=== PATIENT | male | born 1960 | race American Indian/Alaskan Native ===

== ENCOUNTER 2018-05-16 15:14 | Emergency (ER) | payer SELFPAY ==
[2018-05-16] MEDS ORDERED: ANTIVERT PO ONE (16:35)
--- NOTE | 2018-05-16 16:36 | Emergency Department Report ---
HPI - General Chief Complaint: Dizziness Time Seen by Provider: 05/16/18 16:31 - HPI HPI: Room 32 The patient is a 57-year-old male presenting with a chief complaint of vertigo. The patient states his symptoms began 3 days ago in the morning he began to feel dizzy as if the room was spinning. Patient states he went to work and tried a home remedy of vinegar and coconut water but this led to nausea and vomiting. Patient states his symptoms persisted until yesterday with dizziness has improved but the patient states she still feels off balance when he walks. Patient denies headache chest pain or shortness of breath. Patient denies any preceding trauma. Patient denies any history of fever. The patient states he has noticed that changing position sometimes brings on symptoms. When asked how he is feeling now the patient states he feels a little lightheaded and off balance. Location: [See above] Duration: 3 days Quality: Vertiginous Severity: Moderate Modifying factors: [see above] Context: [see above] Mode of transportation: Unknown ED Past Medical Hx - Past Medical History Hx Hypertension: Yes Hx Congestive Heart Failure: Yes - Surgical History Past Surgical History?: No - Family History Family history: no significant - Social History Smoking Status: Former Smoker (none 15 years) Substance Use Type: None (denies illicit drug use) - Medications Home Medications: Home Medications Medication Instructions Recorded Confirmed Last Taken Type Meclizine [Antivert] 25 mg PO TID PRN #20 tablet 05/16/18 Unknown Rx ED Review of Systems ROS: Stated complaint: DIZZY LIGHT HEADED/OFF BALANCE Other details as noted in HPI Constitutional: denies: fever Eyes: denies: eye pain ENT: denies: throat pain Respiratory: denies: shortness of breath Cardiovascular: denies: chest pain Endocrine: no symptoms reported Gastrointestinal: nausea, vomiting. denies: abdominal pain Genitourinary: denies: dysuria Musculoskeletal: back pain (chronic) Neurological: vertigo. denies: headache Physical Exam - Physical Exam Vital Signs: Vital Signs 05/16/18 15:31 Temperature 98.7 F Pulse Rate 57 L Respiratory 20 Rate Blood Pressure 196/81 O2 Sat by Pulse 97 Oximetry Physical Exam: GENERAL: The patient is well-developed well-nourished male sitting on stretcher not appearing to be in acute distress. [] HEENT: Normocephalic. Atraumatic. Extraocular motions are intact. Patient has moist mucous membranes. No nystagmus noted NECK: Supple. No meningitic signs are noted. Trachea midline CHEST/LUNGS: Clear to auscultation. There is no respiratory distress noted. HEART/CARDIOVASCULAR: Regular. There is no tachycardia. There is no gallop rub or murmur. ABDOMEN: Abdomen is soft, nontender. Patient has normal bowel sounds. There is no abdominal distention. SKIN: There is no rash. There is no edema. There is no diaphoresis. NEURO: The patient is awake, alert, and oriented. The patient is cooperative. The patient has no focal neurologic deficits. The patient has normal speech. Cranial nerves II through XII grossly intact, no drift. No dysmetria noted with [id number] bilaterally MUSCULOSKELETAL: There is no evidence of acute injury. ED Course Vital Signs 05/16/18 15:31 Temperature 98.7 F Pulse Rate 57 L Respiratory 20 Rate Blood Pressure 196/81 O2 Sat by Pulse 97 Oximetry - Reevaluation(s) Reevaluation #1: 05/16/18 20:53 Patient's blood pressure improved to systolic 160s after hydralazine. Patient feels improved. ED Medical Decision Making - Lab Data Result diagrams: 05/16/18 16:47 05/16/18 16:47 - EKG Data -: EKG Interpreted by Me EKG shows normal: sinus rhythm Rate: normal - EKG Data When compared to previous EKG there are: changes noted Interpretation: nonspecific ST-T wave jarad (new T-wave inversions in leads V4 V5 , 2 and 3) - Differential Diagnosis central vertigo, peripheral vertigo, symptomatic anemia Critical care attestation.: If time is entered above; I have spent that time in minutes in the direct care of this critically ill patient, excluding procedure time. ED Disposition Clinical Impression: Vertigo, Hypertension Disposition: - TO HOME OR SELFCARE Is pt being admited?: No Does the pt Need Aspirin: No Condition: Stable Instructions: Hypertension (ED) Additional Instructions: Return to the emergency department immediately should you develop worsening symptoms, fever, inability to tolerate food or liquid or any other concerns. Prescriptions: Meclizine [Antivert] 25 mg PO TID PRN #20 tablet PRN Reason: Vertigo Referrals: PRIMARY CARE, [Primary Care Provider] - 3-5 Days [facility] [Outside] - [place] (Please follow up with your primary physician as soon as possible for further blood pressure management) Time of Disposition: 20:55
[2018-05-16 17:00] LABS: Basophils # (Auto) 0.1 K/mm3 (0.0-0.1); Basophils % (Auto) 1.1 % (0.0-1.8); Eosinophils # (Auto) 0.1 K/mm3 (0.0-0.4); Eosinophils % (Auto) 1.3 % (0.0-4.3); Hematocrit 40.2 % (35.5-45.6); Hemoglobin 13.6 gm/dl (11.8-15.2); Lymphocytes # (Auto) 1.1 K/mm3 (1.2-5.4); Lymphocytes % (Auto) 19.4 % (13.4-35.0); Mean Corpuscular HGB Conc 34 % (32-34); Mean Corpuscular Hemoglobin 29 pg (28-32); Mean Corpuscular Volume 86 fl (84-94); Monocytes # (Auto) 0.5 K/mm3 (0.0-0.8); Monocytes % (Auto) 9.6 % (0.0-7.3); Platelet Count 202 K/mm3 (140-440); Red Blood Count 4.68 M/mm3 (3.65-5.03); Red Cell Distribution Width 14.1 % (13.2-15.2)
[2018-05-16 17:07] LABS: INR 1.01 (0.87-1.13)
[2018-05-16 17:08] LABS: Partial Thromboplastin Time 29.7 Sec. (24.2-36.6)
[2018-05-16 17:13] LABS: Creatine Kinase MB 3.7 ng/mL (0.0-4.0)
[2018-05-16 17:15] LABS: BUN/Creatinine Ratio 14; Blood Urea Nitrogen 17 mg/dL (9-20); Calcium 9.1 mg/dL (8.4-10.2); Hemolysis Index 5
--- NOTE | 2018-05-16 18:02 | Cat Scan Report ---
FINAL REPORT EXAM: CT HEAD/BRAIN WO CON HISTORY: vertigo TECHNIQUE: CT head without contrast PRIORS: None. FINDINGS: No acute intra-axial or extra-axial hemorrhage is identified. There is no evidence of midline shift or mass effect. The ventricles and sulci are within normal limits. Chandra-white matter differentiation is intact. No acute parenchymal abnormalities seen. Bony calvarium is grossly intact. Visualized portions of the mastoids and paranasal sinuses are unremarkable. IMPRESSION: Negative CT head
[2018-05-16] MEDS ORDERED: CATAPRES PO ONE (18:14)
[2018-05-16] MEDS ORDERED: CATAPRES ONE (18:19)
[2018-05-16] MEDS ORDERED: APRESOLINE IV ONE (19:50)
[2018-05-16 21:27] VITALS: BP 164/67
== END 2018-05-16 20:58 | disposition home or self-care (01) ==
LOC: ED 15:14
DX: R42 Dizziness and giddiness (principal); I11.0 Hypertensive heart disease with heart failure; I50.9 Heart failure, unspecified; Z87.891 Personal history of nicotine dependence; Z88.6 Allergy status to analgesic agent
CPT/HCPCS: 36415; 70450; 80048; 82550; 82553; 84484; 85025; 85610; 85730; 93005; 93010; 96374; 99284; J0360

== ENCOUNTER 2019-02-09 00:33 | Inpatient (IN) | payer SELFPAY ==
[2019-02-09] MEDS ORDERED: ASPIRIN PO ONE (00:46)
[2019-02-09 01:13] LABS: Basophils # (Auto) 0.1 K/mm3 (0.0-0.1); Basophils % (Auto) 1.4 % (0.0-1.8); Eosinophils # (Auto) 0.1 K/mm3 (0.0-0.4); Eosinophils % (Auto) 1.4 % (0.0-4.3); Hematocrit 34.3 % (35.5-45.6); Hemoglobin 11.4 gm/dl (11.8-15.2); Lymphocytes # (Auto) 0.7 K/mm3 (1.2-5.4); Lymphocytes % (Auto) 14.4 % (13.4-35.0); Mean Corpuscular HGB Conc 33 % (32-34); Mean Corpuscular Volume 85 fl (84-94); Monocytes # (Auto) 0.5 K/mm3 (0.0-0.8); Monocytes % (Auto) 11.2 % (0.0-7.3); Platelet Count 218 K/mm3 (140-440); Red Blood Count 4.04 M/mm3 (3.65-5.03); Red Cell Distribution Width 17.8 % (13.2-15.2)
[2019-02-09 01:39] LABS: BUN/Creatinine Ratio 19; Blood Urea Nitrogen 26 mg/dL (9-20); Calcium 8.5 mg/dL (8.4-10.2); Hemolysis Index 18
--- NOTE | 2019-02-09 02:08 | XRay Report ---
PROCEDURE: Chest. TECHNIQUE: Portable AP view. HISTORY: Chest pain. COMPARISONS: None. FINDINGS: The heart size is enlarged. The lungs are clear and well expanded. There are no pleural effusions. Th e soft tissues and regional skeleton are unremarkable. IMPRESSION: Cardiomegaly. This document is electronically signed by Jersey Hernandez MD., February 09 2019 02:06:56 AM ET
[2019-02-09] MEDS ORDERED: ASPIRIN ONE (02:52)
[2019-02-09] MEDS ORDERED: LASIX IV ONE (03:14)
[2019-02-09] MEDS ORDERED: MORPHINE IV ONE (03:17)
[2019-02-09] MEDS ORDERED: ZOFRAN IV ONE (03:18)
--- NOTE | 2019-02-09 04:15 | Emergency Department Report ---
ED Chest Pain HPI - General Chief Complaint: Chest Pain Stated Complaint: CHEST PAIN JOE Time Seen by Provider: 02/09/19 01:11 Source: patient Mode of arrival: Ambulatory Limitations: No Limitations - History of Present Illness Initial Comments: 58-year-old presents to the ED with chest pain chest pain, onset 1 hour prior to evaluation while at rest, Location: mid chest Radiation: none, Severity now (0-10): 2, Severity at worst (0-10): 8 Duration: 5 minutes characterized as: Pressure. The pain is relieved with aspirin, Patient denies exertional pain, patient denies pleuritic pain. Pain is associated with shortness of breath, leg swelling, PND, and orthopnea. Patient denies nausea/vomiting, no diaphoresis. MD Complaint: chest pain Onset/Timin -: Gradual, days(s) Onset: during rest, during exertion Pain Location: substernal Pain Radiation: none Severity: severe Severity scale (0 -10): 6 Quality: tightness Consistency: constant Worsens With: exertion - Related Data Previous Rx's Medication Instructions Recorded Last Taken Type Meclizine [Antivert] 25 mg PO TID PRN #20 tablet 05/16/18 Unknown Rx Allergies Allergy/AdvReac Type Severity Reaction Status Date / Time ibuprofen AdvReac Anaphylaxis Verified 05/16/18 18:53 Heart Score - HEART Score History: Moderately suspicious EKG: Non-specific Age: 45-65 Risk factors: > 3 risk factors or hx of atherosclerotic disease Troponin: < normal limit HEART Score: 5 ED Review of Systems ROS: Stated complaint: CHEST PAIN JOE Other details as noted in HPI Comment: All other systems reviewed and negative Eyes: denies: eye pain ENT: denies: ear pain, throat pain Respiratory: SOB with exertion Cardiovascular: chest pain, palpitations, dyspnea on exertion, edema ED Past Medical Hx - Past Medical History Previous Medical History?: Yes Hx Hypertension: Yes Hx Congestive Heart Failure: Yes Additional medical history: Obesity, Herniated disc, - Surgical History Past Surgical History?: No - Social History Smoking Status: Never Smoker Substance Use Type: None - Medications Home Medications: Home Medications Medication Instructions Recorded Confirmed Last Taken Type Meclizine [Antivert] 25 mg PO TID PRN #20 tablet 05/16/18 Unknown Rx ED Physical Exam - General Limitations: No Limitations General appearance: alert, in no apparent distress - Head Head exam: Present: atraumatic, normocephalic - Eye Eye exam: Present: normal appearance - ENT ENT exam: Present: normal exam, normal orophraynx - Neck Neck exam: Present: normal inspection - Cardiovascular Cardiovascular Exam: Present: regular rate, normal rhythm - GI/Abdominal GI/Abdominal exam: Present: soft - Extremities Exam Extremities exam: Present: pedal edema ED Course Vital Signs 02/09/19 02/09/19 02/09/19 00:40 01:20 03:49 Temperature 97.6 F Pulse Rate 94 H 54 L Respiratory 22 16 16 Rate Blood Pressure 182/82 Blood Pressure 152/74 [Left] O2 Sat by Pulse 94 95 Oximetry ED Medical Decision Making - Lab Data Result diagrams: 02/09/19 00:52 02/09/19 00:52 - EKG Data -: EKG Interpreted by Me EKG shows normal: sinus rhythm Rate: normal - EKG Data Interpretation: nonspecific ST-T wave jarad 02/09/19 04:19 RATE 60 - Medical Decision Making Patient received Lasix, aspirin, Motrin and Zofran, with minimal relief. We'll be admitted to the hospital for further treatment. - Differential Diagnosis CHF exacerbation, ACS Critical care attestation.: If time is entered above; I have spent that time in minutes in the direct care of this critically ill patient, excluding procedure time. ED Disposition Clinical Impression: Acute exacerbation of CHF (congestive heart failure) Qualifiers: Heart failure type: systolic Qualified Code(s): I50.23 - Acute on chronic systolic (congestive) heart failure Disposition: OP ADMIT IP TO THIS HOSP Is pt being admited?: Yes Does the pt Need Aspirin: No Condition: Stable Referrals: GRETEL MALCOLM MD [Primary Care Provider] - 3-5 Days
[2019-02-09] MEDS ORDERED: TYLENOL PO PRN (05:09)
[2019-02-09] MEDS ORDERED: ZOFRAN IV PRN (05:09)
[2019-02-09] MEDS ORDERED: SODIUM CHLORIDE FLUSH SYRINGE 10 ML IV PRN (05:09)
--- NOTE | 2019-02-09 05:10 | History and Physical Report ---
History of Present Illness Date of examination: 02/09/19 History of present illness: 58 -year-old man with a history of CHF, hypertension comes emergency room with complaints of shortness of breath, dyspnea on exertion, PND and orthopnea worsening lower extremity edema. Also complaining of chest pain in the left substernal area intermittently 2 weeks. Pain is sharp, intermittent lasting 1- 2 hours, intensity probable 10, no radiation, cannot identify exacerbating or leaving factors. Denies nausea vomiting, diaphoresis or palpitation Review of systems Constitutional: no weight loss, chills, fever Ears, eyes, nose, mouth and throat: no nasal congestion, no nasal discharge, no sinus pressure, no vision change, no red eye. Neck: No neck pain or rigidity. Cardiovascular: no palpitations Respiratory: no cough Gastrointestinal: no hematochezia, abdominal pain Genitourinary : no frequency , no hematuria Musculoskeletal: no joint swelling or muscle ache Integumentary: no rash, no pruritis Neurological: no parathesias, no focal weakness Endocrine: no cold or heat intolerance, no polyuria or polydipsia Hematologic/Lymphatic: no easy bruising, no easy bleeding, no gland swelling Allergic/Immunologic: no urticaria, no angioedema. PAST MEDICAL HISTORY:CHF, hypertension PAST SURGICAL HISTORY: None SOCIAL HISTORY: Denies alcohol, drugs, tobacco FAMILY HISTORY: Hypertension Medications and Allergies Allergies Allergy/AdvReac Type Severity Reaction Status Date / Time ibuprofen AdvReac Anaphylaxis Verified 05/16/18 18:53 Home Medications Medication Instructions Recorded Confirmed Last Taken Type Atenolol 100 mg PO DAILY 02/09/19 02/09/19 1 Day Ago History ~02/08/19 Furosemide 40 mg PO DAILY 02/09/19 02/09/19 1 Day Ago History ~02/08/19 Losartan 100 mg PO DAILY 02/09/19 02/09/19 1 Day Ago History ~02/08/19 Active Meds: Active Medications Enoxaparin Sodium (Lovenox) 30 mg SUB-Q QDAY NEO Exam - Physical Exam Narrative exam: General Apperance: The patient lying in bed, breathing comfortable HEENT: Normocephalic, atraumatic. Pupils equally round and reactive to light, EOMI, no sclericterus or JVD or thyromegaly or nodule. , no carotid bruit, mucous membranes moist, no exudate or erythema Heart: S1-S2, regular is rhythm Lungs: Clear to auscultation bilaterally, breathing comfortable Abdomen: Positive bowel sounds, soft, nontender, nondistended, no organomegaly Extremities: 3+ edema of the thighs, no cyanosis clubbing Skin: no rash, nodule, warm and dry Neuro: cranial nerves 2-12 intact, speech is fluent, motor/sensory intact - Constitutional Vitals: Temp Pulse Resp BP Pulse Ox 97.6 F 64 18 180/99 86 02/09/19 00:40 02/09/19 04:31 02/09/19 04:31 02/09/19 04:31 02/09/19 04:31 Results - Labs CBC & Chem 7: 02/09/19 00:52 02/09/19 00:52 Labs: Abnormal lab results 02/09/19 02/09/19 Range/Units 00:52 00:52 Hgb 11.4 L (11.8-15.2) gm/dl Hct 34.3 L (35.5-45.6) % RDW 17.8 H (13.2-15.2) % Rice % (Auto) 11.2 H (0.0-7.3) % Lymph # 0.7 L (1.2-5.4) K/mm3 Seg Neutrophils % 71.6 H (40.0-70.0) % BUN 26 H (9-20) mg/dL NT-Pro-B Natriuret Pep 42642 H (0-900) pg/mL - Imaging and Cardiology EKG: image reviewed Chest x-ray: image reviewed Assessment and Plan Assessment CHF exacerbation Chest pain Hypertension Plan Diurese with IV Lasix Monitor I's and O's, daily weights Check cardiac enzymes, echo, consult cardiology Start beta michelle, aspirin, FACUNDO inhibitor Obtain stress test, DVT prophylaxis
[2019-02-09] MEDS ORDERED: APRESOLINE IV PRN (06:05)
[2019-02-09 06:29] LABS: Creatine Kinase MB 5.6 ng/mL (0.0-4.0)
[2019-02-09] MEDS ORDERED: LASIX ONE (06:30)
[2019-02-09] MEDS: LASIX IV SCH ×2 (06:32→17:47)
[2019-02-09] MEDS ORDERED: LEXISCAN IV ONE ×2 (07:36→07:49)
[2019-02-09] MEDS ORDERED: LOVENOX SUB-Q SCH (10:00)
[2019-02-09] MEDS ORDERED: ATENOLOL 100 MG PO SCH (10:00)
[2019-02-09] MEDS ORDERED: COREG PO SCH (10:00)
[2019-02-09] MEDS ORDERED: BABY ASPIRIN PO SCH (10:00)
[2019-02-09] MEDS ORDERED: NON-FORMULARY (Losartan 100 MG) PO SCH (10:00)
[2019-02-09] MEDS ORDERED: TENORMIN PO SCH (10:00)
[2019-02-09] MEDS ORDERED: ZESTRIL PO SCH (10:00)
--- NOTE | 2019-02-09 11:12 | Event Note ---
Date: 02/09/19 This is a follow-up from an admission earlier this morning. We will continue plan as outlined in H&P. Total visit time 25 minutes with greater than 50% spent in correlation of care and counseling.
--- NOTE | 2019-02-09 11:27 | Event Note ---
Date: 02/09/19 Detailed cardiology consultation dictated. S/p lexiscan MPI stress test this AM which was positive for ischemia. Echo reviewed - EF 30-35%. Will plan for LHC in AM for definitive diagnosis. NPO after MN. Edson CUELLAR NP / DR. FORD
[2019-02-09] MEDS: COZAAR PO SCH (11:54)
[2019-02-09] MEDS: LOVENOX SUB-Q SCH (11:54)
[2019-02-09] MEDS: SODIUM CHLORIDE FLUSH SYRINGE 10 ML IV SCH ×2 (11:55→22:45)
[2019-02-09] MEDS ORDERED: NACL 0.9% 500 ML 500 ML IV SCH (12:00)
[2019-02-09] MEDS: COREG PO SCH (22:45)
[2019-02-09] MEDS: PERCOCET 5/325 PO PRN (22:47)
--- NOTE | 2019-02-10 00:04 | Treadmill Report ---
NUCLEAR STRESS TEST REFERRING PHYSICIAN: Hospitalist service. PROTOCOL: The patient was brought to the stress lab in postabsorptive state, given 10 mCi of technetium 99m at rest. The patient underwent rest imaging. The patient underwent Lexiscan stress test. At peak stress, the patient was given 26 mCi of technetium 99m. Shortly thereafter, the patient underwent stress imaging. Raw imaging reveals mild GI artifact. No significant motion artifacts. SPECT imaging examined carefully in horizontal long axis, vertical long axis, short axis views. There is a dilated LV chamber size with a moderate to large inferior defect, partially reversible, severe global left ventricular hypokinesis. Calculated ejection fraction of 25%. CONCLUSIONS: Abnormal myocardial perfusion scan with a moderate to large partially reversible inferior apical defect consistent with questionable prior GA with periinfarct ischemia. Gated wall motion reveals mildly dilated left ventricular chamber size with severe global left ventricular hypokinesis. Calculated ejection fraction of 25%. Suggest clinical correlation. JOB# [id number] MALIKA/CARMEN
[2019-02-10 05:23] LABS: Calcium 8.4 mg/dL (8.4-10.2)
[2019-02-10 05:26] LABS: Hemoglobin 10.4 gm/dl (11.8-15.2); Mean Corpuscular HGB Conc 32 % (32-34); Mean Corpuscular Volume 86 fl (84-94); Platelet Count 192 K/mm3 (140-440); Red Blood Count 3.71 M/mm3 (3.65-5.03); Red Cell Distribution Width 18.4 % (13.2-15.2)
[2019-02-10] MEDS: LASIX IV SCH (06:00)
[2019-02-10] MEDS: PERCOCET 5/325 PO PRN (06:01)
[2019-02-10 06:18] LABS: RBC Morphology Normal; Total Cells Counted 100
[2019-02-10 07:41] LABS: INR 1.18 (0.87-1.13)
[2019-02-10] MEDS ORDERED: ASPIRIN PO SCH (10:00)
[2019-02-10] MEDS ORDERED: HEPARIN/NS 5000 UNIT/500ML(CATH LAB) 1,000 ML IR ONE (10:19)
[2019-02-10] MEDS ORDERED: CALAN ONE (10:19)
[2019-02-10] MEDS ORDERED: XYLOCAINE 2% INFILTRATI ONE (10:19)
[2019-02-10] MEDS ORDERED: NITROGLYCERIN SYRINGE 3 ML ONE (10:20)
[2019-02-10] MEDS ORDERED: NACL 0.9% 500 ML 500 ML ONE (10:21)
[2019-02-10] MEDS ORDERED: SUBLIMAZE ONE (10:57)
[2019-02-10] MEDS ORDERED: VERSED ONE (10:57)
[2019-02-10] MEDS: HEPARIN 10,000 UNITS/10 ML ONE ×2 (11:07→11:21)
[2019-02-10] MEDS ORDERED: APRESOLINE ONE (11:34)
[2019-02-10] MEDS ORDERED: SOLU-Medrol ONE (11:42)
[2019-02-10] MEDS ORDERED: BENADRYL ONE (11:42)
--- NOTE | 2019-02-10 11:44 | Progress Note ---
Assessment and Plan Pt s/p [facility] this AM which showed multivessel CAD. Pt to be tx to [place] where Dr. Myles will accept for possible CABG. The patient has been seen in conjunction with Dr. Scott who agrees with the assessment and plan of care. - Patient Problems (1) Chest pain Current Visit: Yes Status: Acute (2) CAD (coronary artery disease) Current Visit: Yes Status: Chronic (3) Acute HFrEF (heart failure with reduced ejection fraction) Current Visit: Yes Status: Acute (4) Cardiomyopathy Current Visit: Yes Status: Chronic Subjective Date of service: 02/10/19 Principal diagnosis: HF; cp Interval history: pt for [facility] today Objective Last Vital Signs Temp 97.3 F L 02/10/19 03:50 Pulse 47 L 02/10/19 03:50 Resp 20 02/10/19 03:50 BP 151/79 02/10/19 03:50 Pulse Ox 97 02/10/19 08:02 - Physical Examination General: No Apparent Distress HEENT: Positive: PERRL, Normocephaly, Mucus Membranes Moist Neck: Positive: neck supple, trachea midline Cardiac: Positive: Reg Rate and Rhythm, S1/S2 Lungs: Positive: Decreased Breath Sounds Neuro: Positive: Grossly Intact Abdomen: Negative: Tender Skin: Negative: Rash, Wound Musculoskeletal: No Pain Extremities: Present: +2 Edema (BLE) - Labs and Meds Coagulation 02/10/19 Range/Units 06:58 PT 14.7 (12.2-14.9) Sec. INR 1.18 H (0.87-1.13) CBC 02/10/19 Range/Units 04:40 WBC 4.0 L (4.5-11.0) K/mm3 RBC 3.71 (3.65-5.03) M/mm3 Hgb 10.4 L (11.8-15.2) gm/dl Hct 32.0 L (35.5-45.6) % Plt Count 192 (140-440) K/mm3 Comprehensive Metabolic Panel 02/10/19 Range/Units 04:40 Sodium 142 (137-145) mmol/L Potassium 4.1 (3.6-5.0) mmol/L Chloride 102.5 (98-107) mmol/L Carbon Dioxide 31 H D (22-30) mmol/L BUN 24 H (9-20) mg/dL Creatinine 1.5 (0.8-1.5) mg/dL Glucose 106 H (75-100) mg/dL Calcium 8.4 (8.4-10.2) mg/dL - Imaging and Cardiology EKG: image reviewed - Telemetry EKG Rhythm: Sinus Rhythm
[2019-02-10] MEDS ORDERED: PEPCID IV ONE ×2 (11:53→12:52)
--- NOTE | 2019-02-10 12:25 | Discharge Summary ---
Providers - Providers Date of Admission: 02/09/19 05:08 Date of discharge: 02/10/19 Attending physician: SHARRON MENA 02/09/19 05:09 Consult to Physician [CONS] Routine Comment: Consulting Provider: LISA DELEON Physician Instructions: Reason For Exam: chf/cp 02/09/19 17:27 Consult to Wound/ET Nurse [CONS] Routine Reason For Exam: wound eval of Left LE; Wound present on admission 02/10/19 11:41 Consult to Cardiac Rehabilitation [CONS] Routine Reason For Exam: Cardiac Rehab Evaluation [facility] Reason for admission: cp Condition: Stable Hospital course: 58 -year-old man with a history of CHF, hypertension comes emergency room with complaints of shortness of breath, dyspnea on exertion, PND and orthopnea worsening lower extremity edema. Also complained of chest pain in the left substernal area intermittently 2 weeks. Pain described as sharp, intermittent lasting 1-2 hours intermittently, intensity probable 10, no radiation and could not identify exacerbating or leaving factors. Patient underwent Lexiscan MPI s tress test which was positive for ischemia. Echocardiogram was obtained which revealed EF of 30-35%. Cardiology saw the patient in consultation. Patient with new diagnosis of ischemic cardiomyopathy warranted LHC. LHC this AM which showed multivessel CAD. Pt to be tx to [place] where Dr. Myles will accept for possible CABG. Dedicated discharge time 35 minutes. Disposition: [id number] Time spent for discharge: 35 - Discharge Diagnoses (1) Ischemic dilated cardiomyopathy Status: Acute (2) Acute HFrEF (heart failure with reduced ejection fraction) Status: Acute (3) Acute exacerbation of CHF (congestive heart failure) Status: Acute Qualifiers: Heart failure type: systolic Qualified Code(s): I50.23 - Acute on chronic systolic (congestive) heart failure (4) Chest pain Status: Acute (5) CAD (coronary artery disease) Status: Chronic Core Measure Documentation - Palliative Care Palliative Care/ Comfort Measures: Not Applicable - Core Measures Any of the following diagnoses?: heart failure - Heart Failure Discharge Requirements FACUNDO/ARB for LVSD if EF <40%: Yes Beta michelle at discharge: Yes Exam - Constitutional Vitals: Temp Pulse Resp BP Pulse Ox 97.3 F L 56 L 20 135/78 97 06/28/19 11:58 02/10/19 12:00 02/10/19 12:00 02/10/19 12:00 02/10/19 12:00 General appearance: Present: no acute distress, well-nourished - EENT Eyes: Present: PERRL ENT: hearing intact, clear oral mucosa - Neck Neck: Present: supple, normal ROM - Respiratory Respiratory effort: normal Respiratory: bilateral: CTA - Cardiovascular Heart Sounds: Present: S1 & S2. Absent: rub, click - Extremities Extremities: pulses symmetrical, No edema Peripheral Pulses: within normal limits - Abdominal General gastrointestinal: Present: soft, non-tender, non-distended, normal bowel sounds Male genitourinary: Present: normal - Integumentary Integumentary: Present: clear, warm, dry - Musculoskeletal Musculoskeletal: gait normal, strength equal bilaterally - Psychiatric Psychiatric: appropriate mood/affect, intact judgment & insight - Neurologic Neurologic: CNII-XII intact, moves all extremities Plan Activity: advance as tolerated Weight Bearing Status: Weight Bear as Tolerated Diet: low fat, low cholesterol, low salt Follow up with: GRETEL MALCOLM MD [Primary Care Provider] - 3-5 Days
[2019-02-10] MEDS: COZAAR PO SCH (14:13)
[2019-02-10] MEDS: COREG PO SCH (14:13)
[2019-02-10] MEDS: SODIUM CHLORIDE FLUSH SYRINGE 10 ML IV SCH (14:14)
[2019-02-10] MEDS: LOVENOX SUB-Q SCH (14:14)
--- NOTE | 2019-02-10 14:32 | Cardiac Catherization Report ---
CARDIAC CATH REFERRING PHYSICIAN: Dr. David Madden. INDICATION FOR PROCEDURE: The patient is a pleasant 58-year-old -Angolan gentleman with a finding of a severe cardiomyopathy, abnormal nuclear stress test, referred for left heart catheterization. Risks, benefits, and potential alternatives explained at length prior to obtaining informed consent. PROCEDURE IN DETAIL: The patient was brought to the catheterization lab in a postabsorptive state, prepped and draped in sterile fashion. Zhao's test in right hand was normal. A 2 mL of 2% lidocaine was used to anesthetize the right wrist. A standard 6-Telugu hydrophilic sheath used to cannulate the right radial artery via modified Seldinger technique. All exchanges performed to exchange a J-tip guidewire. JL3.5 catheter used to engage the left main. No dampening or ventricularization. Cineangiography performed in all projections. JR4 catheter was used to cross the aortic valve under fluoroscopic guidance. Left ventriculography performed in 30 SHOOK and 30 SYRIAC projections via hand injections, catheter flushed. Manual pullback performed with continuous pressure monitoring. Catheter used to engage the right coronary. No dampening or ventricularization. Cineangiography performed in all projections. The left main was found to be significant. IVUS is performed. A JL4.5 guide is used to engage the esophagus without difficulty. Additional heparin is given. A Vista wire is used to cross into the distal LAD. Multiple passes of intravascular ultrasound are performed, probe is removed. Wire is removed. Final angiogram reveals no complications. I directly supervised the administration of moderate sedation with fentanyl and Versed from 11:06 to 11:40 a.m. There are no immediate complications. The patient tolerated the procedure well. DATA: The patient remained in sinus bradycardia throughout the procedure. No pauses or arrhythmias noted. CORONARY ANATOMY: This is a right dominant system. Right coronary is a large vessel, courses AV groove, distally bifurcates in the posterior and posterolateral branch. The body of the right coronary is without significant disease, scattered luminal irregularities, distal posterolateral with a 90% stenosis noted. The left main with an angiographic 60-70% stenosis distally, 80% ostial left circumflex stenosis is identified. There is an occluded OM2 branch. LAD itself has scattered luminal irregularities, but no occlusive disease identified. There is an 80% stenosis of an ostial second diagonal. Left ventriculography reveals severe global left ventricular hypokinesis, estimated ejection fraction of 20-25%, moderately dilated LV chamber size, elevated LVEDP of 30-35 mmHg. Aortic pressure is 170 systolic. Intravascular ultrasound on the left main reveals significant disease with a minimal luminal area of 4-5 mm2. This is anatomically significant. CONCLUSIONS: 1. Severe multivessel coronary artery disease, 70% distal left main with IVUS revealing a minimal luminal area of 4-5 mm2, 70% ostial second diagonal, occluded OM to 90% distal right posterolateral. 2. Mildly dilated left ventricular chamber size with severe global left ventricular hypokinesis with estimated ejection fraction 20-25%. 3. Mildly to moderately elevated LVEDP. 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 Control hypertension, diuresis. Recommend complete revascularization with coronary bypass surgery. It should be noted the patient is a known diabetic, the patient will be transferred to [facility] for the consideration of the same, he is clinically stable, chest pain free. No overt symptoms at this point. Standard radial care. Results of procedure explained to the patient. All questions and concerns were addressed. JOB# [id number] SBMandeep/CARMEN
[2019-02-10 16:32] VITALS: BP 144/56
--- NOTE | 2019-02-10 22:22 | Consultation ---
Consultation is requested by Dr. Palma Arnold. HISTORY OF PRESENT ILLNESS: This is a 58-year-old -Bangladeshi male who was admitted to the hospital with complaints of sudden onset of severe left-sided chest pain as well as shortness of breath for further evaluation and management. History is obtained from the patient. The patient states that he has been diagnosed to have congestive heart failure over 2 years ago. He has a history of hypertension but he has not been to see any senior counsel commercial. The patient said that he does not remember having any cardiac workup done in the past. According to him, he has not been feeling well for the past 2-3 weeks. He has been noticing progressively worsening shortness of breath and edema of feet, followed by orthopnea and PND. The patient denied any palpitations or claudications. Mild dizziness noted. No syncope. He also denied any fever, cough or chills. On the day of admission, he started experiencing severe left-sided chest pain, which was sharp in nature. No definite radiation to the neck, throat, or arms. No other associated features with the chest pain other than shortness of breath. With these complaints, the patient was seen in the Emergency Room. An EKG done which showed nonspecific ST-T changes. The patient was suspected to have congestive heart failure and was hospitalized for further management. At this time, the patient stated that he is feeling better. He is still dyspneic. He still has some cough. He still complains of orthopnea. The patient denied any known coronary artery disease or myocardial infarction in the past. PAST MEDICAL HISTORY: Positive for hypertension and history of congestive heart failure. FAMILY HISTORY: Positive for hypertension. SOCIAL HISTORY: The patient is a nonsmoker and nonalcoholic. ALLERGIES: IBUPROFEN. MEDICATIONS: At the time of admission, the patient was on atenolol 100 mg p.o. daily, furosemide 40 mg p.o. daily and losartan 100 mg p.o. daily. REVIEW OF SYSTEMS: CARDIOVASCULAR: As described above. RESPIRATORY: The patient denied any history of wheezing, asthma. No GI or complaints at this time. PHYSICAL EXAMINATION: GENERAL: This is a 58-year-old male, well-nourished, in no acute distress at the present time. The patient is conscious, alert, oriented, afebrile. VITAL SIGNS: Normal and stable. His blood pressure was initially elevated at 180/100, heart rate was 64 per minute and regular. SKIN: Warm and dry. HEENT: Pupils are reactive. NECK: Supple. Both carotids are well palpable. No definite bruit. No JVD. CHEST: Lungs, the patient has coarse rales at the lung bases with some expiratory rhonchi. HEART: S1, S2 heard well. Grade 1/6 systolic murmur noted at the left sternal border and aortic area. No diastolic murmur, no gallop rhythm. ABDOMEN: Soft and nontender. No palpable masses. Bowel sounds heard normally. EXTREMITIES: He does have trace edema bilaterally. No calf tenderness. Peripheral pulses are palpable. NEUROLOGICAL: Grossly within normal limits. RECTAL: Not done at this time. IMAGING: EKG done showed normal sinus rhythm, nonspecific ST-T changes. LABORATORY DATA: Hemoglobin was 11.4 with hematocrit of 34.3. The patient's BUN was 26 with a creatinine of 1.4, potassium was 3.7 and glucose was 98. IMPRESSION: 1. Congestive heart failure. 2. Hypertension. 3. Chest pain, ? cause, atypical for angina pectoris. 4. History of congestive heart failure. This is a 58-year-old -Bangladeshi male with a history of hypertension and prior history of congestive heart failure, was admitted to the hospital with complaints of chest pain and shortness of breath, orthopnea and PND. His history is consistent with decompensated congestive heart failure. Etiology is unclear. It may be secondary to uncontrolled hypertension. I agree with the present management of diuresing. Control the blood pressure. We will obtain echocardiogram to assess LV function. We will also consider doing a Lexiscan thallium test to rule out any ischemic etiology for his chest pain and congestive heart failure. Pros and cons discussed with the patient. The importance of keeping the blood pressure under control and staying on a strict diet explained to the patient. He expressed understanding. We will follow up on the stress test and echocardiogram. Continue present medications. Thank you very much for this consultation. We will follow the patient along with you. JOB# [id number] EDD/CARMEN
== END 2019-02-10 18:01 | disposition short-term general hospital (02) | DRG 287 ==
LOC: ED 00:33 → 4A 05:08
PROVIDERS: ADMIT Internal Medicine; ATTEND Hospitalist
PROC: 4A023N7 Measurement of Cardiac Sampling and Pressure, Left Heart, Percutaneous Approach (ICD-10-PCS; principal; 2019-02-10)
PROC: B2111ZZ Fluoroscopy of Multiple Coronary Arteries using Low Osmolar Contrast (ICD-10-PCS; 2019-02-10)
PROC: B2151ZZ Fluoroscopy of Left Heart using Low Osmolar Contrast (ICD-10-PCS; 2019-02-10)
DX: I11.0 Hypertensive heart disease with heart failure (principal); I25.10 Atherosclerotic heart disease of native coronary artery without angina pectoris; I50.23 Acute on chronic systolic (congestive) heart failure; I42.9 Cardiomyopathy, unspecified; E66.9 Obesity, unspecified; I25.5 Ischemic cardiomyopathy
CPT/HCPCS: 36415; 71045; 78452; 80048; 82550; 82553; 82962; 83880; 84484; 85007; 85025; 85610; 92978; 93005; 93010; 93017; 93306; 93458; 94760; 96374; 96375; 99285; G0378; A9502; C1753; C1769; C1887; C1894; J0360; J1200; J1644; J1650; J1940; J2250; J2270; J2405; J2785; J2930; J3010; J7040; Q9967

== ENCOUNTER 2021-08-18 19:24 | Emergency (ER) | payer MEDICARE ==
[2021-08-19] MEDS ORDERED: FUROSEMIDE 20 MG TAB PO ONE (03:22)
--- NOTE | 2021-08-19 03:44 | Emergency Department Report ---
ED General Adult HPI - General Chief complaint: Medical Clearance Stated complaint: MEDICATION REFILL Source: patient Mode of arrival: Ambulatory Limitations: No Limitations - History of Present Illness Initial comments: Patient is 60-year-old -Iranian male with a history of chronic CHF, hypertension and chronic osteoarthritis who presented to the ED for medication refill of his Lasix 40 mg tablets after he ran out of his medications about 12 hours ago. Patient states that he went to get his refills of Lasix at the pharmacy and was told that the symptoms are down and he was not able to get any medication. Patient states that he would like to get a dose of Lasix in the ED and be sent home on another prescription of Lasix 40 mg for which she takes twice a day, so that he can be able to have this filled in another pharmacy as he awaits the other pharmacy to rectify their network. Patient denies chest pain, shortness of breath, dizziness, syncope, fever, chills, diaphoresis, change in vision, nausea and vomiting or diarrhea, fever and chills or cough. MD Complaint: Medication refill, needs LASIX 40mg -: Sudden, hour(s) (8) Location: chest Radiation: non-radiation Severity scale (0 -10): 0 Improves with: none Worsens with: none Associated Symptoms: denies other symptoms. denies: confusion, chest pain, cough, diaphoresis, fever/chills, headaches, malaise, nausea/vomiting, rash, shortness of breath, syncope, weakness Treatments Prior to Arrival: none - Related Data Home Medications Medication Instructions Recorded Confirmed Last Taken Indomethacin 50 mg PO QDAY PRN 08/03/21 08/04/21 08/02/21 Losartan [Cozaar] 100 mg PO QDAY 08/03/21 08/04/21 08/02/21 Metoprolol Tartrate [Lopressor] 50 mg PO QDAY 08/03/21 08/04/21 08/02/21 hydrALAZINE [Apresoline] 50 mg PO QDAY 08/03/21 08/04/21 08/02/21 Ascorbic Acid [Vitamin C] 1,000 mg PO QDAY 08/04/21 08/04/21 08/02/21 Cholecalciferol (Vitamin D3) 5,000 unit PO DAILY 08/04/21 08/04/21 08/02/21 [Vitamin D3] Magnesium Oxide [Magnesium] 400 mg PO QDAY 08/04/21 08/04/21 08/02/21 [place]-3 Fatty Acids/Fish Oil [Fish 1,000 mg PO QDAY 08/04/21 08/04/21 08/02/21 Oil] Vitamin E 1,000 unit PO QDAY 08/04/21 08/04/21 08/02/21 Zinc [Zinc 50mg TAB] 50 mg PO QDAY 08/04/21 08/04/21 08/02/21 Previous Rx's Medication Instructions Recorded Last Taken Type Simvastatin 10 mg PO QHS #30 tablet 08/05/21 Unknown Rx Furosemide [Lasix] 40 mg PO Q12H #60 08/19/21 Unknown Rx Allergies Allergy/AdvReac Type Severity Reaction Status Date / Time ibuprofen AdvReac Anaphylaxis Verified 08/18/21 22:14 shrimp AdvReac Itching Verified 08/18/21 22:14 ED Review of Systems ROS: Stated complaint: MEDICATION REFILL Other details as noted in HPI Constitutional: other (Medication refill for Lasix 40 mg). denies: chills, fever Eyes: denies: eye pain, eye discharge, vision change ENT: denies: ear pain, throat pain Respiratory: denies: cough, shortness of breath, wheezing Cardiovascular: denies: chest pain, palpitations, dyspnea on exertion Endocrine: no symptoms reported Gastrointestinal: denies: abdominal pain, nausea, diarrhea Genitourinary: denies: urgency, dysuria Musculoskeletal: denies: back pain, joint swelling, arthralgia Skin: denies: rash, lesions Neurological: denies: headache, weakness, paresthesias Psychiatric: denies: anxiety, depression Hematological/Lymphatic: denies: easy bleeding, easy bruising ED Past Medical Hx - Past Medical History Hx Hypertension: Yes Hx Congestive Heart Failure: Yes Hx Arthritis: Yes Additional medical history: Obesity, Herniated disc, - Surgical History Past Surgical History?: No - Social History Smoking Status: Never Smoker - Medications Home Medications: Home Medications Medication Instructions Recorded Confirmed Last Taken Type Indomethacin 50 mg PO QDAY PRN 08/03/21 08/04/21 08/02/21 History Losartan [Cozaar] 100 mg PO QDAY 08/03/21 08/04/21 08/02/21 History Metoprolol Tartrate [Lopressor] 50 mg PO QDAY 08/03/21 08/04/21 08/02/21 History hydrALAZINE [Apresoline] 50 mg PO QDAY 08/03/21 08/04/21 08/02/21 History Ascorbic Acid [Vitamin C] 1,000 mg PO QDAY 08/04/21 08/04/21 08/02/21 History Cholecalciferol (Vitamin D3) 5,000 unit PO DAILY 08/04/21 08/04/21 08/02/21 History [Vitamin D3] Magnesium Oxide [Magnesium] 400 mg PO QDAY 08/04/21 08/04/21 08/02/21 History [place]-3 Fatty Acids/Fish Oil [Fish 1,000 mg PO QDAY 08/04/21 08/04/21 08/02/21 History Oil] Vitamin E 1,000 unit PO QDAY 08/04/21 08/04/21 08/02/21 History Zinc [Zinc 50mg TAB] 50 mg PO QDAY 08/04/21 08/04/21 08/02/21 History Simvastatin 10 mg PO QHS #30 tablet 08/05/21 Unknown Rx Furosemide [Lasix] 40 mg PO Q12H #60 08/19/21 Unknown Rx ED Physical Exam - General Limitations: No Limitations General appearance: alert, in no apparent distress - Head Head exam: Present: atraumatic, normocephalic, normal inspection - Eye Eye exam: Present: normal appearance, PERRL, EOMI Pupils: Present: normal accommodation - ENT ENT exam: Present: normal exam, normal orophraynx, mucous membranes moist, TM's normal bilaterally, normal external ear exam - Neck Neck exam: Present: normal inspection, full ROM - Respiratory Respiratory exam: Present: normal lung sounds bilaterally. Absent: respiratory distress, wheezes, rales, rhonchi, chest wall tenderness, decreased breath sounds, prolonged expiratory - Cardiovascular Cardiovascular Exam: Present: regular rate, normal rhythm, normal heart sounds. Absent: systolic murmur, diastolic murmur, rubs, gallop - GI/Abdominal GI/Abdominal exam: Present: soft, normal bowel sounds. Absent: tenderness, guarding, hyperactive bowel sounds, hypoactive bowel sounds, organomegaly - Extremities Exam Extremities exam: Present: normal inspection, full ROM, normal capillary refill - Back Exam Back exam: Present: normal inspection, full ROM. Absent: tenderness, CVA tenderness (R), CVA tenderness (L), muscle spasm, paraspinal tenderness, vertebral tenderness - Neurological Exam Neurological exam: Present: alert, oriented X3, CN II-XII intact, normal gait, reflexes normal - Psychiatric Psychiatric exam: Present: normal affect, normal mood - Skin Skin exam: Present: warm, dry, intact, normal color. Absent: rash ED Course Vital Signs 08/18/21 22:19 Temperature 99.4 F Pulse Rate 86 Respiratory 18 Rate Blood Pressure 141/77 O2 Sat by Pulse 93 Oximetry ED Medical Decision Making - Medical Decision Making This is 60-year-old -Iranian male with a history of chronic CHF, hypertension and chronic osteoarthritis who presented to the ED for medication refill of his Lasix 40 mg tablets after he ran out of his medications about 12 hours ago. Patient states that he went to get his refills of Lasix at the [facility] and was told that the symptoms are down and he was not able to get any medication. Patient states that he would like to get a dose of Lasix in the ED and be sent home on another prescription of Lasix 40 mg for which she takes twice a day, so that he can be able to have this filled in another pharmacy as he awaits the other pharmacy to rectify their network. In the ED, patient is alert and oriented x3 and is not in any distress. Patient is hemodynamically stable. Patient was treated in the ED with Lasix 40 mg p.o. x1. Patient was therefore discharged home on another prescription of Lasix 40 mg to be taken every 12 hours. Patient was advised to follow-up with his primary care physician as needed or return to the ED immediately if symptoms get worse. - Differential Diagnosis Medication refill; CHF; anxiety; Critical care attestation.: If time is entered above; I have spent that time in minutes in the direct care of this critically ill patient, excluding procedure time. ED Disposition Clinical Impression: Medication refill Chronic CHF (congestive heart failure) Qualifiers: Heart failure type: unspecified Qualified Code(s): I50.9 - Heart failure, unspecified Disposition: HOME / SELF CARE / HOMELESS Is pt being admited?: No Does the pt Need Aspirin: No Condition: Stable Instructions: Heart Failure, Self Care, [id number], Heart Failure, Diagnosis, [id number] Additional Instructions: Follow-up with your primary care physician as needed. Take medication as previously prescribed and return to the ED immediately if symptoms get worse. Prescriptions: Furosemide [Lasix] 40 mg PO Q12H #60 Referrals: [facility] [Provider Group] - as needed Time of Disposition: 03:42 Print Language: HEBREW
[2021-08-19 04:47] VITALS: BP 157/79
== END 2021-08-19 04:50 | disposition home or self-care (01) ==
LOC: ED 19:24
DX: I11.0 Hypertensive heart disease with heart failure (principal); I50.9 Heart failure, unspecified; Z76.0 Encounter for issue of repeat prescription; Z88.6 Allergy status to analgesic agent; Z91.013 Allergy to seafood; Z79.899 Other long term (current) drug therapy
CPT/HCPCS: 99282

== ENCOUNTER 2021-09-13 13:07 | Inpatient (IN) | payer MEDICARE ==
--- NOTE | 2021-09-13 14:11 | Emergency Department Report ---
HPI - General Chief Complaint: Dyspnea/Respdistress Time Seen by Provider: 09/13/21 14:02 - HPI HPI: 60-year-old -Bulgarian male presents to the emergency department with a complaint of a few weeks of progressively worsening shortness of breath, lower extremity swelling and "fluid on my lungs." Patient has a history of ischemic dilated, myopathy, CHF, hypertension, diabetes, coronary artery disease with previous CABG. He says that he has been compliant with his Lasix 40 mg twice a day. Patient says that he does not have a regular outpatient order booker but has seen [facility] cardiology in the past and it appears he last had a consult done by them when he was admitted in July of last year. He denies any chest pain, fever, nausea, vomiting, back pain or diaphoresis. His shortness of breath worsens with exertion. No known alleviating factors. ED Past Medical Hx - Past Medical History Previous Medical History?: Yes Hx Hypertension: Yes Hx Congestive Heart Failure: Yes Hx Arthritis: Yes Additional medical history: Obesity, Herniated disc, - Surgical History Past Surgical History?: Yes Hx Open Heart Surgery: Yes - Social History Smoking Status: Never Smoker - Medications Home Medications: Home Medications Medication Instructions Recorded Confirmed Last Taken Type Indomethacin 50 mg PO QDAY PRN 08/03/21 08/04/21 08/02/21 History Losartan [Cozaar] 100 mg PO QDAY 08/03/21 08/04/21 08/02/21 History Metoprolol Tartrate [Lopressor] 50 mg PO QDAY 08/03/21 08/04/21 08/02/21 History hydrALAZINE [Apresoline] 50 mg PO QDAY 08/03/21 08/04/21 08/02/21 History Ascorbic Acid [Vitamin C] 1,000 mg PO QDAY 08/04/21 08/04/21 08/02/21 History Cholecalciferol (Vitamin D3) 5,000 unit PO DAILY 08/04/21 08/04/21 08/02/21 History [Vitamin D3] Magnesium Oxide [Magnesium] 400 mg PO QDAY 08/04/21 08/04/21 08/02/21 History [place]-3 Fatty Acids/Fish Oil [Fish 1,000 mg PO QDAY 08/04/21 08/04/21 08/02/21 History Oil] Vitamin E 1,000 unit PO QDAY 08/04/21 08/04/21 08/02/21 History Zinc [Zinc 50mg TAB] 50 mg PO QDAY 08/04/21 08/04/21 08/02/21 History Simvastatin 10 mg PO QHS #30 tablet 08/05/21 Unknown Rx Furosemide [Lasix] 40 mg PO Q12H #60 08/19/21 Unknown Rx ED Review of Systems ROS: Stated complaint: FLUID BUILT UP/HARD TO EAT Other details as noted in HPI Comment: All other systems reviewed and negative Constitutional: denies: chills, fever Eyes: denies: eye pain, vision change ENT: denies: ear pain, throat pain Respiratory: shortness of breath, SOB with exertion. denies: cough Cardiovascular: edema. denies: chest pain Gastrointestinal: denies: abdominal pain, vomiting Genitourinary: denies: dysuria, discharge Musculoskeletal: denies: back pain, arthralgia Skin: denies: rash, lesions Neurological: denies: headache, weakness Physical Exam - Physical Exam Physical Exam: GENERAL: The patient is well-developed well-nourished. HENT: Normocephalic. Atraumatic. Patient has moist mucous membranes. EYES: Extraocular motions are intact. NECK: Supple. Trachea is midline. CHEST/LUNGS: Coarse breath sounds throughout the chest. Mild tachypnea. HEART/CARDIOVASCULAR: Regular. There is mild tachycardia. There is no murmur. ABDOMEN: Abdomen is soft, nontender. Patient has normal bowel sounds. There is no abdominal distention. SKIN: Skin is warm and dry. 1-2+ pitting edema to the bilateral lower extremities. NEURO: The patient is awake, alert, and oriented. The patient is cooperative. The patient has no focal neurologic deficits. Normal speech. MUSCULOSKELETAL: There is no tenderness or deformity. There is no limitation range of motion. ED Medical Decision Making - Lab Data Result diagrams: 09/13/21 14:53 09/13/21 14:53 Lab Results 09/13/21 09/13/21 09/13/21 Range/Units 14:53 14:53 14:53 WBC 5.3 (4.5-11.0) K/mm3 RBC 4.92 (3.65-5.03) M/mm3 Hgb 12.8 (11.8-15.2) gm/dl Hct 41.6 (35.5-45.6) % MCV 85 (84-94) fl MCH 26 L (28-32) pg MCHC 31 L (32-34) % RDW 15.6 H (13.2-15.2) % Plt Count 189 (140-440) K/mm3 Lymph % (Auto) 18.0 (13.4-35.0) % [place] % (Auto) 8.5 H (0.0-7.3) % Eos % (Auto) 0.9 (0.0-4.3) % Baso % (Auto) 0.7 (0.0-1.8) % Lymph # (Auto) 0.9 L (1.2-5.4) K/mm3 [place]ward # (Auto) 0.4 (0.0-0.8) K/mm3 Eos # (Auto) 0.0 (0.0-0.4) K/mm3 Baso # (Auto) 0.0 (0.0-0.1) K/mm3 Seg Neutrophils % 71.9 H (40.0-70.0) % Seg Neutrophils # 3.8 (1.8-7.7) K/mm3 PT 14.1 (12.2-14.9) Sec. INR 0.98 (0.87-1.13) Sodium 138 (137-145) mmol/L Potassium 3.9 (3.6-5.0) mmol/L Chloride 101.1 (98-107) mmol/L Carbon Dioxide 30 (22-30) mmol/L Anion Gap 11 mmol/L BUN 16 (9-20) mg/dL Creatinine 1.3 (0.8-1.3) mg/dL Estimated GFR > 60 ml/min BUN/Creatinine Ratio 12 % Glucose 94 (75-100) mg/dL Calcium 9.1 (8.4-10.2) mg/dL Total Bilirubin 0.40 (0.1-1.2) mg/dL AST 15 (5-40) units/L ALT 12 (7-56) units/L Alkaline Phosphatase 76 (35-129) units/L Troponin T 0.027 (0.00-0.029) ng/mL NT-Pro-B Natriuret Pep 8184 H (0-900) pg/mL Total Protein 7.0 (6.3-8.2) g/dL Albumin 3.8 L (3.9-5) g/dL Albumin/Globulin Ratio 1.2 % - EKG Data -: EKG Interpreted by Me EKG shows normal: sinus rhythm (PVCs), axis (Right axis deviation), intervals (Prolonged QTC), QRS complexes (Right bundle branch block), ST-T waves Rate: normal - EKG Data When compared to previous EKG there are: changes noted (Previous EKG does not appear to show right bundle branch block) Interpretation: other (Sinus rhythm at 83 bpm, right axis deviation, PVCs, prolonged QTC, right bundle branch block, no ST elevation OK) - Radiology Data Radiology results: image reviewed interpreted by me: Chest x-ray shows pulmonary vascular congestion and some mild interstitial edema. - Medical Decision Making This patient presents with acute on chronic shortness of breath and lower extremity swelling. Chest x-ray shows pulmonary vascular congestion and some interstitial edema. BNP is greater than 8000. Altogether this appears consistent with a CHF exacerbation. Patient has been given IV Lasix to initiate further diuresis and was given an aspirin. He will be admitted to the hospital for further evaluation and treatment and was accepted for admission by the hospitalist, Dr. Crow. Critical Care Time: No Critical care attestation.: If time is entered above; I have spent that time in minutes in the direct care of this critically ill patient, excluding procedure time. ED Disposition Clinical Impression: Acute exacerbation of CHF (congestive heart failure) Qualifiers: Heart failure type: unspecified Qualified Code(s): I50.9 - Heart failure, un specified Hypertension Qualifiers: Hypertension type: primary hypertension Qualified Code(s): I10 - Essential (primary) hypertension Disposition: 09 ADMITTED INPATIENT Is pt being admited?: Yes Condition: Serious Instructions: Hypertension (ED) Time of Disposition: 15:51
--- NOTE | 2021-09-13 14:34 | XRay Report ---
CHEST PA AND LATERAL VIEWS INDICATION: SOB. COMPARISON: 08/02/2021 FINDINGS: Support devices: None. Heart: Enlarged, unchanged. There is pulmonary venous hypertension. Lungs/Pleura: There may be mild interstitial edema. No pleural abnormality. IMPRESSION: 1. Cardiomegaly with pulmonary venous hypertension and possible mild interstitial edema. However, no pleural effusions are seen. Signer Name: Johnnie Johnson MD Signed: 09/13/2021 2:30 PM Workstation Name: [id number]
[2021-09-13 15:23] LABS: Basophils % (Auto) 0.7 % (0.0-1.8); Eosinophils % (Auto) 0.9 % (0.0-4.3); Lymphocytes # (Auto) 0.9 K/mm3 (1.2-5.4); Mean Corpuscular HGB Conc 31 % (32-34); Mean Corpuscular Volume 85 fl (84-94); Monocytes # (Auto) 0.4 K/mm3 (0.0-0.8); Monocytes % (Auto) 8.5 % (0.0-7.3); Platelet Count 189 K/mm3 (140-440); Red Blood Count 4.92 M/mm3 (3.65-5.03); Red Cell Distribution Width 15.6 % (13.2-15.2)
[2021-09-13 15:28] LABS: Hemoglobin 12.8 gm/dl (11.8-15.2)
[2021-09-13 15:29] LABS: Hematocrit 41.6 % (35.5-45.6)
[2021-09-13 15:32] LABS: INR 0.98 (0.87-1.13)
[2021-09-13 15:48] LABS: Alanine Aminotransferase 12 units/L (7-56); Albumin 3.8 g/dL (3.9-5); BUN/Creatinine Ratio 12; Blood Urea Nitrogen 16 mg/dL (9-20); Calcium 9.1 mg/dL (8.4-10.2); Hemolysis Index 1
[2021-09-13] MEDS ORDERED: ASPIRIN 81 MG TAB CHEW PO ONE (15:50)
[2021-09-13] MEDS ORDERED: FUROSEMIDE 40 MG/4 ML INJ IV ONE (15:50)
--- NOTE | 2021-09-13 21:30 | History and Physical Report ---
History of Present Illness Date of examination: 09/13/21 Date of admission: 09/13/2021 Chief complaint: Increasing shortness of breath for 1 week Swelling of both the legs for 1 week History of present illness: 60-year-old -[place] male with history of hypertension, congestive heart failure, hyperlipidemia and vitamin D deficiency comes in for progressively w orsening shortness of breath over the last 1 week associated with both lower extremity swelling. Patient has a history of ischemic dilated cardiomyopathy. Also diabetes and coronary artery disease. Also previous CABG. Patient says that he has been taking Lasix 40 mg twice a day regularly. Does not have an outpatient head paper tester but follows with [facility] during the recent admission. Orthopnea present. Patient has class IV NYHA symptoms. Exertion is an exacerbating factor. Rest is a relieving factor. No fever or chills. Covid vaccination status not known. - Past Medical History Previous Medical History?: Yes Hx Hypertension: Yes Hx Congestive Heart Failure: Yes Hx Arthritis: Yes Additional medical history: Obesity, Herniated disc, - Surgical History Past Surgical History?: Yes Hx Open Heart Surgery: Yes - Social History Smoking Status: Never Smoker - Medications Home Medications: Home Medications Medication Instructions Recorded Confirmed Last Taken Type Indomethacin 50 mg PO QDAY PRN 08/03/21 08/04/21 08/02/21 History Losartan [Cozaar] 100 mg PO QDAY 08/03/21 08/04/21 08/02/21 History Metoprolol Tartrate [Lopressor] 50 mg PO QDAY 08/03/21 08/04/21 08/02/21 History hydrALAZINE [Apresoline] 50 mg PO QDAY 08/03/21 08/04/21 08/02/21 History Ascorbic Acid [Vitamin C] 1,000 mg PO QDAY 08/04/21 08/04/21 08/02/21 History Cholecalciferol (Vitamin D3) 5,000 unit PO DAILY 08/04/21 08/04/21 08/02/21 History [Vitamin D3] Magnesium Oxide [Magnesium] 400 mg PO QDAY 08/04/21 08/04/21 08/02/21 History Pyote-3 Fatty Acids/Fish Oil [Fish 1,000 mg PO QDAY 08/04/21 08/04/21 08/02/21 History Oil] Vitamin E 1,000 unit PO QDAY 08/04/21 08/04/21 08/02/21 History Zinc [Zinc 50mg TAB] 50 mg PO QDAY 08/04/21 08/04/21 08/02/21 History Simvastatin 10 mg PO QHS #30 tablet 08/05/21 Unknown Rx Furosemide [Lasix] 40 mg PO Q12H #60 08/19/21 Unknown Rx Review of Systems ROS: Stated complaint: FLUID BUILT UP/HARD TO EAT Other details as noted in HPI Comment: All other systems reviewed and negative Constitutional: denies: chills, fever Eyes: denies: eye pain, vision change ENT: denies: ear pain, throat pain Respiratory: shortness of breath, SOB with exertion. denies: cough Cardiovascular: edema. denies: chest pain Gastrointestinal: denies: abdominal pain, vomiting Genitourinary: denies: dysuria, discharge Musculoskeletal: denies: back pain, arthralgia Skin: denies: rash, lesions Neurological: denies: headache, weakness Medications and Allergies Allergies Allergy/AdvReac Type Severity Reaction Status Date / Time ibuprofen AdvReac Anaphylaxis Verified 09/13/21 20:15 shrimp AdvReac Itching Verified 09/13/21 20:15 Home Medications Medication Instructions Recorded Confirmed Last Taken Type Indomethacin 50 mg PO QDAY PRN 08/03/21 09/13/21 08/02/21 History Losartan [Cozaar] 100 mg PO QDAY 08/03/21 09/13/21 08/02/21 History Metoprolol Tartrate [Lopressor] 50 mg PO QDAY 08/03/21 09/13/21 08/02/21 History hydrALAZINE [Apresoline] 50 mg PO QDAY 08/03/21 09/13/21 08/02/21 History Ascorbic Acid [Vitamin C] 1,000 mg PO QDAY 08/04/21 09/13/21 08/02/21 History Cholecalciferol (Vitamin D3) 5,000 unit PO DAILY 08/04/21 09/13/21 08/02/21 History [Vitamin D3] Magnesium Oxide [Magnesium] 400 mg PO QDAY 08/04/21 09/13/21 08/02/21 History Pyote-3 Fatty Acids/Fish Oil [Fish 1,000 mg PO QDAY 08/04/21 09/13/21 08/02/21 History Oil] Vitamin E 1,000 unit PO QDAY 08/04/21 09/13/21 08/02/21 History Zinc [Zinc 50mg TAB] 50 mg PO QDAY 08/04/21 09/13/21 08/02/21 History Simvastatin 10 mg PO QHS #30 tablet 08/05/21 09/13/21 Unknown Rx Furosemide [Lasix] 40 mg PO Q12H #60 08/19/21 09/13/21 Unknown Rx Exam - Constitutional Vitals: Temp Pulse Resp BP Pulse Ox 98.0 F 73 18 167/87 95 09/13/21 20:08 09/13/21 20:08 09/13/21 20:08 09/13/21 20:08 09/13/21 20:12 General appearance: Present: well-nourished - EENT Eyes: Present: PERRL ENT: hearing intact, clear oral mucosa - Neck Neck: Present: supple, normal ROM - Respiratory Respiratory effort: normal Respiratory: bilateral: CTA - Cardiovascular Heart rate: 78 Rhythm: regular Heart Sounds: Present: S1 & S2. Absent: rub, click - Extremities Extremities: no ischemia, pulses symmetrical, No edema Extremity abnormal: edema (4+ pedal edema present.) Peripheral Pulses: within normal limits - Abdominal General gastrointestinal: Present: soft, non-tender, non-distended, normal bowel sounds Male genitourinary: Present: normal - Integumentary Integumentary: Present: clear, warm, dry - Musculoskeletal Musculoskeletal: gait normal, strength equal bilaterally - Psychiatric Psychiatric: appropriate mood/affect, intact judgment & insight - Neurologic Neurologic: CNII-XII intact, moves all extremities - Allied Health Allied health notes reviewed: nursing, case management HEART Score - HEART Score Age: 45-65 Risk factors: > 3 risk factors or hx of atherosclerotic disease Troponin: Troponin T 0.027 ng/mL (0.00-0.029) 09/13/21 14:53 - Critical Actions Critical Actions: 4-6 pts:12-16.6% risk of adverse cardiac event. Should be admitted Results - Labs CBC & Chem 7: 09/13/21 14:53 09/13/21 14:53 Labs: Laboratory Last Values WBC 5.3 K/mm3 (4.5-11.0) 09/13/21 14:53 RBC 4.92 M/mm3 (3.65-5.03) 09/13/21 14:53 Hgb 12.8 gm/dl (11.8-15.2) 09/13/21 14:53 Hct 41.6 % (35.5-45.6) 09/13/21 14:53 MCV 85 fl (84-94) 09/13/21 14:53 MCH 26 pg (28-32) L 09/13/21 14:53 MCHC 31 % (32-34) L 09/13/21 14:53 RDW 15.6 % (13.2-15.2) H 09/13/21 14:53 Plt Count 189 K/mm3 (140-440) 09/13/21 14:53 Lymph % (Auto) 18.0 % (13.4-35.0) 09/13/21 14:53 [place] % (Auto) 8.5 % (0.0-7.3) H 09/13/21 14:53 Eos % (Auto) 0.9 % (0.0-4.3) 09/13/21 14:53 Baso % (Auto) 0.7 % (0.0-1.8) 09/13/21 14:53 Lymph # (Auto) 0.9 K/mm3 (1.2-5.4) L 09/13/21 14:53 [place] # (Auto) 0.4 K/mm3 (0.0-0.8) 09/13/21 14:53 Eos # (Auto) 0.0 K/mm3 (0.0-0.4) 09/13/21 14:53 Baso # (Auto) 0.0 K/mm3 (0.0-0.1) 09/13/21 14:53 Seg Neutrophils % 71.9 % (40.0-70.0) H 09/13/21 14:53 Seg Neutrophils # 3.8 K/mm3 (1.8-7.7) 09/13/21 14:53 PT 14.1 Sec. (12.2-14.9) 09/13/21 14:53 INR 0.98 (0.87-1.13) 09/13/21 14:53 Sodium 138 mmol/L (137-145) 09/13/21 14:53 Potassium 3.9 mmol/L (3.6-5.0) 09/13/21 14:53 Chloride 101.1 mmol/L (98-107) 09/13/21 14:53 Carbon Dioxide 30 mmol/L (22-30) 09/13/21 14:53 Anion Gap 11 mmol/L 09/13/21 14:53 BUN 16 mg/dL (9-20) 09/13/21 14:53 Creatinine 1.3 mg/dL (0.8-1.3) 09/13/21 14:53 Estimated GFR > 60 ml/min 09/13/21 14:53 BUN/Creatinine Ratio 12 % 09/13/21 14:53 Glucose 94 mg/dL (75-100) 09/13/21 14:53 Calcium 9.1 mg/dL (8.4-10.2) 09/13/21 14:53 Total Bilirubin 0.40 mg/dL (0.1-1.2) 09/13/21 14:53 AST 15 units/L (5-40) 09/13/21 14:53 ALT 12 units/L (7-56) 09/13/21 14:53 Alkaline Phosphatase 76 units/L (35-129) 09/13/21 14:53 Troponin T 0.027 ng/mL (0.00-0.029) 09/13/21 14:53 NT-Pro-B Natriuret Pep 8184 pg/mL (0-900) H 09/13/21 14:53 Total Protein 7.0 g/dL (6.3-8.2) 09/13/21 14:53 Albumin 3.8 g/dL (3.9-5) L 09/13/21 14:53 Albumin/Globulin Ratio 1.2 % 09/13/21 14:53 Short CBC 09/13/21 09/14/21 Range/Units 14:53 04:50 WBC 5.3 5.6 (4.5-11.0) K/mm3 Hgb 12.8 12.4 (11.8-15.2) gm/dl Hct 41.6 38.7 (35.5-45.6) % Plt Count 189 195 (140-440) K/mm3 BMP 09/13/21 14:53 Sodium 138 Potassium 3.9 Chloride 101.1 Carbon Dioxide 30 BUN 16 Creatinine 1.3 Glucose 94 Calcium 9.1 Cardiac Enzymes 09/13/21 Range/Units 14:53 Troponin T 0.027 (0.00-0.029) ng/mL Liver Function 09/13/21 Range/Units 14:53 Total Bilirubin 0.40 (0.1-1.2) mg/dL AST 15 (5-40) units/L ALT 12 (7-56) units/L Alkaline Phosphatase 76 (35-129) units/L Albumin 3.8 L (3.9-5) g/dL - Imaging and Cardiology Imaging and Cardiology: Chest x-ray Cardiomegaly with pulmonary venous hypertension and possible mild interstitial edema. However no pleural effusions are seen. Assessment and Plan Advance Directives: Yes (Full code) VTE prophylaxis?: Chemical Plan of care discussed with patient/family: Yes - Patient Problems (1) Acute respiratory failure with hypoxia Current Visit: Yes Status: Acute Plan to address problem: Patient room oxygen saturations were low Patient is on 4 to 6 L of nasal cannula oxygen. (2) Acute HFrEF (heart failure with reduced ejection fraction) Current Visit: No Status: Acute Plan to address problem: IV Lasix 40 mg every 12 KCl 20 mEq every 12 Echocardiogram ejection for ejection fraction and valve function Daily weights Intake and output Cardiology consult. (3) Coronary artery disease Current Visit: Yes Status: Chronic Qualifiers: Coronary Disease-Associated Artery/Lesion type: bypass graft [place] vs. transplanted heart: elim ira heart Plan to address problem: On aspirin. (4) Hypertension Current Visit: Yes Status: Resolved Qualifiers: Hypertension type: primary hypertension Qualified Code(s): I10 - Essential (primary) hypertension Plan to address problem: Continue antihypertensives and adjust medications. (5) T2DM (type 2 diabetes mellitus) Current Visit: Yes Status: Chronic Qualifiers: Diabetes mellitus assisted insulin use: unspecified director long term care insulin use status Plan to address problem: Coverage for now. Check hemoglobin A1c. (6) Hyperlipidemia Current Visit: Yes Status: Chronic Qualifiers: Hyperlipidemia type: mixed hyperlipidemia Qualified Code(s): E78.2 - Mixed hyperlipidemia Plan to address problem: Continue statins. (7) DVT prophylaxis Current Visit: No Status: Acute Plan to address problem: On anticoagulation GI prophylaxis. (8) Advance care planning Current Visit: No Status: Acute Plan to address problem: Disease education conducted, care plan discussed, diagnosis discussed, prognosis discussed. Patient is full code. Patient acknowledges understanding and agreement with care plan. +30 minutes.
[2021-09-13] MEDS ORDERED: HYDROmorphone 1 MG/1 ML INJ IV PRN (21:41)
[2021-09-13] MEDS ORDERED: ONDANSETRON 4 MG/2 ML INJ IV PRN ×2 (21:41→21:45)
[2021-09-13] MEDS ORDERED: ACETAMINOPHEN 325 MG TAB PO PRN ×2 (21:41→21:45)
[2021-09-13] MEDS ORDERED: NON-FORMULARY EACH (Losartan [Cozaar] 100 MG Tablet) PO SCH (21:45)
[2021-09-13] MEDS ORDERED: oxyCODONE /ACETAMINOPHEN 5-325MG TAB PO PRN (21:45)
[2021-09-13] MEDS ORDERED: MAGNESIUM OXIDE 400 MG PO SCH (21:45)
[2021-09-13] MEDS ORDERED: NON-FORMULARY EACH (Ascorbic Acid [Vitamin C] 1,000 MG Tablet) PO SCH (21:45)
[2021-09-13] MEDS ORDERED: NON-FORMULARY EACH (Simvastatin [Simvastatin] 10 MG Tablet) PO SCH (22:00)
[2021-09-13] MEDS: FAMOTIDINE 20 MG TAB PO SCH (22:40)
[2021-09-13] MEDS: MAGNESIUM OXIDE 400 MG TAB PO SCH (22:40)
[2021-09-13] MEDS: METOPROLOL TARTRATE 50 MG TAB PO SCH (22:40)
[2021-09-13] MEDS: hydrALAZINE 25 MG TAB PO SCH (22:40)
[2021-09-13] MEDS: HEPARIN 5,000 UNIT/1 ML VIAL SUB-Q SCH (22:41)
[2021-09-13] MEDS: POTASSIUM CHLORIDE ER 20 MEQ TAB PO SCH (22:41)
[2021-09-13] MEDS: ASCORBIC ACID 500 MG TAB PO SCH (22:41)
[2021-09-13] MEDS: LOSARTAN 50 MG TAB PO SCH (22:41)
[2021-09-13] MEDS: CHOLECALCIFEROL (VIT D3) 5,000 UNIT TAB PO SCH (23:01)
[2021-09-13] MEDS: PRAVASTATIN 20 MG TAB PO SCH (23:01)
[2021-09-14] MEDS: FUROSEMIDE 40 MG/4 ML INJ IV SCH ×2 (05:15→19:47)
[2021-09-14 06:29] LABS: Basophils % (Auto) 0.6 % (0.0-1.8); Eosinophils # (Auto) 0.1 K/mm3 (0.0-0.4); Eosinophils % (Auto) 1.9 % (0.0-4.3); Hematocrit 38.7 % (35.5-45.6); Hemoglobin 12.4 gm/dl (11.8-15.2); Lymphocytes # (Auto) 1.3 K/mm3 (1.2-5.4); Lymphocytes % (Auto) 23.9 % (13.4-35.0); Mean Corpuscular HGB Conc 32 % (32-34); Mean Corpuscular Volume 84 fl (84-94); Monocytes # (Auto) 0.6 K/mm3 (0.0-0.8); Monocytes % (Auto) 10.9 % (0.0-7.3); Platelet Count 195 K/mm3 (140-440); Red Blood Count 4.58 M/mm3 (3.65-5.03); Red Cell Distribution Width 16.1 % (13.2-15.2)
[2021-09-14 06:57] LABS: Alanine Aminotransferase 12 units/L (7-56); Albumin 3.8 g/dL (3.9-5); BUN/Creatinine Ratio 13; Blood Urea Nitrogen 16 mg/dL (9-20); Calcium 9.1 mg/dL (8.4-10.2); Hemolysis Index 5
--- NOTE | 2021-09-14 09:09 | Electrocardiograph Report ---
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 : 1960 Requested By: DARLIN SILVA Order Number: [id number] Reading MD: Jonathan Vega Measurements Intervals [place] Rate: 83 P: 55 [place]: 173 QRS: 164 QRSD: 158 T: 6 QT: 453 QTc: 534 Interpretive Statements Sinus rhythm Ventricular premature complex Right bundle branch block Compared to ECG 08/02/2021 15:07:23 Ventricular premature complex(es) now present Right bundle-branch block now present Atrial premature complex(es) no longer present Left ventricular hypertrophy no longer present T-wave abnormality no longer present Possible ischemia no longer present Electronically Signed On 09-14-2021 9:08:39 EST by Jonathan Vega
--- NOTE | 2021-09-14 10:11 | Consultation ---
History of Present Illness Consult date: 09/14/21 Requesting physician: LEE AVELAR Consult reason: congestive heart failure, shortness of breath History of present illness: 60-year-old gentleman with a past medical history of CAD/CABG, ischemic cardiomyopathy EF 40 to 45%, hypertension, hyperlipidemia, diabetes, vitamin D deficiency, and noncompliance presents to [facility] emergency department complaining of increasing shortness of breath for the past week. The patient does not regularly follow with cardiology. He reports that he has not seen a canal boat operator in greater than a year. Past History Past Medical History: CAD, hypertension, hyperlipidemia Past Surgical History: CABG Social history: denies: IV drug use Medications and Allergies Allergies Allergy/AdvReac Type Severity Reaction Status Date / Time ibuprofen AdvReac Anaphylaxis Verified 09/13/21 20:15 Home Medications Medication Instructions Recorded Confirmed Last Taken Type Indomethacin 50 mg PO QDAY PRN 08/03/21 09/13/21 08/02/21 History Losartan [Cozaar] 100 mg PO QDAY 08/03/21 09/13/21 08/02/21 History Metoprolol Tartrate [Lopressor] 50 mg PO QDAY 08/03/21 09/13/21 08/02/21 History hydrALAZINE [Apresoline] 50 mg PO QDAY 08/03/21 09/13/21 08/02/21 History Ascorbic Acid [Vitamin C] 1,000 mg PO QDAY 08/04/21 09/13/21 08/02/21 History Cholecalciferol (Vitamin D3) 5,000 unit PO DAILY 08/04/21 09/13/21 08/02/21 History [Vitamin D3] Magnesium Oxide [Magnesium] 400 mg PO QDAY 08/04/21 09/13/21 08/02/21 History Thompson-3 Fatty Acids/Fish Oil [Fish 1,000 mg PO QDAY 08/04/21 09/13/21 08/02/21 History Oil] Vitamin E 1,000 unit PO QDAY 08/04/21 09/13/21 08/02/21 History Zinc [Zinc 50mg TAB] 50 mg PO QDAY 08/04/21 09/13/21 08/02/21 History Simvastatin 10 mg PO QHS #30 tablet 08/05/21 09/13/21 Unknown Rx Furosemide [Lasix] 40 mg PO Q12H #60 08/19/21 09/13/21 Unknown Rx Active Meds: Active Medications Acetaminophen (Acetaminophen 325 Mg Tab) 650 mg PO Q4H PRN PRN Reason: Pain MILD(1-3)/Fever >100.5/AVILA Ascorbic Acid (Ascorbic Acid 500 Mg Tab) 1,000 mg PO QDAY [facility] Last Admin: 09/13/21 22:41 Dose: 1,000 mg Cholecalciferol (Cholecalciferol (Vit D3) 5,000 Unit Tab) 5,000 unit PO DAILY [facility] Last Admin: 09/13/21 23:01 Dose: 5,000 unit Famotidine (Famotidine 20 Mg Tab) 20 mg PO BID [facility] Last Admin: 09/13/21 22:40 Dose: 20 mg Fish Oil (Thompson-3 Fatty Acids/Fish Oil 1 Gram Cap) 1,000 mg PO QDAY [facility] Furosemide (Furosemide 40 Mg/4 Ml Inj) 40 mg IV 0600,1800 [facility] Last Admin: 09/14/21 05:15 Dose: 40 mg Heparin Sodium (Porcine) (Heparin 5,000 Unit/1 Ml Vial) 5,000 unit SUB-Q Q12HR [facility] Last Admin: 09/13/21 22:41 Dose: 5,000 unit Hydralazine HCl (Hydralazine 25 Mg Tab) 50 mg PO QDAY [facility] Last Admin: 09/13/21 22:40 Dose: 50 mg Hydromorphone HCl (Hydromorphone 1 Mg/1 Ml Inj) 0.5 mg IV Q3H PRN PRN Reason: Pain , Severe (7-10) Losartan Potassium (Losartan 50 Mg Tab) 100 mg PO QDAY [facility] Last Admin: 09/13/21 22:41 Dose: 100 mg Magnesium Oxide (Magnesium Oxide 400 Mg Tab) 400 mg PO QDAY [facility] Last Admin: 09/13/21 22:40 Dose: 400 mg Metoprolol Tartrate (Metoprolol Tartrate 50 Mg Tab) 50 mg PO QDAY [facility] Last Admin: 09/13/21 22:40 Dose: 50 mg Ondansetron HCl (Ondansetron 4 Mg/2 Ml Inj) 4 mg IV Q8H PRN PRN Reason: Nausea And Vomiting Oxycodone/Acetaminophen (Oxycodone /Acetaminophen 5-325mg Tab) 1 tab PO Q6H PRN PRN Reason: Pain, Moderate (4-6) Potassium Chloride (Potassium Chloride Er 20 Meq Tab) 20 meq PO Q12H [facility] Last Admin: 09/13/21 22:41 Dose: 20 meq Pravastatin Sodium (Pravastatin 20 Mg Tab) 20 mg PO QHS [facility] Last Admin: 09/13/21 23:01 Dose: 20 mg Sodium Chloride (Sodium Chloride 0.9% 10 Ml Flush Syringe) 10 ml IV BID [facility] Last Admin: 09/13/21 22:48 Dose: 10 ml Sodium Chloride (Sodium Chloride 0.9% 10 Ml Flush Syringe) 10 ml IV PRN PRN PRN Reason: LINE FLUSH Review of Systems Constitutional: weight gain, no fever, no chills, no sweats Ears, nose, mouth and throat: deferred Cardiovascular: orthopnea, edema, shortness of breath, no chest pain, no syncope Respiratory: no cough, no excessive sputum Gastrointestinal: no nausea, no vomiting, no diarrhea Genitourinary Male: no dysuria, no hematuria, no flank pain Rectal: no pain, no incontinence Musculoskeletal: no neck stiffness, no neck pain Integumentary: no rash, no pruritis Neurological: no head injury, no transient paralysis Psychiatric: no anxiety, no memory loss Endocrine: no cold intolerance, no heat intolerance Physical Examination Vital Signs Temp Pulse Resp BP Pulse Ox 98.6 F 83 22 169/92 93 09/13/21 13:35 09/13/21 13:35 09/13/21 13:35 09/13/21 13:35 09/13/21 13:35 General appearance: no acute distress HEENT: Positive: PERRL Neck: Positive: neck supple, trachea midline Cardiac: Positive: Reg Rate and Rhythm Lungs: Positive: Normal Exam, clear to auscultation, Wheezes Abdomen: Positive: Soft, Active Bowel Sounds Male genitourinary: Positive: deferred Skin: Negative: Rash Extremities: Present: edema, warm Results 09/14/21 04:50 09/14/21 04:50 Cardiac Enzymes 09/13/21 09/14/21 Range/Units 14:53 04:50 AST 15 14 (5-40) units/L Coagulation 09/13/21 Range/Units 14:53 PT 14.1 (12.2-14.9) Sec. INR 0.98 (0.87-1.13) CBC 09/13/21 09/14/21 Range/Units 14:53 04:50 WBC 5.3 5.6 (4.5-11.0) K/mm3 RBC 4.92 4.58 (3.65-5.03) M/mm3 Hgb 12.8 12.4 (11.8-15.2) gm/dl Hct 41.6 38.7 (35.5-45.6) % Plt Count 189 195 (140-440) K/mm3 Lymph # (Auto) 0.9 L 1.3 (1.2-5.4) K/mm3 [place] # (Auto) 0.4 0.6 (0.0-0.8) K/mm3 Eos # (Auto) 0.0 0.1 (0.0-0.4) K/mm3 Baso # (Auto) 0.0 0.0 (0.0-0.1) K/mm3 Comprehensive Metabolic Panel 09/13/21 09/14/21 Range/Units 14:53 04:50 Sodium 138 143 (137-145) mmol/L Potassium 3.9 3.9 (3.6-5.0) mmol/L Chloride 101.1 102.1 (98-107) mmol/L Carbon Dioxide 30 28 (22-30) mmol/L BUN 16 16 (9-20) mg/dL Creatinine 1.3 1.2 (0.8-1.3) mg/dL Glucose 94 96 (75-100) mg/dL Calcium 9.1 9.1 (8.4-10.2) mg/dL AST 15 14 (5-40) units/L ALT 12 12 (7-56) units/L Alkaline Phosphatase 76 79 (35-129) units/L Total Protein 7.0 7.1 (6.3-8.2) g/dL Albumin 3.8 L 3.8 L (3.9-5) g/dL - Imaging and Cardiology Echo: report reviewed Cardiac cath: report reviewed EKG interpretations - Telemetry EKG Rhythm: Sinus Rhythm Assessment and Plan [facility] 02/10/2019: Multivessel disease, distal left main 70%, ostial left circumflex 80%, OM 2 occluded, LAD luminal irregularities, ostial diagonal 220 to 25%, RCA luminal irregularities, distal posterolateral 90%, LVEDP 30 to 35 mmHg Echo 08/02/21: EF 40 to 45%, grade 3 diastolic dysfunction, moderate tricuspid regurgitation, moderate LAE, RVSP 62 mmHg 60 male Acute on chronic HFrEF 40-45% CAD/CABG Ischemic cardiomyopathy Diabetes Hypertension Hyperlipidemia Noncompliance Strict I's and O's Continue diuresis Monitor potassium, magnesium, and creatinine Discussed the importance of compliance with medication regimen
[2021-09-14] MEDS: LOSARTAN 50 MG TAB PO SCH (13:35)
[2021-09-14] MEDS: ASCORBIC ACID 500 MG TAB PO SCH (13:36)
[2021-09-14] MEDS: hydrALAZINE 25 MG TAB PO SCH (13:36)
[2021-09-14] MEDS: FAMOTIDINE 20 MG TAB PO SCH ×2 (13:36→22:13)
[2021-09-14] MEDS: POTASSIUM CHLORIDE ER 20 MEQ TAB PO SCH ×2 (13:37→22:13)
[2021-09-14] MEDS: MAGNESIUM OXIDE 400 MG TAB PO SCH (13:38)
[2021-09-14] MEDS: HEPARIN 5,000 UNIT/1 ML VIAL SUB-Q SCH ×2 (13:38→22:13)
[2021-09-14] MEDS: OMEGA-3 FATTY ACIDS/FISH OIL 1 GRAM CAP PO SCH (13:38)
[2021-09-14] MEDS: METOPROLOL TARTRATE 50 MG TAB PO SCH (13:57)
[2021-09-14] MEDS: CHOLECALCIFEROL (VIT D3) 5,000 UNIT TAB PO SCH (13:57)
--- NOTE | 2021-09-14 15:12 | Progress Note ---
Assessment and Plan Assessment and plan: #Acute on chronic systolic heart failure #Ischemic cardiomyopathy #Hyperlipidemia #Hypertension - continue CHF exacerbation protocol: telemetry, strict I/Os, monitor urine output every shift, daily weights, afterload reduction, low sodium diet, and fluid restriction of approximately 1.5L/day -ProBNP on admission: 8184 -Cardiology consulted; appreciate recs - pending TTE - continue IV lasix 40mg BID, losartan 100mg daily, metoprolol tartrate 50mg daily, pravastatin 20mg daily - SBP goal <160 and DBP goal <90 while inpatient #Acute hypoxic respiratory failure- resolved - weaned off of 2L NC #Advanced care planning -Disease education conducted, care plan discussed, diagnoses discussed, prognosis discussed, and patient acknowledges understanding with care plan -Time: +30 min Disposition Plan: Continue medical management Total Time Spent with Patient (Minutes): 45 min History Interval history: No acute events overnight Hospitalist Physical - Constitutional Vitals: Temp Pulse Resp BP Pulse Ox 96.7 F L 100 H 20 151/92 93 09/14/21 11:39 09/14/21 13:57 09/14/21 11:39 09/14/21 11:39 09/14/21 11:39 General appearance: Present: no acute distress, well-nourished, obese - EENT Eyes: Present: PERRL, EOM intact ENT: hearing intact, clear oral mucosa - Neck Neck: Present: supple, normal ROM - Respiratory Respiratory effort: normal Respiratory: bilateral: CTA - Cardiovascular Rhythm: regular Heart Sounds: Present: S1 & S2 - Extremities Extremities: no ischemia, pulses intact, pulses symmetrical, normal temperature, normal color Peripheral Pulses: within normal limits - Abdominal General gastrointestinal: soft, non-tender, non-distended, normal bowel sounds - Integumentary Integumentary: Present: clear, warm, dry - Psychiatric Psychiatric: appropriate mood/affect, cooperative - Neurologic Neurologic: CNII-XII intact, moves all extremities - Allied Health Allied health notes reviewed: nursing HEART Score - HEART Score Age: 45-65 Risk factors: > 3 risk factors or hx of atherosclerotic disease Troponin: Troponin T 0.027 ng/mL (0.00-0.029) 09/13/21 14:53 - Critical Actions Critical Actions: 4-6 pts:12-16.6% risk of adverse cardiac event. Should be admitted Results - Labs CBC & Chem 7: 01/30/22 04:50 09/14/21 04:50 Labs: Laboratory Last Values WBC 5.6 K/mm3 (4.5-11.0) 09/14/21 04:50 RBC 4.58 M/mm3 (3.65-5.03) 09/14/21 04:50 Hgb 12.4 gm/dl (11.8-15.2) 09/14/21 04:50 Hct 38.7 % (35.5-45.6) 09/14/21 04:50 MCV 84 fl (84-94) 09/14/21 04:50 MCH 27 pg (28-32) L 09/14/21 04:50 MCHC 32 % (32-34) 09/14/21 04:50 RDW 16.1 % (13.2-15.2) H 09/14/21 04:50 Plt Count 195 K/mm3 (140-440) 09/14/21 04:50 Lymph % (Auto) 23.9 % (13.4-35.0) 09/14/21 04:50 [place] % (Auto) 10.9 % (0.0-7.3) H 09/14/21 04:50 Eos % (Auto) 1.9 % (0.0-4.3) 09/14/21 04:50 Baso % (Auto) 0.6 % (0.0-1.8) 09/14/21 04:50 Lymph # (Auto) 1.3 K/mm3 (1.2-5.4) 09/14/21 04:50 [place] # (Auto) 0.6 K/mm3 (0.0-0.8) 09/14/21 04:50 Eos # (Auto) 0.1 K/mm3 (0.0-0.4) 09/14/21 04:50 Baso # (Auto) 0.0 K/mm3 (0.0-0.1) 09/14/21 04:50 Seg Neutrophils % 62.7 % (40.0-70.0) 09/14/21 04:50 Seg Neutrophils # 3.5 K/mm3 (1.8-7.7) 09/14/21 04:50 PT 14.1 Sec. (12.2-14.9) 09/13/21 14:53 INR 0.98 (0.87-1.13) 09/13/21 14:53 Sodium 143 mmol/L (137-145) 09/14/21 04:50 Potassium 3.9 mmol/L (3.6-5.0) 09/14/21 04:50 Chloride 102.1 mmol/L (98-107) 09/14/21 04:50 Carbon Dioxide 28 mmol/L (22-30) 09/14/21 04:50 Anion Gap 17 mmol/L 09/14/21 04:50 BUN 16 mg/dL (9-20) 09/14/21 04:50 Creatinine 1.2 mg/dL (0.8-1.3) 09/14/21 04:50 Estimated GFR > 60 ml/min 09/14/21 04:50 BUN/Creatinine Ratio 13 % 09/14/21 04:50 Glucose 96 mg/dL (75-100) 09/14/21 04:50 Calcium 9.1 mg/dL (8.4-10.2) 09/14/21 04:50 Total Bilirubin 0.50 mg/dL (0.1-1.2) 09/14/21 04:50 AST 14 units/L (5-40) 09/14/21 04:50 ALT 12 units/L (7-56) 09/14/21 04:50 Alkaline Phosphatase 79 units/L (35-129) 09/14/21 04:50 Troponin T 0.027 ng/mL (0.00-0.029) 09/13/21 14:53 NT-Pro-B Natriuret Pep 8184 pg/mL (0-900) H 09/13/21 14:53 Total Protein 7.1 g/dL (6.3-8.2) 09/14/21 04:50 Albumin 3.8 g/dL (3.9-5) L 09/14/21 04:50 Albumin/Globulin Ratio 1.2 % 09/14/21 04:50 Quiroz/IV: Voiding Method Urinal Active Medications - Current Medications Current Medications: Generic Name Dose Route Start Last Admin Trade Name Freq PRN Reason Stop Dose Admin Acetaminophen 650 mg 09/13/21 21:41 Acetaminophen 325 Mg Tab PO Q4H PRN Pain MILD(1-3)/Fever >100.5/AVILA Ascorbic Acid 1,000 mg 09/13/21 22:00 09/14/21 13:36 Ascorbic Acid 500 Mg Tab PO 1,000 mg QDAY NEO Administration Cholecalciferol 5,000 unit 09/13/21 22:00 09/14/21 13:57 Cholecalciferol (Vit D3) 5,000 Unit Tab PO 5,000 unit DAILY NEO Administration Famotidine 20 mg 09/13/21 22:00 09/14/21 13:36 Famotidine 20 Mg Tab PO 20 mg BID NEO Administration Fish Oil 1,000 mg 09/14/21 10:00 09/14/21 13:38 [place]-3 Fatty Acids/Fish Oil 1 Gram Cap PO 1,000 mg QDAY NEO Administration Furosemide 40 mg 09/14/21 06:00 09/14/21 05:15 Furosemide 40 Mg/4 Ml Inj IV 40 mg 0600,1800 NEO Administration Heparin Sodium (Porcine) 5,000 unit 09/13/21 22:00 09/14/21 13:38 Heparin 5,000 Unit/1 Ml Vial SUB-Q 5,000 unit Q12HR NEO Administration Hydralazine HCl 50 mg 09/13/21 22:00 09/14/21 13:36 Hydralazine 25 Mg Tab PO 50 mg QDAY NEO Administration Hydromorphone HCl 0.5 mg 09/13/21 21:41 Hydromorphone 1 Mg/1 Ml Inj IV Q3H PRN Pain , Severe (7-10) Losartan Potassium 100 mg 09/13/21 22:00 09/14/21 13:35 Losartan 50 Mg Tab PO 100 mg QDAY NEO Administration Magnesium Oxide 400 mg 09/13/21 22:00 09/14/21 13:38 Magnesium Oxide 400 Mg Tab PO 400 mg QDAY NEO Administration Metoprolol Tartrate 50 mg 09/13/21 22:00 09/14/21 13:57 Metoprolol Tartrate 50 Mg Tab PO 50 mg QDAY NEO Administration Ondansetron HCl 4 mg 09/13/21 21:41 Ondansetron 4 Mg/2 Ml Inj IV Q8H PRN Nausea And Vomiting Oxycodone/Acetaminophen 1 tab 09/13/21 21:45 Oxycodone /Acetaminophen 5-325mg Tab PO Q6H PRN Pain, Moderate (4-6) Potassium Chloride 20 meq 09/13/21 22:00 09/14/21 13:37 Potassium Chloride Er 20 Meq Tab PO 20 meq Q12H NEO Administration Pravastatin Sodium 20 mg 09/13/21 22:00 09/13/21 23:01 Pravastatin 20 Mg Tab PO 20 mg QHS NEO Administration Sodium Chloride 10 ml 09/13/21 22:00 09/13/21 22:48 Sodium Chloride 0.9% 10 Ml Flush Syringe IV 10 ml BID NEO Administration Sodium Chloride 10 ml 09/13/21 21:41 Sodium Chloride 0.9% 10 Ml Flush Syringe IV PRN PRN LINE FLUSH
[2021-09-14] MEDS: PRAVASTATIN 20 MG TAB PO SCH (22:13)
[2021-09-15 05:23] LABS: BUN/Creatinine Ratio 15; Blood Urea Nitrogen 17 mg/dL (9-20); Calcium 8.8 mg/dL (8.4-10.2); Hemolysis Index 0
[2021-09-15] MEDS: FUROSEMIDE 40 MG/4 ML INJ IV SCH ×2 (06:03→22:50)
[2021-09-15] MEDS: NIFEdipine XL 30 MG TAB PO SCH (10:01)
[2021-09-15] MEDS: FAMOTIDINE 20 MG TAB PO SCH ×2 (10:01→22:21)
[2021-09-15] MEDS: ASCORBIC ACID 500 MG TAB PO SCH (10:01)
[2021-09-15] MEDS: HEPARIN 5,000 UNIT/1 ML VIAL SUB-Q SCH ×2 (10:01→22:21)
[2021-09-15] MEDS: CHOLECALCIFEROL (VIT D3) 5,000 UNIT TAB PO SCH (10:01)
[2021-09-15] MEDS: LOSARTAN 50 MG TAB PO SCH (10:01)
[2021-09-15] MEDS: OMEGA-3 FATTY ACIDS/FISH OIL 1 GRAM CAP PO SCH (10:01)
[2021-09-15] MEDS: MAGNESIUM OXIDE 400 MG TAB PO SCH (10:01)
[2021-09-15] MEDS: METOPROLOL TARTRATE 50 MG TAB PO SCH ×2 (10:01→22:20)
[2021-09-15] MEDS: hydrALAZINE 25 MG TAB PO SCH (10:02)
[2021-09-15] MEDS: POTASSIUM CHLORIDE ER 20 MEQ TAB PO SCH ×2 (10:04→22:20)
[2021-09-15] MEDS ORDERED: POLYETHYLENE GLYCOL 3350 17 GM POWDER PO PRN (10:30)
--- NOTE | 2021-09-15 11:33 | Progress Note ---
Assessment and Plan 60-year-old gentleman with a past medical history of CAD/CABG, ischemic cardiomyopathy EF 40 to 45%, hypertension, hyperlipidemia, diabetes, vitamin D deficiency, and noncompliance presents to [facility] emergency department complaining of increasing shortness of breath for the past week. Acute on chronic HFrEF 40-45% CAD/CABG Ischemic cardiomyopathy Diabetes Hypertension Hyperlipidemia Noncompliance [facility] 02/10/2019: Multivessel disease, distal left main 70%, ostial left circumflex 80%, OM 2 occluded, LAD luminal irregularities, ostial diagonal 220 to 25%, RCA luminal irregularities, distal posterolateral 90%, LVEDP 30 to 35 mmHg Echo 08/02/21: EF 40 to 45%, grade 3 diastolic dysfunction, moderate tricuspid regurgitation, moderate LAE, RVSP 62 mmHg Plan: Continue diuresis. I&Os not ducmented but patient reports good UOP. Continue diuresis with Lasix 40 mg IV twice daily. Strict I's and O's Monitor renal indices Agree with hydralazine 50 mg p.o. daily losartan 100 mg p.o. daily nifedipine 30 mg p.o. daily, and pravastatin Initiate asa due to CAD adn h/o CABG Increase to metoprolol 50 mg p.o. BID Patient seen in conjunction with Dr. Burton who agrees with this plan of care - Patient Problems (1) Acute respiratory failure with hypoxia Current Visit: Yes Status: Acute (2) Coronary artery disease Current Visit: Yes Status: Chronic Qualifiers: Coronary Disease-Associated Artery/Lesion type: bypass graft [place] vs. 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 transplanted heart: [place] heart Associated angina: without angina Qualified Code(s): I25.810 - Atherosclerosis of coronary artery bypass graft(s) without angina pectoris (10) Cardiomyopathy Current Visit: No Status: Chronic Subjective Date of service: 09/15/21 Principal diagnosis: acute on chronic HFrEF Interval history: Patient resting in bed in no acute distress. Patient reports feeling slightly better but still says short of breath Patient sinus 76 on monitor with PVCs Objective Vital Signs Temp Pulse Resp BP BP Pulse Ox 09/15/21 07:40 97.8 F 82 18 151/105 09/15/21 06:04 96.6 F L 82 16 182/104 87 09/15/21 03:00 98 09/14/21 15:58 98.6 F 74 20 126/63 97 09/14/21 15:00 98 09/14/21 13:57 100 H 09/14/21 13:36 102 H 09/14/21 13:35 102 H 09/14/21 11:39 96.7 F L 81 20 151/92 93 - Physical Examination HEENT: Positive: PERRL Neck: Positive: neck supple, trachea midline Cardiac: Positive: Reg Rate and Rhythm Lungs: Positive: Wheezes Neuro: Positive: Grossly Intact Abdomen: Positive: Soft, Active Bowel Sounds Skin: Negative: Rash Extremities: Present: edema, warm - Labs and Meds Comprehensive Metabolic Panel 09/15/21 Range/Units 04:42 Sodium 141 (137-145) mmol/L Potassium 4.5 (3.6-5.0) mmol/L Chloride 101.9 (98-107) mmol/L Carbon Dioxide 30 (22-30) mmol/L BUN 17 (9-20) mg/dL Creatinine 1.1 (0.8-1.3) mg/dL Glucose 109 H (75-100) mg/dL Calcium 8.8 (8.4-10.2) mg/dL - Imaging and Cardiology Echo: report reviewed Cardiac cath: report reviewed - Telemetry EKG Rhythm: Sinus Rhythm - EKG Sinus rhythms and dysrhythmias: sinus rhythm Ventricular dysrhythmias: ventricular premature com
[2021-09-15] MEDS: ASPIRIN 81 MG TAB CHEW PO SCH (13:04)
--- NOTE | 2021-09-15 15:03 | Progress Note ---
Assessment and Plan Assessment and plan: #Acute on chronic systolic heart failure #Ischemic cardiomyopathy #Hyperlipidemia #Hypertension - continue CHF exacerbation protocol: telemetry, strict I/Os, monitor urine output every shift, daily weights, afterload reduction, low sodium diet, and fluid restriction of approximately 1.5L/day -ProBNP on admission: 8184 -Cardiology consulted; appreciate recs - pending TTE - continue IV lasix 40mg BID, losartan 100mg daily, metoprolol tartrate 50mg daily, pravastatin 20mg daily - SBP goal <160 and DBP goal <90 while inpatient #Acute hypoxic respiratory failure- resolved - weaned off of 2L NC #Morbid obesity #Weight loss counseling #Exercise counseling - BMI 47.7 - Counseled patient on the importance of weight loss, incorporating exercise, and dietary changes (lean meats, fresh fruits and vegetables, and water intake). Patient expresses understanding. - Time: +10 min #Advanced care planning -Disease education conducted, care plan discussed, diagnoses discussed, prognosis discussed, and patient acknowledges understanding with care plan -Time: +30 min Disposition Plan: Continue medical management Total Time Spent with Patient (Minutes): 45 minutes History Interval history: No acute events overnight. Hospitalist Physical - Constitutional Vitals: Temp Pulse Resp BP Pulse Ox 98 F 75 18 136/85 98 09/15/21 11:35 09/15/21 11:35 09/15/21 11:35 09/15/21 11:35 09/15/21 12:00 General appearance: Present: no acute distress, well-nourished, obese - EENT Eyes: Present: PERRL, EOM intact ENT: hearing intact, clear oral mucosa, dentition normal - Neck Neck: Present: supple, normal ROM - Respiratory Respiratory effort: normal Respiratory: bilateral: diminished (On 2 L nasal cannula) - Cardiovascular Rhythm: regular Heart Sounds: Present: S1 & S2 - Extremities Extremities: no ischemia, pulses intact, pulses symmetrical, No edema, normal temperature, normal color Extremity abnormal: edema (1+ pitting edema bilateral lower extremities to mid [place]) Peripheral Pulses: within normal limits - Abdominal General gastrointestinal: soft, non-tender, non-distended, normal bowel sounds - Integumentary Integumentary: Present: clear, warm, dry - Psychiatric Psychiatric: appropriate mood/affect, intact judgment & insight, memory intact, cooperative - Neurologic Neurologic: CNII-XII intact, moves all extremities - Allied Health Allied health notes reviewed: nursing HEART Score - HEART Score Age: 45-65 Risk factors: > 3 risk factors or hx of atherosclerotic disease Troponin: Troponin T 0.027 ng/mL (0.00-0.029) 09/13/21 14:53 - Critical Actions Critical Actions: 4-6 pts:12-16.6% risk of adverse cardiac event. Should be admitted Results - Labs CBC & Chem 7: 09/14/21 04:50 09/15/21 04:42 Labs: Laboratory Last Values WBC 5.6 K/mm3 (4.5-11.0) 09/14/21 04:50 RBC 4.58 M/mm3 (3.65-5.03) 09/14/21 04:50 Hgb 12.4 gm/dl (11.8-15.2) 09/14/21 04:50 Hct 38.7 % (35.5-45.6) 09/14/21 04:50 MCV 84 fl (84-94) 09/14/21 04:50 MCH 27 pg (28-32) L 09/14/21 04:50 MCHC 32 % (32-34) 09/14/21 04:50 RDW 16.1 % (13.2-15.2) H 09/14/21 04:50 Plt Count 195 K/mm3 (140-440) 09/14/21 04:50 Lymph % (Auto) 23.9 % (13.4-35.0) 09/14/21 04:50 [place] % (Auto) 10.9 % (0.0-7.3) H 09/14/21 04:50 Eos % (Auto) 1.9 % (0.0-4.3) 09/14/21 04:50 Baso % (Auto) 0.6 % (0.0-1.8) 09/14/21 04:50 Lymph # (Auto) 1.3 K/mm3 (1.2-5.4) 09/14/21 04:50 [place] # (Auto) 0.6 K/mm3 (0.0-0.8) 09/14/21 04:50 Eos # (Auto) 0.1 K/mm3 (0.0-0.4) 09/14/21 04:50 Baso # (Auto) 0.0 K/mm3 (0.0-0.1) 09/14/21 04:50 Seg Neutrophils % 62.7 % (40.0-70.0) 09/14/21 04:50 Seg Neutrophils # 3.5 K/mm3 (1.8-7.7) 09/14/21 04:50 PT 14.1 Sec. (12.2-14.9) 09/13/21 14:53 INR 0.98 (0.87-1.13) 09/13/21 14:53 Sodium 141 mmol/L (137-145) 09/15/21 04:42 Potassium 4.5 mmol/L (3.6-5.0) 09/15/21 04:42 Chloride 101.9 mmol/L (98-107) 09/15/21 04:42 Carbon Dioxide 30 mmol/L (22-30) 09/15/21 04:42 Anion Gap 14 mmol/L 09/15/21 04:42 BUN 17 mg/dL (9-20) 09/15/21 04:42 Creatinine 1.1 mg/dL (0.8-1.3) 09/15/21 04:42 Estimated GFR > 60 ml/min 09/15/21 04:42 BUN/Creatinine Ratio 15 % 09/15/21 04:42 Glucose 109 mg/dL (75-100) H 09/15/21 04:42 Calcium 8.8 mg/dL (8.4-10.2) 09/15/21 04:42 Magnesium 2.00 mg/dL (1.7-2.3) 09/15/21 12:39 Total Bilirubin 0.50 mg/dL (0.1-1.2) 09/14/21 04:50 AST 14 units/L (5-40) 09/14/21 04:50 ALT 12 units/L (7-56) 09/14/21 04:50 Alkaline Phosphatase 79 units/L (35-129) 09/14/21 04:50 Troponin T 0.027 ng/mL (0.00-0.029) 09/13/21 14:53 NT-Pro-B Natriuret Pep 8184 pg/mL (0-900) H 09/13/21 14:53 Total Protein 7.1 g/dL (6.3-8.2) 09/14/21 04:50 Albumin 3.8 g/dL (3.9-5) L 09/14/21 04:50 Albumin/Globulin Ratio 1.2 % 09/14/21 04:50 Quiroz/IV: Voiding Method Urinal Active Medications - Current Medications Current Medications: Generic Name Dose Route Start Last Admin Trade Name Freq PRN Reason Stop Dose Admin Acetaminophen 650 mg 09/13/21 21:41 Acetaminophen 325 Mg Tab PO Q4H PRN Pain MILD(1-3)/Fever >100.5/AVILA Ascorbic Acid 1,000 mg 09/13/21 22:00 09/15/21 10:01 Ascorbic Acid 500 Mg Tab PO 1,000 mg QDAY NEO Administration Aspirin 81 mg 09/15/21 12:00 09/15/21 13:04 Aspirin 81 Mg Tab Chew PO Not Given QDAY NEO Cholecalciferol 5,000 unit 09/13/21 22:00 09/15/21 10:01 Cholecalciferol (Vit D3) 5,000 Unit Tab PO 5,000 unit DAILY NEO Administration Famotidine 20 mg 09/13/21 22:00 09/15/21 10:01 Famotidine 20 Mg Tab PO 20 mg BID NEO Administration Fish Oil 1,000 mg 09/14/21 10:00 09/15/21 10:01 [place]-3 Fatty Acids/Fish Oil 1 Gram Cap PO 1,000 mg QDAY NEO Administration Furosemide 40 mg 09/14/21 06:00 09/15/21 06:03 Furosemide 40 Mg/4 Ml Inj IV 40 mg 0600,1800 NEO Administration Heparin Sodium (Porcine) 5,000 unit 09/13/21 22:00 09/15/21 10:01 Heparin 5,000 Unit/1 Ml Vial SUB-Q 5,000 unit Q12HR NEO Administration Hydralazine HCl 50 mg 09/13/21 22:00 09/15/21 10:02 Hydralazine 25 Mg Tab PO 50 mg QDAY NEO Administration Hydromorphone HCl 0.5 mg 09/13/21 21:41 Hydromorphone 1 Mg/1 Ml Inj IV Q3H PRN Pain , Severe (7-10) Losartan Potassium 100 mg 09/13/21 22:00 09/15/21 10:01 Losartan 50 Mg Tab PO 100 mg QDAY NEO Administration Magnesium Oxide 400 mg 09/13/21 22:00 09/15/21 10:01 Magnesium Oxide 400 Mg Tab PO 400 mg QDAY NEO Administration Metoprolol Tartrate 50 mg 09/15/21 22:00 Metoprolol Tartrate 50 Mg Tab PO BID NEO Nifedipine 30 mg 09/15/21 10:00 09/15/21 10:01 Nifedipine Xl 30 Mg Tab PO 30 mg QDAY NEO Administration Ondansetron HCl 4 mg 09/13/21 21:41 Ondansetron 4 Mg/2 Ml Inj IV Q8H PRN Nausea And Vomiting Oxycodone/Acetaminophen 1 tab 09/13/21 21:45 Oxycodone /Acetaminophen 5-325mg Tab PO Q6H PRN Pain, Moderate (4-6) Polyethylene Glycol 17 gm 09/15/21 10:30 Polyethylene Glycol 3350 17 Gm Powder PO BID PRN Constipation Potassium Chloride 20 meq 09/13/21 22:00 09/15/21 10:04 Potassium Chloride Er 20 Meq Tab PO 20 meq Q12H NEO Administration Pravastatin Sodium 20 mg 09/13/21 22:00 09/14/21 22:13 Pravastatin 20 Mg Tab PO 20 mg QHS NEO Administration Sodium Chloride 10 ml 09/13/21 22:00 09/15/21 13:04 Sodium Chloride 0.9% 10 Ml Flush Syringe IV Not Given BID NEO Sodium Chloride 10 ml 09/13/21 21:41 Sodium Chloride 0.9% 10 Ml Flush Syringe IV PRN PRN LINE FLUSH
[2021-09-15] MEDS: PRAVASTATIN 20 MG TAB PO SCH (22:21)
[2021-09-16] MEDS: FUROSEMIDE 40 MG/4 ML INJ IV SCH ×2 (06:11→19:04)
[2021-09-16 06:15] LABS: BUN/Creatinine Ratio 15; Blood Urea Nitrogen 16 mg/dL (9-20); Calcium 8.6 mg/dL (8.4-10.2); Hemolysis Index 0
[2021-09-16] MEDS: METOPROLOL TARTRATE 50 MG TAB PO SCH ×2 (11:04→21:25)
[2021-09-16] MEDS: CHOLECALCIFEROL (VIT D3) 5,000 UNIT TAB PO SCH (11:05)
[2021-09-16] MEDS: hydrALAZINE 25 MG TAB PO SCH (11:05)
[2021-09-16] MEDS: OMEGA-3 FATTY ACIDS/FISH OIL 1 GRAM CAP PO SCH (11:05)
[2021-09-16] MEDS: ASPIRIN 81 MG TAB CHEW PO SCH (11:05)
[2021-09-16] MEDS: MAGNESIUM OXIDE 400 MG TAB PO SCH (11:05)
[2021-09-16] MEDS: LOSARTAN 50 MG TAB PO SCH (11:05)
[2021-09-16] MEDS: NIFEdipine XL 30 MG TAB PO SCH (11:05)
[2021-09-16] MEDS: ASCORBIC ACID 500 MG TAB PO SCH (11:05)
--- NOTE | 2021-09-16 11:05 | Progress Note ---
Assessment and Plan Assessment and plan: #Acute on chronic systolic heart failure #Ischemic cardiomyopathy -proBNP 824 -Continue Lasix 40 IV twice daily, losartan 100 mg daily, metoprolol tartrate 50 mg twice daily -Telemetry, strict I's and O's, daily weight -Low-sodium diet, fluid restriction less than 1.5 L daily -Patient counseled on importance of maintaining low-salt diet -Cardiology following, assistance appreciated #Hyperlipidemia -Continue pravastatin #Hypertension -Controlled -Continue losartan, metoprolol, and nifedipine #Acute hypoxic respiratory failure-resolved -Currently saturating 87-97% on room air -Home O2 evaluation ordered -Likely secondary to CHF exacerbation #Morbid obesity #Weight loss counseling #Exercise counseling -BMI 47.7 -Counseled patient importance of weight loss, increase physical activity, and dietary changes. Patient expressed understanding. Disposition Plan: Continue medical management History Interval history: Patient reports getting late dose of Lasix last night. Denies chest pain and shortness of breath. Has noticed improvement in lower extremity swelling. No complaints at this time. Hospitalist Physical - Physical exam Narrative exam: GENERAL: Well-developed well-nourished. Sitting on the side of the bed in no acute distress. HEENT: Normocephalic. Atraumatic. NECK: +JVD CHEST/LUNGS: Mild expiratory crackles. HEART/CARDIOVASCULAR: RRR. No murmur, rubs or gallops appreciated. ABDOMEN: +BS. NT/ND. SKIN: No rashes noted. NEURO: No focal motor deficit. Follows all commands and is ambulatory. EXTREMITIES: 1+ LE edema. No cyanosis, clubbing. PSYCH: Cooperative. - Constitutional Vitals: Temp Pulse Resp BP Pulse Ox 97.5 F L 72 18 102/43 91 09/16/21 08:02 09/16/21 08:02 09/16/21 08:02 09/16/21 08:02 09/16/21 08:02 General appearance: Present: no acute distress, well-nourished, obese HEART Score - HEART Score Age: 45-65 Risk factors: > 3 risk factors or hx of atherosclerotic disease Troponin: Troponin T 0.027 ng/mL (0.00-0.029) 09/13/21 14:53 - Critical Actions Critical Actions: 4-6 pts:12-16.6% risk of adverse cardiac event. Should be admitted Results - Labs CBC & Chem 7: 09/14/21 04:50 09/16/21 04:38 Labs: Laboratory Last Values WBC 5.6 K/mm3 (4.5-11.0) 09/14/21 04:50 RBC 4.58 M/mm3 (3.65-5.03) 09/14/21 04:50 Hgb 12.4 gm/dl (11.8-15.2) 09/14/21 04:50 Hct 38.7 % (35.5-45.6) 09/14/21 04:50 MCV 84 fl (84-94) 09/14/21 04:50 MCH 27 pg (28-32) L 09/14/21 04:50 MCHC 32 % (32-34) 09/14/21 04:50 RDW 16.1 % (13.2-15.2) H 09/14/21 04:50 Plt Count 195 K/mm3 (140-440) 09/14/21 04:50 Lymph % (Auto) 23.9 % (13.4-35.0) 09/14/21 04:50 [place] % (Auto) 10.9 % (0.0-7.3) H 09/14/21 04:50 Eos % (Auto) 1.9 % (0.0-4.3) 09/14/21 04:50 Baso % (Auto) 0.6 % (0.0-1.8) 09/14/21 04:50 Lymph # (Auto) 1.3 K/mm3 (1.2-5.4) 09/14/21 04:50 [place] # (Auto) 0.6 K/mm3 (0.0-0.8) 09/14/21 04:50 Eos # (Auto) 0.1 K/mm3 (0.0-0.4) 09/14/21 04:50 Baso # (Auto) 0.0 K/mm3 (0.0-0.1) 09/14/21 04:50 Seg Neutrophils % 62.7 % (40.0-70.0) 09/14/21 04:50 Seg Neutrophils # 3.5 K/mm3 (1.8-7.7) 09/14/21 04:50 PT 14.1 Sec. (12.2-14.9) 09/13/21 14:53 INR 0.98 (0.87-1.13) 09/13/21 14:53 Sodium 141 mmol/L (137-145) 09/16/21 04:38 Potassium 3.9 mmol/L (3.6-5.0) 09/16/21 04:38 Chloride 101.2 mmol/L (98-107) 09/16/21 04:38 Carbon Dioxide 29 mmol/L (22-30) 09/16/21 04:38 Anion Gap 15 mmol/L 09/16/21 04:38 BUN 16 mg/dL (9-20) 09/16/21 04:38 Creatinine 1.1 mg/dL (0.8-1.3) 09/16/21 04:38 Estimated GFR > 60 ml/min 09/16/21 04:38 BUN/Creatinine Ratio 15 % 09/16/21 04:38 Glucose 107 mg/dL (75-100) H 09/16/21 04:38 Calcium 8.6 mg/dL (8.4-10.2) 09/16/21 04:38 Magnesium 2.00 mg/dL (1.7-2.3) 09/15/21 12:39 Total Bilirubin 0.50 mg/dL (0.1-1.2) 09/14/21 04:50 AST 14 units/L (5-40) 09/14/21 04:50 ALT 12 units/L (7-56) 09/14/21 04:50 Alkaline Phosphatase 79 units/L (35-129) 09/14/21 04:50 Troponin T 0.027 ng/mL (0.00-0.029) 09/13/21 14:53 NT-Pro-B Natriuret Pep 8184 pg/mL (0-900) H 09/13/21 14:53 Total Protein 7.1 g/dL (6.3-8.2) 09/14/21 04:50 Albumin 3.8 g/dL (3.9-5) L 09/14/21 04:50 Albumin/Globulin Ratio 1.2 % 09/14/21 04:50 Quiroz/IV: Voiding Method Urinal Active Medications - Current Medications Current Medications: Generic Name Dose Route Start Last Admin Trade Name Freq PRN Reason Stop Dose Admin Acetaminophen 650 mg 09/13/21 21:41 Acetaminophen 325 Mg Tab PO Q4H PRN Pain MILD(1-3)/Fever >100.5/AVILA Ascorbic Acid 1,000 mg 09/13/21 22:00 09/15/21 10:01 Ascorbic Acid 500 Mg Tab PO 1,000 mg QDAY NEO Administration Aspirin 81 mg 09/15/21 12:00 09/15/21 13:04 Aspirin 81 Mg Tab Chew PO Not Given QDAY [facility] Cholecalciferol 5,000 unit 09/13/21 22:00 09/15/21 10:01 Cholecalciferol (Vit D3) 5,000 Unit Tab PO 5,000 unit DAILY NEO Administration Famotidine 20 mg 09/13/21 22:00 09/15/21 22:21 Famotidine 20 Mg Tab PO 20 mg BID NEO Administration Fish Oil 1,000 mg 09/14/21 10:00 09/15/21 10:01 [place]-3 Fatty Acids/Fish Oil 1 Gram Cap PO 1,000 mg QDAY NEO Administration Furosemide 40 mg 09/14/21 06:00 09/16/21 06:11 Furosemide 40 Mg/4 Ml Inj IV 40 mg 0600,1800 NEO Administration Heparin Sodium (Porcine) 5,000 unit 09/13/21 22:00 09/15/21 22:21 Heparin 5,000 Unit/1 Ml Vial SUB-Q 5,000 unit Q12HR NEO Administration Hydralazine HCl 50 mg 09/13/21 22:00 09/15/21 10:02 Hydralazine 25 Mg Tab PO 50 mg QDAY NEO Administration Hydromorphone HCl 0.5 mg 09/13/21 21:41 Hydromorphone 1 Mg/1 Ml Inj IV Q3H PRN Pain , Severe (7-10) Losartan Potassium 100 mg 09/13/21 22:00 09/15/21 10:01 Losartan 50 Mg Tab PO 100 mg QDAY NEO Administration Magnesium Oxide 400 mg 09/13/21 22:00 09/15/21 10:01 Magnesium Oxide 400 Mg Tab PO 400 mg QDAY NEO Administration Metoprolol Tartrate 50 mg 09/15/21 22:00 09/15/21 22:20 Metoprolol Tartrate 50 Mg Tab PO 50 mg BID NEO Administration Nifedipine 30 mg 09/15/21 10:00 09/15/21 10:01 Nifedipine Xl 30 Mg Tab PO 30 mg QDAY NEO Administration Ondansetron HCl 4 mg 09/13/21 21:41 Ondansetron 4 Mg/2 Ml Inj IV Q8H PRN Nausea And Vomiting Oxycodone/Acetaminophen 1 tab 09/13/21 21:45 Oxycodone /Acetaminophen 5-325mg Tab PO Q6H PRN Pain, Moderate (4-6) Polyethylene Glycol 17 gm 09/15/21 10:30 Polyethylene Glycol 3350 17 Gm Powder PO BID PRN Constipation Potassium Chloride 20 meq 09/13/21 22:00 09/15/21 22:20 Potassium Chloride Er 20 Meq Tab PO 20 meq Q12H NEO Administration Pravastatin Sodium 20 mg 09/13/21 22:00 09/15/21 22:21 Pravastatin 20 Mg Tab PO 20 mg QHS NEO Administration Sodium Chloride 10 ml 09/13/21 22:00 09/15/21 22:21 Sodium Chloride 0.9% 10 Ml Flush Syringe IV 10 ml BID NEO Administration Sodium Chloride 10 ml 09/13/21 21:41 Sodium Chloride 0.9% 10 Ml Flush Syringe IV PRN PRN LINE FLUSH
[2021-09-16] MEDS: HEPARIN 5,000 UNIT/1 ML VIAL SUB-Q SCH ×2 (11:06→21:25)
[2021-09-16] MEDS: FAMOTIDINE 20 MG TAB PO SCH ×2 (11:06→21:26)
[2021-09-16] MEDS: POTASSIUM CHLORIDE ER 20 MEQ TAB PO SCH (11:09)
--- NOTE | 2021-09-16 11:27 | Progress Note ---
Assessment and Plan 60-year-old gentleman with a past medical history of CAD/CABG, ischemic cardiomyopathy EF 40 to 45%, hypertension, hyperlipidemia, diabetes, vitamin D deficiency, and noncompliance presents to [facility] emergency department complaining of increasing shortness of breath for the past week. Acute on chronic HFrEF 40-45% CAD/CABG Ischemic cardiomyopathy Diabetes Hypertension Hyperlipidemia Noncompliance [facility] 02/10/2019: Multivessel disease, distal left main 70%, ostial left circumflex 80%, OM 2 occluded, LAD luminal irregularities, ostial diagonal 220 to 25%, RCA luminal irregularities, distal posterolateral 90%, LVEDP 30 to 35 mmHg Echo 08/02/21: EF 40 to 45%, grade 3 diastolic dysfunction, moderate tricuspid regurgitation, moderate LAE, RVSP 62 mmHg Plan: Patient has had good UOP with improvemnt with symptoms and decreases in edema. Continue diuresis with Lasix 40 mg IV twice daily. Strict I's and O's Monitor renal indices Continue hydralazine 50 mg p.o. daily losartan 100 mg p.o. daily nifedipine 30 mg p.o. daily, pravastatin, metoprolol 50 mg p.o. BID Patient seen in conjunction with Dr. Burton who agrees with this plan of care - Patient Problems (1) Acute respiratory failure with hypoxia Current Visit: Yes Status: Acute (2) Coronary artery disease Current Visit: Yes Status: Chronic Qualifiers: Coronary Disease-Associated Artery/Lesion type: bypass graft [place] vs. 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 transplanted heart: [place] heart Associated angina: without angina Qualified Code(s): I25.810 - Atherosclerosis of coronary artery bypass graft(s) without angina pectoris (10) Cardiomyopathy Current Visit: No Status: Chronic Subjective Date of service: 09/16/21 Principal diagnosis: acute on chronic HFrEF Interval history: Patient resting in bed in no acute distress. Patient reports feeling kevin Patient sinus 80s on monitor with PVCs UOP=-2500ml Objective Vital Signs Temp Pulse Resp BP BP Pulse Ox 09/16/21 08:02 97.5 F L 72 18 102/43 91 09/16/21 03:44 97.7 F 75 18 139/70 91 09/16/21 00:00 98 09/15/21 23:40 97.6 F 72 20 144/85 93 09/15/21 22:20 76 123/65 09/15/21 19:39 97.7 F 76 19 123/65 91 09/15/21 15:55 98.9 F 77 18 146/63 09/15/21 12:00 98 09/15/21 11:35 98 F 75 18 136/85 - Physical Examination General: No Apparent Distress HEENT: Positive: PERRL Neck: Positive: neck supple, trachea midline Cardiac: Positive: Reg Rate and Rhythm Lungs: Positive: Decreased Breath Sounds Neuro: Positive: Grossly Intact Abdomen: Positive: Soft, Active Bowel Sounds Skin: Negative: Rash Extremities: Present: edema, warm - Labs and Meds Comprehensive Metabolic Panel 09/16/21 Range/Units 04:38 Sodium 141 (137-145) mmol/L Potassium 3.9 (3.6-5.0) mmol/L Chloride 101.2 (98-107) mmol/L Carbon Dioxide 29 (22-30) mmol/L BUN 16 (9-20) mg/dL Creatinine 1.1 (0.8-1.3) mg/dL Glucose 107 H (75-100) mg/dL Calcium 8.6 (8.4-10.2) mg/dL - Imaging and Cardiology Echo: report reviewed Cardiac cath: report reviewed - Telemetry EKG Rhythm: Sinus Rhythm - EKG Sinus rhythms and dysrhythmias: sinus rhythm Ventricular dysrhythmias: ventricular premature com
[2021-09-16] MEDS: PRAVASTATIN 20 MG TAB PO SCH (21:25)
[2021-09-17] MEDS: POTASSIUM CHLORIDE ER 20 MEQ TAB PO SCH ×3 (00:48→21:23)
[2021-09-17 05:13] LABS: BUN/Creatinine Ratio 15; Blood Urea Nitrogen 17 mg/dL (9-20); Calcium 8.7 mg/dL (8.4-10.2); Hemolysis Index 2
[2021-09-17] MEDS: FUROSEMIDE 40 MG/4 ML INJ IV SCH ×2 (05:56→17:38)
[2021-09-17] MEDS: ASCORBIC ACID 500 MG TAB PO SCH (10:05)
[2021-09-17] MEDS: hydrALAZINE 25 MG TAB PO SCH (10:06)
[2021-09-17] MEDS: OMEGA-3 FATTY ACIDS/FISH OIL 1 GRAM CAP PO SCH (10:06)
[2021-09-17] MEDS: METOPROLOL TARTRATE 50 MG TAB PO SCH ×2 (10:06→21:20)
[2021-09-17] MEDS: FAMOTIDINE 20 MG TAB PO SCH ×2 (10:06→21:21)
[2021-09-17] MEDS: NIFEdipine XL 30 MG TAB PO SCH (10:07)
[2021-09-17] MEDS: MAGNESIUM OXIDE 400 MG TAB PO SCH (10:07)
[2021-09-17] MEDS: LOSARTAN 50 MG TAB PO SCH (10:07)
[2021-09-17] MEDS: ASPIRIN 81 MG TAB CHEW PO SCH (10:08)
[2021-09-17] MEDS: HEPARIN 5,000 UNIT/1 ML VIAL SUB-Q SCH ×2 (10:08→21:20)
--- NOTE | 2021-09-17 13:37 | Discharge Summary ---
Providers - Providers Date of Admission: 09/13/21 15:00 Attending physician: SHANNAN HERNANDEZ MD 09/13/21 21:41 Consult to Physician [CONS] Routine Comment: Consulting Provider: DANY HERNANDEZ Physician Instructions: Reason For Exam: CHF exacerbation Primary care physician: [employer] Hospitalization Condition: Serious Disposition: 30 STILL A PATIENT Exam - Constitutional Vitals: Temp Pulse Resp BP Pulse Ox 98.8 F 91 H 20 162/80 94 09/17/21 11:04 09/17/21 11:04 09/17/21 11:04 09/17/21 11:04 09/17/21 11:04 Plan Care Plan Goals: Please follow-up with your primary care doctor. Follow-up with cardiology within the next 2 weeks. Bring all your medications to all your appointments with you. Please limit/cut back the amount of cured meats, chips and salty foods you consume. Follow up with: DANY HERNANDEZ MD [Staff Physician] - 14 Days PRIMARY CARE, [Primary Care Provider] - 3-5 Days Prescriptions: Pravastatin [Pravachol] 20 mg PO QHS 30 Days #30 tablet hydrALAZINE [Apresoline TAB] 50 mg PO QDAY 30 Days #60 tab Aspirin [Aspirin BABY CHEW TAB] 81 mg PO QDAY 30 Days #30 tab.chew Losartan [Cozaar] 100 mg PO QDAY 30 Days #30 tab Furosemide [Lasix TAB] 40 mg PO QDAY 30 Days #30 tablet Metoprolol [Lopressor TAB] 50 mg PO BID 30 Days #60 tablet NIFEdipine XL [Procardia Xl] 30 mg PO QDAY 30 Days #30 tablet
--- NOTE | 2021-09-17 14:30 | Progress Note ---
Assessment and Plan 60-year-old gentleman with a past medical history of CAD/CABG, ischemic cardiomyopathy EF 40 to 45%, hypertension, hyperlipidemia, diabetes, vitamin D deficiency, and noncompliance presents to [facility] emergency department complaining of increasing shortness of breath for the past week. Acute on chronic HFrEF 40-45% CAD/CABG Ischemic cardiomyopathy Diabetes Hypertension Hyperlipidemia Noncompliance [facility] 02/10/2019: Multivessel disease, distal left main 70%, ostial left circumflex 80%, OM 2 occluded, LAD luminal irregularities, ostial diagonal 220 to 25%, RCA luminal irregularities, distal posterolateral 90%, LVEDP 30 to 35 mmHg Echo 08/02/21: EF 40 to 45%, grade 3 diastolic dysfunction, moderate tricuspid regurgitation, moderate LAE, RVSP 62 mmHg Plan: Continue hydralazine 50 mg p.o. daily losartan 100 mg p.o. daily nifedipine 30 mg p.o. daily, pravastatin, metoprolol 50 mg p.o. BID Patient appears euvolemic on exam. Edema has significantly decreased Patient should be discharged on Lasix 40 mg p.o. daily Discussed with patient the importance of medical compliance, and proper diet and nutrition. Patient verbalized and acknowledged understanding Cardiac status stable for discharge Patient has a follow-up appointment with Dr. Vega, [facility] business development specialist, on 10/08/2021 at 9 AM at our [place] location. Phone #[phone] Patient seen in conjunction with Dr. Burton who agrees with this plan of care - Patient Problems (1) Acute respiratory failure with hypoxia Current Visit: Yes Status: Acute (2) Coronary artery disease Current Visit: Yes Status: Chronic Qualifiers: Coronary Disease-Associated Artery/Lesion type: bypass graft [place] vs. transplanted heart: [place] heart (3) Hyperlipidemia Current Visit: Yes Status: Chronic Qualifiers: Hyperlipidemia type: mixed hyperlipidemia Qualified Code(s): E78.2 - Mixed hyperlipidemia (4) T2DM (type 2 diabetes mellitus) Current Visit: Yes Status: Chronic Qualifiers: Diabetes mellitus rat exterminator insulin use: unspecified rat exterminator insulin use status (5) Acute HFrEF (heart failure with reduced ejection fraction) Current Visit: No Status: Acute (6) Ischemic dilated cardiomyopathy Current Visit: No Status: Acute (7) Morbid obesity Current Visit: No Status: Acute (8) Obesity hypoventilation syndrome Current Visit: No Status: Acute (9) CAD (coronary artery disease) Current Visit: No Status: Chronic Qualifiers: Coronary Disease-Associated Artery/Lesion type: bypass graft [place] vs. transplanted heart: [place] heart Associated angina: without angina Qualified Code(s): I25.810 - Atherosclerosis of coronary artery bypass graft(s) without angina pectoris (10) Cardiomyopathy Current Visit: No Status: Chronic Subjective Date of service: 09/17/21 Principal diagnosis: acute on chronic HFrEF Interval history: Patient resting in bed in no acute distress. Patient reports feeling much better Patient sinus 80s on monitor with PVCs UOP>-4Ll Objective Vital Signs Temp Pulse Resp BP BP Pulse Ox 09/17/21 11:04 98.8 F 91 H 20 162/80 94 09/17/21 10:07 82 135/56 09/17/21 10:06 82 135/56 09/17/21 08:09 141/75 09/17/21 08:04 98.0 F 80 20 166/69 92 09/17/21 04:30 98.3 F 71 16 147/71 93 09/16/21 23:23 98.0 F 68 16 137/79 95 09/16/21 21:46 98 09/16/21 19:21 97.6 F 70 16 136/65 98 09/16/21 16:06 98.0 F 72 20 144/80 90 - Physical Examination General: No Apparent Distress HEENT: Positive: PERRL Neck: Positive: neck supple, trachea midline Cardiac: Positive: Reg Rate and Rhythm Lungs: Positive: Normal Breath Sounds Neuro: Positive: Grossly Intact Abdomen: Positive: Soft, Active Bowel Sounds Skin: Negative: Rash Extremities: Present: edema, warm - Labs and Meds Comprehensive Metabolic Panel 09/17/21 Range/Units 04:45 Sodium 139 (137-145) mmol/L Potassium 3.8 (3.6-5.0) mmol/L Chloride 99.9 (98-107) mmol/L Carbon Dioxide 30 (22-30) mmol/L BUN 17 (9-20) mg/dL Creatinine 1.1 (0.8-1.3) mg/dL Glucose 109 H (75-100) mg/dL Calcium 8.7 (8.4-10.2) mg/dL - Imaging and Cardiology Echo: report reviewed Cardiac cath: report reviewed - Telemetry EKG Rhythm: Sinus Rhythm - EKG Sinus rhythms and dysrhythmias: sinus rhythm Ventricular dysrhythmias: ventricular premature com
[2021-09-17] MEDS: CHOLECALCIFEROL (VIT D3) 5,000 UNIT TAB PO SCH (17:38)
[2021-09-17] MEDS: PRAVASTATIN 20 MG TAB PO SCH (21:20)
[2021-09-18] MEDS: FUROSEMIDE 40 MG/4 ML INJ IV SCH (06:17)
[2021-09-18] MEDS: ASPIRIN 81 MG TAB CHEW PO SCH (09:15)
[2021-09-18] MEDS: NIFEdipine XL 30 MG TAB PO SCH (09:15)
[2021-09-18] MEDS: ASCORBIC ACID 500 MG TAB PO SCH (09:15)
[2021-09-18] MEDS: LOSARTAN 50 MG TAB PO SCH (09:15)
[2021-09-18] MEDS: MAGNESIUM OXIDE 400 MG TAB PO SCH (09:16)
[2021-09-18] MEDS: METOPROLOL TARTRATE 50 MG TAB PO SCH (09:16)
[2021-09-18] MEDS: OMEGA-3 FATTY ACIDS/FISH OIL 1 GRAM CAP PO SCH (09:16)
[2021-09-18] MEDS: FAMOTIDINE 20 MG TAB PO SCH (09:16)
[2021-09-18] MEDS: HEPARIN 5,000 UNIT/1 ML VIAL SUB-Q SCH (09:19)
[2021-09-18] MEDS: CHOLECALCIFEROL (VIT D3) 5,000 UNIT TAB PO SCH (09:23)
[2021-09-18] MEDS: POTASSIUM CHLORIDE ER 20 MEQ TAB PO SCH (09:23)
[2021-09-18] MEDS: hydrALAZINE 25 MG TAB PO SCH (12:48)
--- NOTE | 2021-09-18 13:06 | Progress Note ---
Assessment and Plan 60-year-old gentleman with a past medical history of CAD/CABG, ischemic cardiomyopathy EF 40 to 45%, hypertension, hyperlipidemia, diabetes, vitamin D deficiency, and noncompliance presents to [facility] emergency department complaining of increasing shortness of breath for the past week. Acute on chronic HFrEF 40-45% CAD/CABG Ischemic cardiomyopathy Diabetes Hypertension Hyperlipidemia Noncompliance [facility] 02/10/2019: Multivessel disease, distal left main 70%, ostial left circumflex 80%, OM 2 occluded, LAD luminal irregularities, ostial diagonal 220 to 25%, RCA luminal irregularities, distal posterolateral 90%, LVEDP 30 to 35 mmHg Echo 08/02/21: EF 40 to 45%, grade 3 diastolic dysfunction, moderate tricuspid regurgitation, moderate LAE, RVSP 62 mmHg Plan: Patient was not discharged yesterday due to need for home oxygen. Continue hydralazine 50 mg p.o. daily losartan 100 mg p.o. daily nifedipine 30 mg p.o. daily, pravastatin, metoprolol 50 mg p.o. BID Patient appears euvolemic on exam. Edema has significantly decreased Patient should be discharged on Lasix 40 mg p.o. daily Discussed with patient the importance of medical compliance, and proper diet and nutrition. Patient verbalized and acknowledged understanding Cardiac status stable for discharge Patient has a follow-up appointment with Dr. Vega, [facility] fire management specialist, on 10/08/2021 at 9 AM at our [place] location. Phone #[phone] Patient seen in conjunction with Dr. Burton who agrees with this plan of care - Patient Problems (1) Acute respiratory failure with hypoxia Current Visit: Yes Status: Acute (2) Coronary artery disease Current Visit: Yes Status: Chronic Qualifiers: Coronary Disease-Associated Artery/Lesion type: bypass graft [place] vs. transplanted heart: [place] heart (3) Hyperlipidemia Current Visit: Yes Status: Chronic Qualifiers: Hyperlipidemia type: mixed hyperlipidemia Qualified Code(s): E78.2 - Mixed hyperlipidemia (4) T2DM (type 2 diabetes mellitus) Current Visit: Yes Status: Chronic Qualifiers: Diabetes mellitus residential insulin use: unspecified residential insulin use status (5) Acute HFrEF (heart failure with reduced ejection fraction) Current Visit: No Status: Acute (6) Ischemic dilated cardiomyopathy Current Visit: No Status: Acute (7) Morbid obesity Current Visit: No Status: Acute (8) Obesity hypoventilation syndrome Current Visit: No Status: Acute (9) CAD (coronary artery disease) Current Visit: No Status: Chronic Qualifiers: Coronary Disease-Associated Artery/Lesion type: bypass graft [place] vs. transplanted heart: [place] heart Associated angina: without angina Qualified Code(s): I25.810 - Atherosclerosis of coronary artery bypass graft(s) without angina pectoris (10) Cardiomyopathy Current Visit: No Status: Chronic Subjective Date of service: 09/18/21 Principal diagnosis: acute on chronic HFrEF Interval history: Patient resting in bed in no acute distress. Patient reports feeling much better Patient sinus 80s on monitor with PVCs UOP>-2L Objective Vital Signs Temp Pulse Resp BP Pulse Ox 09/18/21 11:42 98.3 F 68 20 128/50 97 09/18/21 09:15 140/80 09/18/21 09:00 18 96 09/18/21 07:36 98.1 F 84 20 140/82 90 09/18/21 03:02 97.9 F 70 19 115/48 92 09/17/21 23:45 98.0 F 69 20 138/79 91 09/17/21 21:00 98 09/17/21 19:58 98.1 F 84 18 149/75 92 09/17/21 16:07 98.3 F 78 20 141/76 88 - Physical Examination General: No Apparent Distress HEENT: Positive: PERRL Neck: Positive: neck supple, trachea midline Cardiac: Positive: Reg Rate and Rhythm Lungs: Positive: Normal Breath Sounds Neuro: Positive: Grossly Intact Abdomen: Positive: Soft, Active Bowel Sounds Skin: Negative: Rash Extremities: Present: edema, warm - Imaging and Cardiology Echo: report reviewed Cardiac cath: report reviewed - Telemetry EKG Rhythm: Sinus Rhythm - EKG Sinus rhythms and dysrhythmias: sinus rhythm Ventricular dysrhythmias: ventricular premature com
--- NOTE | 2021-09-18 14:56 | Progress Note ---
Assessment and Plan Assessment and plan: #Acute on chronic systolic heart failure #Ischemic cardiomyopathy -proBNP 824 -will continue Lasix 40mg qday, losartan 100 mg daily, metoprolol tartrate 50 mg twice daily at discharge -Low-sodium diet, fluid restriction less than 1.5 L daily -Patient counseled on importance of maintaining low-salt diet -Cardiology following, assistance appreciated #Hyperlipidemia -Continue pravastatin #Hypertension -Controlled -Continue losartan, metoprolol, and nifedipine #Acute hypoxic respiratory failure-resolved -Currently saturating 87-97% on room air -Home O2 evaluation ordered -Likely secondary to CHF exacerbation #Morbid obesity #Weight loss counseling #Exercise counseling -BMI 47.7 -Counseled patient importance of weight loss, increase physical activity, and dietary changes. Patient expressed understanding. Disposition Plan: home pending O2 evaluation History Interval history: No acute events overnight. Patient reports no dyspnea on exertion and has been putting out steady urine output. He has no complaints at this time. Hospitalist Physical - Physical exam Narrative exam: GENERAL: Well-developed well-nourished. Sitting on the side of the bed in no acute distress. HEENT: Normocephalic. Atraumatic. NECK: +JVD CHEST/LUNGS: Mild expiratory crackles. HEART/CARDIOVASCULAR: RRR. No murmur, rubs or gallops appreciated. ABDOMEN: +BS. NT/ND. SKIN: No rashes noted. NEURO: No focal motor deficit. Follows all commands and is ambulatory. EXTREMITIES: 1+ LE edema. No cyanosis, clubbing. PSYCH: Cooperative. - Constitutional Vitals: Temp Pulse Resp BP Pulse Ox 98.3 F 68 20 128/50 97 09/18/21 11:42 09/18/21 11:42 09/18/21 11:42 09/18/21 11:42 09/18/21 11:42 General appearance: Present: no acute distress, well-nourished, obese HEART Score - HEART Score Age: 45-65 Risk factors: > 3 risk factors or hx of atherosclerotic disease Troponin: Troponin T 0.027 ng/mL (0.00-0.029) 09/13/21 14:53 - Critical Actions Critical Actions: 4-6 pts:12-16.6% risk of adverse cardiac event. Should be admi tted Results - Labs CBC & Chem 7: 09/14/21 04:50 09/17/21 04:45 Labs: Laboratory Last Values WBC 5.6 K/mm3 (4.5-11.0) 09/14/21 04:50 RBC 4.58 M/mm3 (3.65-5.03) 09/14/21 04:50 Hgb 12.4 gm/dl (11.8-15.2) 09/14/21 04:50 Hct 38.7 % (35.5-45.6) 09/14/21 04:50 MCV 84 fl (84-94) 09/14/21 04:50 MCH 27 pg (28-32) L 09/14/21 04:50 MCHC 32 % (32-34) 09/14/21 04:50 RDW 16.1 % (13.2-15.2) H 09/14/21 04:50 Plt Count 195 K/mm3 (140-440) 09/14/21 04:50 Lymph % (Auto) 23.9 % (13.4-35.0) 09/14/21 04:50 [place] % (Auto) 10.9 % (0.0-7.3) H 09/14/21 04:50 Eos % (Auto) 1.9 % (0.0-4.3) 09/14/21 04:50 Baso % (Auto) 0.6 % (0.0-1.8) 09/14/21 04:50 Lymph # (Auto) 1.3 K/mm3 (1.2-5.4) 09/14/21 04:50 [place] # (Auto) 0.6 K/mm3 (0.0-0.8) 09/14/21 04:50 Eos # (Auto) 0.1 K/mm3 (0.0-0.4) 09/14/21 04:50 Baso # (Auto) 0.0 K/mm3 (0.0-0.1) 09/14/21 04:50 Seg Neutrophils % 62.7 % (40.0-70.0) 09/14/21 04:50 Seg Neutrophils # 3.5 K/mm3 (1.8-7.7) 09/14/21 04:50 PT 14.1 Sec. (12.2-14.9) 09/13/21 14:53 INR 0.98 (0.87-1.13) 09/13/21 14:53 Sodium 139 mmol/L (137-145) 09/17/21 04:45 Potassium 3.8 mmol/L (3.6-5.0) 09/17/21 04:45 Chloride 99.9 mmol/L (98-107) 09/17/21 04:45 Carbon Dioxide 30 mmol/L (22-30) 09/17/21 04:45 Anion Gap 13 mmol/L 09/17/21 04:45 BUN 17 mg/dL (9-20) 09/17/21 04:45 Creatinine 1.1 mg/dL (0.8-1.3) 09/17/21 04:45 Estimated GFR > 60 ml/min 09/17/21 04:45 BUN/Creatinine Ratio 15 % 09/17/21 04:45 Glucose 109 mg/dL (75-100) H 09/17/21 04:45 POC Glucose 104 mg/dL (70-105) 09/17/21 20:21 Calcium 8.7 mg/dL (8.4-10.2) 09/17/21 04:45 Magnesium 2.00 mg/dL (1.7-2.3) 09/15/21 12:39 Total Bilirubin 0.50 mg/dL (0.1-1.2) 09/14/21 04:50 AST 14 units/L (5-40) 09/14/21 04:50 ALT 12 units/L (7-56) 09/14/21 04:50 Alkaline Phosphatase 79 units/L (35-129) 09/14/21 04:50 Troponin T 0.027 ng/mL (0.00-0.029) 09/13/21 14:53 NT-Pro-B Natriuret Pep 8184 pg/mL (0-900) H 09/13/21 14:53 Total Protein 7.1 g/dL (6.3-8.2) 09/14/21 04:50 Albumin 3.8 g/dL (3.9-5) L 09/14/21 04:50 Albumin/Globulin Ratio 1.2 % 09/14/21 04:50 [place]/IV: Voiding Method Urinal Active Medications - Current Medications Current Medications: Generic Name Dose Route Start Last Admin Trade Name Freq PRN Reason Stop Dose Admin Acetaminophen 650 mg 09/13/21 21:41 Acetaminophen 325 Mg Tab PO Q4H PRN Pain MILD(1-3)/Fever >100.5/AVILA Ascorbic Acid 1,000 mg 09/13/21 22:00 09/18/21 09:15 Ascorbic Acid 500 Mg Tab PO 1,000 mg QDAY NEO Administration Aspirin 81 mg 09/15/21 12:00 09/18/21 09:15 Aspirin 81 Mg Tab Chew PO 81 mg QDAY NEO Administration Cholecalciferol 5,000 unit 09/13/21 22:00 09/18/21 09:23 Cholecalciferol (Vit D3) 5,000 Unit Tab PO 5,000 unit DAILY NEO Administration Famotidine 20 mg 09/13/21 22:00 09/18/21 09:16 Famotidine 20 Mg Tab PO 20 mg BID NEO Administration Fish Oil 1,000 mg 09/14/21 10:00 09/18/21 09:16 [place]-3 Fatty Acids/Fish Oil 1 Gram Cap PO 1,000 mg QDAY NEO Administration Furosemide 40 mg 09/19/21 10:00 Furosemide 40 Mg Tab PO QDAY [facility] Heparin Sodium (Porcine) 5,000 unit 09/13/21 22:00 09/18/21 09:19 Heparin 5,000 Unit/1 Ml Vial SUB-Q 5,000 unit Q12HR NEO Administration Hydralazine HCl 50 mg 09/13/21 22:00 09/18/21 12:48 Hydralazine 25 Mg Tab PO 50 mg QDAY [facility] Administration Hydromorphone HCl 0.5 mg 09/13/21 21:41 Hydromorphone 1 Mg/1 Ml Inj IV Q3H PRN Pain , Severe (7-10) Losartan Potassium 100 mg 09/13/21 22:00 09/18/21 09:15 Losartan 50 Mg Tab PO 100 mg QDAY [facility] Administration Magnesium Oxide 400 mg 09/13/21 22:00 09/18/21 09:16 Magnesium Oxide 400 Mg Tab PO 400 mg QDAY NEO Administration Metoprolol Tartrate 50 mg 09/15/21 22:00 09/18/21 09:16 Metoprolol Tartrate 50 Mg Tab PO 50 mg BID NEO Administration Nifedipine 30 mg 09/15/21 10:00 09/18/21 09:15 Nifedipine Xl 30 Mg Tab PO 30 mg QDAY NEO Administration Ondansetron HCl 4 mg 09/13/21 21:41 Ondansetron 4 Mg/2 Ml Inj IV Q8H PRN Nausea And Vomiting Oxycodone/Acetaminophen 1 tab 09/13/21 21:45 Oxycodone /Acetaminophen 5-325mg Tab PO Q6H PRN Pain, Moderate (4-6) Polyethylene Glycol 17 gm 09/15/21 10:30 Polyethylene Glycol 3350 17 Gm Powder PO BID PRN Constipation Potassium Chloride 20 meq 09/13/21 22:00 09/18/21 09:23 Potassium Chloride Er 20 Meq Tab PO 20 meq Q12H NEO Administration Pravastatin Sodium 20 mg 09/13/21 22:00 09/17/21 21:20 Pravastatin 20 Mg Tab PO 20 mg QHS NEO Administration Sodium Chloride 10 ml 09/13/21 22:00 09/18/21 09:17 Sodium Chloride 0.9% 10 Ml Flush Syringe IV 10 ml BID NEO Administration Sodium Chloride 10 ml 09/13/21 21:41 Sodium Chloride 0.9% 10 Ml Flush Syringe IV PRN PRN LINE FLUSH
[2021-09-18 16:30] VITALS: BP 124/72
[2021-09-19] MEDS ORDERED: FUROSEMIDE 40 MG TAB PO SCH (10:00)
== END 2021-09-18 18:42 | disposition home health service (06) | DRG 291 ==
LOC: ED 13:07 → 4A 15:00
PROVIDERS: ADMIT Internal Medicine; ATTEND Student in an Organized Health Care Education/Training Program
DX: I11.0 Hypertensive heart disease with heart failure (principal); I50.23 Acute on chronic systolic (congestive) heart failure; J96.01 Acute respiratory failure with hypoxia; Z68.42 Body mass index [BMI] 45.0-49.9, adult; E11.9 Type 2 diabetes mellitus without complications; E78.2 Mixed hyperlipidemia; I25.5 Ischemic cardiomyopathy; I25.10 Atherosclerotic heart disease of native coronary artery without angina pectoris; E78.5 Hyperlipidemia, unspecified; E66.01 Morbid (severe) obesity due to excess calories; Z95.1 Presence of aortocoronary bypass graft; Z91.19 Patient's noncompliance with other medical treatment and regimen
CPT/HCPCS: 36415; 71046; 80048; 80053; 82962; 83735; 83880; 84484; 85025; 85610; 93005; 93010; G0378; J1644; J1940

== ENCOUNTER 2021-10-24 19:36 | Inpatient (IN) | payer MEDICARE ==
--- NOTE | 2021-10-24 21:43 | XRay Report ---
XR chest routine 2V INDICATION / CLINICAL INFORMATION: Dyspnea. COMPARISON: 09/13/2021 FINDINGS: SUPPORT DEVICES: None. HEART /PULMONARY VASCULATURE: The heart is enlarged. There are median sternotomy changes. Pulmonary v asculature is mildly congested. LUNGS / PLEURA: No significant pulmonary or pleural abnormality. No pneumothorax. ADDITIONAL FINDINGS: No significant additional findings. IMPRESSION: Cardiac enlargement with mild congestion of the pulmonary vasculature, suggestive of CHF. Signer Name: Vin Katz MD Signed: 10/24/2021 9:38 PM Workstation Name: [id number]
[2021-10-24 21:54] LABS: Basophils % (Auto) 0.7 % (0.0-1.8); Eosinophils % (Auto) 0.8 % (0.0-4.3); Hematocrit 38.4 % (35.5-45.6); Hemoglobin 12.2 gm/dl (11.8-15.2); Lymphocytes # (Auto) 0.9 K/mm3 (1.2-5.4); Lymphocytes % (Auto) 13.4 % (13.4-35.0); Mean Corpuscular HGB Conc 32 % (32-34); Mean Corpuscular Volume 86 fl (84-94); Monocytes # (Auto) 0.6 K/mm3 (0.0-0.8); Monocytes % (Auto) 9.3 % (0.0-7.3); Platelet Count 168 K/mm3 (140-440); Red Blood Count 4.47 M/mm3 (3.65-5.03); Red Cell Distribution Width 16.8 % (13.2-15.2)
[2021-10-24 22:12] LABS: Alanine Aminotransferase 17 units/L (7-56); Albumin 3.8 g/dL (3.9-5)
[2021-10-24 22:13] LABS: Alanine Aminotransferase 17 units/L (7-56); Albumin 3.8 g/dL (3.9-5); BUN/Creatinine Ratio 16; Blood Urea Nitrogen 16 mg/dL (9-20); Calcium 8.8 mg/dL (8.4-10.2); Hemolysis Index 3
[2021-10-24 22:24] LABS: Bilirubin,Direct < 0.2 mg/dL (0-0.2)
[2021-10-24] MEDS ORDERED: FUROSEMIDE 40 MG/4 ML INJ IV ONE (22:37)
--- NOTE | 2021-10-24 23:03 | Emergency Department Report ---
ED Shortness of Breath HPI - General Chief Complaint: Dyspnea/Respdistress Stated Complaint: JOE Time Seen by Provider: 10/24/21 22:36 Source: patient Mode of arrival: Ambulatory Limitations: No Limitations - History of Present Illness Initial Comments: 60-year-old -[place] male presents to ED with shortness of breath, for the past 3 days, coughing, difficulty lying flat, can only ambulate a couple of steps without getting tired. Patient does have a history of CHF, history of CAD status post CABG, in 2019 at [place]. Patient states he was recently admitted at the hospital here ([facility]) initially felt better after discharge, but slowly his legs started to swell, he started to feel fatigued, with some chest discomfort, progressively worsened until the last 3 days where he can no longer function with his symptoms. He is on 3 L of oxygen daily which he thinks helps but has to get higher when he ambulates. MD Complaint: shortness of breath -: Gradual, Sudden, week(s) (1) Severity: severe Pain Scale: 10 Quality: dull Consistency: intermittent Improves With: oxygen Worsens With: lying flat, exertion, coughing, inspiration Known History Of: congestive heart failure Context: medication noncompliance, elevated blood glucose Associated Symptoms: chest pain, pain with inspiration, cough, orhopnia, palpitations Treatments Prior to Arrival: oxygen - Related Data Home Oxygen Amount: 3 Liters Home Medications Medication Instructions Recorded Confirmed Last Taken Indomethacin 50 mg PO QDAY PRN 08/03/21 09/13/21 09/12/21 Vitamin E 1,000 unit PO QDAY 08/04/21 09/13/21 09/12/21 Previous Rx's Medication Instructions Recorded Last Taken Type Aspirin [Aspirin BABY CHEW TAB] 81 mg PO QDAY 30 Days #30 tab.chew 09/17/21 Unknown Rx Furosemide [Lasix TAB] 40 mg PO QDAY 30 Days #30 tablet 09/17/21 Unknown Rx Losartan [Cozaar] 100 mg PO QDAY 30 Days #30 tab 09/17/21 Unknown Rx Metoprolol [Lopressor TAB] 50 mg PO BID 30 Days #60 tablet 09/17/21 Unknown Rx NIFEdipine XL [Procardia Xl] 30 mg PO QDAY 30 Days #30 tablet 09/17/21 Unknown Rx [place]-3 Fatty Acids/Fish Oil [Fish 1,000 mg PO QDAY capsule 09/17/21 Unknown Rx Oil] Pravastatin [Pravachol] 20 mg PO QHS 30 Days #30 tablet 09/17/21 Unknown Rx hydrALAZINE [Apresoline TAB] 50 mg PO QDAY 30 Days #60 tab 09/17/21 Unknown Rx Allergies Allergy/AdvReac Type Severity Reaction Status Date / Time ibuprofen AdvReac Anaphylaxis Verified 09/15/21 08:51 ED Review of Systems ROS: Stated complaint: JOE Other details as noted in HPI Comment: All other systems reviewed and negative Respiratory: cough, orthopnea Cardiovascular: chest pain, palpitations, dyspnea on exertion, orthopnea, paroxysmal nocturnal dyspnea ED Past Medical Hx - Past Medical History Previous Medical History?: Yes Hx Hypertension: Yes Hx Congestive Heart Failure: Yes Hx Arthritis: Yes Additional medical history: Obesity, Herniated disc, - Surgical History Past Surgical History?: Yes Hx Open Heart Surgery: Yes - Family History Family history: CAD/ID - Social History Smoking Status: Never Smoker Substance Use Type: None - Medications Home Medications: Home Medications Medication Instructions Recorded Confirmed Last Taken Type Indomethacin 50 mg PO QDAY PRN 08/03/21 09/13/21 09/12/21 History Vitamin E 1,000 unit PO QDAY 08/04/21 09/13/21 09/12/21 History Aspirin [Aspirin BABY CHEW TAB] 81 mg PO QDAY 30 Days #30 tab.chew 09/17/21 Unknown Rx Furosemide [Lasix TAB] 40 mg PO QDAY 30 Days #30 tablet 09/17/21 Unknown Rx Losartan [Cozaar] 100 mg PO QDAY 30 Days #30 tab 09/17/21 Unknown Rx Metoprolol [Lopressor TAB] 50 mg PO BID 30 Days #60 tablet 09/17/21 Unknown Rx NIFEdipine XL [Procardia Xl] 30 mg PO QDAY 30 Days #30 tablet 09/17/21 Unknown Rx [place]-3 Fatty Acids/Fish Oil [Fish 1,000 mg PO QDAY capsule 09/17/21 Unknown Rx Oil] Pravastatin [Pravachol] 20 mg PO QHS 30 Days #30 tablet 09/17/21 Unknown Rx hydrALAZINE [Apresoline TAB] 50 mg PO QDAY 30 Days #60 tab 09/17/21 Unknown Rx ED Physical Exam - General Limitations: No Limitations General appearance: in no apparent distress, anxious, obese - Head Head exam: Present: atraumatic, normocephalic - Eye Eye exam: Present: normal appearance - ENT ENT exam: Present: mucous membranes moist - Neck Neck exam: Present: normal inspection - Respiratory Respiratory exam: Present: rhonchi, decreased breath sounds - Cardiovascular Cardiovascular Exam: Present: regular rate, normal rhythm. Absent: systolic murmur, diastolic murmur, rubs, gallop - GI/Abdominal GI/Abdominal exam: Present: soft, normal bowel sounds - Rectal Rectal exam: Present: deferred - Extremities Exam Extremities exam: Present: pedal edema (2+ edema) - Back Exam Back exam: Present: normal inspection - Neurological Exam Neurological exam: Present: alert, oriented X3 - Psychiatric Psychiatric exam: Present: normal affect, normal mood - Skin Skin exam: Present: warm, dry, intact, normal color. Absent: rash ED Course Vital Signs 10/24/21 20:21 Temperature 98.5 F Pulse Rate 82 Respiratory 18 Rate Blood Pressure 161/92 [Right] O2 Sat by Pulse 94 Oximetry ED Medical Decision Making - Lab Data Result diagrams: 10/24/21 21:32 10/24/21 21:32 - EKG Data -: EKG Interpreted by Ny EKG shows normal: ST-T waves Rate: normal - EKG Data Interpretation: nonspecific ST-T wave jarad - Radiology Data Radiology results: report reviewed Pulmonary vascular congestion. - Medical Decision Making Patient presents to ED and CHF exacerbation, minimal improvement with Lasix IV, will admit for further treatment. EKG showed no changes from prior, chest x-ray did show pulmonary vascular conges tion. - Differential Diagnosis ACS, CHF exacerbation, COPD, pneumonia. Critical care attestation.: If time is entered above; I have spent that time in minutes in the direct care of this critically ill patient, excluding procedure time. ED Disposition Clinical Impression: Acute HFrEF (heart failure with reduced ejection fraction), Ischemic dilated cardiomyopathy Disposition: ADMITTED INPATIENT Is pt being admited?: Yes Condition: Stable
[2021-10-24] MEDS ORDERED: HYDROmorphone 1 MG/1 ML INJ IV PRN (23:14)
[2021-10-24] MEDS ORDERED: ACETAMINOPHEN 325 MG TAB PO PRN (23:14)
[2021-10-24] MEDS ORDERED: MORPHINE 2 MG/1 ML INJ IV PRN (23:14)
[2021-10-24] MEDS ORDERED: ONDANSETRON 4 MG/2 ML INJ IV PRN (23:14)
--- NOTE | 2021-10-24 23:22 | History and Physical Report ---
History of Present Illness Date of examination: 10/24/21 Date of admission: 10/24/21 Chief complaint: Shortness of breath History of present illness: 60-year-old with history of hypertension, CHF, CAD status post CABG in 2019 at [place], arthritis, obesity and herniated disc was brought to the emergency room because of shortness of breath, for the past 3 days, coughing, difficulty lying flat, can only ambulate a couple of steps without getting tired. Patient states he was recently admitted at the hospital here ([facility]) initially felt better after discharge, but slowly his legs started to swell, he started to feel fatigued, with some chest discomfort, progressively worsened until the last 3 days where he can no longer function with his symptoms. He is on 3 L of oxygen daily which he thinks helps but has to get higher when he ambulates. In the emergency room patient proBNP is 7734 and chest x-ray suggestive of CHF so going to admit the patient we will put the patient on CHF pathway and consult cardiology for evaluation Past History Past Medical History: arthritis, CAD, heart failure, hypertension, other (Obesity, herniated disc) Past Surgical History: CABG Social history: no significant social history, other (Never a smoker) Family history: CAD Medications and Allergies Allergies Allergy/AdvReac Type Severity Reaction Status Date / Time ibuprofen AdvReac Anaphylaxis Verified 09/15/21 08:51 Home Medications Medication Instructions Recorded Confirmed Last Taken Type Indomethacin 50 mg PO QDAY PRN 08/03/21 09/13/21 09/12/21 History Vitamin E 1,000 unit PO QDAY 08/04/21 09/13/21 09/12/21 History Aspirin [Aspirin BABY CHEW TAB] 81 mg PO QDAY 30 Days #30 tab.chew 09/17/21 Unknown Rx Furosemide [Lasix TAB] 40 mg PO QDAY 30 Days #30 tablet 09/17/21 Unknown Rx Losartan [Cozaar] 100 mg PO QDAY 30 Days #30 tab 09/17/21 Unknown Rx Metoprolol [Lopressor TAB] 50 mg PO BID 30 Days #60 tablet 09/17/21 Unknown Rx NIFEdipine XL [Procardia Xl] 30 mg PO QDAY 30 Days #30 tablet 09/17/21 Unknown Rx [place]-3 Fatty Acids/Fish Oil [Fish 1,000 mg PO QDAY capsule 09/17/21 Unknown Rx Oil] Pravastatin [Pravachol] 20 mg PO QHS 30 Days #30 tablet 09/17/21 Unknown Rx hydrALAZINE [Apresoline TAB] 50 mg PO QDAY 30 Days #60 tab 09/17/21 Unknown Rx Review of Systems Cardiovascular: orthopnea, edema, shortness of breath, dyspnea on exertion, paroxysmal nocturnal dyspnea, leg edema Exam - Constitutional Vitals: Temp Pulse Resp BP Pulse Ox 98.5 F 82 18 161/92 94 10/24/21 20:21 10/24/21 20:21 10/24/21 20:21 10/24/21 20:21 10/24/21 20:21 General appearance: Present: no acute distress, well-nourished - EENT Eyes: Present: PERRL ENT: hearing intact, clear oral mucosa - Neck Neck: Present: supple, normal ROM - Respiratory Respiratory effort: normal Respiratory: bilateral: rales - Cardiovascular Heart Sounds: Present: S1 & S2. Absent: rub, click - Extremities Extremities: pulses symmetrical Extremity abnormal: edema Peripheral Pulses: within normal limits - Abdominal General gastrointestinal: Present: soft, non-tender, non-distended, normal bowel sounds Male genitourinary: Present: normal - Integumentary Integumentary: Present: clear, warm, dry - Musculoskeletal Musculoskeletal: gait normal, strength equal bilaterally - Psychiatric Psychiatric: appropriate mood/affect, intact judgment & insight - Neurologic Neurologic: CNII-XII intact, moves all extremities Results - Labs CBC & Chem 7: 10/24/21 21:32 10/24/21 21:32 Labs: Laboratory Last Values WBC 6.6 K/mm3 (4.5-11.0) 10/24/21 21:32 RBC 4.47 M/mm3 (3.65-5.03) 10/24/21 21:32 Hgb 12.2 gm/dl (11.8-15.2) 10/24/21 21:32 Hct 38.4 % (35.5-45.6) 10/24/21 21:32 MCV 86 fl (84-94) 10/24/21 21:32 MCH 27 pg (28-32) L 10/24/21 21:32 MCHC 32 % (32-34) 10/24/21 21:32 RDW 16.8 % (13.2-15.2) H 10/24/21 21:32 Plt Count 168 K/mm3 (140-440) 10/24/21 21:32 Lymph % (Auto) 13.4 % (13.4-35.0) 10/24/21 21:32 [place] % (Auto) 9.3 % (0.0-7.3) H 10/24/21 21:32 Eos % (Auto) 0.8 % (0.0-4.3) 10/24/21 21:32 Baso % (Auto) 0.7 % (0.0-1.8) 10/24/21 21:32 Lymph # (Auto) 0.9 K/mm3 (1.2-5.4) L 10/24/21 21: [place] # (Auto) 0.6 K/mm3 (0.0-0.8) 10/24/21 21: Eos # (Auto) 0.0 K/mm3 (0.0-0.4) 10/24/21 21: Baso # (Auto) 0.0 K/mm3 (0.0-0.1) 10/24/21 21:32 Seg Neutrophils % 75.8 % (40.0-70.0) H 10/24/21 21:32 Seg Neutrophils # 5.0 K/mm3 (1.8-7.7) 10/24/21 21:32 D-Dimer 679.72 ng/mlDDU (0-234) H 10/24/21 21:32 Sodium 140 mmol/L (137-145) 10/24/21 21:32 Potassium 3.8 mmol/L (3.6-5.0) 10/24/21 21:32 Chloride 102.0 mmol/L (98-107) 10/24/21 21:32 Carbon Dioxide 28 mmol/L (22-30) 10/24/21 21:32 Anion Gap 14 mmol/L 10/24/21 21:32 BUN 16 mg/dL (9-20) 10/24/21 21:32 Creatinine 1.0 mg/dL (0.8-1.3) 10/24/21 21:32 Estimated GFR > 60 ml/min 10/24/21 21:32 BUN/Creatinine Ratio 16 % 10/24/21 21:32 Glucose 107 mg/dL (75-100) H 10/24/21 21:32 Lactic Acid 1.20 mmol/L (0.7-2.0) 10/24/21 21:32 Calcium 8.8 mg/dL (8.4-10.2) 10/24/21 21:32 Total Bilirubin 0.50 mg/dL (0.1-1.2) 10/24/21 21:32 Total Bilirubin 0.50 mg/dL (0.1-1.2) 10/24/21 21:32 Direct Bilirubin < 0.2 mg/dL (0-0.2) 10/24/21 21:32 Indirect Bilirubin 0.3 mg/dL 10/24/21 21:32 AST 22 units/L (5-40) 10/24/21 21:32 AST 22 units/L (5-40) 10/24/21 21:32 ALT 17 units/L (7-56) 10/24/21 21:32 ALT 17 units/L (7-56) 10/24/21 21:32 Alkaline Phosphatase 79 units/L (35-129) 10/24/21 21:32 Alkaline Phosphatase 81 units/L (35-129) 10/24/21 21:32 NT-Pro-B Natriuret Pep 7734 pg/mL (0-900) H 10/24/21 21:32 Total Protein 6.7 g/dL (6.3-8.2) 10/24/21 21:32 Total Protein 6.8 g/dL (6.3-8.2) 10/24/21 21:32 Albumin 3.8 g/dL (3.9-5) L 10/24/21 21:32 Albumin 3.8 g/dL (3.9-5) L 10/24/21 21:32 Albumin/Globulin Ratio 1.3 % 10/24/21 21:32 Albumin/Globulin Ratio 1.3 % 10/24/21 21:32 - Imaging and Cardiology Chest x-ray: report reviewed Assessment and Plan VTE prophylaxis?: Chemical Plan of care discussed with patient/family: Yes - Patient Problems (1) Acute HFrEF (heart failure with reduced ejection fraction) Status: Acute Plan to address problem: Admit the patient to the medical floor. Oxygen by nasal penetrator per minute. DuoNeb by nebulizer every 4 hours. Fluid restriction. Maintain input output. Lasix 40 mg IV every 12 hours. Echocardiogram. Cardiology evaluation. Daily weight (2) CAD (coronary artery disease) Status: Chronic Qualifiers: Plan to address problem: Oxygen by nasal penetrator per minute. DuoNeb by nebulizer every 4 hours. Fluid restriction. Maintain input output. Lasix 40 mg IV every 12 hours. Echo cardiogram. Cardiology evaluation. Daily weight (3) Morbid obesity Status: Acute Plan to address problem: Patient counseled regarding weight loss. Outpatient follow-up with bariatric surgery (4) Hyperlipidemia Status: Chronic Qualifiers: Plan to address problem: Lipitor 40 mg p.o. daily. We will recheck the lipid panel (5) Hypertension Status: Chronic Qualifiers: Plan to address problem: Hydralazine 50 mg p.o. daily, metoprolol 50 mg p.o. twice daily (6) DVT prophylaxis Status: Acute Plan to address problem: Heparin 5000 units subcu every 12 hours for DVT prophylaxis. Pepcid 20 mg p.o. twice daily for GI prophylaxis. Patient is a full code
[2021-10-25 00:11] LABS: Creatine Kinase MB 4.9 ng/mL (0.0-4.0)
[2021-10-25] MEDS: ALBUTEROL 2.5 MG/3 ML NEBU IH PRN (00:35)
[2021-10-25] MEDS: IPRATROPIUM/ALBUTEROL SULFATE 3 ML AMPUL.NEB IH SCH ×4 (03:48→20:08)
[2021-10-25 05:21] LABS: Basophils % (Auto) 0.5 % (0.0-1.8); Eosinophils # (Auto) 0.1 K/mm3 (0.0-0.4); Eosinophils % (Auto) 1.5 % (0.0-4.3); Hemoglobin 11.5 gm/dl (11.8-15.2); Lymphocytes # (Auto) 1.4 K/mm3 (1.2-5.4); Lymphocytes % (Auto) 23.3 % (13.4-35.0); Mean Corpuscular HGB Conc 31 % (32-34); Mean Corpuscular Volume 86 fl (84-94); Monocytes # (Auto) 0.7 K/mm3 (0.0-0.8); Platelet Count 163 K/mm3 (140-440); Red Blood Count 4.29 M/mm3 (3.65-5.03); Red Cell Distribution Width 16.7 % (13.2-15.2)
[2021-10-25 05:28] LABS: BUN/Creatinine Ratio 13; Blood Urea Nitrogen 15 mg/dL (9-20); Calcium 8.8 mg/dL (8.4-10.2); Hemolysis Index 12
[2021-10-25] MEDS: FUROSEMIDE 40 MG/4 ML INJ IV SCH ×2 (06:56→17:09)
--- NOTE | 2021-10-25 08:52 | Progress Note ---
Assessment and Plan Assessment and plan: --Acute on chronic HFrEF (heart failure with reduced ejection fraction) Status: Acute Oxygen by nasal penetrator per minute. Diuretics, beta-blockers, FACUNDO inhibitors, input output monitoring fluid restriction. Daily weights Echocardiogram. Cardiology consulted --Elevated D-dimers ; Status: Acute Rule out PE check CTA chest, if negative Check lower extremity venous Doppler --CAD (coronary artery disease) Status: Chronic Continue current cardiac medications Cardiology consulted --Dyslipidemia Status: Chronic Low-cholesterol diet Lipitor 40 mg p.o. daily. --Hypertension; moderate control Status: Chronic Hydralazine 50 mg p.o. daily, metoprolol 50 mg p.o. twice daily --Morbid obesity; BMI 48.1 Status: Chronic Advised dietary modification , exercise as tolerated , weight reduction when medically stable Patient may benefit from outpatient evaluation for bariatric surgery for weight reduction program when stable --DVT prophylaxis Status: Acute Plan to address problem: Heparin 5000 units subcu every 12 hours for DVT prophylaxis. Pepcid 20 mg p.o. twice daily for GI prophylaxis. Patient is a full code --full code Follow cardiology evaluation recommendations We will closely monitor patient and adjust management as needed Plan of care reviewed with the patient and his nurse History Interval history: I have seen and examined the patient at the bedside Patient's chart and medications reviewed Patient feels slightly better denies any chest pain shortness of breath slightly improved Vital signs noted Hospitalist Physical - Constitutional Vitals: Temp Pulse Resp BP Pulse Ox 98.7 F 65 20 137/86 99 10/25/21 07:20 10/25/21 07:20 10/25/21 07:20 10/25/21 07:20 10/25/21 07:20 General appearance: Present: no acute distress, well-nourished - EENT Eyes: Present: PERRL, EOM intact - Neck Neck: Present: supple, normal ROM - Respiratory Respiratory effort: normal Respiratory: bilateral: diminished, negative: rales, rhonchi, wheezing - Cardiovascular Rhythm: regular Heart Sounds: Present: S1 & S2 - Extremities Extremities: no ischemia, No edema - Abdominal General gastrointestinal: soft, non-tender, non-distended, normal bowel sounds - Integumentary Integumentary: Present: clear, warm - Psychiatric Psychiatric: appropriate mood/affect, cooperative - Neurologic Neurologic: CNII-XII intact, moves all extremities HEART Score - HEART Score Troponin: Troponin T 0.025 ng/mL (0.00-0.029) 10/24/21 22:31 Results - Labs CBC & Chem 7: 10/25/21 04:35 10/25/21 04:35 Labs: Laboratory Last Values WBC 6.1 K/mm3 (4.5-11.0) 10/25/21 04:35 RBC 4.29 M/mm3 (3.65-5.03) 10/25/21 04:35 Hgb 11.5 gm/dl (11.8-15.2) L 10/25/21 04:35 Hct 37.0 % (35.5-45.6) 10/25/21 04:35 MCV 86 fl (84-94) 10/25/21 04:35 MCH 27 pg (28-32) L 10/25/21 04:35 MCHC 31 % (32-34) L 10/25/21 04:35 RDW 16.7 % (13.2-15.2) H 10/25/21 04:35 Plt Count 163 K/mm3 (140-440) 10/25/21 04:35 Lymph % (Auto) 23.3 % (13.4-35.0) 10/25/21 04:35 [place] % (Auto) 12.0 % (0.0-7.3) H 10/25/21 04:35 Eos % (Auto) 1.5 % (0.0-4.3) 10/25/21 04:35 Baso % (Auto) 0.5 % (0.0-1.8) 10/25/21 04:35 Lymph # (Auto) 1.4 K/mm3 (1.2-5.4) 10/25/21 04:35 [place] # (Auto) 0.7 K/mm3 (0.0-0.8) 10/25/21 04:35 Eos # (Auto) 0.1 K/mm3 (0.0-0.4) 10/25/21 04:35 Baso # (Auto) 0.0 K/mm3 (0.0-0.1) 10/25/21 04:35 Seg Neutrophils % 62.7 % (40.0-70.0) 10/25/21 04:35 Seg Neutrophils # 3.8 K/mm3 (1.8-7.7) 10/25/21 04:35 D-Dimer 679.72 ng/mlDDU (0-234) H 10/24/21 21:32 Sodium 140 mmol/L (137-145) 10/25/21 04:35 Potassium 4.1 mmol/L (3.6-5.0) 10/25/21 04:35 Chloride 99.7 mmol/L (98-107) 10/25/21 04:35 Carbon Dioxide 29 mmol/L (22-30) 10/25/21 04:35 Anion Gap 15 mmol/L 10/25/21 04:35 BUN 15 mg/dL (9-20) 10/25/21 04:35 Creatinine 1.2 mg/dL (0.8-1.3) 10/25/21 04:35 Estimated GFR > 60 ml/min 10/25/21 04:35 BUN/Creatinine Ratio 13 % 10/25/21 04:35 Glucose 107 mg/dL (75-100) H 10/25/21 04:35 Lactic Acid 1.20 mmol/L (0.7-2.0) 10/24/21 21:32 Calcium 8.8 mg/dL (8.4-10.2) 10/25/21 04:35 Total Bilirubin 0.50 mg/dL (0.1-1.2) 10/24/21 21:32 Total Bilirubin 0.50 mg/dL (0.1-1.2) 10/24/21 21:32 Direct Bilirubin < 0.2 mg/dL (0-0.2) 10/24/21 21:32 Indirect Bilirubin 0.3 mg/dL 10/24/21 21:32 AST 22 units/L (5-40) 10/24/21 21:32 AST 22 units/L (5-40) 10/24/21 21:32 ALT 17 units/L (7-56) 10/24/21 21:32 ALT 17 units/L (7-56) 10/24/21 21:32 Alkaline Phosphatase 79 units/L (35-129) 10/24/21 21:32 Alkaline Phosphatase 81 units/L (35-129) 10/24/21 21:32 Total Creatine Kinase 200 units/L (55-170) H 10/24/21 22:31 CK-MB (CK-2) 4.9 ng/mL (0.0-4.0) H 10/24/21 22:31 CK-MB (CK-2) Rel Index 2.4 (0-4) 10/24/21 22:31 Troponin T 0.025 ng/mL (0.00-0.029) 10/24/21 22:31 NT-Pro-B Natriuret Pep 7734 pg/mL (0-900) H 10/24/21 21:32 Total Protein 6.7 g/dL (6.3-8.2) 10/24/21 21:32 Total Protein 6.8 g/dL (6.3-8.2) 10/24/21 21: Albumin 3.8 g/dL (3.9-5) L 10/24/21 21:32 Albumin 3.8 g/dL (3.9-5) L 10/24/21 21:32 Albumin/Globulin Ratio 1.3 % 10/24/21 21: Albumin/Globulin Ratio 1.3 % 10/24/21 21:32 Active Medications - Current Medications Current Medications: Generic Name Dose Route Start Last Admin Trade Name Freq PRN Reason Stop Dose Admin Acetaminophen 650 mg 10/24/21 23:14 10/25/21 00:36 Acetaminophen 325 Mg Tab PO 650 mg Q4H PRN Administration Pain MILD(1-3)/Fever >100.5/AVILA Albuterol 2.5 mg 10/24/21 23:14 10/25/21 00:35 Albuterol 2.5 Mg/3 Ml Nebu IH 2.5 mg Q3HRT PRN Administration Shortness Of Breath Albuterol/Ipratropium 1 ampul 10/25/21 02:00 10/25/21 03:48 Ipratropium/Albuterol Sulfate 3 Ml Ampul.Neb IH Not Given Q6HRT NEO Aspirin 81 mg 10/25/21 10:00 Aspirin 81 Mg Tab Chew PO QDAY [facility] Famotidine 20 mg 10/25/21 10:00 Famotidine 20 Mg Tab PO BID [facility] Fish Oil 1,000 mg 10/25/21 10:00 [place]-3 Fatty Acids/Fish Oil 1 Gram Cap PO QDAY [facility] Furosemide 40 mg 10/25/21 06:00 10/25/21 06:56 Furosemide 40 Mg/4 Ml Inj IV 40 mg BID@0600,1800 [facility] Administration Heparin Sodium (Porcine) 5,000 unit 10/25/21 10:00 Heparin 5,000 Unit/1 Ml Vial SUB-Q Q12HR [facility] Hydralazine HCl 50 mg 10/25/21 10:00 Hydralazine 25 Mg Tab PO QDAY [facility] Hydromorphone HCl 0.5 mg 10/24/21 23:14 10/25/21 00:35 Hydromorphone 1 Mg/1 Ml Inj IV 0.5 mg Q3H PRN Administration Pain , Severe (7-10) Losartan Potassium 100 mg 10/25/21 10:00 Losartan 50 Mg Tab PO QDAY [facility] Metoprolol Tartrate 50 mg 10/25/21 10:00 Metoprolol Tartrate 50 Mg Tab PO BID [facility] Morphine Sulfate 2 mg 10/24/21 23:14 10/25/21 00:35 Morphine 2 Mg/1 Ml Inj IV 2 mg Q4H PRN Administration Pain, Moderate (4-6) Nifedipine 30 mg 10/25/21 10:00 Nifedipine Xl 30 Mg Tab PO QDAY [facility] Ondansetron HCl 4 mg 10/24/21 23:14 10/25/21 00:36 Ondansetron 4 Mg/2 Ml Inj IV 4 mg Q8H PRN Administration Nausea And Vomiting Pravastatin Sodium 20 mg 10/25/21 22:00 Pravastatin 20 Mg Tab PO QHS [facility] Sodium Chloride 10 ml 10/25/21 10:00 Sodium Chloride 0.9% 10 Ml Flush Syringe IV BID [facility] Sodium Chloride 10 ml 10/24/21 23:14 Sodium Chloride 0.9% 10 Ml Flush Syringe IV PRN PRN LINE FLUSH
[2021-10-25] MEDS: ASPIRIN 81 MG TAB CHEW PO SCH (09:59)
[2021-10-25] MEDS: LOSARTAN 50 MG TAB PO SCH (09:59)
[2021-10-25] MEDS: OMEGA-3 FATTY ACIDS/FISH OIL 1 GRAM CAP PO SCH (10:00)
[2021-10-25] MEDS ORDERED: NON-FORMULARY EACH (Losartan [Cozaar] 100 MG Tablet) PO SCH (10:00)
[2021-10-25] MEDS: FAMOTIDINE 20 MG TAB PO SCH (10:00)
[2021-10-25] MEDS: HEPARIN 5,000 UNIT/1 ML VIAL SUB-Q SCH ×2 (10:00→22:00)
[2021-10-25] MEDS ORDERED: hydrALAZINE 25 MG TAB PO SCH (10:00)
[2021-10-25] MEDS: METOPROLOL TARTRATE 50 MG TAB PO SCH (10:00)
[2021-10-25] MEDS ORDERED: NIFEdipine XL 30 MG TAB PO SCH (10:00)
--- NOTE | 2021-10-25 14:41 | Consultation ---
History of Present Illness Consult date: 10/25/21 Requesting physician: DIVYA LA Consult reason: congestive heart failure History of present illness: The patient has a history of CAD, status post CABG. He also has a history of chronic HFrEF. Echocardiogram of 08/05 revealed an EF of 40-45% with RVSP of 62 mmHg. He has been noncompliant with cardiology follow-up. In fact, he only sees his PCP and does not see a mine exploration engineer. He claims that he stopped seeing his mine exploration engineer because he would not approve him for disability. He presents this time with a 3 day history of shortness of breath. He also has orthopnea. There is no chest pain. Past History Past Medical History: arthritis, CAD, heart failure (chronic HFrEF), hypertension Past Surgical History: CABG (x 3 03/03.) Social history: no significant social history. denies: smoking, alcohol abuse Family history: CAD Medications and Allergies Allergies Allergy/AdvReac Type Severity Reaction Status Date / Time ibuprofen AdvReac Anaphylaxis Verified 09/15/21 08:51 Home Medications Medication Instructions Recorded Confirmed Last Taken Type Indomethacin 50 mg PO QDAY PRN 08/03/21 10/25/21 09/12/21 History Vitamin E 1,000 unit PO QDAY 08/04/21 10/25/21 09/12/21 History Aspirin [Aspirin BABY CHEW TAB] 81 mg PO QDAY 30 Days #30 tab.chew 09/17/21 10/25/21 Unknown Rx Furosemide [Lasix TAB] 40 mg PO QDAY 30 Days #30 tablet 09/17/21 10/25/21 Unknown Rx Losartan [Cozaar] 100 mg PO QDAY 30 Days #30 tab 09/17/21 10/25/21 Unknown Rx Metoprolol [Lopressor TAB] 50 mg PO BID 30 Days #60 tablet 09/17/21 10/25/21 Unknown Rx NIFEdipine XL [Procardia Xl] 30 mg PO QDAY 30 Days #30 tablet 09/17/21 10/25/21 Unknown Rx [place]-3 Fatty Acids/Fish Oil [Fish 1,000 mg PO QDAY capsule 09/17/21 10/25/21 U nknown Rx Oil] Pravastatin [Pravachol] 20 mg PO QHS 30 Days #30 tablet 09/17/21 10/25/21 Unk nown Rx hydrALAZINE [Apresoline TAB] 50 mg PO QDAY 30 Days #60 tab 09/17/21 10/25/21 Unknown Rx Active Meds: Active Medications Acetaminophen (Acetaminophen 325 Mg Tab) 650 mg PO Q4H PRN PRN Reason: Pain MILD(1-3)/Fever >100.5/AVILA Last Admin: 10/25/21 00:36 Dose: 650 mg Albuterol (Albuterol 2.5 Mg/3 Ml Nebu) 2.5 mg IH Q3HRT PRN PRN Reason: Shortness Of Breath Last Admin: 10/25/21 00:35 Dose: 2.5 mg Albuterol/Ipratropium (Ipratropium/Albuterol Sulfate 3 Ml Ampul.Neb) 1 ampul IH Q6HRT [facility] Last Admin: 10/25/21 10:50 Dose: 1 ampul Aspirin (Aspirin 81 Mg Tab Chew) 81 mg PO QDAY [facility] Last Admin: 10/25/21 09:59 Dose: 81 mg Famotidine (Famotidine 20 Mg Tab) 20 mg PO BID [facility] Last Admin: 10/25/21 10:00 Dose: 20 mg Fish Oil ([place]-3 Fatty Acids/Fish Oil 1 Gram Cap) 1,000 mg PO QDAY [facility] Last Admin: 10/25/21 10:00 Dose: 1,000 mg Furosemide (Furosemide 40 Mg/4 Ml Inj) 40 mg IV BID@0600,1800 [facility] Last Admin: 10/25/21 06:56 Dose: 40 mg Heparin Sodium (Porcine) (Heparin 5,000 Unit/1 Ml Vial) 5,000 unit SUB-Q Q12HR [facility] Last Admin: 10/25/21 10:00 Dose: 5,000 unit Hydralazine HCl (Hydralazine 25 Mg Tab) 50 mg PO Q8HR [facility] Hydromorphone HCl (Hydromorphone 1 Mg/1 Ml Inj) 0.5 mg IV Q3H PRN PRN Reason: Pain , Severe (7-10) Last Admin: 10/25/21 00:35 Dose: 0.5 mg Losartan Potassium (Losartan 50 Mg Tab) 100 mg PO QDAY [facility] Last Admin: 10/25/21 09:59 Dose: 100 mg Metoprolol Tartrate (Metoprolol Tartrate 50 Mg Tab) 50 mg PO BID [facility] Last Admin: 10/25/21 10:00 Dose: 50 mg Morphine Sulfate (Morphine 2 Mg/1 Ml Inj) 2 mg IV Q4H PRN PRN Reason: Pain, Moderate (4-6) Last Admin: 10/25/21 00:35 Dose: 2 mg Ondansetron HCl (Ondansetron 4 Mg/2 Ml Inj) 4 mg IV Q8H PRN PRN Reason: Nausea And Vomiting Last Admin: 10/25/21 00:36 Dose: 4 mg Pravastatin Sodium (Pravastatin 20 Mg Tab) 20 mg PO QHS [facility] Sodium Chloride (Sodium Chloride 0.9% 10 Ml Flush Syringe) 10 ml IV BID [facility]O Last Admin: 10/25/21 10:00 Dose: 10 ml Sodium Chloride (Sodium Chloride 0.9% 10 Ml Flush Syringe) 10 ml IV PRN PRN PRN Reason: LINE FLUSH Review of Systems Constitutional: no fever, no chills Ears, nose, mouth and throat: no ear pain, no ear discharge Respiratory: no cough, no hemoptysis Gastrointestinal: no abdominal pain, no nausea, no vomiting, no diarrhea, no constipation Genitourinary Male: no dysuria, no urinary frequency Rectal: no pain, no bleeding Musculoskeletal: no neck stiffness, no neck pain Integumentary: no rash Neurological: no weakness, no numbness, no tingling, no headaches Endocrine: no cold intolerance, no heat intolerance Hematologic/Lymphatic: no easy bruising, no easy bleeding Allergic/Immunologic: no urticaria, no wheezing Physical Examination Vital Signs Last Vital Signs Temp 97.5 F L 10/25/21 11:37 Pulse 59 L 10/25/21 11:37 Resp 20 10/25/21 11:37 BP 133/83 10/25/21 11:37 Pulse Ox 99 10/25/21 11:37 General appearance: no acute distress HEENT: Positive: EOMI, Normocephaly, Mucus Membranes Moist Neck: Positive: neck supple, trachea midline, JVD/HJR Cardiac: Positive: Reg Rate and Rhythm, S1/S2 Neuro: Positive: Grossly Intact Abdomen: Positive: Soft, Active Bowel Sounds. Negative: Tender Skin: Positive: Clear. Negative: Rash Musculoskeletal: Normal Range of Motion Extremities: Present: +1 Edema (Bilateral leg edema) Results 10/25/21 04:35 03/12/22 04:35 Cardiac Enzymes 10/24/21 10/24/21 10/24/21 Range/Units 21:32 21:32 22:31 AST 22 22 (5-40) units/L CK-MB (CK-2) 4.9 H (0.0-4.0) ng/mL CBC 10/24/21 10/25/21 Range/Units 21:32 04:35 WBC 6.6 6.1 (4.5-11.0) K/mm3 RBC 4.47 4.29 (3.65-5.03) M/mm3 Hgb 12.2 11.5 L (11.8-15.2) gm/dl Hct 38.4 37.0 (35.5-45.6) % Plt Count 168 163 (140-440) K/mm3 Lymph # (Auto) 0.9 L 1.4 (1.2-5.4) K/mm3 [place] # (Auto) 0.6 0.7 (0.0-0.8) K/mm3 Eos # (Auto) 0.0 0.1 (0.0-0.4) K/mm3 Baso # (Auto) 0.0 0.0 (0.0-0.1) K/mm3 Comprehensive Metabolic Panel 10/24/21 10/24/21 10/25/21 Range/Units 21:32 21:32 04:35 Sodium 140 140 (137-145) mmol/L Potassium 3.8 4.1 (3.6-5.0) mmol/L Chloride 102.0 99.7 (98-107) mmol/L Carbon Dioxide 28 29 (22-30) mmol/L BUN 16 15 (9-20) mg/dL Creatinine 1.0 1.2 (0.8-1.3) mg/dL Glucose 107 H 107 H (75-100) mg/dL Calcium 8.8 8.8 (8.4-10.2) mg/dL Direct Bilirubin < 0.2 (0-0.2) mg/dL Indirect Bilirubin 0.3 mg/dL AST 22 22 (5-40) units/L ALT 17 17 (7-56) units/L Alkaline Phosphatase 79 81 (35-129) units/L Total Protein 6.8 6.7 (6.3-8.2) g/dL Albumin 3.8 L 3.8 L (3.9-5) g/dL - EKG Interpretation EKG: sinus rhythm EKG interpretations - Telemetry EKG Rhythm: Sinus Rhythm (with Frequent PVCs and 3 beat run of nonsustained VT) Assessment and Plan I agree with IV diuretics. Will optimize his antihypertensive regimen. Obtain magnesium in a.m. - Patient Problems (1) Acute on chronic HFrEF (heart failure with reduced ejection fraction) Current Visit: Yes Status: Acute (2) Ischemic cardiomyopathy Current Visit: Yes Status: Chronic (3) CAD (coronary artery disease) Current Visit: Yes Status: Acute Qualifiers: Coronary Disease-Associated Artery/Lesion type: [place] artery (4) Hx of CABG Current Visit: Yes Status: Chronic (5) NSVT (nonsustained ventricular tachycardia) Current Visit: Yes Status: Acute (6) Pulmonary hypertension Current Visit: Yes Status: Chronic (7) Hypertension Current Visit: Yes Status: Chronic Qualifiers: Hypertension type: primary hypertension
--- NOTE | 2021-10-25 17:57 | Cat Scan Report ---
CTA chest with contrast INDICATION : Shortness of breath/elevated D-dimers/rule out PE. TECHNIQUE: Axial imaging performed through the chest, with contrast bolus timing set to maximize opa cification of the pulmonary arteries. 3-plane MIP reformatted images were obtained. All CT scans at this location are performed using CT dose reduction for ALARA by means of automated exposure control. 90 mL of intravenous contrast administered. COMPARISON: Chest x-ray from yesterday FINDINGS: Bolus/PTE: Contrast bolus timing is adequate. No filling defect is present to suggest PTE. Mediastinum: Mild cardiomegaly. Old sternotomy change. There is mediastinal adenopathy. A right par atracheal lymph node conglomerate measures nearly 3 cm on image 36 of series 2. A left periaortic lym ph node measures 1.6 cm in short axis on image 36. Lungs: Moderate emphysema with small right and trace left pleural effusions as well as mild bibasila r compressive atelectasis. Upper abdomen: Limited imaging of the upper abdomen shows nothing acute. Bones: Degenerative changes in the spine with nothing acute. IMPRESSION: 1. Negative for PTE. 2. Mediastinal adenopathy worrisome for a neoplastic process. No lung nodularity identified. 3. Small right and trace left pleural effusions with mild bibasilar compressive atelectasis in the [place] of moderate emphysema. Signer Name: Nahun Nieves MD Signed: 10/25/2021 5:52 PM Workstation Name: [id number]
[2021-10-25] MEDS: hydrALAZINE 25 MG TAB PO SCH ×2 (22:00→22:56)
[2021-10-26] MEDS: FAMOTIDINE 20 MG TAB PO SCH ×3 (01:13→22:32)
[2021-10-26] MEDS: METOPROLOL TARTRATE 50 MG TAB PO SCH ×3 (01:13→22:31)
[2021-10-26] MEDS: PRAVASTATIN 20 MG TAB PO SCH ×2 (01:25→22:32)
[2021-10-26] MEDS: IPRATROPIUM/ALBUTEROL SULFATE 3 ML AMPUL.NEB IH SCH ×4 (01:57→21:26)
[2021-10-26 05:57] LABS: BUN/Creatinine Ratio 16; Blood Urea Nitrogen 14 mg/dL (9-20); Calcium 8.2 mg/dL (8.4-10.2); Hemolysis Index 88
[2021-10-26] MEDS: FUROSEMIDE 40 MG/4 ML INJ IV SCH ×2 (07:00→17:29)
[2021-10-26] MEDS: hydrALAZINE 25 MG TAB PO SCH ×3 (07:00→22:32)
--- NOTE | 2021-10-26 08:18 | Progress Note ---
Assessment and Plan Assessment and plan: --Acute on chronic HFrEF (heart failure with reduced ejection fraction) Oxygen by nasal penetrator per minute. Diuretics, beta-blockers, FACUNDO inhibitors, input output monitoring fluid restriction. Daily weights Echo 08/05 EF 40 to 45%. Cardiology following --Ischemic cardiomyopathy; Continue current cardiac medications Unknown ejection fraction-LVEF in 08/05 Continue antifailure medications --History of CABG in 2019 Continue current cardiac medications Cardiology following --Mediastinal adenopathy; Unknown etiology, possible metastatic malignancy Patient will follow with hematology oncologist upon discharge -Elevated D-dimers ; Rule out PE check CTA chest, if negative Check lower extremity venous Doppler --Pulmonary hypertension; Supportive care, fluid restriction, IV diuretics --CAD (coronary artery disease) Continue current cardiac medications Cardiology consulted --Dyslipidemia Low-cholesterol diet Lipitor 40 mg p.o. daily. --Hypertension; moderate control Hydralazine 50 mg p.o. daily, metoprolol 50 mg p.o. twice daily --Morbid obesity; BMI 48.1 Advised dietary modification , exercise as tolerated , weight reduction when medically stable Patient may benefit from outpatient evaluation for bariatric surgery for weight reduction program when stable --DVT prophylaxis Plan to address problem: Heparin 5000 units subcu every 12 hours for DVT prophylaxis. Pepcid 20 mg p.o. twice daily for GI prophylaxis. Patient is a full code --full code Follow cardiology evaluation recommendations We will closely monitor patient and adjust management as needed Plan of care reviewed with the patient and his nurse History Interval history: I have seen and examined the patient at the bedside Patient's chart and medications reviewed Patient feels slightly better no new complaints Complains of leg edema Venous Doppler study pending Denies chest pain Hospitalist Physical - Constitutional Vitals: Temp Pulse Resp BP Pulse Ox 98.7 F 75 18 148/67 94 10/26/21 03:34 10/26/21 03:34 10/26/21 03:34 10/26/21 03:34 10/26/21 03:34 General appearance: Present: no acute distress, well-nourished - EENT Eyes: Present: PERRL, EOM intact - Neck Neck: Present: supple, normal ROM - Respiratory Respiratory effort: normal Respiratory: bilateral: diminished, rales, negative: rhonchi, wheezing - Cardiovascular Rhythm: regular Heart Sounds: Present: S1 & S2 - Extremities Extremities: no ischemia, No edema - Abdominal General gastrointestinal: soft, non-tender, non-distended, normal bowel sounds - Integumentary Integumentary: Present: clear, warm - Psychiatric Psychiatric: appropriate mood/affect, cooperative - Neurologic Neurologic: moves all extremities HEART Score - HEART Score Troponin: Troponin T 0.025 ng/mL (0.00-0.029) 10/24/21 22:31 Results - Labs CBC & Chem 7: 10/25/21 04:35 10/26/21 04:43 Labs: Laboratory Last Values WBC 6.1 K/mm3 (4.5-11.0) 10/25/21 04:35 RBC 4.29 M/mm3 (3.65-5.03) 10/25/21 04:35 Hgb 11.5 gm/dl (11.8-15.2) L 10/25/21 04:35 Hct 37.0 % (35.5-45.6) 10/25/21 04:35 MCV 86 fl (84-94) 10/25/21 04:35 MCH 27 pg (28-32) L 10/25/21 04:35 MCHC 31 % (32-34) L 10/25/21 04:35 RDW 16.7 % (13.2-15.2) H 10/25/21 04:35 Plt Count 163 K/mm3 (140-440) 10/25/21 04:35 Lymph % (Auto) 23.3 % (13.4-35.0) 10/25/21 04:35 [place] % (Auto) 12.0 % (0.0-7.3) H 10/25/21 04:35 Eos % (Auto) 1.5 % (0.0-4.3) 10/25/21 04:35 Baso % (Auto) 0.5 % (0.0-1.8) 10/25/21 04:35 Lymph # (Auto) 1.4 K/mm3 (1.2-5.4) 10/25/21 04:35 [place] # (Auto) 0.7 K/mm3 (0.0-0.8) 10/25/21 04:35 Eos # (Auto) 0.1 K/mm3 (0.0-0.4) 10/25/21 04:35 Baso # (Auto) 0.0 K/mm3 (0.0-0.1) 10/25/21 04:35 Seg Neutrophils % 62.7 % (40.0-70.0) 10/25/21 04:35 Seg Neutrophils # 3.8 K/mm3 (1.8-7.7) 10/25/21 04:35 D-Dimer 679.72 ng/mlDDU (0-234) H 10/24/21 21:32 Sodium 141 mmol/L (137-145) 10/26/21 04:43 Potassium 4.4 mmol/L (3.6-5.0) 10/26/21 04:43 Chloride 99.5 mmol/L (98-107) 10/26/21 04:43 Carbon Dioxide 31 mmol/L (22-30) H 10/26/21 04:43 Anion Gap 15 mmol/L 10/26/21 04:43 BUN 14 mg/dL (9-20) 10/26/21 04:43 Creatinine 0.9 mg/dL (0.8-1.3) 10/26/21 04:43 Estimated GFR > 60 ml/min 10/26/21 04:43 BUN/Creatinine Ratio 16 % 10/26/21 04:43 Glucose 112 mg/dL (75-100) H 10/26/21 04:43 Lactic Acid 1.20 mmol/L (0.7-2.0) 10/24/21 21:32 Calcium 8.2 mg/dL (8.4-10.2) L 10/26/21 04:43 Magnesium 1.90 mg/dL (1.7-2.3) 10/26/21 04:43 Total Bilirubin 0.50 mg/dL (0.1-1.2) 10/24/21 21:32 Total Bilirubin 0.50 mg/dL (0.1-1.2) 10/24/21 21:32 Direct Bilirubin < 0.2 mg/dL (0-0.2) 10/24/21 21: Indirect Bilirubin 0.3 mg/dL 10/24/21 21:32 AST 22 units/L (5-40) 10/24/21 21:32 AST 22 units/L (5-40) 10/24/21 21:32 ALT 17 units/L (7-56) 10/24/21 21:32 ALT 17 units/L (7-56) 10/24/21 21:32 Alkaline Phosphatase 79 units/L (35-129) 10/24/21 21:32 Alkaline Phosphatase 81 units/L (35-129) 10/24/21 21:32 Total Creatine Kinase 200 units/L (55-170) H 10/24/21 22:31 CK-MB (CK-2) 4.9 ng/mL (0.0-4.0) H 10/24/21 22:31 CK-MB (CK-2) Rel Index 2.4 (0-4) 10/24/21 22:31 Troponin T 0.025 ng/mL (0.00-0.029) 10/24/21 22:31 NT-Pro-B Natriuret Pep 7734 pg/mL (0-900) H 10/24/21 21:32 Total Protein 6.7 g/dL (6.3-8.2) 10/24/21 21:32 Total Protein 6.8 g/dL (6.3-8.2) 10/24/21 21:32 Albumin 3.8 g/dL (3.9-5) L 10/24/21 21:32 Albumin 3.8 g/dL (3.9-5) L 10/24/21 21:32 Albumin/Globulin Ratio 1.3 % 10/24/21 21:32 Albumin/Globulin Ratio 1.3 % 10/24/21 21:32 [place]/IV: Voiding Method Urinal Active Medications - Current Medications Current Medications: Generic Name Dose Route Start Last Admin Trade Name Areisq PRN Reason Stop Dose Admin Acetaminophen 650 mg 10/24/21 23:14 10/25/21 00:36 Acetaminophen 325 Mg Tab PO 650 mg Q4H PRN Administration Pain MILD(1-3)/Fever >100.5/AVILA Albuterol 2.5 mg 10/24/21 23:14 10/25/21 00:35 Albuterol 2.5 Mg/3 Ml Nebu IH 2.5 mg Q3HRT PRN Administration Shortness Of Breath Albuterol/Ipratropium 1 ampul 10/26/21 08:00 Ipratropium/Albuterol Sulfate 3 Ml Ampul.Neb IH TIDRT [facility]O Aspirin 81 mg 10/25/21 10:00 10/25/21 09:59 Aspirin 81 Mg Tab Chew PO 81 mg QDAY [facility]O Administration Famotidine 20 mg 10/25/21 10:00 10/26/21 01:13 Famotidine 20 Mg Tab PO 20 mg BID NEO Administration Fish Oil 1,000 mg 10/25/21 10:00 10/25/21 10:00 [place]-3 Fatty Acids/Fish Oil 1 Gram Cap PO 1,000 mg QDAY [facility]O Administration Furosemide 40 mg 10/25/21 06:00 10/26/21 07:00 Furosemide 40 Mg/4 Ml Inj IV 40 mg BID@0600,1800 [facility]O Administration Heparin Sodium (Porcine) 5,000 unit 10/25/21 10:00 10/25/21 22:00 Heparin 5,000 Unit/1 Ml Vial SUB-Q 5,000 unit Q12HR NEO Administration Hydralazine HCl 50 mg 10/25/21 22:00 10/26/21 07:00 Hydralazine 25 Mg Tab PO 50 mg Q8HR NEO Administration Hydromorphone HCl 0.5 mg 10/24/21 23:14 10/25/21 00:35 Hydromorphone 1 Mg/1 Ml Inj IV 0.5 mg Q3H PRN Administration Pain , Severe (7-10) Losartan Potassium 100 mg 10/25/21 10:00 10/25/21 09:59 Losartan 50 Mg Tab PO 100 mg QDAY NEO Administration Metoprolol Tartrate 50 mg 10/25/21 10:00 10/26/21 01:13 Metoprolol Tartrate 50 Mg Tab PO 50 mg BID NEO Administration Morphine Sulfate 2 mg 10/24/21 23:14 10/25/21 00:35 Morphine 2 Mg/1 Ml Inj IV 2 mg Q4H PRN Administration Pain, Moderate (4-6) Ondansetron HCl 4 mg 10/24/21 23:14 10/25/21 00:36 Ondansetron 4 Mg/2 Ml Inj IV 4 mg Q8H PRN Administration Nausea And Vomiting Pravastatin Sodium 20 mg 10/25/21 22:00 10/26/21 01:25 Pravastatin 20 Mg Tab PO 20 mg QHS NEO Administration Sodium Chloride 10 ml 10/25/21 10:00 10/25/21 22:15 Sodium Chloride 0.9% 10 Ml Flush Syringe IV 10 ml BID NEO Administration Sodium Chloride 10 ml 10/24/21 23:14 Sodium Chloride 0.9% 10 Ml Flush Syringe IV PRN PRN LINE FLUSH
[2021-10-26] MEDS: HEPARIN 5,000 UNIT/1 ML VIAL SUB-Q SCH ×2 (09:57→22:31)
[2021-10-26] MEDS: ASPIRIN 81 MG TAB CHEW PO SCH (09:58)
[2021-10-26] MEDS: LOSARTAN 50 MG TAB PO SCH (09:58)
[2021-10-26] MEDS: OMEGA-3 FATTY ACIDS/FISH OIL 1 GRAM CAP PO SCH (09:58)
--- NOTE | 2021-10-26 10:43 | Electrocardiograph Report ---
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 : 1960 Requested By: FATEMEH FLETCHER Order Number: [id number] Reading MD: Solis Urbina Measurements Intervals [place] Rate: 90 P: 60 AK: 168 QRS: 103 QRSD: 122 T: 238 QT: 417 QTc: 485 Interpretive Statements Sinus rhythm Paired ventricular premature complexes Nonspecific intraventricular conduction delay Abnormal T, consider ischemia, diffuse leads Compared to ECG 09/13/2021 13:40:02 Intraventricular conduction delay now present T-wave abnormality now present Possible ischemia now present Right bundle-branch block no longer present Electronically Signed On 10-26-2021 10:43:24 EDT by Solis Urbina
--- NOTE | 2021-10-26 14:12 | Progress Note ---
Assessment and Plan Continue current management. - Patient Problems (1) Acute on chronic HFrEF (heart failure with reduced ejection fraction) Current Visit: Yes Status: Acute (2) Ischemic cardiomyopathy Current Visit: Yes Status: Chronic (3) CAD (coronary artery disease) Current Visit: Yes Status: Acute Qualifiers: Coronary Disease-Associated Artery/Lesion type: [place] artery (4) Hx of CABG Current Visit: Yes Status: Chronic (5) NSVT (nonsustained ventricular tachycardia) Current Visit: Yes Status: Acute (6) Pulmonary hypertension Current Visit: Yes Status: Chronic (7) Hypertension Current Visit: Yes Status: Chronic Qualifiers: Hypertension type: primary hypertension Subjective Date of service: 10/26/21 Principal diagnosis: Acute on chronic HFrEF Interval history: Less short of breath. Objective Vital Signs Last Vital Signs Temp 98.3 F 10/26/21 11:28 Pulse 76 10/26/21 11:28 Resp 20 10/26/21 11:28 BP 126/59 10/26/21 11:28 Pulse Ox 96 10/26/21 11:28 - Physical Examination General: No Apparent Distress HEENT: Positive: EOMI, Normocephaly, Mucus Membranes Moist Neck: Positive: neck supple, trachea midline, JVD/HJR Cardiac: Positive: Reg Rate and Rhythm, S1/S2 Neuro: Positive: Grossly Intact Abdomen: Positive: Soft, Active Bowel Sounds. Negative: Tender Skin: Positive: Clear. Negative: Rash Musculoskeletal: Normal Range of Motion Extremities: Present: +1 Edema (Bilateral leg edema) - Labs and Meds Comprehensive Metabolic Panel 10/26/21 Range/Units 04:43 Sodium 141 (137-145) mmol/L Potassium 4.4 (3.6-5.0) mmol/L Chloride 99.5 (98-107) mmol/L Carbon Dioxide 31 H (22-30) mmol/L BUN 14 (9-20) mg/dL Creatinine 0.9 (0.8-1.3) mg/dL Glucose 112 H (75-100) mg/dL Calcium 8.2 L (8.4-10.2) mg/dL - Telemetry EKG Rhythm: Sinus Rhythm
[2021-10-27] MEDS: FUROSEMIDE 40 MG/4 ML INJ IV SCH ×2 (06:33→18:30)
[2021-10-27] MEDS: hydrALAZINE 25 MG TAB PO SCH ×3 (06:56→21:16)
[2021-10-27] MEDS: IPRATROPIUM/ALBUTEROL SULFATE 3 ML AMPUL.NEB IH SCH ×3 (08:54→19:26)
--- NOTE | 2021-10-27 09:45 | Vascular Lab Report ---
DUPLEX DOPPLER LOWER EXTREMITY VEINS, BILATERAL INDICATION: Shortness of breath/elevated D-dimers/rule out DVT. TECHNIQUE: Duplex doppler imaging was performed through the veins of both lower extremities using ve nous compression and other maneuvers. COMPARISON: No relevant prior imaging study available. FINDINGS: Right Common femoral vein: Negative. Right Superficial femoral vein: Negative. Right Popliteal vein: Negative. Right Calf veins: Negative. Left Common femoral vein: Negative. Left Superficial femoral vein: Negative. Left Popliteal vein: Negative. Left Calf veins: Negative. Additional findings: None. IMPRESSION: No sonographic evidence for DVT in either lower extremity. Signer Name: Ramsey Lopez Jr, MD Signed: 10/27/2021 9:40 AM Workstation Name: [id number]
[2021-10-27] MEDS: METOPROLOL TARTRATE 50 MG TAB PO SCH ×2 (10:02→21:17)
[2021-10-27] MEDS: LOSARTAN 50 MG TAB PO SCH (10:02)
[2021-10-27] MEDS: OMEGA-3 FATTY ACIDS/FISH OIL 1 GRAM CAP PO SCH (10:02)
[2021-10-27] MEDS: ASPIRIN 81 MG TAB CHEW PO SCH (10:02)
[2021-10-27] MEDS: FAMOTIDINE 20 MG TAB PO SCH ×2 (10:02→21:16)
[2021-10-27] MEDS: HEPARIN 5,000 UNIT/1 ML VIAL SUB-Q SCH ×2 (10:07→21:17)
--- NOTE | 2021-10-27 10:55 | Progress Note ---
Assessment and Plan 60-year-old gentleman with a past medical history of CAD/CABG, ischemic cardiomyopathy EF 40 to 45%, hypertension, hyperlipidemia, diabetes, and noncompliance presents with complaint of SOB Acute on chronic HFrEF 40-45% CAD/CABG Ischemic cardiomyopathy Diabetes Hypertension Hyperlipidemia Medical Noncompliance [facility] 02/10/2019: Multivessel disease, distal left main 70%, ostial left circumflex 80%, OM 2 occluded, LAD luminal irregularities, ostial diagonal 220 to 25%, RCA luminal irregularities, distal posterolateral 90%, LVEDP 30 to 35 mmHg Echo 08/02/21: EF 40 to 45%, grade 3 diastolic dysfunction, moderate tricuspid regurgitation, moderate LAE, RVSP 62 mmHg Plan: Currently on aspirin hydralazine 50 mg p.o. every 8 hours, losartan 100 mg p.o. daily, pravastatin 20 mg p.o. nightly Continue diuresis with Lasix 40 mg IV twice daily. Strict I&O's. Repeat BMP in the a.m. Patient having frequent PVCs on monitor will increase to metoprolol 75 mg p.o. twice daily Patient seen in conjunction with Dr. Burton who agrees with this plan of care - Patient Problems (1) Medical non-compliance Current Visit: Yes Status: Acute (2) Acute on chronic HFrEF (heart failure with reduced ejection fraction) Current Visit: Yes Status: Acute (3) CAD (coronary artery disease) Current Visit: Yes Status: Acute Qualifiers: Coronary Disease-Associated Artery/Lesion type: [place] artery (4) NSVT (nonsustained ventricular tachycardia) Current Visit: Yes Status: Acute (5) Hx of CABG Current Visit: Yes Status: Chronic (6) Hypertension Current Visit: Yes Status: Chronic Qualifiers: Hypertension type: primary hypertension (7) Ischemic cardiomyopathy Current Visit: Yes Status: Chronic (8) Morbid obesity Current Visit: No Status: Acute Subjective Date of service: 10/27/21 Principal diagnosis: Acute on chronic HFrEF Interval history: Patient resting in bed in no acute distress. Patient reports further improvement in breathing Sinus 80s on monitor with frequent PVCs Objective Vital Signs Temp Pulse Pulse Resp Resp BP Pulse Ox 10/27/21 08:59 98 10/27/21 08:54 88 18 10/27/21 08:03 98.4 F 84 20 143/71 90 03/14/22 06:56 78 106/78 10/27/21 03:57 98.4 F 74 18 127/68 93 10/27/21 00:44 65 20 131/59 94 10/26/21 23:36 97.9 F 75 16 132/61 97 10/26/21 22:32 74 127/54 10/26/21 22:31 74 127/54 10/26/21 21:30 99 10/26/21 21:29 84 20 10/26/21 20:46 98 10/26/21 19:45 98.2 F 74 16 127/54 99 10/26/21 16:33 98.3 F 74 20 123/70 97 10/26/21 15:20 96 H 18 10/26/21 11:28 98.3 F 76 20 126/59 96 - Physical Examination General: No Apparent Distress HEENT: Positive: EOMI, Normocephaly, Mucus Membranes Moist Neck: Positive: neck supple, trachea midline, JVD/HJR Cardiac: Positive: Reg Rate and Rhythm Lungs: Positive: Decreased Breath Sounds Neuro: Positive: Grossly Intact Abdomen: Positive: Soft, Active Bowel Sounds. Negative: Tender Skin: Positive: Clear. Negative: Rash Musculoskeletal: Normal Range of Motion Extremities: Present: upper extr. pulses, +1 Edema (Bilateral leg edema) - Imaging and Cardiology Echo: report reviewed Cardiac cath: report reviewed - Telemetry EKG Rhythm: Sinus Rhythm - EKG Sinus rhythms and dysrhythmias: sinus rhythm Ventricular dysrhythmias: ventricular premature com
[2021-10-27] MEDS ORDERED: METOPROLOL TARTRATE 25 MG TAB PO ONE (12:00)
--- NOTE | 2021-10-27 15:57 | Progress Note ---
Assessment and Plan Assessment and plan: --Acute on chronic systolic heart failure ( HFrEF heart failure with reduced ejection fraction) Oxygen titrate O2 sats to 90% Diuretics, beta-blockers, FACUNDO in, home O2 eval at discharge , input output monitoring, fluid restriction. Daily weights Echo 08/05 EF 40 to 45%. Cardiology following --Ischemic cardiomyopathy; Continue current cardiac medications Antifailure medications --History of CABG in 2018 Continue current cardiac medications Cardiology following --Mediastinal adenopathy; Unknown etiology, possible metastatic malignancy Patient will follow with hematology oncologist upon discharge -Elevated D-dimers ; Rule out PE check CTA chest, if negative Check lower extremity venous Doppler --Pulmonary hypertension; Supportive care, fluid restriction, IV diuretics --CAD (coronary artery disease) Continue current cardiac medications Cardiology consulted --Dyslipidemia Low-cholesterol diet Lipitor 40 mg p.o. daily. --Hypertension; moderate control Hydralazine 50 mg p.o. daily, metoprolol 50 mg p.o. twice daily --Morbid obesity; BMI 48.1 Advised dietary modification , exercise as tolerated , weight reduction when medically stable Patient may benefit from outpatient evaluation for bariatric surgery for weight reduction program when stable --DVT prophylaxis Plan to address problem: Heparin 5000 units subcu every 12 hours for DVT prophylaxis. Pepcid 20 mg p.o. twice daily for GI prophylaxis. Patient is a full code --full code Consults and recommendations noted and appreciated continue current management PT evaluation DC planning per case management 10/27/2021; patient had some PVCs on the monitor Cardiology increased metoprolol dose, closely monitor Monitor the patient closely and adjust the management as needed Plan of care reviewed with the patient and his nurse Cardiology recommendations noted and appreciated History Interval history: I have seen and examined the patient at the bedside Patient's chart and medications reviewed No new events reported by the nursing Patient complains of mild shortness of breath intermittent Had some PVCs on the monitor Vital signs noted Hospitalist Physical - Constitutional Vitals: Temp Pulse Resp BP Pulse Ox 98.5 F 92 H 18 120/71 96 10/27/21 11:09 10/27/21 15:33 10/27/21 15:33 10/27/21 11:09 10/27/21 11:09 General appearance: Present: no acute distress, well-nourished - EENT Eyes: Present: PERRL, EOM intact - Neck Neck: Present: supple, normal ROM - Respiratory Respiratory effort: normal Respiratory: bilateral: diminished, negative: rales, rhonchi, wheezing - Cardiovascular Rhythm: regular Heart Sounds: Present: S1 & S2 - Extremities Extremities: no ischemia, No edema - Abdominal General gastrointestinal: soft, non-tender, non-distended, normal bowel sounds - Integumentary Integumentary: Present: clear, warm - Psychiatric Psychiatric: appropriate mood/affect, cooperative - Neurologic Neurologic: CNII-XII intact, moves all extremities HEART Score - HEART Score Troponin: Troponin T 0.025 ng/mL (0.00-0.029) 10/24/21 22:31 Results - Labs CBC & Chem 7: 10/25/21 04:35 10/26/21 04:43 Labs: Laboratory Last Values WBC 6.1 K/mm3 (4.5-11.0) 10/25/21 04:35 RBC 4.29 M/mm3 (3.65-5.03) 10/25/21 04:35 Hgb 11.5 gm/dl (11.8-15.2) L 10/25/21 04:35 Hct 37.0 % (35.5-45.6) 10/25/21 04:35 MCV 86 fl (84-94) 10/25/21 04:35 MCH 27 pg (28-32) L 10/25/21 04:35 MCHC 31 % (32-34) L 10/25/21 04:35 RDW 16.7 % (13.2-15.2) H 10/25/21 04:35 Plt Count 163 K/mm3 (140-440) 10/25/21 04:35 Lymph % (Auto) 23.3 % (13.4-35.0) 10/25/21 04:35 [place] % (Auto) 12.0 % (0.0-7.3) H 10/25/21 04:35 Eos % (Auto) 1.5 % (0.0-4.3) 10/25/21 04:35 Baso % (Auto) 0.5 % (0.0-1.8) 10/25/21 04:35 Lymph # (Auto) 1.4 K/mm3 (1.2-5.4) 10/25/21 04:35 [place] # (Auto) 0.7 K/mm3 (0.0-0.8) 10/25/21 04:35 Eos # (Auto) 0.1 K/mm3 (0.0-0.4) 10/25/21 04:35 Baso # (Auto) 0.0 K/mm3 (0.0-0.1) 10/25/21 04:35 Seg Neutrophils % 62.7 % (40.0-70.0) 10/25/21 04:35 Seg Neutrophils # 3.8 K/mm3 (1.8-7.7) 10/25/21 04:35 D-Dimer 679.72 ng/mlDDU (0-234) H 10/24/21 21:32 Sodium 141 mmol/L (137-145) 10/26/21 04:43 Potassium 4.4 mmol/L (3.6-5.0) 10/26/21 04:43 Chloride 99.5 mmol/L (98-107) 10/26/21 04:43 Carbon Dioxide 31 mmol/L (22-30) H 10/26/21 04:43 Anion Gap 15 mmol/L 10/26/21 04:43 BUN 14 mg/dL (9-20) 10/26/21 04:43 Creatinine 0.9 mg/dL (0.8-1.3) 10/26/21 04:43 Estimated GFR > 60 ml/min 10/26/21 04:43 BUN/Creatinine Ratio 16 % 10/26/21 04:43 Glucose 112 mg/dL (75-100) H 10/26/21 04:43 Lactic Acid 1.20 mmol/L (0.7-2.0) 10/24/21 21:32 Calcium 8.2 mg/dL (8.4-10.2) L 10/26/21 04:43 Magnesium 1.90 mg/dL (1.7-2.3) 10/26/21 04:43 Total Bilirubin 0.50 mg/dL (0.1-1.2) 10/24/21 21:32 Total Bilirubin 0.50 mg/dL (0.1-1.2) 10/24/21 21:32 Direct Bilirubin < 0.2 mg/dL (0-0.2) 10/24/21 21:32 Indirect Bilirubin 0.3 mg/dL 10/24/21 21:32 AST 22 units/L (5-40) 10/24/21 21:32 AST 22 units/L (5-40) 10/24/21 21:32 ALT 17 units/L (7-56) 10/24/21 21:32 ALT 17 units/L (7-56) 10/24/21 21:32 Alkaline Phosphatase 79 units/L (35-129) 10/24/21 21:32 Alkaline Phosphatase 81 units/L (35-129) 10/24/21 21:32 Total Creatine Kinase 200 units/L (55-170) H 10/24/21 22:31 CK-MB (CK-2) 4.9 ng/mL (0.0-4.0) H 10/24/21 22:31 CK-MB (CK-2) Rel Index 2.4 (0-4) 10/24/21 22:31 Troponin T 0.025 ng/mL (0.00-0.029) 10/24/21 22:31 NT-Pro-B Natriuret Pep 7734 pg/mL (0-900) H 10/24/21 21:32 Total Protein 6.7 g/dL (6.3-8.2) 10/24/21 21:32 Total Protein 6.8 g/dL (6.3-8.2) 10/24/21 21:32 Albumin 3.8 g/dL (3.9-5) L 10/24/21 21:32 Albumin 3.8 g/dL (3.9-5) L 10/24/21 21:32 Albumin/Globulin Ratio 1.3 % 10/24/21 21:32 Albumin/Globulin Ratio 1.3 % 10/24/21 21:32 Quiroz/IV: Voiding Method Urinal Active Medications - Current Medications Current Medications: Generic Name Dose Route Start Last Admin Trade Name Freq PRN Reason Stop Dose Admin Acetaminophen 650 mg 10/24/21 23:14 10/25/21 00:36 Acetaminophen 325 Mg Tab PO 650 mg Q4H PRN Administration Pain MILD(1-3)/Fever >100.5/AVILA Albuterol 2.5 mg 10/24/21 23:14 10/25/21 00:35 Albuterol 2.5 Mg/3 Ml Nebu IH 2.5 mg Q3HRT PRN Administration Shortness Of Breath Albuterol/Ipratropium 1 ampul 10/26/21 08:00 10/27/21 15:33 Ipratropium/Albuterol Sulfate 3 Ml Ampul.Neb IH 1 ampul TIDRT NEO Administration Aspirin 81 mg 10/25/21 10:00 10/27/21 10:02 Aspirin 81 Mg Tab Chew PO 81 mg QDAY NEO Administration Famotidine 20 mg 10/25/21 10:00 10/27/21 10:02 Famotidine 20 Mg Tab PO 20 mg BID NEO Administration Fish Oil 1,000 mg 10/25/21 10:00 10/27/21 10:02 [place]-3 Fatty Acids/Fish Oil 1 Gram Cap PO 1,000 mg QDAY NEO Administration Furosemide 40 mg 10/25/21 06:00 10/27/21 06:33 Furosemide 40 Mg/4 Ml Inj IV 40 mg BID@0600,1800 NEO Administration Heparin Sodium (Porcine) 5,000 unit 10/25/21 10:00 10/27/21 10:07 Heparin 5,000 Unit/1 Ml Vial SUB-Q 5,000 unit Q12HR NEO Administration Hydralazine HCl 50 mg 10/25/21 22:00 10/27/21 15:02 Hydralazine 25 Mg Tab PO 50 mg Q8HR NEO Administration Hydromorphone HCl 0.5 mg 10/24/21 23:14 10/25/21 00:35 Hydromorphone 1 Mg/1 Ml Inj IV 0.5 mg Q3H PRN Administration Pain , Severe (7-10) Losartan Potassium 100 mg 10/25/21 10:00 10/27/21 10:02 Losartan 50 Mg Tab PO 100 mg QDAY NEO Administration Metoprolol Tartrate 75 mg 10/27/21 22:00 Metoprolol Tartrate 50 Mg Tab PO BID [facility] Morphine Sulfate 2 mg 10/24/21 23:14 10/25/21 00:35 Morphine 2 Mg/1 Ml Inj IV 2 mg Q4H PRN Administration Pain, Moderate (4-6) Ondansetron HCl 4 mg 10/24/21 23:14 10/25/21 00:36 Ondansetron 4 Mg/2 Ml Inj IV 4 mg Q8H PRN Administration Nausea And Vomiting Pravastatin Sodium 20 mg 10/25/21 22:00 10/26/21 22:32 Pravastatin 20 Mg Tab PO 20 mg QHS NEO Administration Sodium Chloride 10 ml 10/25/21 10:00 10/27/21 10:03 Sodium Chloride 0.9% 10 Ml Flush Syringe IV 10 ml BID NEO Administration Sodium Chloride 10 ml 10/24/21 23:14 Sodium Chloride 0.9% 10 Ml Flush Syringe IV PRN PRN LINE FLUSH
[2021-10-27] MEDS: PRAVASTATIN 20 MG TAB PO SCH (21:16)
[2021-10-28] MEDS: ALBUTEROL 2.5 MG/3 ML NEBU IH PRN (04:16)
[2021-10-28 05:53] LABS: BUN/Creatinine Ratio 14; Blood Urea Nitrogen 13 mg/dL (9-20); Calcium 8.6 mg/dL (8.4-10.2); Hemolysis Index 29
[2021-10-28] MEDS: FUROSEMIDE 40 MG/4 ML INJ IV SCH ×2 (07:03→17:16)
[2021-10-28] MEDS: hydrALAZINE 25 MG TAB PO SCH ×4 (07:34→21:31)
--- NOTE | 2021-10-28 08:51 | Progress Note ---
Assessment and Plan Assessment and plan: --Acute on chronic systolic heart failure ( HFrEF heart failure with reduced ejection fraction) Oxygen titrate O2 sats to 90% Diuretics, beta-blockers, FACUNDO in, home O2 eval at discharge , input output monitoring, fluid restriction. Daily weights Echo 08/05 EF 40 to 45%. Cardiology following --Ischemic cardiomyopathy; Continue current cardiac medications Antifailure medications --History of CABG in 2019 Continue current cardiac medications Cardiology following --Elevated D-dimers; CTA chest negative for PE, Mediastinal lymphadenopathy [patient advised to see private hematology oncologist] Lower extremity venous Doppler; negative for DVT bilateral lower extremity --Mediastinal adenopathy; Unknown etiology, possible metastatic malignancy Patient will follow with hematology oncologist upon discharge --Pulmonary hypertension; Supportive care, fluid restriction, IV diuretics --CAD (coronary artery disease) Continue current cardiac medications, Cardiology consulted --Dyslipidemia : Low-cholesterol diet, Lipitor 40 mg p.o. daily. --Hypertension; moderate control Hydralazine 50 mg p.o. daily, metoprolol 50 mg p.o. twice daily --Morbid obesity; BMI 48.1 Advised dietary modification , exercise as tolerated , weight reduction when medically stable Patient may benefit from outpatient evaluation for bariatric surgery for weight reduction program when stable --DVT prophylaxis Heparin 5000 units subcu every 12 hours for DVT prophylaxis. Pepcid 20 mg p.o. twice daily for GI prophylaxis. Patient is a full code --full code status Consults and recommendations noted and appreciated continue current management PT evaluation DC planning per case management Monitor the patient closely and adjust the management as needed Plan of care reviewed with the patient and his nurse Cardiology recommendations noted and appreciated Brief history and daily hospital course; Shortness of breath 60-year-old with history of hypertension, CHF, CAD status post CABG in 2019 at [place], arthritis, obesity and herniated disc was brought to the emergency room because of shortness of breath of 3 days, coughing, difficulty lying flat, can only ambulate a couple of steps without getting tired. Patient states he was recently admitted at the hospital here ([facility]) initially felt better after discharge, but slowly his legs started to swell, he started to feel fatigued, with some chest discomfort, progressively worsened until the last 3 days where he can no longer function with his symptoms. He is on 3 L of oxygen daily which he thinks helps but has to get higher when he ambulates. Initial evaluation findings consistent with acute exacerbation of chronic congestive heart failure Cardiology consulted patient's medications being optimized 10/27/2021; patient had some PVCs on the monitor Cardiology increased metoprolol dose, closely monitor 10/28; continue current management, ambulate as tolerated Disposition; discharge when cleared by cardiology History Interval history: I have seen and examined the patient at the bedside Patient's chart and medications reviewed Patient feels slightly better still has mild shortness of breath Vital signs noted Hospitalist Physical - Constitutional Vitals: Temp Pulse Resp BP Pulse Ox 98.4 F 86 18 118/59 94 10/28/21 08:42 10/28/21 08:42 10/28/21 08:42 10/28/21 08:42 10/28/21 08:42 General appearance: Present: no acute distress, well-nourished, obese (Morbidly obese) - EENT Eyes: Present: PERRL, EOM intact - Neck Neck: Present: supple, normal ROM - Respiratory Respiratory effort: normal Respiratory: bilateral: diminished, rhonchi, negative: rales, wheezing - Cardiovascular Rhythm: regular Heart Sounds: Present: S1 & S2 - Extremities Extremities: no ischemia Extremity abnormal: edema, other (Chronic skin changes) - Abdominal General gastrointestinal: soft, non-tender, non-distended, normal bowel sounds - Integumentary Integumentary: Present: clear, warm - Psychiatric Psychiatric: appropriate mood/affect, cooperative - Neurologic Neurologic: moves all extremities HEART Score - HEART Score Troponin: Troponin T 0.025 ng/mL (0.00-0.029) 10/24/21 22:31 Results - Labs CBC & Chem 7: 10/25/21 04:35 10/28/21 04:35 Labs: Laboratory Last Values WBC 6.1 K/mm3 (4.5-11.0) 10/25/21 04:35 RBC 4.29 M/mm3 (3.65-5.03) 10/25/21 04:35 Hgb 11.5 gm/dl (11.8-15.2) L 10/25/21 04:35 Hct 37.0 % (35.5-45.6) 10/25/21 04:35 MCV 86 fl (84-94) 10/25/21 04:35 MCH 27 pg (28-32) L 10/25/21 04:35 MCHC 31 % (32-34) L 10/25/21 04:35 RDW 16.7 % (13.2-15.2) H 10/25/21 04:35 Plt Count 163 K/mm3 (140-440) 10/25/21 04:35 Lymph % (Auto) 23.3 % (13.4-35.0) 10/25/21 04:35 [place] % (Auto) 12.0 % (0.0-7.3) H 10/25/21 04:35 Eos % (Auto) 1.5 % (0.0-4.3) 10/25/21 04:35 Baso % (Auto) 0.5 % (0.0-1.8) 10/25/21 04:35 Lymph # (Auto) 1.4 K/mm3 (1.2-5.4) 10/25/21 04:35 [place] # (Auto) 0.7 K/mm3 (0.0-0.8) 10/25/21 04:35 Eos # (Auto) 0.1 K/mm3 (0.0-0.4) 10/25/21 04:35 Baso # (Auto) 0.0 K/mm3 (0.0-0.1) 10/25/21 04:35 Seg Neutrophils % 62.7 % (40.0-70.0) 10/25/21 04:35 Seg Neutrophils # 3.8 K/mm3 (1.8-7.7) 10/25/21 04:35 D-Dimer 679.72 ng/mlDDU (0-234) H 10/24/21 21:32 Sodium 143 mmol/L (137-145) 10/28/21 04:35 Potassium 3.6 mmol/L (3.6-5.0) 10/28/21 04:35 Chloride 98.4 mmol/L (98-107) 10/28/21 04:35 Carbon Dioxide 33 mmol/L (22-30) H 10/28/21 04:35 Anion Gap 15 mmol/L 10/28/21 04:35 BUN 13 mg/dL (9-20) 10/28/21 04:35 Creatinine 0.9 mg/dL (0.8-1.3) 10/28/21 04:35 Estimated GFR > 60 ml/min 10/28/21 04:35 BUN/Creatinine Ratio 14 % 10/28/21 04:35 Glucose 105 mg/dL (75-100) H 10/28/21 04:35 Lactic Acid 1.20 mmol/L (0.7-2.0) 10/24/21 21:32 Calcium 8.6 mg/dL (8.4-10.2) 10/28/21 04:35 Magnesium 1.80 mg/dL (1.7-2.3) 10/28/21 04:35 Total Bilirubin 0.50 mg/dL (0.1-1.2) 10/24/21 21:32 Total Bilirubin 0.50 mg/dL (0.1-1.2) 10/24/21 21:32 Direct Bilirubin < 0.2 mg/dL (0-0.2) 10/24/21 21:32 Indirect Bilirubin 0.3 mg/dL 10/24/21 21:32 AST 22 units/L (5-40) 10/24/21 21:32 AST 22 units/L (5-40) 10/24/21 21:32 ALT 17 units/L (7-56) 10/24/21 21:32 ALT 17 units/L (7-56) 10/24/21 21:32 Alkaline Phosphatase 79 units/L (35-129) 10/24/21 21:32 Alkaline Phosphatase 81 units/L (35-129) 10/24/21 21:32 Total Creatine Kinase 200 units/L (55-170) H 10/24/21 22:31 CK-MB (CK-2) 4.9 ng/mL (0.0-4.0) H 10/24/21 22:31 CK-MB (CK-2) Rel Index 2.4 (0-4) 10/24/21 22:31 Troponin T 0.025 ng/mL (0.00-0.029) 10/24/21 22:31 NT-Pro-B Natriuret Pep 7734 pg/mL (0-900) H 10/24/21 21:32 Total Protein 6.7 g/dL (6.3-8.2) 10/24/21 21:32 Total Protein 6.8 g/dL (6.3-8.2) 10/24/21 21:32 Albumin 3.8 g/dL (3.9-5) L 10/24/21 21:32 Albumin 3.8 g/dL (3.9-5) L 10/24/21 21:32 Albumin/Globulin Ratio 1.3 % 10/24/21 21:32 Albumin/Globulin Ratio 1.3 % 10/24/21 21:32 Quiroz/IV: Voiding Method Urinal Active Medications - Current Medications Current Medications: Generic Name Dose Route Start Last Admin Trade Name Freq PRN Reason Stop Dose Admin Acetaminophen 650 mg 10/24/21 23:14 10/25/21 00:36 Acetaminophen 325 Mg Tab PO 650 mg Q4H PRN Administration Pain MILD(1-3)/Fever >100.5/AVILA Albuterol 2.5 mg 10/24/21 23:14 10/28/21 04:16 Albuterol 2.5 Mg/3 Ml Nebu IH 2.5 mg Q3HRT PRN Administration Shortness Of Breath Albuterol/Ipratropium 1 ampul 10/26/21 08:00 10/27/21 19:26 Ipratropium/Albuterol Sulfate 3 Ml Ampul.Neb IH Not Given TIDRT NEO Aspirin 81 mg 10/25/21 10:00 10/27/21 10:02 Aspirin 81 Mg Tab Chew PO 81 mg QDAY NEO Administration Famotidine 20 mg 10/25/21 10:00 10/27/21 21:16 Famotidine 20 Mg Tab PO 20 mg BID NEO Administration Fish Oil 1,000 mg 10/25/21 10:00 10/27/21 10:02 [place]-3 Fatty Acids/Fish Oil 1 Gram Cap PO 1,000 mg QDAY NEO Administration Furosemide 40 mg 10/25/21 06:00 10/28/21 07:03 Furosemide 40 Mg/4 Ml Inj IV 40 mg BID@0600,1800 NEO Administration Heparin Sodium (Porcine) 5,000 unit 10/25/21 10:00 10/27/21 21:17 Heparin 5,000 Unit/1 Ml Vial SUB-Q 5,000 unit Q12HR NEO Administration Hydralazine HCl 50 mg 10/25/21 22:00 10/28/21 07:34 Hydralazine 25 Mg Tab PO 50 mg Q8HR NEO Administration Hydromorphone HCl 0.5 mg 10/24/21 23:14 10/25/21 00:35 Hydromorphone 1 Mg/1 Ml Inj IV 0.5 mg Q3H PRN Administration Pain , Severe (7-10) Losartan Potassium 100 mg 10/25/21 10:00 10/27/21 10:02 Losartan 50 Mg Tab PO 100 mg QDAY NEO Administration Metoprolol Tartrate 75 mg 10/27/21 22:00 10/27/21 21:17 Metoprolol Tartrate 50 Mg Tab PO 75 mg BID NEO Administration Morphine Sulfate 2 mg 10/24/21 23:14 10/25/21 00:35 Morphine 2 Mg/1 Ml Inj IV 2 mg Q4H PRN Administration Pain, Moderate (4-6) Ondansetron HCl 4 mg 10/24/21 23:14 10/25/21 00:36 Ondansetron 4 Mg/2 Ml Inj IV 4 mg Q8H PRN Administration Nausea And Vomiting Pravastatin Sodium 20 mg 10/25/21 22:00 10/27/21 21:16 Pravastatin 20 Mg Tab PO 20 mg QHS NEO Administration Sodium Chloride 10 ml 10/25/21 10:00 10/27/21 21:18 Sodium Chloride 0.9% 10 Ml Flush Syringe IV 10 ml BID NEO Administration Sodium Chloride 10 ml 10/24/21 23:14 10/27/21 18:32 Sodium Chloride 0.9% 10 Ml Flush Syringe IV 10 ml PRN PRN Administration LINE FLUSH
[2021-10-28] MEDS: FAMOTIDINE 20 MG TAB PO SCH ×2 (09:06→21:31)
[2021-10-28] MEDS: METOPROLOL TARTRATE 50 MG TAB PO SCH ×4 (09:06→21:30)
[2021-10-28] MEDS: HEPARIN 5,000 UNIT/1 ML VIAL SUB-Q SCH ×2 (09:06→21:31)
[2021-10-28] MEDS: ASPIRIN 81 MG TAB CHEW PO SCH (09:06)
[2021-10-28] MEDS: OMEGA-3 FATTY ACIDS/FISH OIL 1 GRAM CAP PO SCH (09:06)
[2021-10-28] MEDS: LOSARTAN 50 MG TAB PO SCH (09:06)
[2021-10-28] MEDS: IPRATROPIUM/ALBUTEROL SULFATE 3 ML AMPUL.NEB IH SCH ×3 (09:22→20:34)
--- NOTE | 2021-10-28 11:49 | Progress Note ---
Assessment and Plan 60-year-old gentleman with a past medical history of CAD/CABG, ischemic cardiomyopathy EF 40 to 45%, hypertension, hyperlipidemia, diabetes, and noncompliance presents with complaint of SOB Acute on chronic HFrEF 40-45% CAD/CABG Ischemic cardiomyopathy Diabetes Hypertension Hyperlipidemia Medical Noncompliance [facility] 02/10/2019: Multivessel disease, distal left main 70%, ostial left circumflex 80%, OM 2 occluded, LAD luminal irregularities, ostial diagonal 220 to 25%, RCA luminal irregularities, distal posterolateral 90%, LVEDP 30 to 35 mmHg Echo 08/02/21: EF 40 to 45%, grade 3 diastolic dysfunction, moderate tricuspid regurgitation, moderate LAE, RVSP 62 mmHg Plan: Currently on aspirin hydralazine 50 mg p.o. every 8 hours, losartan 100 mg p.o. daily, pravastatin 20 mg p.o. nightly I&O's unclear however patient reports still having good urine output. Will continue diuresis with Lasix 40 mg IV twice daily. Strict I&O's. Repeat BMP in the a.m. Continue metoprolol 75 mg p.o. twice daily Patient seen in conjunction with Dr. Burton who agrees with this plan of care - Patient Problems (1) Medical non-compliance Current Visit: Yes Status: Acute (2) Acute on chronic HFrEF (heart failure with reduced ejection fraction) Current Visit: Yes Status: Acute (3) CAD (coronary artery disease) Current Visit: Yes Status: Acute Qualifiers: Coronary Disease-Associated Artery/Lesion type: [place] artery (4) NSVT (nonsustained ventricular tachycardia) Current Visit: Yes Status: Acute (5) Hx of CABG Current Visit: Yes Status: Chronic (6) Hypertension Current Visit: Yes Status: Chronic Qualifiers: Hypertension type: primary hypertension (7) Ischemic cardiomyopathy Current Visit: Yes Status: Chronic (8) Morbid obesity Current Visit: No Status: Acute Subjective Date of service: 10/28/21 Principal diagnosis: Acute on chronic HFrEF Interval history: Patient resting in bed in no acute distress. Patient reports further improvement in breathing Sinus 70s on monitor with frequent PVCs Objective Vital Signs Temp Pulse Pulse Resp Resp BP Pulse Ox 10/28/21 09:24 94 10/28/21 09:22 84 18 10/28/21 08:57 97 10/28/21 08:42 98.4 F 86 18 118/59 94 10/28/21 07:34 75 133/61 10/28/21 04:23 92 10/28/21 04:16 81 18 10/28/21 03:46 97.6 F 75 18 133/61 88 10/27/21 23:12 97.8 F 65 18 144/78 84 10/27/21 22:00 97 10/27/21 21:17 71 127/56 10/27/21 21:16 71 127/56 10/27/21 19:29 98.8 F 71 19 127/56 97 10/27/21 19:27 99 10/27/21 18:29 20 10/27/21 18:27 76 20 125/58 99 10/27/21 15:33 92 H 18 - Physical Examination General: No Apparent Distress HEENT: Positive: EOMI, Normocephaly, Mucus Membranes Moist Neck: Positive: neck supple, trachea midline, JVD/HJR Cardiac: Positive: Reg Rate and Rhythm Lungs: Positive: Normal Breath Sounds Neuro: Positive: Grossly Intact Abdomen: Positive: Soft, Active Bowel Sounds. Negative: Tender Skin: Positive: Clear. Negative: Rash Musculoskeletal: Normal Range of Motion Extremities: Present: upper extr. pulses, +1 Edema (Bilateral leg L>R edema) - Labs and Meds Comprehensive Metabolic Panel 10/28/21 Range/Units 04:35 Sodium 143 (137-145) mmol/L Potassium 3.6 (3.6-5.0) mmol/L Chloride 98.4 (98-107) mmol/L Carbon Dioxide 33 H (22-30) mmol/L BUN 13 (9-20) mg/dL Creatinine 0.9 (0.8-1.3) mg/dL Glucose 105 H (75-100) mg/dL Calcium 8.6 (8.4-10.2) mg/dL - Imaging and Cardiology Echo: report reviewed Cardiac cath: report reviewed - Telemetry EKG Rhythm: Sinus Rhythm - EKG Sinus rhythms and dysrhythmias: sinus rhythm Ventricular dysrhythmias: ventricular premature com
[2021-10-28] MEDS: PRAVASTATIN 20 MG TAB PO SCH (21:30)
[2021-10-29] MEDS: hydrALAZINE 25 MG TAB PO SCH (04:59)
[2021-10-29] MEDS: FUROSEMIDE 40 MG/4 ML INJ IV SCH (04:59)
[2021-10-29 05:46] LABS: BUN/Creatinine Ratio 12; Blood Urea Nitrogen 12 mg/dL (9-20); Calcium 8.4 mg/dL (8.4-10.2); Hemolysis Index 1
[2021-10-29] MEDS ORDERED: POTASSIUM CHLORIDE ER 20 MEQ TAB PO NR (07:42)
[2021-10-29] MEDS: IPRATROPIUM/ALBUTEROL SULFATE 3 ML AMPUL.NEB IH SCH ×2 (09:02→14:11)
[2021-10-29] MEDS ORDERED: POTASSIUM CHLORIDE ER 20 MEQ TAB PO SCH (10:00)
[2021-10-29] MEDS: OMEGA-3 FATTY ACIDS/FISH OIL 1 GRAM CAP PO SCH (10:26)
[2021-10-29] MEDS: LOSARTAN 50 MG TAB PO SCH (10:26)
[2021-10-29] MEDS: FAMOTIDINE 20 MG TAB PO SCH (10:26)
[2021-10-29] MEDS: ASPIRIN 81 MG TAB CHEW PO SCH (10:26)
[2021-10-29] MEDS: METOPROLOL TARTRATE 50 MG TAB PO SCH (10:27)
[2021-10-29] MEDS: HEPARIN 5,000 UNIT/1 ML VIAL SUB-Q SCH (10:27)
--- NOTE | 2021-10-29 11:31 | Progress Note ---
Assessment and Plan 60-year-old gentleman with a past medical history of CAD/CABG, ischemic cardiomyopathy EF 40 to 45%, hypertension, hyperlipidemia, diabetes, and noncompliance presents with complaint of SOB Acute on chronic HFrEF 40-45% CAD/CABG Ischemic cardiomyopathy Diabetes Hypertension Hyperlipidemia Medical Noncompliance [facility] 02/10/2019: Multivessel disease, distal left main 70%, ostial left circumflex 80%, OM 2 occluded, LAD luminal irregularities, ostial diagonal 220 to 25%, RCA luminal irregularities, distal posterolateral 90%, LVEDP 30 to 35 mmHg Echo 08/02/21: EF 40 to 45%, grade 3 diastolic dysfunction, moderate tricuspid regurgitation, moderate LAE, RVSP 62 mmHg Plan: Patient lying in bed in no acute distress reports feeling near his baseline. Bilateral lower extremity edema significantly decreased and patient no longer requiring oxygen Currently on aspirin hydralazine 50 mg p.o. every 8 hours, losartan 100 mg p.o. daily, pravastatin 20 mg p.o. nightly Continue metoprolol 75 mg p.o. twice daily Cardiac status otherwise stable Patient has follow up with Dr. Vega, [facility], on 11/21/2021 at 1pm our [place] location. Phone number [phone] Patient seen in conjunction with Dr. Burton who agrees with this plan of care - Patient Problems (1) Medical non-compliance Current Visit: Yes Status: Acute (2) Acute on chronic HFrEF (heart failure with reduced ejection fraction) Current Visit: Yes Status: Acute (3) CAD (coronary artery disease) Current Visit: Yes Status: Acute Qualifiers: Coronary Disease-Associated Artery/Lesion type: [place] artery (4) NSVT (nonsustained ventricular tachycardia) Current Visit: Yes Status: Acute (5) Hx of CABG Current Visit: Yes Status: Chronic (6) Hypertension Current Visit: Yes Status: Chronic Qualifiers: Hypertension type: primary hypertension (7) Ischemic cardiomyopathy Current Visit: Yes Status: Chronic (8) Morbid obesity Current Visit: No Status: Acute Subjective Date of service: 10/29/21 Principal diagnosis: Acute on chronic HFrEF Interval history: Patient lying flat in bed in no acute distress. Sinus 80s on monitor with PVCs Objective Vital Signs Temp Pulse Pulse Resp Resp BP BP 10/29/21 09:03 93 H 18 10/29/21 09:02 10/29/21 08:45 98.0 F 82 18 161/87 10/29/21 04:12 97.7 F 80 18 149/75 10/29/21 03:51 10/28/21 22:10 98.6 F 80 20 131/64 10/28/21 20:37 10/28/21 20:36 84 18 10/28/21 19:39 97.6 F 81 18 158/87 10/28/21 16:08 98.9 F 20 139/63 10/28/21 13:52 89 18 10/28/21 11:39 98.3 F 76 18 141/75 Pulse Ox 10/29/21 09:03 10/29/21 09:02 91 10/29/21 08:45 96 10/29/21 04:12 88 10/29/21 03:51 94 10/28/21 22:10 95 10/28/21 20:37 92 10/28/21 20:36 10/28/21 19:39 94 10/28/21 16:08 10/28/21 13:52 10/28/21 11:39 95 - Physical Examination General: No Apparent Distress HEENT: Positive: EOMI, Normocephaly, Mucus Membranes Moist Neck: Positive: neck supple, trachea midline, JVD/HJR Cardiac: Positive: Reg Rate and Rhythm Lungs: Positive: Normal Breath Sounds Neuro: Positive: Grossly Intact Abdomen: Positive: Soft, Active Bowel Sounds. Negative: Tender Skin: Positive: Clear. Negative: Rash Musculoskeletal: Normal Range of Motion Extremities: Present: upper extr. pulses, +1 Edema (Bilateral leg L>R edema) - Labs and Meds Comprehensive Metabolic Panel 10/29/21 Range/Units 04:35 Sodium 141 (137-145) mmol/L Potassium 3.4 L (3.6-5.0) mmol/L Chloride 97.5 L (98-107) mmol/L Carbon Dioxide 33 H (22-30) mmol/L BUN 12 (9-20) mg/dL Creatinine 1.0 (0.8-1.3) mg/dL Glucose 103 H (75-100) mg/dL Calcium 8.4 (8.4-10.2) mg/dL - Imaging and Cardiology Echo: report reviewed Cardiac cath: report reviewed - Telemetry EKG Rhythm: Sinus Rhythm - EKG Sinus rhythms and dysrhythmias: sinus rhythm Ventricular dysrhythmias: ventricular premature com
[2021-10-29 12:05] VITALS: BP 146/75
--- NOTE | 2021-10-29 12:51 | Discharge Summary ---
Providers - Providers Date of Admission: 10/24/21 23:14 Date of discharge: 10/29/21 Attending physician: ABA VELASQUEZ 10/24/21 23:14 Consult to Physician [CONS] Routine Comment: Consulting Provider: DANY HERNANDEZ Physician Instructions: Reason For Exam: chf Hospitalization Condition: Stable Pertinent studies: [facility] 02/10/2019: Multivessel disease, distal left main 70%, ostial left circumflex 80%, OM 2 occluded, LAD luminal irregularities, ostial diagonal 220 to 25%, RCA luminal irregularities, distal posterolateral 90%, LVEDP 30 to 35 mmHg Echo 08/02/21: EF 40 to 45%, grade 3 diastolic dysfunction, moderate tricuspid regurgitation, moderate LAE, RVSP 62 mmHg Hospital course: 60-year-old with history of hypertension, CHF, CAD status post CABG in 2019 at [place], arthritis, obesity and herniated disc was brought to the emergency room because of shortness of breath of 3 days, coughing, difficulty lying flat, can only ambulate a couple of steps without getting tired. Patient states he was recently admitted at the hospital here ([facility]) initially felt better after discharge, but slowly his legs started to swell, he started to feel fatigued, with some chest discomfort, progressively worsened until the last 3 days prior admission where he can no longer function with his symptoms. He is on 3 L of oxygen daily which he thinks helps but has to get higher when he ambulates. Initial evaluation findings consistent with acute exacerbation of chronic conges tive heart failure. Cardiology consulted patient's medications being optimized. Patient was admitted to telemetry floor with scheduled iv diuretics. Monitored with serial CE, EKG. Provided cardiac diet, daily weights, monitored in's and O's. Patients symptom improved with medical management. Patient was then discharged home in stable condition with outpt f/u. Disposition: 01 HOME / SELF CARE / HOMELESS Final Discharge Diagnosis (Prints w/discharge instructions): Acute on chronic systolic HFrEF 40-45%. CAD/CABG. Ischemic cardiomyopathy. Diabetes type 2. Hypertension. Morbid obesity; BMI 48.1. Hypokalemia. Hyperlipidemia. Medical Noncompliance. Pulmonary HTN Time spent for discharge: 34 minutes Core Measure Documentation - Palliative Care Palliative Care/ Comfort Measures: Not Applicable - Core Measures Any of the following diagnoses?: none Exam - Physical Exam Narrative exam: General: No Apparent Distress HEENT: Positive: EOMI, Normocephaly, Mucus Membranes Moist Neck: Positive: neck supple, trachea midline, JVD/HJR Cardiac: Positive: Reg Rate and Rhythm Lungs: Positive: Normal Breath Sounds Neuro: Positive: Grossly Intact Abdomen: Positive: Soft, Active Bowel Sounds. Negative: Tender Skin: Positive: Clear. Negative: Rash Musculoskeletal: Normal Range of Motion Extremities: Present: upper extr. pulses, trace Edema - Constitutional Vitals: Temp Pulse Resp BP Pulse Ox 98.0 F 90 18 146/75 96 10/29/21 12:04 10/29/21 12:04 10/29/21 12:04 10/29/21 12:04 10/29/21 12:04 Plan Activity: advance as tolerated Weight Bearing Status: Weight Bear as Tolerated Diet: low fat, low salt Additional Instructions: Follow up with Dr. Vega, [facility], on 11/21/2021 at 1pm [place] location. Phone number [phone]. Follow up with: TAMMIE KIM [Other] - 7 Days Prescriptions: hydrALAZINE [Apresoline TAB] 50 mg PO Q8HR #120 tablet Losartan [Cozaar] 100 mg PO QDAY #30 tablet Potassium Chloride [K-Dur] 20 meq PO QDAY #30 tablet Furosemide [Lasix TAB] 40 mg PO QDAY 30 Days #30 tablet Metoprolol [Lopressor TAB] 75 mg PO BID #90 tablet
== END 2021-10-29 20:12 | disposition home health service (06) | DRG 291 ==
LOC: ED 19:36 → 4A 23:14
PROVIDERS: ADMIT Hospitalist; ATTEND Internal Medicine
DX: I11.0 Hypertensive heart disease with heart failure (principal); I50.23 Acute on chronic systolic (congestive) heart failure; Z68.42 Body mass index [BMI] 45.0-49.9, adult; I47.2 Ventricular tachycardia; I25.5 Ischemic cardiomyopathy; Z95.1 Presence of aortocoronary bypass graft; R59.0 Localized enlarged lymph nodes; E78.5 Hyperlipidemia, unspecified; I27.20 Pulmonary hypertension, unspecified; I25.10 Atherosclerotic heart disease of native coronary artery without angina pectoris; M19.90 Unspecified osteoarthritis, unspecified site; E87.6 Hypokalemia; E66.01 Morbid (severe) obesity due to excess calories; E11.9 Type 2 diabetes mellitus without complications; Z82.49 Family history of ischemic heart disease and other diseases of the circulatory system; Z91.19 Patient's noncompliance with other medical treatment and regimen
CPT/HCPCS: 36415; 71046; 71275; 80048; 80053; 80076; 82140; 82550; 82553; 83735; 83880; 84484; 85025; 85379; 93005; 93970; 94640; 94760; G0378; J1170; J1644; J1940; J2270; J2405; Q9967

== ENCOUNTER 2021-11-22 19:29 | Inpatient (IN) | payer MEDICARE ==
--- NOTE | 2021-11-22 20:36 | Emergency Department Report ---
ED Shortness of Breath HPI - General Chief Complaint: Dyspnea/Respdistress Stated Complaint: FLUID BUILD UP IN BODY Source: patient Mode of arrival: Ambulatory Limitations: No Limitations - History of Present Illness Initial Comments: 61-year-old morbidly obese -[place] male with past medical history of obesity hypoventilation syndrome, CAD, CABG 2018, diabetes type 2, hypertension, CHF presents emergency department complaining of a few day history of grossly worsening lower extremity swelling, shortness of breath, coughing, orthopnea and exertional dyspnea which has been worsening since the onset. States is not quite been taking his water pills as prescribed and has not been checking his weights daily to unsure how much fluid weight he has required. He denies any hemoptysis and hematemesis hematochezia, fever, chills, sweats. Diarrhea, constipation, palpitations. -: Gradual Consistency: constant Worsens With: lying flat, movement Known History Of: congestive heart failure, diabetes Treatments Prior to Arrival: none - Related Data Home Medications Medication Instructions Recorded Confirmed Last Taken Magnesium 500 mg PO DAILY 11/23/21 11/25/21 Unknown Potassium 99 mg PO BID 11/25/21 11/25/21 Unknown Vitamin E 400 unit PO BID 11/25/21 11/25/21 Unknown Previous Rx's Medication Instructions Recorded Last Taken Type [place]-3 Fatty Acids/Fish Oil [Fish 1,000 mg PO QDAY capsule 09/17/21 Unknown Rx Oil] Aspirin [Aspirin BABY CHEW TAB] 81 mg PO QDAY 30 Days #30 tab.chew 11/27/21 Unknown Rx AtorvaSTATin [Lipitor] 40 mg PO QHS 30 Days #30 tablet 11/27/21 Unknown Rx Furosemide [Lasix TAB] 40 mg PO BID 30 Days #60 tab 11/27/21 Unknown Rx Losartan [Cozaar] 100 mg PO QDAY 30 Days #60 tablet 11/27/21 Unknown Rx Metoprolol [Lopressor TAB] 50 mg PO BID 30 Days #60 tab 11/27/21 Unknown Rx Spironolactone [Aldactone] 25 mg PO QDAY 30 Days #30 tablet 11/27/21 Unknown Rx hydrALAZINE [Apresoline TAB] 50 mg PO BID 30 Days #60 tab 11/27/21 Unknown Rx Allergies Allergy/AdvReac Type Severity Reaction Status Date / Time ibuprofen AdvReac Anaphylaxis Verified 11/25/21 07:55 ED Review of Systems ROS: Stated complaint: FLUID BUILD UP IN BODY Other details as noted in HPI Comment: All other systems reviewed and negative ED Past Medical Hx - Past Medical History Previous Medical History?: Yes Hx Hypertension: Yes Hx Congestive Heart Failure: Yes Hx Arthritis: Yes Hx Asthma: Yes Additional medical history: Obesity, Herniated disc, - Surgical History Past Surgical History?: Yes Hx Open Heart Surgery: Yes - Social History Smoking Status: Never Smoker Substance Use Type: None - Medications Home Medications: Home Medications Medication Instructions Recorded Confirmed Last Taken Type [place]-3 Fatty Acids/Fish Oil [Fish 1,000 mg PO QDAY capsule 09/17/21 11/25/21 Unknown Rx Oil] Magnesium 500 mg PO DAILY 11/23/21 11/25/21 Unknown History Potassium 99 mg PO BID 11/25/21 11/25/21 Unknown History Vitamin E 400 unit PO BID 11/25/21 11/25/21 Unknown History Aspirin [Aspirin BABY CHEW TAB] 81 mg PO QDAY 30 Days #30 tab.chew 11/27/21 Unknown Rx AtorvaSTATin [Lipitor] 40 mg PO QHS 30 Days #30 tablet 11/27/21 Unknown Rx Furosemide [Lasix TAB] 40 mg PO BID 30 Days #60 tab 11/27/21 Unknown Rx Losartan [Cozaar] 100 mg PO QDAY 30 Days #60 tablet 11/27/21 Unknown Rx Metoprolol [Lopressor TAB] 50 mg PO BID 30 Days #60 tab 11/27/21 Unknown Rx Spironolactone [Aldactone] 25 mg PO QDAY 30 Days #30 tablet 11/27/21 Unknown Rx hydrALAZINE [Apresoline TAB] 50 mg PO BID 30 Days #60 tab 11/27/21 Unknown Rx ED Physical Exam - General Limitations: No Limitations General appearance: alert, in no apparent distress, other (Mild respiratory distress but increased work of breathing upon minimal exertion) - Head Head exam: Present: atraumatic, normocephalic - Eye Eye exam: Present: normal appearance, PERRL, EOMI - ENT ENT exam: Present: mucous membranes moist - Neck Neck exam: Present: normal inspection - Respiratory Respiratory exam: Present: normal lung sounds bilaterally, decreased breath sounds (With crackles of the right lower lobe). Absent: respiratory distress - Cardiovascular Cardiovascular Exam: Present: regular rate, normal rhythm. Absent: systolic murmur, diastolic murmur, rubs, gallop - GI/Abdominal GI/Abdominal exam: Present: soft, normal bowel sounds - Rectal Rectal exam: Present: deferred - Extremities Exam Extremities exam: Present: normal inspection, normal capillary refill, pedal edema - Back Exam Back exam: Present: normal inspection. Absent: CVA tenderness (R), CVA tenderness (L) - Neurological Exam Neurological exam: Present: alert, oriented X3, CN II-XII intact - Psychiatric Psychiatric exam: Present: normal affect, normal mood - Skin Skin exam: Present: warm, dry, intact, normal color. Absent: rash ED Course Vital Signs 11/22/21 11/22/21 11/22/21 20:24 21:16 21:19 Temperature 98.6 F Pulse Rate 71 Respiratory 16 24 19 Rate Blood Pressure Blood Pressure 162/87 [Right] O2 Sat by Pulse 88 98 Oximetry 11/22/21 11/22/21 11/22/21 21:31 21:45 22:00 Temperature Pulse Rate 68 70 72 Respiratory 20 19 16 Rate Blood Pressure 153/87 153/87 Blood Pressure [Right] O2 Sat by Pulse 94 92 91 Oximetry 11/22/21 11/22/21 11/22/21 22:24 22:30 22:46 Temperature Pulse Rate 78 73 70 Respiratory 20 24 20 Rate Blood Pressure 157/81 157/81 157/81 Blood Pressure [Right] O2 Sat by Pulse 93 92 92 Oximetry 11/22/21 11/22/21 11/22/21 23:00 23:16 23:30 Temperature Pulse Rate 78 70 78 Respiratory 25 H 20 25 H Rate Blood Pressure 173/107 173/107 187/103 Blood Pressure [Right] O2 Sat by Pulse 93 92 90 Oximetry 11/22/21 11/23/21 11/23/21 23:46 00:00 00:16 Temperature Pulse Rate 71 68 76 Respiratory 21 18 19 Rate Blood Pressure 187/103 177/86 177/86 Blood Pressure [Right] O2 Sat by Pulse 97 100 100 Oximetry 11/23/21 11/23/21 11/23/21 00:30 00:46 01:00 Temperature Pulse Rate 89 81 72 Respiratory 18 22 18 Rate Blood Pressure 179/91 179/91 182/96 Blood Pressure [Right] O2 Sat by Pulse 99 99 99 Oximetry 11/23/21 11/23/21 11/23/21 01:16 01:30 01:46 Temperature Pulse Rate 70 73 78 Respiratory 18 18 18 Rate Blood Pressure 182/96 178/85 178/85 Blood Pressure [Right] O2 Sat by Pulse 98 98 100 Oximetry 11/23/21 11/23/21 11/23/21 02:00 02:16 02:30 Temperature Pulse Rate 80 86 79 Respiratory 19 17 16 Rate Blood Pressure 185/86 185/86 141/84 Blood Pressure [Right] O2 Sat by Pulse 100 97 93 Oximetry 11/23/21 11/23/21 11/23/21 02:46 03:00 03:16 Temperature Pulse Rate 77 78 83 Respiratory 19 25 H 34 H Rate Blood Pressure 141/84 141/84 141/84 Blood Pressure [Right] O2 Sat by Pulse 92 90 94 Oximetry 11/23/21 03:30 Temperature Pulse Rate 80 Respiratory 17 Rate Blood Pressure 149/75 Blood Pressure [Right] O2 Sat by Pulse 94 Oximetry ED Medical Decision Making - Lab Data Result diagrams: 11/24/21 07:18 11/27/21 07:34 - Medical Decision Making The patient was evaluated by this author after which the attending As motor evaluate the patient see his note for more detail Critical care attestation.: If time is entered above; I have spent that time in minutes in the direct care of this critically ill patient, excluding procedure time. ED Disposition Clinical Impression: Acute exacerbation of CHF (congestive heart failure) Disposition: 09 ADMITTED INPATIENT Is pt being admited?: Yes Does the pt Need Aspirin: No Condition: Stable
--- NOTE | 2021-11-22 21:12 | XRay Report ---
CHEST 2 VIEWS INDICATION / CLINICAL INFORMATION: Dyspnea. COMPARISON: 10/24/2021 FINDINGS: SUPPORT DEVICES: None. HEART / MEDIASTINUM: Stable cardiomegaly. LUNGS / PLEURA: No significant pulmonary or pleural abnormality. No pneumothorax. ADDITIONAL FINDINGS: No significant additional findings. IMPRESSION: 1. Stable cardiomegaly. No focal airspace disease. Signer Name: Calixto Moore MD Signed: 11/22/2021 9:07 PM Workstation Name: [id number]
[2021-11-22 21:31] LABS: Basophils % (Auto) 0.5 % (0.0-1.8); Eosinophils # (Auto) 0.1 K/mm3 (0.0-0.4); Eosinophils % (Auto) 1.5 % (0.0-4.3); Hematocrit 39.1 % (35.5-45.6); Hemoglobin 12.2 gm/dl (11.8-15.2); Lymphocytes # (Auto) 0.7 K/mm3 (1.2-5.4); Lymphocytes % (Auto) 11.3 % (13.4-35.0); Mean Corpuscular HGB Conc 31 % (32-34); Mean Corpuscular Volume 87 fl (84-94); Monocytes # (Auto) 0.5 K/mm3 (0.0-0.8); Monocytes % (Auto) 7.8 % (0.0-7.3); Platelet Count 154 K/mm3 (140-440); Red Cell Distribution Width 16.5 % (13.2-15.2)
[2021-11-22 21:39] LABS: INR 1.09 (0.87-1.13)
[2021-11-22 21:52] LABS: Alanine Aminotransferase 16 units/L (7-56); Albumin 3.9 g/dL (3.9-5); BUN/Creatinine Ratio 18; Blood Urea Nitrogen 22 mg/dL (9-20); Calcium 8.8 mg/dL (8.4-10.2); Hemolysis Index 20
--- NOTE | 2021-11-22 22:05 | Emergency Department Report ---
ED General Adult HPI - General Chief complaint: Dyspnea/Respdistress Stated complaint: FLUID BUILD UP IN BODY Time Seen by Provider: 11/22/21 21:12 Source: patient Mode of arrival: Ambulatory Limitations: No Limitations - History of Present Illness Initial comments: Patient presents with complaints of SOB @ rest and on exertion. Endorses PND, orthopnea. Denies chest pain, palpitations, diaphoresis. Endorses bilateral leg swelling. Denies pain in his calves, recent travel, immobilization, surgery, hospitalization, sex HRT use. Severity scale (0 -10): 8 - Related Data Home Medications Medication Instructions Recorded Confirmed Last Taken Indomethacin 50 mg PO QDAY PRN 08/03/21 10/25/21 09/12/21 Vitamin E 1,000 unit PO QDAY 08/04/21 10/25/21 09/12/21 Previous Rx's Medication Instructions Recorded Last Taken Type Aspirin [Aspirin BABY CHEW TAB] 81 mg PO QDAY 30 Days #30 tab.chew 09/17/21 Unknown Rx [facility]-3 Fatty Acids/Fish Oil [Fish 1,000 mg PO QDAY capsule 09/17/21 Unknown Rx Oil] Pravastatin [Pravachol] 20 mg PO QHS 30 Days #30 tablet 09/17/21 Unknown Rx Furosemide [Lasix TAB] 40 mg PO QDAY 30 Days #30 tablet 10/29/21 Unknown Rx Losartan [Cozaar] 100 mg PO QDAY #30 tablet 10/29/21 Unknown Rx Metoprolol [Lopressor TAB] 75 mg PO BID #90 tablet 10/29/21 Unknown Rx Potassium Chloride [K-Dur] 20 meq PO QDAY #30 tablet 10/29/21 Unknown Rx hydrALAZINE [Apresoline TAB] 50 mg PO Q8HR #120 tablet 10/29/21 Unknown Rx Allergies Allergy/AdvReac Type Severity Reaction Status Date / Time ibuprofen AdvReac Anaphylaxis Verified 09/15/21 08:51 ED Review of Systems ROS: Stated complaint: FLUID BUILD UP IN BODY Other details as noted in HPI Comment: All other systems reviewed and negative Constitutional: denies: chills, fever ED Past Medical Hx - Past Medical History Previous Medical History?: Yes Hx Hypertension: Yes Hx Congestive Heart Failure: Yes Hx Arthritis: Yes Hx Asthma: Yes Additional medical history: Obesity, Herniated disc, - Surgical History Past Surgical History?: Yes Hx Open Heart Surgery: Yes - Social History Smoking Status: Never Smoker Substance Use Type: None - Medications Home Medications: Home Medications Medication Instructions Recorded Confirmed Last Taken Type Indomethacin 50 mg PO QDAY PRN 08/03/21 10/25/21 09/12/21 History Vitamin E 1,000 unit PO QDAY 08/04/21 10/25/21 09/12/21 History Aspirin [Aspirin BABY CHEW TAB] 81 mg PO QDAY 30 Days #30 tab.chew 09/17/21 10/25/21 Unknown Rx [facility]-3 Fatty Acids/Fish Oil [Fish 1,000 mg PO QDAY capsule 09/17/21 10/25/21 Unknown Rx Oil] Pravastatin [Pravachol] 20 mg PO QHS 30 Days #30 tablet 09/17/21 10/25/21 Unknown Rx Furosemide [Lasix TAB] 40 mg PO QDAY 30 Days #30 tablet 10/29/21 Unknown Rx Losartan [Cozaar] 100 mg PO QDAY #30 tablet 10/29/21 Unknown Rx Metoprolol [Lopressor TAB] 75 mg PO BID #90 tablet 10/29/21 Unknown Rx Potassium Chloride [K-Dur] 20 meq PO QDAY #30 tablet 10/29/21 Unknown Rx hydrALAZINE [Apresoline TAB] 50 mg PO Q8HR #120 tablet 10/29/21 Unknown Rx ED Physical Exam - General Limitations: No Limitations General appearance: alert, in no apparent distress - Head Head exam: Present: atraumatic, normocephalic - Eye Eye exam: Present: PERRL, EOMI - ENT ENT exam: Present: mucous membranes moist, other (airway patent) - Neck Neck exam: Present: other (supple; no JVD) - Respiratory Respiratory exam: Present: other (good air entry, nml I:E, CTAB, no use of RILEY) - Cardiovascular Cardiovascular Exam: Present: regular rate. Absent: rubs, gallop - GI/Abdominal GI/Abdominal exam: Present: soft, normal bowel sounds. Absent: tenderness, guarding - Extremities Exam Extremities exam: Present: other (3+ pitting edema inm shins bilaterally with some stasis dermatitis changes; tender to palpation in calves bilaterally) - Neurological Exam Neurological exam: Present: alert, oriented X3, CN II-XII intact. Absent: motor sensory deficit - Skin Skin exam: Present: warm, normal color, other (see extremities) ED Course Vital Signs 11/22/21 11/22/21 11/22/21 20:24 21:16 21:19 Temperature 98.6 F Pulse Rate 71 Respiratory 16 24 19 Rate Blood Pressure Blood Pressure 162/87 [Right] O2 Sat by Pulse 88 98 Oximetry 11/22/21 11/22/21 11/22/21 21:31 21:45 22:00 Temperature Pulse Rate 68 70 72 Respiratory 20 19 16 Rate Blood Pressure 153/87 153/87 Blood Pressure [Right] O2 Sat by Pulse 94 92 91 Oximetry 11/22/21 11/22/21 11/22/21 22:24 22:30 22:46 Temperature Pulse Rate 78 73 70 Respiratory 20 24 20 Rate Blood Pressure 157/81 157/81 157/81 Blood Pressure [Right] O2 Sat by Pulse 93 92 92 Oximetry 11/22/21 11/22/21 11/22/21 23:00 23:16 23:30 Temperature Pulse Rate 78 70 78 Respiratory 25 H 20 25 H Rate Blood Pressure 173/107 173/107 187/103 Blood Pressure [Right] O2 Sat by Pulse 93 92 90 Oximetry ED Medical Decision Making - Lab Data Result diagrams: 11/22/21 21:02 11/22/21 21:02 Laboratory Tests 11/22/21 11/22/21 11/22/21 21:02 21:02 21:02 WBC 6.0 RBC 4.50 Hgb 12.2 Hct 39.1 MCV 87 MCH 27 L MCHC 31 L RDW 16.5 H Plt Count 154 Lymph % (Auto) 11.3 L Bates % (Auto) 7.8 H Eos % (Auto) 1.5 Baso % (Auto) 0.5 Lymph # (Auto) 0.7 L Bates # (Auto) 0.5 Eos # (Auto) 0.1 Baso # (Auto) 0.0 Seg Neutrophils % 78.9 H Seg Neutrophils # 4.7 PT 15.3 H INR 1.09 Sodium 141 Potassium 4.2 Chloride 102.3 Carbon Dioxide 27 Anion Gap 16 BUN 22 H Creatinine 1.2 Estimated GFR > 60 BUN/Creatinine Ratio 18 Glucose 126 H Calcium 8.8 Total Bilirubin 0.70 AST 21 ALT 16 Alkaline Phosphatase 80 Troponin T 0.020 NT-Pro-B Natriuret Pep 7632 H Total Protein 7.1 Albumin 3.9 Albumin/Globulin Ratio 1.2 EKG: HR 72, SR with PACs, normal NH, borderline QRS c/w intraventicular delay, no significatnSt changes in contiguous leads CXR: cardiomegaly CTA chest: no PE; interstitial edema present LE Dopplers bilat: no DVT - Medical Decision Making Diff dz: likely 2/2 CHF exacerbation. VTE ruled out. Need to r/o ACS. Pneumonia, bronchospasm unlikely. Received furosemide 40 mg IV x 1 Critical care attestation.: If time is entered above; I have spent that time in minutes in the direct care of this critically ill patient, excluding procedure time. ED Disposition Clinical Impression: Acute exacerbation of CHF (congestive heart failure) Disposition: ADMITTED INPATIENT Is pt being admited?: Yes Does the pt Need Aspirin: Yes Condition: Stable Referrals: LA NENA SAUCEDO MD [Primary Care Provider] - 3-5 Days Time of Disposition: 12:05 (Patient admitted to Dr. Serna. Sign out was called by me to the admitting physician. )
--- NOTE | 2021-11-22 22:47 | Cat Scan Report ---
CTA CHEST WITH IV CONTRAST INDICATION: Shortness of breath; lower extremity edema. Chest pain TECHNIQUE: Axial CT images were obtained through the chest after injection of 75 mL Omnipaque 300 IV contrast. 3 plane MIP reconstructions were produced. All CT scans at this location are performed using CT dose r eduction for ALARA by means of automated exposure control. COMPARISON: None available. FINDINGS: PULMONARY ARTERIES: No pulmonary emboli. AORTA AND ARTERIES: Mild coronary artery calcification. MEDIASTINUM: The heart is enlarged. No pericardial effusion. Moderate mediastinal adenopathy along th e peritracheal subcarinal and bilateral hilar regions. LUNGS: Trace interstitial edema with small right pleural effusion. ADDITIONAL FINDINGS: None. UPPER ABDOMEN: No acute findings. Borderline cirrhotic appearing of the liver. BONES: No significant osseous abnormality. IMPRESSION: 1. No CT evidence for pulmonary embolism. 2. Borderline interstitial edema with small right pleural effusion, as above. Cardiomegaly 3. Moderate mediastinal adenopathy. Signer Name: Stone Oshea MD Signed: 11/22/2021 10:42 PM Workstation Name: [facility]
--- NOTE | 2021-11-22 23:52 | Vascular Lab Report ---
DUPLEX DOPPLER LOWER EXTREMITY VEINS, BILATERAL INDICATION / CLINICAL INFORMATION: Lower extremity pain and edema. TECHNIQUE: Duplex doppler imaging was performed through the veins of both lower extremities using venous celsa kings and other maneuvers. COMPARISON: None available. FINDINGS: Right Common Femoral vein: Negative. Right Femoral vein: Negative. Right Popliteal vein: Negative. Right Calf veins: Negative. Left Common Femoral vein: Negative. Left Femoral vein: Negative. Left Popliteal vein: Negative. Left Calf veins: Negative. Additional findings: None. IMPRESSION: 1. No sonographic evidence for DVT in either lower extremity. Signer Name: Stone Oshea MD Signed: 11/22/2021 11:48 PM Workstation Name: [facility]
[2021-11-23] MEDS ORDERED: FUROSEMIDE 40 MG/4 ML INJ IV ONE (01:04)
[2021-11-23] MEDS ORDERED: MORPHINE 2 MG/1 ML INJ IV PRN (01:13)
[2021-11-23] MEDS ORDERED: ONDANSETRON 4 MG/2 ML INJ IV PRN (01:13)
[2021-11-23] MEDS ORDERED: NITROGLYCERIN 0.4 MG TAB SUBL SL PRN (01:13)
[2021-11-23] MEDS ORDERED: ALBUTEROL 2.5 MG/3 ML NEBU IH PRN (01:13)
[2021-11-23] MEDS ORDERED: ACETAMINOPHEN 325 MG TAB PO PRN (01:13)
--- NOTE | 2021-11-23 01:21 | History and Physical Report ---
History of Present Illness Date of examination: 11/23/21 Date of admission: 11/23/21 Chief complaint: Dyspnea Respiratory distress History of present illness: 61-year-old morbidly obese -Turkmen male with past medical history of obesity hypoventilation syndrome, CAD, CABG 2018, diabetes type 2, hypertension, CHF presents emergency department complaining of a few day history of grossly worsening lower extremity swelling, shortness of breath, coughing, orthopnea and exertional dyspnea which has been worsening since the onset. States is not quite been taking his water pills as prescribed and has not been checking his weights daily to unsure how much fluid weight he has required. He denies any hemoptysis and hematemesis hematochezia, fever, chills, sweats. Diarrhea, constipation, palpitations. In the emergency room patient is found to have acute CHF exacerbation. Patient BNP is 7632, troponin 0 0.020. Chest CTA showed interstitial edema.'s were going to admit the patient I put the patient on Lasix will consult cardiology and order echocardiogram Past History Past Medical History: arthritis, heart failure, hypertension, other (Obesity, Herniated disc, asthma) Past Surgical History: Other (Open heart surgery) Social history: no significant social history Family history: no significant family history, hypertension Medications and Allergies Allergies Allergy/AdvReac Type Severity Reaction Status Date / Time ibuprofen AdvReac Anaphylaxis Verified 09/15/21 08:51 Home Medications Medication Instructions Recorded Confirmed Last Taken Type Indomethacin 50 mg PO QDAY PRN 08/03/21 10/25/21 09/12/21 History Vitamin E 1,000 unit PO QDAY 08/04/21 10/25/21 09/12/21 History Aspirin [Aspirin BABY CHEW TAB] 81 mg PO QDAY 30 Days #30 tab.chew 09/17/21 10/25/21 Unknown Rx [place]-3 Fatty Acids/Fish Oil [Fish 1,000 mg PO QDAY capsule 09/17/21 10/25/21 Unknown Rx Oil] Pravastatin [Pravachol] 20 mg PO QHS 30 Days #30 tablet 09/17/21 10/25/21 Unknown Rx Furosemide [Lasix TAB] 40 mg PO QDAY 30 Days #30 tablet 10/29/21 Unknown Rx Losartan [Cozaar] 100 mg PO QDAY #30 tablet 10/29/21 Unknown Rx Metoprolol [Lopressor TAB] 75 mg PO BID #90 tablet 10/29/21 Unknown Rx Potassium Chloride [K-Dur] 20 meq PO QDAY #30 tablet 10/29/21 Unknown Rx hydrALAZINE [Apresoline TAB] 50 mg PO Q8HR #120 tablet 10/29/21 Unknown Rx Review of Systems All systems: negative Cardiovascular: orthopnea, edema, shortness of breath, dyspnea on exertion, paroxysmal nocturnal dyspnea Respiratory: shortness of breath, dyspnea on exertion Exam - Constitutional Vitals: Temp Pulse Resp BP Pulse Ox 98.6 F 78 25 H 187/103 90 11/22/21 20:24 11/22/21 23:30 11/22/21 23:30 11/22/21 23:30 11/22/21 23:30 General appearance: Present: no acute distress, well-nourished - EENT Eyes: Present: PERRL ENT: hearing intact, clear oral mucosa - Neck Neck: Present: supple, normal ROM - Respiratory Respiratory effort: normal Respiratory: bilateral: rales - Cardiovascular Heart Sounds: Present: S1 & S2. Absent: rub, click - Extremities Extremities: pulses symmetrical Extremity abnormal: edema Peripheral Pulses: within normal limits - Abdominal General gastrointestinal: Present: soft, non-tender, non-distended, normal bowel sounds Male genitourinary: Present: normal - Integumentary Integumentary: Present: clear, warm, dry - Musculoskeletal Musculoskeletal: gait normal, strength equal bilaterally - Psychiatric Psychiatric: appropriate mood/affect, intact judgment & insight - Neurologic Neurologic: CNII-XII intact, moves all extremities HEART Score - HEART Score Troponin: Troponin T 0.020 ng/mL (0.00-0.029) 11/22/21 21:02 Results - Labs CBC & Chem 7: 11/22/21 21:02 11/22/21 21:02 Labs: Laboratory Last Values WBC 6.0 K/mm3 (4.5-11.0) 11/22/21 21:02 RBC 4.50 M/mm3 (3.65-5.03) 11/22/21 21:02 Hgb 12.2 gm/dl (11.8-15.2) 11/22/21 21:02 Hct 39.1 % (35.5-45.6) 11/22/21 21:02 MCV 87 fl (84-94) 11/22/21 21:02 MCH 27 pg (28-32) L 11/22/21 21:02 MCHC 31 % (32-34) L 11/22/21 21:02 RDW 16.5 % (13.2-15.2) H 11/22/21 21:02 Plt Count 154 K/mm3 (140-440) 11/22/21 21:02 Lymph % (Auto) 11.3 % (13.4-35.0) L 11/22/21 21:02 Granite % (Auto) 7.8 % (0.0-7.3) H 11/22/21 21:02 Eos % (Auto) 1.5 % (0.0-4.3) 11/22/21 21:02 Baso % (Auto) 0.5 % (0.0-1.8) 11/22/21 21: Lymph # (Auto) 0.7 K/mm3 (1.2-5.4) L 11/22/21 21:02 [place]ite # (Auto) 0.5 K/mm3 (0.0-0.8) 11/22/21 21:02 Eos # (Auto) 0.1 K/mm3 (0.0-0.4) 11/22/21 21:02 Baso # (Auto) 0.0 K/mm3 (0.0-0.1) 11/22/21 21:02 Seg Neutrophils % 78.9 % (40.0-70.0) H 11/22/21 21: Seg Neutrophils # 4.7 K/mm3 (1.8-7.7) 11/22/21 21:02 PT 15.3 Sec. (12.2-14.9) H 11/22/21 21:02 INR 1.09 (0.87-1.13) 11/22/21 21:02 Sodium 141 mmol/L (137-145) 11/22/21 21:02 Potassium 4.2 mmol/L (3.6-5.0) 11/22/21 21:02 Chloride 102.3 mmol/L (98-107) 11/22/21 21:02 Carbon Dioxide 27 mmol/L (22-30) 11/22/21 21:02 Anion Gap 16 mmol/L 11/22/21 21:02 BUN 22 mg/dL (9-20) H 11/22/21 21:02 Creatinine 1.2 mg/dL (0.8-1.3) 11/22/21 21:02 Estimated GFR > 60 ml/min 11/22/21 21:02 BUN/Creatinine Ratio 18 % 11/22/21 21:02 Glucose 126 mg/dL (75-100) H 11/22/21 21:02 Calcium 8.8 mg/dL (8.4-10.2) 11/22/21 21:02 Total Bilirubin 0.70 mg/dL (0.1-1.2) 11/22/21 21:02 AST 21 units/L (5-40) 11/22/21 21:02 ALT 16 units/L (7-56) 11/22/21 21:02 Alkaline Phosphatase 80 units/L (35-129) 11/22/21 21:02 Troponin T 0.020 ng/mL (0.00-0.029) 11/22/21 21:02 NT-Pro-B Natriuret Pep 7632 pg/mL (0-900) H 11/22/21 21:02 Total Protein 7.1 g/dL (6.3-8.2) 11/22/21 21:02 Albumin 3.9 g/dL (3.9-5) 11/22/21 21:02 Albumin/Globulin Ratio 1.2 % 11/22/21 21:02 - Imaging and Cardiology CT scan - chest: report reviewed Assessment and Plan VTE prophylaxis?: Chemical Plan of care discussed with patient/family: Yes - Patient Problems (1) Acute HFrEF (heart failure with reduced ejection fraction) Current Visit: No Status: Acute Plan to address problem: Admit the patient to the medical telemetry. Fluid restriction. Maintain input output. Lasix 40 mg IV every 12 hours. Daily weight. Echocardiogram. Cardiology evaluation (2) Acute respiratory failure with hypoxia Current Visit: No Status: Acute Plan to address problem: Oxygen via nasal cannula 3 L/min. DuoNeb by nebulizer every 4 hours. Albuterol by nebulizer every 4 hours as needed (3) CAD (coronary artery disease) Current Visit: No Status: Acute Plan to address problem: Aspirin 81 mg p.o. daily. Lipitor 40 mg p.o. daily. Losartan 100 mg p.o. daily. Metoprolol 75 mg p.o. daily hydralazine 50 mg p.o. every 8 hours (4) Diabetes Current Visit: No Status: Acute Plan to address problem: We monitor the glucose closely. If needed we put on sliding scale. (5) Morbid obesity Current Visit: No Status: Acute Plan to address problem: We will counseled the patient .Regarding weight loss. Outpatient follow-up with bariatric surgery (6) Hx of CABG Current Visit: No Status: Chronic Plan to address problem: Aspirin 81 mg p.o. daily. Lipitor 40 mg p.o. daily. Losartan 100 mg p.o. daily. Metoprolol 75 mg p.o. daily hydralazine 50 mg p.o. every 8 hours. Cardiology evaluation (7) Hyperlipidemia Current Visit: No Status: Chronic Qualifiers: Plan to address problem: Lipitor 40 mg p.o. daily. We will recheck the lipid panel (8) Hypertension Current Visit: No Status: Chronic Qualifiers: Plan to address problem: Losartan 100 mg p.o. daily. Metoprolol 75 mg p.o. daily hydralazine 50 mg p.o. every 8 hours (9) DVT prophylaxis Current Visit: No Status: Acute Plan to address problem: Heparin 5000 units subcu every 12 hours. Pepcid 20 mg p.o. twice daily for GI prophylaxis. Patient is a full code
[2021-11-23] MEDS: IPRATROPIUM/ALBUTEROL SULFATE 3 ML AMPUL.NEB IH SCH ×4 (04:01→20:04)
[2021-11-23] MEDS: FUROSEMIDE 40 MG/4 ML INJ IV SCH ×2 (06:21→17:57)
[2021-11-23] MEDS: HEPARIN 5,000 UNIT/1 ML VIAL SUB-Q SCH ×3 (09:09→22:35)
[2021-11-23] MEDS: LOSARTAN 50 MG TAB PO SCH (09:18)
[2021-11-23] MEDS: METOPROLOL TARTRATE 50 MG TAB PO SCH ×2 (09:18→21:24)
[2021-11-23] MEDS: FAMOTIDINE 20 MG TAB PO SCH ×2 (09:19→21:24)
[2021-11-23] MEDS: ASPIRIN 81 MG TAB CHEW PO SCH (09:19)
[2021-11-23] MEDS: hydrALAZINE 25 MG TAB PO SCH ×2 (09:19→21:24)
[2021-11-23] MEDS ORDERED: HEPARIN 5,000 UNIT/1 ML VIAL SUB-Q SCH (10:00)
--- NOTE | 2021-11-23 14:53 | Event Note ---
Date: 11/23/21 Patient was evaluated this morning, and he was found to be hemodynamically stable. #Acute on chronic systolic heart failure #Hypertension #History of CAD complicated by CABG #Hyperlipidemia - Continue CHF exacerbation protocol: Telemetry, Strict I/O, monitor urine output every shift, daily weights, afterload reduction, low-sodium diet, and fluid restriction of approximately 1.5 mL/day - Supplemental oxygen: 3 L - ProBNP on admission: 7632 - Cardiology consulted; pending recs -Pending TTE to evaluate EF Restarting aspirin 81 mg daily, atorvastatin 40 mg daily, losartan 100 mg daily, metoprolol tartrate 75 mg daily - Continue to monitor #Acute hypoxic respiratory failure - etiology: Likely secondary to heart failure - baseline oxygen requirements: Room air - supplemental oxygen: 3 L - Continue protocol: continue pulse oximetry, wean oxygen as tolerated, ordered incentive spirometry and educated patient on how to use it and its importance. - Walk test: We will perform as patient is more stable - continue to monitor #Non-insulin dependent type II diabetes mellitus - hemoglobin A1c: Unknown - home regimen: Unknown - current regimen: Moderate SSI - blood glucose goal 140-180 while inpatient - continue to monitor #Morbid obesity #Weight loss counseling #Exercise counseling - BMI 41 - Counseled patient on the importance of weight loss, incorporating exercise, and dietary changes (lean meats, fresh fruits and vegetables, and water intake). Patient expresses understanding. - Time: + 15 min #Coordination of CARE time: 20 minutes #Advanced care planning -Disease education conducted, care plan discussed, diagnoses discussed, prognosis discussed, and patient acknowledges understanding with care plan -Time: +30 min
--- NOTE | 2021-11-23 16:23 | Electrocardiograph Report ---
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
--- NOTE | 2021-11-23 17:28 | Consultation ---
History of Present Illness Consult date: 11/23/21 Consult reason: shortness of breath (Patient with increasing leg swelling and shortness of breath of many days duration.) History of present illness: Patient being followed by Dr. Willingham, his primary care physician not seeing any elephant keeper. However he is having increasing leg swelling for the last many days and also having shortness of breath with exertion. No chest pain. Because of increasing leg swelling he was evaluated in the emergency room and was admitted with decompensated congestive heart failure. 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 denies: (5 children.), smoking Family history: no significant family history, hypertension. denies: stroke Medications and Allergies Allergies Allergy/AdvReac Type Severity Reaction Status Date / Time ibuprofen AdvReac Anaphylaxis Verified 09/15/21 08:51 Home Medications Medication Instructions Recorded Confirmed Last Taken Type Indomethacin 50 mg PO QDAY PRN 08/03/21 11/23/21 09/12/21 History Vitamin E 800 unit PO QDAY 08/04/21 11/23/21 09/12/21 History Aspirin [Aspirin BABY CHEW TAB] 81 mg PO QDAY 30 Days #30 tab.chew 09/17/21 11/23/21 Unknown Rx [place]-3 Fatty Acids/Fish Oil [Fish 1,000 mg PO QDAY capsule 09/17/21 11/23/21 Unknown Rx Oil] Losartan [Cozaar] 100 mg PO QDAY #30 tablet 10/29/21 11/23/21 Unknown Rx Potassium Chloride [K-Dur] 20 meq PO QDAY #30 tablet 10/29/21 11/23/21 Unknown Rx Ascorbic Acid [Vitamin C with Yessenia 2,000 mg PO DAILY 11/23/21 11/23/21 Unknown History Hips] Cholecalciferol Vit D3 [Vitamin D3 5,000 unit PO QDAY 11/23/21 11/23/21 Unknown History 1,000 UNIT TAB] Furosemide [Lasix TAB] 40 mg PO BID 11/23/21 11/23/21 Unknown History Magnesium 500 mg PO DAILY 11/23/21 11/23/21 Unknown History Metoprolol [Lopressor TAB] 50 mg PO BID 11/23/21 11/23/21 Unknown History Zinc Sulfate [Zinc] 50 mg PO DAILY 11/23/21 11/23/21 Unknown History hydrALAZINE [Apresoline TAB] 50 mg PO BID 11/23/21 11/23/21 Unknown History Active Meds: Active Medications Acetaminophen (Acetaminophen 325 Mg Tab) 650 mg PO Q4H PRN PRN Reason: Pain MILD(1-3)/Fever >100.5/AVILA Albuterol (Albuterol 2.5 Mg/3 Ml Nebu) 2.5 mg IH Q3HRT PRN PRN Reason: Shortness Of Breath Albuterol/Ipratropium (Ipratropium/Albuterol Sulfate 3 Ml Ampul.Neb) 1 ampul IH Q6HRT [facility] Last Admin: 11/23/21 14:30 Dose: 1 ampul Aspirin (Aspirin 81 Mg Tab Chew) 81 mg PO QDAY [facility] Last Admin: 11/23/21 09:19 Dose: 81 mg Famotidine (Famotidine 20 Mg Tab) 20 mg PO BID [facility] Last Admin: 11/23/21 09:19 Dose: 20 mg Furosemide (Furosemide 40 Mg/4 Ml Inj) 40 mg IV BID@0600,1800 [facility] Last Admin: 11/23/21 06:21 Dose: 40 mg Heparin Sodium (Porcine) (Heparin 5,000 Unit/1 Ml Vial) 7,500 unit SUB-Q Q8H [facility] Last Admin: 11/23/21 15:35 Dose: 7,500 unit Hydralazine HCl (Hydralazine 25 Mg Tab) 50 mg PO BID [facility] Last Admin: 11/23/21 09:19 Dose: 50 mg Hydromorphone HCl (Hydromorphone 1 Mg/1 Ml Inj) 0.5 mg IV Q3H PRN PRN Reason: Pain , Severe (7-10) Losartan Potassium (Losartan 50 Mg Tab) 100 mg PO QDAY [facility] Last Admin: 11/23/21 09:18 Dose: 100 mg Metoprolol Tartrate (Metoprolol Tartrate 50 Mg Tab) 50 mg PO BID [facility] Last Admin: 11/23/21 09:18 Dose: 50 mg Morphine Sulfate (Morphine 2 Mg/1 Ml Inj) 2 mg IV Q4H PRN PRN Reason: Pain, Moderate (4-6) Nitroglycerin (Nitroglycerin 0.4 Mg Tab Subl) 0.4 mg SL .Q5MIN PRN PRN Reason: Chest Pain Ondansetron HCl (Ondansetron 4 Mg/2 Ml Inj) 4 mg IV Q8H PRN PRN Reason: Nausea And Vomiting Sodium Chloride (Sodium Chloride 0.9% 10 Ml Flush Syringe) 10 ml IV BID [facility] Last Admin: 11/23/21 09:20 Dose: 10 ml Sodium Chloride (Sodium Chloride 0.9% 10 Ml Flush Syringe) 10 ml IV PRN PRN PRN Reason: LINE FLUSH Last Admin: 11/23/21 06:22 Dose: 10 ml Review of Systems Constitutional: no weight loss Ears, nose, mouth and throat: no ear discharge Cardiovascular: edema, shortness of breath, no chest pain, no orthopnea Respiratory: no cough Gastrointestinal: no abdominal pain Musculoskeletal: no neck pain Integumentary: no rash Psychiatric: no anxiety Hematologic/Lymphatic: no easy bleeding Allergic/Immunologic: no urticaria Physical Examination Vital Signs Temp Pulse Resp BP Pulse Ox 98.6 F 71 16 162/87 88 11/22/21 20:24 11/22/21 20:24 11/22/21 20:24 11/22/21 20:24 11/22/21 20:24 General appearance: no acute distress HEENT: Positive: PERRL Cardiac: Positive: Reg Rate and Rhythm, S4. Negative: Audible Murmur Lungs: Positive: Decreased Breath Sounds Neuro: Positive: Grossly Intact Male genitourinary: Positive: deferred (Obese, nontender.) Extremities: Present: +2 Edema Results 11/22/21 21:02 11/22/21 21:02 Cardiac Enzymes 11/22/21 Range/Units 21:02 AST 21 (5-40) units/L Coagulation 11/22/21 Range/Units 21:02 PT 15.3 H (12.2-14.9) Sec. INR 1.09 (0.87-1.13) CBC 11/22/21 Range/Units 21:02 WBC 6.0 (4.5-11.0) K/mm3 RBC 4.50 (3.65-5.03) M/mm3 Hgb 12.2 (11.8-15.2) gm/dl Hct 39.1 (35.5-45.6) % Plt Count 154 (140-440) K/mm3 Lymph # (Auto) 0.7 L (1.2-5.4) K/mm3 [place] # (Auto) 0.5 (0.0-0.8) K/mm3 Eos # (Auto) 0.1 (0.0-0.4) K/mm3 Baso # (Auto) 0.0 (0.0-0.1) K/mm3 Comprehensive Metabolic Panel 11/22/21 Range/Units 21:02 Sodium 141 (137-145) mmol/L Potassium 4.2 (3.6-5.0) mmol/L Chloride 102.3 (98-107) mmol/L Carbon Dioxide 27 (22-30) mmol/L BUN 22 H (9-20) mg/dL Creatinine 1.2 (0.8-1.3) mg/dL Glucose 126 H (75-100) mg/dL Calcium 8.8 (8.4-10.2) mg/dL AST 21 (5-40) units/L ALT 16 (7-56) units/L Alkaline Phosphatase 80 (35-129) units/L Total Protein 7.1 (6.3-8.2) g/dL Albumin 3.9 (3.9-5) g/dL EKG interpretations - Telemetry EKG Rhythm: Sinus Rhythm - EKG Sinus rhythms and dysrhythmias: sinus rhythm (EKG showed sinus rhythm at 72 bpm, APCs noted, LVH with repolarization abnormalities noted. T wave changes noted in the lateral leads.) Assessment and Plan 61-year-old gentleman with history of longstanding essential hypertension since his 1990s, denies any history of diabetes mellitus, being followed by Dr. Willingham regularly, says he was admitted to [facility] in 2018 at 2019 and subsequently underwent bypass surgery and since that time patient is not seeing any elephant keeper. Recently is noticing increasing leg swelling. He is to take 40 mg of Lasix once a day. He wanted to increase it to [address] Willingham told him not to. And he is running out of his Lasix in 15 days instead of 5-month. Because of increasing leg swelling and increasing shortness of breath with exertion he came to the hospital for further evaluation. Denies any chest pain. He is taking his medications without any problems. He says he walks with a Rollator outside his complex. Used to walk 200 feet presently apparently is walking 500 feet and shortness of breath he has leaking of urine when he walks according to him. He is having increasing leg swelling. Denies any orthopnea however he says he cannot sleep well. He says he may have sleep apnea but is not sure. Patient's physical examination is showing evidence of biventricular failure. Echocardiogram showed ejection fraction of 35 to 40% along with restrictive diastolic dysfunction. At this time will diurese the patient. He easily has significant leg edema and has shortness of breath. Chest x-ray showed cardiomegaly and CT scan showed probable chronic interstitial changes. Patient need to be on a statin. Continue the rest of the medications. - Patient Problems (1) Acute on chronic HFrEF (heart failure with reduced ejection fraction) Current Visit: No Status: Acute (2) CAD (coronary artery disease) Current Visit: No Status: Acute (3) Morbid obesity Current Visit: No Status: Acute (4) Hx of CABG Current Visit: No Status: Chronic (5) Hypertension Current Visit: Yes Status: Acute
[2021-11-24] MEDS: IPRATROPIUM/ALBUTEROL SULFATE 3 ML AMPUL.NEB IH SCH ×4 (02:13→20:14)
[2021-11-24] MEDS: FUROSEMIDE 40 MG/4 ML INJ IV SCH ×2 (06:54→17:34)
[2021-11-24 07:51] LABS: Basophils % (Auto) 0.7 % (0.0-1.8); Eosinophils # (Auto) 0.1 K/mm3 (0.0-0.4); Eosinophils % (Auto) 2.6 % (0.0-4.3); Hematocrit 34.9 % (35.5-45.6); Lymphocytes % (Auto) 20.7 % (13.4-35.0); Mean Corpuscular HGB Conc 32 % (32-34); Mean Corpuscular Volume 87 fl (84-94); Monocytes # (Auto) 0.5 K/mm3 (0.0-0.8); Platelet Count 146 K/mm3 (140-440); Red Cell Distribution Width 16.8 % (13.2-15.2)
[2021-11-24 08:11] LABS: BUN/Creatinine Ratio 17; Blood Urea Nitrogen 19 mg/dL (9-20); Calcium 8.5 mg/dL (8.4-10.2); Hemolysis Index 17
[2021-11-24] MEDS: METOPROLOL TARTRATE 50 MG TAB PO SCH ×2 (09:35→22:15)
[2021-11-24] MEDS: hydrALAZINE 25 MG TAB PO SCH ×2 (09:35→22:15)
[2021-11-24] MEDS: FAMOTIDINE 20 MG TAB PO SCH ×2 (09:35→22:15)
[2021-11-24] MEDS: SPIRONOLACTONE 25 MG TAB PO SCH (09:35)
[2021-11-24] MEDS: ASPIRIN 81 MG TAB CHEW PO SCH (09:35)
[2021-11-24] MEDS: LOSARTAN 50 MG TAB PO SCH (09:35)
[2021-11-24] MEDS: HEPARIN 5,000 UNIT/1 ML VIAL SUB-Q SCH ×3 (09:36→23:53)
--- NOTE | 2021-11-24 11:52 | Progress Note ---
Assessment and Plan Assessment and plan: #Acute on chronic systolic heart failureimproving #Hypertension #History of CAD complicated by CABG #Hyperlipidemia - Continue CHF exacerbation protocol: Telemetry, Strict I/O, monitor urine output every shift, daily weights, afterload reduction, low-sodium diet, and fluid restriction of approximately 1.5 mL/day - Supplemental oxygen: 3 L - ProBNP on admission: 7632 - Cardiology consulted; appreciate recs - TTE revealing EF 35-40% with mildly dilated LV, mild to moderately decreased LV systolic function, normal LV wall thickness, mildly dilated RV, mildly hypoki netic RV, mildly dilated LA, and severely dilated RA. RVSP is 34.8 mmHg Doppler suggestive of restrictive physiology. Restarting aspirin 81 mg daily, atorvastatin 40 mg daily, losartan 100 mg daily, metoprolol tartrate 75 mg daily - Continue to monitor #Acute hypoxic respiratory failureimproving - etiology: Likely secondary to heart failure - baseline oxygen requirements: Room air - supplemental oxygen: 3 L nasal cannula - Continue protocol: continue pulse oximetry, wean oxygen as tolerated, ordered incentive spirometry and educated patient on how to use it and its importance. - Walk test: We will perform as patient is more stable - continue to monitor #Non-insulin dependent type II diabetes mellitus - hemoglobin A1c: Unknown - home regimen: Unknown - current regimen: Moderate SSI - blood glucose goal 140-180 while inpatient - continue to monitor #Normocytic anemia Hemoglobin 11 Transfuse if hemoglobin <7 or patient becomes symptomatic. Ordering iron and TIBC study. #Morbid obesity #Weight loss counseling #Exercise counseling - BMI 41 - Counseled patient on the importance of weight loss, incorporating exercise, and dietary changes (lean meats, fresh fruits and vegetables, and water intake). Patient expresses understanding. - Time: + 15 min #Advanced care planning -Disease education conducted, care plan discussed, diagnoses discussed, prognosis discussed, and patient acknowledges understanding with care plan -Time: +30 min #Discharge planning - Patient is pending resolution of respiratory failure and further diuresis - Case management has been made aware. - Discharge is tentatively 24-48 hours Disposition Plan: Continue medical management Total Time Spent with Patient (Minutes): 45 minutes History Interval history: No acute events overnight. Hospitalist Physical - Constitutional Vitals: Temp Pulse Resp BP Pulse Ox 99.1 F 72 18 141/59 91 11/24/21 08:34 11/24/21 09:35 11/24/21 08:34 11/24/21 09:35 11/24/21 10:51 General appearance: Present: no acute distress, well-nourished, obese - EENT Eyes: Present: PERRL, EOM intact ENT: hearing intact, clear oral mucosa, dentition normal - Neck Neck: Present: supple, normal ROM - Respiratory Respiratory effort: normal Respiratory: bilateral: diminished (On 2 L nasal cannula) - Cardiovascular Rhythm: regular Heart Sounds: Present: S1 & S2 - Extremities Extremities: no ischemia, pulses intact, pulses symmetrical, normal temperature, normal color, Full ROM Extremity abnormal: edema (Trace to 1+ pitting edema bilateral lower extremities to mid thigh) Peripheral Pulses: within normal limits - Abdominal General gastrointestinal: soft, non-tender, non-distended, normal bowel sounds - Integumentary Integumentary: Present: clear, warm, dry - Psychiatric Psychiatric: appropriate mood/affect, intact judgment & insight, memory intact, cooperative - Neurologic Neurologic: CNII-XII intact, moves all extremities - Allied Health Allied health notes reviewed: nursing HEART Score - HEART Score Troponin: Troponin T 0.020 ng/mL (0.00-0.029) 11/23/21 06:20 Results - Labs CBC & Chem 7: 11/24/21 07:18 11/24/21 07:18 Labs: Laboratory Last Values WBC 5.0 K/mm3 (4.5-11.0) 11/24/21 07:18 RBC 4.00 M/mm3 (3.65-5.03) 11/24/21 07:18 Hgb 11.0 gm/dl (11.8-15.2) L 11/24/21 07:18 Hct 34.9 % (35.5-45.6) L 11/24/21 07:18 MCV 87 fl (84-94) 11/24/21 07:18 MCH 28 pg (28-32) 11/24/21 07:18 MCHC 32 % (32-34) 11/24/21 07:18 RDW 16.8 % (13.2-15.2) H 11/24/21 07:18 Plt Count 146 K/mm3 (140-440) 11/24/21 07:18 Lymph % (Auto) 20.7 % (13.4-35.0) 11/24/21 07:18 Simpson % (Auto) 11.0 % (0.0-7.3) H 11/24/21 07:18 Eos % (Auto) 2.6 % (0.0-4.3) 11/24/21 07:18 Baso % (Auto) 0.7 % (0.0-1.8) 11/24/21 07:18 Lymph # (Auto) 1.0 K/mm3 (1.2-5.4) L 11/24/21 07:18 Simpson # (Auto) 0.5 K/mm3 (0.0-0.8) 11/24/21 07:18 Eos # (Auto) 0.1 K/mm3 (0.0-0.4) 11/24/21 07:18 Baso # (Auto) 0.0 K/mm3 (0.0-0.1) 11/24/21 07:18 Seg Neutrophils % 65.0 % (40.0-70.0) 11/24/21 07:18 Seg Neutrophils # 3.3 K/mm3 (1.8-7.7) 11/24/21 07:18 PT 15.3 Sec. (12.2-14.9) H 11/22/21 21:02 INR 1.09 (0.87-1.13) 11/22/21 21:02 Sodium 144 mmol/L (137-145) 11/24/21 07:18 Potassium 3.7 mmol/L (3.6-5.0) 11/24/21 07:18 Chloride 102.3 mmol/L (98-107) 11/24/21 07:18 Carbon Dioxide 31 mmol/L (22-30) H 11/24/21 07:18 Anion Gap 14 mmol/L 11/24/21 07:18 BUN 19 mg/dL (9-20) 11/24/21 07:18 Creatinine 1.1 mg/dL (0.8-1.3) 11/24/21 07:18 Estimated GFR > 60 ml/min 11/24/21 07:18 BUN/Creatinine Ratio 17 % 11/24/21 07:18 Glucose 103 mg/dL (75-100) H 11/24/21 07:18 POC Glucose 126 mg/dL (70-105) H 11/23/21 20:37 Calcium 8.5 mg/dL (8.4-10.2) 11/24/21 07:18 Total Bilirubin 0.70 mg/dL (0.1-1.2) 11/22/21 21:02 AST 21 units/L (5-40) 11/22/21 21:02 ALT 16 units/L (7-56) 11/22/21 21:02 Alkaline Phosphatase 80 units/L (35-129) 11/22/21 21:02 Troponin T 0.020 ng/mL (0.00-0.029) 11/23/21 06:20 NT-Pro-B Natriuret Pep 7632 pg/mL (0-900) H 11/22/21 21:02 Total Protein 7.1 g/dL (6.3-8.2) 11/22/21 21:02 Albumin 3.9 g/dL (3.9-5) 11/22/21 21:02 Albumin/Globulin Ratio 1.2 % 11/22/21 21:02 Quiroz/IV: Voiding Method Urinal Active Medications - Current Medications Current Medications: Generic Name Dose Route Start Last Admin Trade Name Freq PRN Reason Stop Dose Admin Acetaminophen 650 mg 11/23/21 01:13 Acetaminophen 325 Mg Tab PO Q4H PRN Pain MILD(1-3)/Fever >100.5/AVILA Albuterol 2.5 mg 11/23/21 01:13 Albuterol 2.5 Mg/3 Ml Nebu IH Q3HRT PRN Shortness Of Breath Albuterol/Ipratropium 1 ampul 11/23/21 02:00 11/24/21 07:43 Ipratropium/Albuterol Sulfate 3 Ml Ampul.Neb IH 1 ampul Q6HRT [facility] Administration Aspirin 81 mg 11/23/21 10:00 11/24/21 09:35 Aspirin 81 Mg Tab Chew PO 81 mg QDAY [facility] Administration Atorvastatin Calcium 40 mg 11/23/21 22:00 11/23/21 21:24 Atorvastatin 40 Mg Tab PO 40 mg QHS [facility]O Administration Famotidine 20 mg 11/23/21 10:00 11/24/21 09:35 Famotidine 20 Mg Tab PO 20 mg BID NEO Administration Furosemide 40 mg 11/23/21 06:00 11/24/21 06:54 Furosemide 40 Mg/4 Ml Inj IV 40 mg BID@0600,1800 [facility] Administration Heparin Sodium (Porcine) 7,500 unit 11/23/21 07:30 11/24/21 09:36 Heparin 5,000 Unit/1 Ml Vial SUB-Q 7,500 unit Q8H [facility] Administration Hydralazine HCl 50 mg 11/23/21 10:00 11/24/21 09:35 Hydralazine 25 Mg Tab PO 50 mg BID [facility]O Administration Hydromorphone HCl 0.5 mg 11/23/21 01:13 Hydromorphone 1 Mg/1 Ml Inj IV Q3H PRN Pain , Severe (7-10) Losartan Potassium 100 mg 11/23/21 10:00 11/24/21 09:35 Losartan 50 Mg Tab PO 100 mg QDAY [facility] Administration Metoprolol Tartrate 50 mg 11/23/21 10:00 11/24/21 09:35 Metoprolol Tartrate 50 Mg Tab PO 50 mg BID NEO Administration Morphine Sulfate 2 mg 11/23/21 01:13 Morphine 2 Mg/1 Ml Inj IV Q4H PRN Pain, Moderate (4-6) Nitroglycerin 0.4 mg 11/23/21 01:13 Nitroglycerin 0.4 Mg Tab Subl SL .Q5MIN PRN Chest Pain Ondansetron HCl 4 mg 11/23/21 01:13 Ondansetron 4 Mg/2 Ml Inj IV Q8H PRN Nausea And Vomiting Sodium Chloride 10 ml 11/23/21 10:00 11/24/21 09:37 Sodium Chloride 0.9% 10 Ml Flush Syringe IV 10 ml BID NEO Administration Sodium Chloride 10 ml 11/23/21 01:13 11/23/21 17:58 Sodium Chloride 0.9% 10 Ml Flush Syringe IV 10 ml PRN PRN Administration LINE FLUSH Spironolactone 25 mg 11/24/21 10:00 11/24/21 09:35 Spironolactone 25 Mg Tab PO 25 mg QDAY [facility]O Administration
--- NOTE | 2021-11-24 13:21 | Progress Note ---
Assessment and Plan 61-year-old gentleman with history of longstanding essential hypertension, Cabg 2019, Now admitted with acute on chronic HFrEF after increased leg swelling over the last month. Assessment: Acute on chronic HFrEF (EF 35-40%) Coronary artery disease Acute hypoxemic respiratory failure Diabetes mellitus type 2 Morbid obesity History of CABG Hypertension Cardiographics: Echo 11/23/21: Left ventricular systolic function is mild to moderately decreased. Left ventricle is mildly dilated. There is normal left ventricular wall thickness. Transmitral Doppler flow pattern suggests restrictive physiology. RV is moderately dilated. RV is mildly hypokinetic. Atria: Left atrium is moderately dilated. Right atrium is severely dilated. Aortic valve: Aortic valve is normal in structure. Only 2 cusps clearly visualized. Bicuspid valve cannot be ruled out. There is no aortic valvular stenosis. Trace aortic regurgitation. LVEF is 35 to 40%. EKG: sinus rhythm (EKG showed sinus rhythm at 72 bpm, APCs noted, LVH with repolarization abnormalities noted. T wave changes noted in the lateral leads.) CXR 11/22/21: Stable cardiomegaly Plan: Continue IV diuresis. He is having good urine output Continue atorvastatin 40 mg p.o. nightly GDMT: Continue aspirin 81 mg p.o. daily, Lasix 40 mg IV twice daily, hydralazine 50 mg p.o. twice daily, losartan 100 mg p.o. daily, metoprolol 50 mg p.o. twice daily, spironolactone 25 mg p.o. daily Initiated nutrition consult for heart failure diet education Will continue to follow along Patient seen in conjunction with Dr. King who agrees with the assessment and management of this patient. - Patient Problems (1) Hypertension Current Visit: Yes Status: Acute (2) Acute on chronic HFrEF (heart failure with reduced ejection fraction) Current Visit: Yes Status: Acute (3) Acute respiratory failure with hypoxia Current Visit: Yes Status: Acute (4) CAD (coronary artery disease) Current Visit: No Status: Acute (5) Morbid obesity Current Visit: Yes Status: Acute (6) Hx of CABG Current Visit: Yes Status: Chronic (7) Hypertension Current Visit: Yes Status: Chronic Qualifiers: (8) T2DM (type 2 diabetes mellitus) Current Visit: Yes Status: Chronic Qualifiers: Diabetes mellitus oysterman insulin use: unspecified oysterman insulin use status Subjective Date of service: 11/24/21 Principal diagnosis: Acute on chronic HFrEF Interval history: Patient seen and examined in hospital room today. No apparent distress. States that his shortness of breath is improving and his orthopnea is also improving. On 2.5 L of oxygen, consistent with his baseline O2 requirement of 3 L at home Telemetry: Sinus rhythm in the 70s, frequent PVC Intake & Output 11/21/21 11/22/21 11/23/21 11/24/21 23:59 23:59 23:59 23:59 Intake Total 1080 Output Total 2200 1600 Balance -1120 -1600 Weight 151.953 kg 151.953 kg 151 kg Objective Vital Signs Temp Pulse Pulse Pulse Resp Resp Resp 11/24/21 10:51 11/24/21 09:35 72 11/24/21 08:34 99.1 F 72 18 11/24/21 07:44 11/24/21 07:43 59 L 19 11/24/21 04:59 97.8 F 70 16 11/24/21 02:00 79 20 11/24/21 00:00 11/23/21 23:22 97.9 F 66 16 11/23/21 22:28 69 11/23/21 20:05 11/23/21 20:00 77 18 11/23/21 19:44 70 11/23/21 19:03 97.6 F 74 16 11/23/21 14:30 71 18 BP BP Pulse Ox 11/24/21 10:51 91 11/24/21 09:35 141/59 11/24/21 08:34 141/59 93 11/24/21 07:44 91 11/24/21 07:43 11/24/21 04:59 130/82 94 11/24/21 02:00 11/24/21 00:00 99 11/23/21 23:22 131/85 99 11/23/21 22:28 11/23/21 20:05 100 11/23/21 20:00 11/23/21 19:44 11/23/21 19:03 147/72 94 11/23/21 14:30 - Physical Examination General: No Apparent Distress HEENT: Positive: PERRL Neck: Positive: trachea midline Cardiac: Positive: Reg Rate and Rhythm, S1/S2 Lungs: Positive: Decreased Breath Sounds Neuro: Positive: Grossly Intact Abdomen: Positive: Soft, Active Bowel Sounds Extremities: Present: +2 Edema - Labs and Meds CBC 11/24/21 Range/Units 07:18 WBC 5.0 (4.5-11.0) K/mm3 RBC 4.00 (3.65-5.03) M/mm3 Hgb 11.0 L (11.8-15.2) gm/dl Hct 34.9 L (35.5-45.6) % Plt Count 146 (140-440) K/mm3 Lymph # (Auto) 1.0 L (1.2-5.4) K/mm3 [place] # (Auto) 0.5 (0.0-0.8) K/mm3 Eos # (Auto) 0.1 (0.0-0.4) K/mm3 Baso # (Auto) 0.0 (0.0-0.1) K/mm3 Comprehensive Metabolic Panel 11/24/21 Range/Units 07:18 Sodium 144 (137-145) mmol/L Potassium 3.7 (3.6-5.0) mmol/L Chloride 102.3 (98-107) mmol/L Carbon Dioxide 31 H (22-30) mmol/L BUN 19 (9-20) mg/dL Creatinine 1.1 (0.8-1.3) mg/dL Glucose 103 H (75-100) mg/dL Calcium 8.5 (8.4-10.2) mg/dL - Imaging and Cardiology EKG: report reviewed Echo: report reviewed - Telemetry EKG Rhythm: Sinus Rhythm (Frequent PVCs) - EKG Sinus rhythms and dysrhythmias: sinus rhythm (EKG showed sinus rhythm at 72 bpm, APCs noted, LVH with repolarization abnormalities noted. T wave changes noted in the lateral leads.) - Allied health notes Allied health notes reviewed: nursing
[2021-11-24 15:55] LABS: Iron 33 ug/dL (49-181); Total Iron Binding Capacity 274 mcg/dL (250-450)
[2021-11-25] MEDS: IPRATROPIUM/ALBUTEROL SULFATE 3 ML AMPUL.NEB IH SCH ×4 (03:07→21:23)
[2021-11-25] MEDS: FUROSEMIDE 40 MG/4 ML INJ IV SCH ×2 (05:41→17:07)
[2021-11-25 06:51] LABS: BUN/Creatinine Ratio 15; Blood Urea Nitrogen 17 mg/dL (9-20); Calcium 8.6 mg/dL (8.4-10.2); Hemolysis Index 7
[2021-11-25] MEDS: hydrALAZINE 25 MG TAB PO SCH ×2 (09:10→21:48)
[2021-11-25] MEDS: METOPROLOL TARTRATE 50 MG TAB PO SCH ×2 (09:10→21:48)
[2021-11-25] MEDS: ASPIRIN 81 MG TAB CHEW PO SCH (09:10)
[2021-11-25] MEDS: HEPARIN 5,000 UNIT/1 ML VIAL SUB-Q SCH ×3 (09:10→22:36)
[2021-11-25] MEDS: SPIRONOLACTONE 25 MG TAB PO SCH (09:11)
[2021-11-25] MEDS: LOSARTAN 50 MG TAB PO SCH (09:11)
[2021-11-25] MEDS: FAMOTIDINE 20 MG TAB PO SCH ×2 (09:11→21:48)
--- NOTE | 2021-11-25 10:48 | Progress Note ---
Assessment and Plan Assessment and plan: #Acute on chronic systolic heart failureimproving #Hypertension #History of CAD s/p CABG #Hyperlipidemia -Continue CHF exacerbation protocol: Telemetry, Strict I/O, monitor urine output every shift, daily weights, afterload reduction, low-sodium diet, and fluid restriction of approximately 1.5 mL/day -Supplemental oxygen: 3 L, baseline O2 home requirement -ProBNP on admission: 7632 -Cardiology consulted; appreciate recs -TTE revealing EF 35-40% with mildly dilated LV, mild to moderately decreased LV systolic function, normal LV wall thickness, mildly dilated RV, mildly hypokinetic RV, mildly dilated LA, and severely dilated RA. RVSP is 34.8 mmHg Doppler suggestive of restrictive physiology. continue aspirin 81 mg daily, atorvastatin 40 mg daily, losartan 100 mg daily, metoprolol tartrate 75 mg daily #Acute hypoxic respiratory failureimproving - etiology: Likely secondary to heart failure - baseline oxygen requirements: 3LNC - supplemental oxygen: 3 L nasal cannula - Continue protocol: continue pulse oximetry, wean oxygen as tolerated, ordered incentive spirometry and educated patient on how to use it and its importance. - Walk test: We will perform as patient is more stable - continue to monitor #Non-insulin dependent type II diabetes mellitus, controlled -continue Moderate SSI -blood glucose goal 140-180 while inpatient #Normocytic anemia Hemoglobin 11 Transfuse if hemoglobin <7 or patient becomes symptomatic #Morbid obesity #Weight loss counseling #Exercise counseling - BMI 41 - Counseled patient on the importance of weight loss, incorporating exercise, and dietary changes (lean meats, fresh fruits and vegetables, and water intake). Patient expresses understanding. - Time: + 15 min #Advanced care planning -Disease education conducted, care plan discussed, diagnoses discussed, prognosis discussed, and patient acknowledges understanding with care plan -Time: +30 min #Discharge planning - Patient is pending further diuresis - Case management has been made aware. - Discharge is tentatively 24-48 hours History Interval history: No acute events overnight. Patient reports improvement in lower extremity swelling. Denies chest pain and shortness of breath at this time. Hospitalist Physical - Physical exam Narrative exam: GENERAL: Well-developed well-nourished. Sitting in the chair, in no acute distress. HEENT: Nasal cannula at 3 L/min NECK: + JVD CHEST/LUNGS: Coarse breath sounds bilaterally. HEART/CARDIOVASCULAR: RRR. No murmur, rubs or gallops appreciated. ABDOMEN: +BS. NT/ND. SKIN: No rashes noted. NEURO: No focal motor deficit. Follows all commands. MUSCULOSKELETAL: No joint effusion EXTREMITIES: No cyanosis, clubbing. 1+BLE edema. PSYCH: Cooperative. - Constitutional Vitals: Temp Pulse Resp BP Pulse Ox 97.6 F 79 19 158/86 91 11/25/21 07:46 11/25/21 07:46 11/25/21 07:46 11/25/21 07:46 11/25/21 08:34 General appearance: Present: no acute distress, well-nourished, obese HEART Score - HEART Score Troponin: Troponin T 0.020 ng/mL (0.00-0.029) 11/23/21 06:20 Results - Labs CBC & Chem 7: 11/24/21 07:18 11/25/21 05:36 Labs: Laboratory Last Values WBC 5.0 K/mm3 (4.5-11.0) 11/24/21 07:18 RBC 4.00 M/mm3 (3.65-5.03) 11/24/21 07:18 Hgb 11.0 gm/dl (11.8-15.2) L 11/24/21 07:18 Hct 34.9 % (35.5-45.6) L 11/24/21 07:18 MCV 87 fl (84-94) 11/24/21 07:18 MCH 28 pg (28-32) 11/24/21 07:18 MCHC 32 % (32-34) 11/24/21 07:18 RDW 16.8 % (13.2-15.2) H 11/24/21 07:18 Plt Count 146 K/mm3 (140-440) 11/24/21 07:18 Lymph % (Auto) 20.7 % (13.4-35.0) 11/24/21 07:18 Page % (Auto) 11.0 % (0.0-7.3) H 11/24/21 07:18 Eos % (Auto) 2.6 % (0.0-4.3) 11/24/21 07:18 Baso % (Auto) 0.7 % (0.0-1.8) 11/24/21 07:18 Lymph # (Auto) 1.0 K/mm3 (1.2-5.4) L 11/24/21 07:18 Page # (Auto) 0.5 K/mm3 (0.0-0.8) 11/24/21 07:18 Eos # (Auto) 0.1 K/mm3 (0.0-0.4) 11/24/21 07:18 Baso # (Auto) 0.0 K/mm3 (0.0-0.1) 11/24/21 07:18 Seg Neutrophils % 65.0 % (40.0-70.0) 11/24/21 07:18 Seg Neutrophils # 3.3 K/mm3 (1.8-7.7) 11/24/21 07:18 PT 15.3 Sec. (12.2-14.9) H 11/22/21 21:02 INR 1.09 (0.87-1.13) 11/22/21 21:02 Sodium 141 mmol/L (137-145) 11/25/21 05:36 Potassium 3.8 mmol/L (3.6-5.0) 11/25/21 05:36 Chloride 99.3 mmol/L (98-107) 11/25/21 05:36 Carbon Dioxide 29 mmol/L (22-30) 11/25/21 05:36 Anion Gap 17 mmol/L 11/25/21 05:36 BUN 17 mg/dL (9-20) 11/25/21 05:36 Creatinine 1.1 mg/dL (0.8-1.3) 11/25/21 05:36 Estimated GFR > 60 ml/min 11/25/21 05:36 BUN/Creatinine Ratio 15 % 11/25/21 05:36 Glucose 110 mg/dL (75-100) H 11/25/21 05:36 POC Glucose 126 mg/dL (70-105) H 11/23/21 20:37 Calcium 8.6 mg/dL (8.4-10.2) 11/25/21 05:36 Iron 33 ug/dL (49-181) L 11/24/21 14:59 TIBC 274 mcg/dL (250-450) 11/24/21 14:59 Total Bilirubin 0.70 mg/dL (0.1-1.2) 11/22/21 21:02 AST 21 units/L (5-40) 11/22/21 21:02 ALT 16 units/L (7-56) 11/22/21 21:02 Alkaline Phosphatase 80 units/L (35-129) 11/22/21 21:02 Troponin T 0.020 ng/mL (0.00-0.029) 11/23/21 06:20 NT-Pro-B Natriuret Pep 7632 pg/mL (0-900) H 11/22/21 21:02 Total Protein 7.1 g/dL (6.3-8.2) 11/22/21 21:02 Albumin 3.9 g/dL (3.9-5) 11/22/21 21:02 Albumin/Globulin Ratio 1.2 % 11/22/21 21:02 Quiroz/IV: Voiding Method Urinal Active Medications - Current Medications Current Medications: Generic Name Dose Route Start Last Admin Trade Name Freq PRN Reason Stop Dose Admin Acetaminophen 650 mg 11/23/21 01:13 Acetaminophen 325 Mg Tab PO Q4H PRN Pain MILD(1-3)/Fever >100.5/AVILA Albuterol 2.5 mg 11/23/21 01:13 Albuterol 2.5 Mg/3 Ml Nebu IH Q3HRT PRN Shortness Of Breath Albuterol/Ipratropium 1 ampul 11/23/21 02:00 11/25/21 03:07 Ipratropium/Albuterol Sulfate 3 Ml Ampul.Neb IH 1 ampul Q6HRT NEO Administration Aspirin 81 mg 11/23/21 10:00 11/25/21 09:10 Aspirin 81 Mg Tab Chew PO 81 mg QDAY NEO Administration Atorvastatin Calcium 40 mg 11/23/21 22:00 11/24/21 22:15 Atorvastatin 40 Mg Tab PO 40 mg QHS NEO Administration Famotidine 20 mg 11/23/21 10:00 11/25/21 09:11 Famotidine 20 Mg Tab PO 20 mg BID NEO Administration Furosemide 40 mg 11/23/21 06:00 11/25/21 05:41 Furosemide 40 Mg/4 Ml Inj IV 40 mg BID@0600,1800 NEO Administration Heparin Sodium (Porcine) 7,500 unit 11/23/21 07:30 11/25/21 09:10 Heparin 5,000 Unit/1 Ml Vial SUB-Q 7,500 unit Q8H NEO Administration Hydralazine HCl 50 mg 11/23/21 10:00 11/25/21 09:10 Hydralazine 25 Mg Tab PO 50 mg BID NEO Administration Hydromorphone HCl 0.5 mg 11/23/21 01:13 Hydromorphone 1 Mg/1 Ml Inj IV Q3H PRN Pain , Severe (7-10) Losartan Potassium 100 mg 11/23/21 10:00 11/25/21 09:11 Losartan 50 Mg Tab PO 100 mg QDAY NEO Administration Metoprolol Tartrate 50 mg 11/23/21 10:00 11/25/21 09:10 Metoprolol Tartrate 50 Mg Tab PO 50 mg BID NEO Administration Morphine Sulfate 2 mg 11/23/21 01:13 Morphine 2 Mg/1 Ml Inj IV Q4H PRN Pain, Moderate (4-6) Nitroglycerin 0.4 mg 11/23/21 01:13 Nitroglycerin 0.4 Mg Tab Subl SL .Q5MIN PRN Chest Pain Ondansetron HCl 4 mg 11/23/21 01:13 Ondansetron 4 Mg/2 Ml Inj IV Q8H PRN Nausea And Vomiting Sodium Chloride 10 ml 11/23/21 10:00 11/25/21 09:11 Sodium Chloride 0.9% 10 Ml Flush Syringe IV 10 ml BID NEO Administration Sodium Chloride 10 ml 11/23/21 01:13 11/23/21 17:58 Sodium Chloride 0.9% 10 Ml Flush Syringe IV 10 ml PRN PRN Administration LINE FLUSH Spironolactone 25 mg 11/24/21 10:00 11/25/21 09:11 Spironolactone 25 Mg Tab PO 25 mg QDAY NEO Administration Nutrition/Malnutrition Assess - Dietary Evaluation Nutrition/Malnutrition Findings: Nutrition Notes Start: 11/24/21 11:54 Freq: Status: Active Protocol: Document 11/24/21 11:54 WILMA (Rec: 11/24/21 12:19 WILMA [id number]) Nutrition Notes Need for Assessment generated from: MD Order,Education Initial or Follow up Assessment Current Diagnosis Coronary Artery Disease, Diabetes,Hypertension, Respiratory Failure, Hyperlipidemia Other Pertinent Diagnosis CHF, HFrEF, CABG, Anemia,OHS, Bilateral LE Swelling. Current Diet Cardiac Diet (since B 11/23). Labs/Tests 11/24: CO2 31, Glu 103. Pertinent Medications 11/24: Nutritionally unremarkable. Height 5 ft 10 in Weight 151 kg [place] Body Weight (kg) 75.45 BMI 47.7 Intake Prior to Admission Good Weight change and time frame Pt denies having loss body weight [employer]. Weight Status Morbidly Obese Subjective/Other Information RD consult for Nutrition Education. No reports available on Pt's PO intake of meals at the time , will assess at F/U. Pt on Room Air, O2 saturation @ 91%, according to Physical Assessment History notes. Pt hemodynamically stable on 11/23, according to Progress notes. Pt still in critical condition , not a candidate for Nutrition Education at the time, will assess feasibility on F/U. Percent of energy/protein needs met: Prescribed Cardiac Diet provides for energy/protein needs (2,230 Kcal/85 g) during LOS. Burn Absent Trauma Absent GI Symptoms None Food Allergy No Skin Integrity/Comment Assessment WNL. Minimum of two criteria No #1 Nutrition Diagnosis No nutrition diagnosis at this time Comments: Will assess Pt's PO intake of meals at F/U. Will assess feasibility of nutrition education at F/U. Is patient on ventilator? No Is Patient Ambulatory and/or Out of Bed Yes REE-([place] [facility]-ambulatory/OOB) [ 3017.625 NUTR.MSJOOB] Kcal/Kg value to use for calculation 14 Approximate Energy Requirements Using 2114 kcal/Kg Calculation Used for Recommendations Kcal/kg Additional Notes Protein: 0.8-1 g/Kg AdjBW; 90- 113 g/day. Fluids: 1 ml/Kcal, or as per MD. Nutrition Intervention Change Diet Order: Continue Cardiac Diet. Follow-Up By: 12/01/21 Additional Comments Nutrition education will be provided on F/U, if feasible. Continue monitoring food tolerance, %PO intake of meals , and BM.
--- NOTE | 2021-11-25 13:43 | Progress Note ---
Assessment and Plan 61-year-old gentleman with history of longstanding essential hypertension, Cabg 2019, Now admitted with acute on chronic HFrEF after increased leg swelling over the last month. Assessment: Acute on chronic HFrEF (EF 35-40%) Coronary artery disease Acute hypoxemic respiratory failure Diabetes mellitus type 2 Morbid obesity History of CABG Hypertension Cardiographics: Echo 11/23/21: Left ventricular systolic function is mild to moderately decreased. Left ventricle is mildly dilated. There is normal left ventricular wall thickness. Transmitral Doppler flow pattern suggests restrictive physiology. RV is moderately dilated. RV is mildly hypokinetic. Atria: Left atrium is moderately dilated. Right atrium is severely dilated. Aortic valve: Aortic valve is normal in structure. Only 2 cusps clearly visualized. Bicuspid valve cannot be ruled out. There is no aortic valvular stenosis. Trace aortic regurgitation. LVEF is 35 to 40%. EKG: sinus rhythm (EKG showed sinus rhythm at 72 bpm, APCs noted, LVH with repolarization abnormalities noted. T wave changes noted in the lateral leads.) CXR 11/22/21: Stable cardiomegaly Plan: Continue IV diuresis. He continues to have good urine output Patient had 2 runs of VT overnight. We will increase his metoprolol to 75 mg PO twice daily Continue atorvastatin 40 mg p.o. nightly GDMT: Continue aspirin 81 mg p.o. daily, Lasix 40 mg IV twice daily, hydralazine 50 mg p.o. twice daily, losartan 100 mg p.o. daily, metoprolol 75 mg p.o. twice daily, spironolactone 25 mg p.o. daily Will continue to follow along Patient seen in conjunction with Dr. King who agrees with the assessment and management of this patient. - Patient Problems (1) Hypertension Current Visit: Yes Status: Acute (2) Acute on chronic HFrEF (heart failure with reduced ejection fraction) Current Visit: Yes Status: Acute (3) Acute respiratory failure with hypoxia Current Visit: Yes Status: Acute (4) CAD (coronary artery disease) Current Visit: No Status: Acute (5) Morbid obesity Current Visit: Yes Status: Acute (6) Hx of CABG Current Visit: Yes Status: Chronic (7) Hypertension Current Visit: Yes Status: Chronic Qualifiers: (8) T2DM (type 2 diabetes mellitus) Current Visit: Yes Status: Chronic Qualifiers: Diabetes mellitus senior living insulin use: unspecified intermediate manager insulin use status Subjective Date of service: 11/25/21 Principal diagnosis: Acute on chronic HFrEF Interval history: Patient seen and examined in hospital room today. No apparent distress. He feels that he is improving. Of note, patient did not experience symptoms during runs of VT. denied palpitations. States he is feeling better Telemetry: Sinus rhythm in the 70s, w/ PAC & PVCs. Had 10 and 13 beat run of VT overnight Intake & Output 11/24/21 11/25/21 11/25/21 23:59 07:59 15:59 Intake Total 720 360 Output Total 1600 1800 Balance -880 -1440 Objective Vital Signs Temp Pulse Pulse Pulse Resp Resp Resp 11/25/21 12:18 97.9 F 18 11/25/21 08:40 78 20 11/25/21 08:34 11/25/21 07:46 97.6 F 79 19 11/25/21 06:59 11/25/21 04:46 98.4 F 77 18 11/25/21 03:07 72 16 11/25/21 02:43 68 11/25/21 00:10 98.6 F 67 16 11/24/21 22:15 77 11/24/21 20:40 11/24/21 20:20 11/24/21 20:10 98.0 F 75 16 11/24/21 20:00 80 20 11/24/21 16:24 97.4 F L 74 18 11/24/21 13:43 71 16 BP BP Pulse Ox 11/25/21 12:18 149/75 90 11/25/21 08:40 97 11/25/21 08:34 91 11/25/21 07:46 158/86 93 11/25/21 06:59 168/73 11/25/21 04:46 170/88 93 11/25/21 03:07 11/25/21 02:43 11/25/21 00:10 137/82 97 11/24/21 22:15 162/79 11/24/21 20:40 91 11/24/21 20:20 89 11/24/21 20:10 136/87 96 11/24/21 20:00 11/24/21 16:24 140/47 97 11/24/21 13:43 - Physical Examination General: No Apparent Distress HEENT: Positive: PERRL Neck: Positive: trachea midline Cardiac: Positive: Reg Rate and Rhythm, S1/S2 Lungs: Positive: Rhonchi Neuro: Positive: Grossly Intact Abdomen: Positive: Soft, Active Bowel Sounds Skin: Negative: Rash Extremities: Present: +2 Edema - Labs and Meds Comprehensive Metabolic Panel 11/25/21 Range/Units 05:36 Sodium 141 (137-145) mmol/L Potassium 3.8 (3.6-5.0) mmol/L Chloride 99.3 (98-107) mmol/L Carbon Dioxide 29 (22-30) mmol/L BUN 17 (9-20) mg/dL Creatinine 1.1 (0.8-1.3) mg/dL Glucose 110 H (75-100) mg/dL Calcium 8.6 (8.4-10.2) mg/dL - Imaging and Cardiology EKG: report reviewed Echo: report reviewed - Telemetry EKG Rhythm: Sinus Rhythm (Runs of VT. With occasional PACs and PVCs) - EKG Sinus rhythms and dysrhythmias: sinus rhythm (EKG showed sinus rhythm at 72 bpm, APCs noted, LVH with repolarization abnormalities noted. T wave changes noted in the lateral leads.) - Allied health notes Allied health notes reviewed: nursing
[2021-11-26] MEDS: FUROSEMIDE 40 MG/4 ML INJ IV SCH ×2 (05:11→17:04)
[2021-11-26] MEDS: IPRATROPIUM/ALBUTEROL SULFATE 3 ML AMPUL.NEB IH SCH ×4 (05:41→19:54)
[2021-11-26 05:51] LABS: BUN/Creatinine Ratio 14; Blood Urea Nitrogen 17 mg/dL (9-20); Calcium 8.3 mg/dL (8.4-10.2); Hemolysis Index 6
[2021-11-26] MEDS: HYDROmorphone 1 MG/1 ML INJ IV PRN ×4 (07:23→22:16)
[2021-11-26] MEDS: LOSARTAN 50 MG TAB PO SCH ×2 (08:16→10:17)
[2021-11-26] MEDS: SPIRONOLACTONE 25 MG TAB PO SCH ×2 (08:17→10:16)
[2021-11-26] MEDS: METOPROLOL TARTRATE 50 MG TAB PO SCH ×3 (08:18→22:06)
[2021-11-26] MEDS: hydrALAZINE 25 MG TAB PO SCH ×3 (08:18→22:07)
[2021-11-26] MEDS: ASPIRIN 81 MG TAB CHEW PO SCH ×2 (08:18→10:17)
[2021-11-26] MEDS: FAMOTIDINE 20 MG TAB PO SCH ×3 (08:19→22:07)
[2021-11-26] MEDS: HEPARIN 5,000 UNIT/1 ML VIAL SUB-Q SCH ×3 (08:25→23:24)
--- NOTE | 2021-11-26 11:40 | Progress Note ---
Assessment and Plan Assessment and plan: #Acute on chronic systolic heart failureimproving #Hypertension #History of CAD s/p CABG #Hyperlipidemia -Continue CHF exacerbation protocol: Telemetry, Strict I/O, monitor urine output every shift, daily weights, afterload reduction, low-sodium diet, and fluid restriction of approximately 1.5 mL/day -Supplemental oxygen: 3 L, baseline O2 home requirement -ProBNP on admission: 7632 -Cardiology consulted; appreciate recs -TTE revealing EF 35-40% continue aspirin 81 mg daily, atorvastatin 40 mg daily, losartan 100 mg daily, metoprolol tartrate 75 mg daily #Acute hypoxic respiratory failureimproving - etiology: Likely secondary to heart failure - baseline oxygen requirements: 3LNC - supplemental oxygen: 3 L nasal cannula - Continue protocol: continue pulse oximetry, wean oxygen as tolerated, ordered incentive spirometry and educated patient on how to use it and its importance. - home O2 evaluation to continue home oxygen - continue to monitor #Non-insulin dependent type II diabetes mellitus, controlled -continue Moderate SSI -blood glucose goal 140-180 while inpatient #Normocytic anemia -stable Transfuse if hemoglobin <7 or patient becomes symptomatic #Morbid obesity #Weight loss counseling #Exercise counseling - BMI 41 - Counseled patient on the importance of weight loss, incorporating exercise, and dietary changes (lean meats, fresh fruits and vegetables, and water intake). Patient expresses understanding. #Advanced care planning -Disease education conducted, care plan discussed, diagnoses discussed, prognosis discussed, and patient acknowledges understanding with care plan -Time: +30 min #Discharge planning - Patient is pending further diuresis - Case management has been made aware. - Discharge is tentatively 24-48 hours History Interval history: No acute events overnight. Patient has an appointment with his primary care doctor to keep his home O2. He reports stiffness in his R knee. He denies chest pain and worsening of shortness of breath. Hospitalist Physical - Physical exam Narrative exam: GENERAL: Well-developed well-nourished. Sitting in the chair, in no acute distress. HEENT: Nasal cannula at 3 L/min NECK: + JVD CHEST/LUNGS: Coarse breath sounds bilaterally. HEART/CARDIOVASCULAR: RRR. No murmur, rubs or gallops appreciated. ABDOMEN: +BS. NT/ND. SKIN: No rashes noted. NEURO: No focal motor deficit. Follows all commands. MUSCULOSKELETAL: No joint effusion EXTREMITIES: No cyanosis, clubbing. 1+BLE edema. PSYCH: Cooperative. - Constitutional Vitals: Temp Pulse Resp BP Pulse Ox 98.0 F 72 18 124/105 98 11/26/21 07:15 11/26/21 08:18 11/26/21 07:49 11/26/21 08:18 11/26/21 07:57 General appearance: Present: no acute distress, well-nourished, obese HEART Score - HEART Score Troponin: Troponin T 0.020 ng/mL (0.00-0.029) 11/23/21 06:20 Results - Labs CBC & Chem 7: 11/24/21 07:18 11/26/21 04:31 Labs: Laboratory Last Values WBC 5.0 K/mm3 (4.5-11.0) 11/24/21 07:18 RBC 4.00 M/mm3 (3.65-5.03) 11/24/21 07:18 Hgb 11.0 gm/dl (11.8-15.2) L 11/24/21 07:18 Hct 34.9 % (35.5-45.6) L 11/24/21 07:18 MCV 87 fl (84-94) 11/24/21 07:18 MCH 28 pg (28-32) 11/24/21 07:18 MCHC 32 % (32-34) 11/24/21 07:18 RDW 16.8 % (13.2-15.2) H 11/24/21 07:18 Plt Count 146 K/mm3 (140-440) 11/24/21 07:18 Lymph % (Auto) 20.7 % (13.4-35.0) 11/24/21 07:18 [place] % (Auto) 11.0 % (0.0-7.3) H 11/24/21 07:18 Eos % (Auto) 2.6 % (0.0-4.3) 11/24/21 07:18 Baso % (Auto) 0.7 % (0.0-1.8) 11/24/21 07:18 Lymph # (Auto) 1.0 K/mm3 (1.2-5.4) L 11/24/21 07:18 [place] # (Auto) 0.5 K/mm3 (0.0-0.8) 11/24/21 07:18 Eos # (Auto) 0.1 K/mm3 (0.0-0.4) 11/24/21 07:18 Baso # (Auto) 0.0 K/mm3 (0.0-0.1) 11/24/21 07:18 Seg Neutrophils % 65.0 % (40.0-70.0) 11/24/21 07:18 Seg Neutrophils # 3.3 K/mm3 (1.8-7.7) 11/24/21 07:18 PT 15.3 Sec. (12.2-14.9) H 11/22/21 21:02 INR 1.09 (0.87-1.13) 11/22/21 21:02 Sodium 141 mmol/L (137-145) 11/26/21 04:31 Potassium 3.8 mmol/L (3.6-5.0) 11/26/21 04:31 Chloride 100.1 mmol/L (98-107) 11/26/21 04:31 Carbon Dioxide 32 mmol/L (22-30) H 11/26/21 04:31 Anion Gap 13 mmol/L 11/26/21 04:31 BUN 17 mg/dL (9-20) 11/26/21 04:31 Creatinine 1.2 mg/dL (0.8-1.3) 11/26/21 04:31 Estimated GFR > 60 ml/min 11/26/21 04:31 BUN/Creatinine Ratio 14 % 11/26/21 04:31 Glucose 103 mg/dL (75-100) H 11/26/21 04:31 POC Glucose 126 mg/dL (70-105) H 11/23/21 20:37 Calcium 8.3 mg/dL (8.4-10.2) L 11/26/21 04:31 Phosphorus 3.80 mg/dL (2.5-4.5) 11/26/21 04:31 Magnesium 1.80 mg/dL (1.7-2.3) 11/26/21 04:31 Iron 33 ug/dL (49-181) L 11/24/21 14:59 TIBC 274 mcg/dL (250-450) 11/24/21 14:59 Total Bilirubin 0.70 mg/dL (0.1-1.2) 11/22/21 21:02 AST 21 units/L (5-40) 11/22/21 21:02 ALT 16 units/L (7-56) 11/22/21 21:02 Alkaline Phosphatase 80 units/L (35-129) 11/22/21 21:02 Troponin T 0.020 ng/mL (0.00-0.029) 11/23/21 06:20 NT-Pro-B Natriuret Pep 7632 pg/mL (0-900) H 11/22/21 21:02 Total Protein 7.1 g/dL (6.3-8.2) 11/22/21 21:02 Albumin 3.9 g/dL (3.9-5) 11/22/21 21:02 Albumin/Globulin Ratio 1.2 % 11/22/21 21:02 Quiroz/IV: Voiding Method Toilet Active Medications - Current Medications Current Medications: Generic Name Dose Route Start Last Admin Trade Name Freq PRN Reason Stop Dose Admin Acetaminophen 650 mg 11/23/21 01:13 11/26/21 03:01 Acetaminophen 325 Mg Tab PO 650 mg Q4H PRN Administration Pain MILD(1-3)/Fever >100.5/AVILA Albuterol 2.5 mg 11/23/21 01:13 Albuterol 2.5 Mg/3 Ml Nebu IH Q3HRT PRN Shortness Of Breath Albuterol/Ipratropium 1 ampul 11/23/21 02:00 11/26/21 07:49 Ipratropium/Albuterol Sulfate 3 Ml Ampul.Neb IH 1 ampul Q6HRT NEO Administration Aspirin 81 mg 11/23/21 10:00 11/26/21 10:17 Aspirin 81 Mg Tab Chew PO Not Given QDAY NEO Atorvastatin Calcium 40 mg 11/23/21 22:00 11/25/21 21:48 Atorvastatin 40 Mg Tab PO 40 mg QHS NEO Administration Famotidine 20 mg 11/23/21 10:00 11/26/21 10:17 Famotidine 20 Mg Tab PO Not Given BID NEO Furosemide 40 mg 11/23/21 06:00 11/26/21 05:11 Furosemide 40 Mg/4 Ml Inj IV 40 mg BID@0600,1800 NEO Administration Heparin Sodium (Porcine) 7,500 unit 11/23/21 07:30 11/26/21 08:25 Heparin 5,000 Unit/1 Ml Vial SUB-Q 7,500 unit Q8H NEO Administration Hydralazine HCl 50 mg 11/23/21 10:00 11/26/21 10:17 Hydralazine 25 Mg Tab PO Not Given BID [facility] Hydromorphone HCl 0.5 mg 11/23/21 01:13 11/26/21 07:23 Hydromorphone 1 Mg/1 Ml Inj IV 0.5 mg Q3H PRN Administration Pain , Severe (7-10) Losartan Potassium 100 mg 11/23/21 10:00 11/26/21 10:17 Losartan 50 Mg Tab PO Not Given QDAY [facility] Metoprolol Tartrate 75 mg 11/25/21 22:00 11/26/21 10:17 Metoprolol Tartrate 50 Mg Tab PO Not Given BID [facility] Morphine Sulfate 2 mg 11/23/21 01:13 11/25/21 22:01 Morphine 2 Mg/1 Ml Inj IV 2 mg Q4H PRN Administration Pain, Moderate (4-6) Nitroglycerin 0.4 mg 11/23/21 01:13 Nitroglycerin 0.4 Mg Tab Subl SL .Q5MIN PRN Chest Pain Ondansetron HCl 4 mg 11/23/21 01:13 Ondansetron 4 Mg/2 Ml Inj IV Q8H PRN Nausea And Vomiting Sodium Chloride 10 ml 11/23/21 10:00 11/26/21 10:17 Sodium Chloride 0.9% 10 Ml Flush Syringe IV Not Given BID NEO Sodium Chloride 10 ml 11/23/21 01:13 11/23/21 17:58 Sodium Chloride 0.9% 10 Ml Flush Syringe IV 10 ml PRN PRN Administration LINE FLUSH Spironolactone 25 mg 11/24/21 10:00 11/26/21 10:16 Spironolactone 25 Mg Tab PO Not Given QDAY [facility] Nutrition/Malnutrition Assess - Dietary Evaluation Nutrition/Malnutrition Findings: Nutrition Notes Start: 11/24/21 11:54 Freq: Status: Active Protocol: Document 11/24/21 11:54 WILMA (Rec: 11/24/21 12:19 WILMA [id number]) Nutrition Notes Need for Assessment generated from: MD Order,Education Initial or Follow up Assessment Current Diagnosis Coronary Artery Disease, Diabetes,Hypertension, Respiratory Failure, Hyperlipidemia Other Pertinent Diagnosis CHF, HFrEF, CABG, Anemia,OHS, Bilateral LE Swelling. Current Diet Cardiac Diet (since B 11/23). Labs/Tests 11/24: CO2 31, Glu 103. Pertinent Medications 11/24: Nutritionally unremarkable. Height 5 ft 10 in Weight 151 kg [place] Body Weight (kg) 75.45 BMI 47.7 Intake Prior to Admission Good Weight change and time frame Pt denies having loss body weight [employer]. Weight Status Morbidly Obese Subjective/Other Information RD consult for Nutrition Education. No reports available on Pt's PO intake of meals at the time , will assess at F/U. Pt on Room Air, O2 saturation @ 91%, according to Physical Assessment History notes. Pt hemodynamically stable on 11/23, according to Progress notes. Pt still in critical condition , not a candidate for Nutrition Education at the time, will assess feasibility on F/U. Percent of energy/protein needs met: Prescribed Cardiac Diet provides for energy/protein needs (2,230 Kcal/85 g) during LOS. Burn Absent Trauma Absent GI Symptoms None Food Allergy No Skin Integrity/Comment Assessment WNL. Minimum of two criteria No #1 Nutrition Diagnosis No nutrition diagnosis at this time Comments: Will assess Pt's PO intake of meals at F/U. Will assess feasibility of nutrition education at F/U. Is patient on ventilator? No Is Patient Ambulatory and/or Out of Bed Yes REE-([facility]-ambulatory/OOB) [ 3017.625 NUTR.MSJOOB] Kcal/Kg value to use for calculation 14 Approximate Energy Requirements Using 2114 kcal/Kg Calculation Used for Recommendations Kcal/kg Additional Notes Protein: 0.8-1 g/Kg AdjBW; 90- 113 g/day. Fluids: 1 ml/Kcal, or as per MD. Nutrition Intervention Change Diet Order: Continue Cardiac Diet. Follow-Up By: 12/01/21 Additional Comments Nutrition education will be provided on F/U, if feasible. Continue monitoring food tolerance, %PO intake of meals , and BM.
--- NOTE | 2021-11-26 16:50 | Progress Note ---
Assessment and Plan 61-year-old gentleman with history of longstanding essential hypertension, Cabg 2018, Now admitted with acute on chronic HFrEF after increased leg swelling over the last month. Acute on chronic HFrEF (EF 35-40%) Coronary artery disease Acute hypoxemic respiratory failure Diabetes mellitus type 2 Morbid obesity History of CABG Hypertension [facility] 02/10/2019: Multivessel disease, distal left main 70%, ostial left circumflex 80%, OM 2 occluded, LAD luminal irregularities, ostial diagonal 220 to 25%, RCA luminal irregularities, distal posterolateral 90%, LVEDP 30 to 35 mmHg Echo 11/23/21: Left ventricular systolic function is mild to moderately decreased. Left ventricle is mildly dilated. There is normal left ventricular wall thickness. Transmitral Doppler flow pattern suggests restrictive physiology. RV is moderately dilated. RV is mildly hypokinetic. Atria: Left atrium is moderately dilated. Right atrium is severely dilated. Aortic valve: Aortic valve is normal in structure. Only 2 cusps clearly visualized. Bicuspid valve cannot be ruled out. There is no aortic valvular stenosis. Trace aortic regurgitation. LVEF is 35 to 40%. Plan: Patient reports that he continues to have good urine output.Continue IV diuresis. Strict I&O's with close monitoring of renal function. Repeat BMP in the a.m. Continue atorvastatin 40 mg p.o. nightly GDMT: Continue aspirin 81 mg p.o. daily, Lasix 40 mg IV twice daily, hydralazine 50 mg p.o. twice daily, losartan 100 mg p.o. daily, metoprolol 75 mg p.o. twice daily, spironolactone 25 mg p.o. daily, Patient seen in conjunction with Dr. King who agrees with the assessment and management of this patient. 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 Patient sinus 70s on monitor with PACs Objective Vital Signs Temp Pulse Pulse Resp Resp BP Pulse Ox 11/26/21 13:41 70 18 11/26/21 12:00 66 11/26/21 11:23 97.4 F L 16 133/79 11/26/21 08:18 72 124/105 11/26/21 08:17 72 124/105 11/26/21 08:16 72 124/105 11/26/21 07:57 98 11/26/21 07:50 98 11/26/21 07:49 65 18 11/26/21 07:15 98.0 F 72 17 124/105 95 11/26/21 03:28 98.8 F 68 18 151/69 92 11/26/21 03:17 67 11/26/21 00:58 79 11/26/21 00:00 98.2 F 64 19 162/81 97 11/25/21 23:21 91 11/25/21 21:35 96 11/25/21 20:23 98.8 F 83 19 150/78 93 - Physical Examination General: No Apparent Distress HEENT: Positive: PERRL Neck: Positive: trachea midline Cardiac: Positive: Reg Rate and Rhythm Lungs: Positive: Decreased Breath Sounds Neuro: Positive: Grossly Intact Abdomen: Positive: Soft, Active Bowel Sounds Skin: Negative: Rash Extremities: Present: upper extr. pulses, edema - Labs and Meds Comprehensive Metabolic Panel 11/26/21 Range/Units 04:31 Sodium 141 (137-145) mmol/L Potassium 3.8 (3.6-5.0) mmol/L Chloride 100.1 (98-107) mmol/L Carbon Dioxide 32 H (22-30) mmol/L BUN 17 (9-20) mg/dL Creatinine 1.2 (0.8-1.3) mg/dL Glucose 103 H (75-100) mg/dL Calcium 8.3 L (8.4-10.2) mg/dL - Imaging and Cardiology EKG: report reviewed Echo: report reviewed - Telemetry EKG Rhythm: Sinus Rhythm - EKG Sinus rhythms and dysrhythmias: sinus rhythm (EKG showed sinus rhythm at 72 bpm, APCs noted, LVH with repolarization abnormalities noted. T wave changes noted in the lateral leads.) - Allied health notes Allied health notes reviewed: nursing
[2021-11-27] MEDS: IPRATROPIUM/ALBUTEROL SULFATE 3 ML AMPUL.NEB IH SCH ×3 (06:12→13:33)
[2021-11-27] MEDS: FUROSEMIDE 40 MG/4 ML INJ IV SCH (06:27)
[2021-11-27 08:53] LABS: BUN/Creatinine Ratio 15; Blood Urea Nitrogen 17 mg/dL (9-20); Calcium 8.6 mg/dL (8.4-10.2); Hemolysis Index 3
--- NOTE | 2021-11-27 11:40 | Discharge Summary ---
Providers - Providers Date of Admission: 11/23/21 01:14 Date of discharge: 11/27/21 Attending physician: SHANNAN HERNANDEZ MD 11/23/21 01:13 Consult to Physician [CONS] Routine Comment: Consulting Provider: BRYSON HAYNES Physician Instructions: Reason For Exam: chf 11/24/21 10:26 Consult to Dietitian/Nutrition [CONS] Routine Physician Instructions: Reason For Exam: Reason for Consult: Diet education Primary care physician: TAMMIE REYES Hospitalization Condition: Stable Disposition: 30 STILL A PATIENT Core Measure Documentation - Palliative Care Palliative Care/ Comfort Measures: Not Applicable - Core Measures Any of the following diagnoses?: heart failure - Heart Failure Discharge Requirements FACUNDO/ARB for LVSD if EF <40%: Yes Beta michelle at discharge: Yes Exam - Physical Exam Narrative exam: GENERAL: Well-developed well-nourished. Sitting in the chair, in no acute distress. HEENT: Nasal cannula at 3 L/min NECK: + JVD CHEST/LUNGS: Coarse breath sounds bilaterally. HEART/CARDIOVASCULAR: RRR. No murmur, rubs or gallops appreciated. ABDOMEN: +BS. NT/ND. SKIN: No rashes noted. NEURO: No focal motor deficit. Follows all commands. MUSCULOSKELETAL: No joint effusion EXTREMITIES: No cyanosis, clubbing. 1+BLE edema. PSYCH: Cooperative. 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 Continue taking all medications as prescribed. Follow up with: LA NENA SAUCEDO MD [Staff Physician] - 3-5 Days Prescriptions: AtorvaSTATin [Lipitor] 40 mg PO QHS 30 Days #30 tablet Spironolactone [Aldactone] 25 mg PO QDAY 30 Days #30 tablet hydrALAZINE [Apresoline TAB] 50 mg PO BID 30 Days #60 tab Aspirin [Aspirin BABY CHEW TAB] 81 mg PO QDAY 30 Days #30 tab.chew Losartan [Cozaar] 100 mg PO QDAY 30 Days #60 tablet Furosemide [Lasix TAB] 40 mg PO BID 30 Days #60 tab Metoprolol [Lopressor TAB] 50 mg PO BID 30 Days #60 tab
[2021-11-27] MEDS: HEPARIN 5,000 UNIT/1 ML VIAL SUB-Q SCH (12:47)
[2021-11-27] MEDS: ASPIRIN 81 MG TAB CHEW PO SCH (12:48)
[2021-11-27] MEDS: SPIRONOLACTONE 25 MG TAB PO SCH (12:48)
[2021-11-27] MEDS: LOSARTAN 50 MG TAB PO SCH (12:49)
[2021-11-27] MEDS: METOPROLOL TARTRATE 50 MG TAB PO SCH (12:50)
[2021-11-27] MEDS: hydrALAZINE 25 MG TAB PO SCH (12:50)
[2021-11-27] MEDS: FAMOTIDINE 20 MG TAB PO SCH (12:51)
[2021-11-27 12:55] VITALS: BP 121/67
--- NOTE | 2021-11-27 13:50 | Progress Note ---
Assessment and Plan 61-year-old gentleman with history of longstanding essential hypertension, Cabg 2018, Now admitted with acute on chronic HFrEF after increased leg swelling over the last month. Acute on chronic HFrEF (EF 35-40%) Coronary artery disease Acute hypoxemic respiratory failure Diabetes mellitus type 2 Morbid obesity History of CABG Hypertension [facility] 02/10/2019: Multivessel disease, distal left main 70%, ostial left circumflex 80%, OM 2 occluded, LAD luminal irregularities, ostial diagonal 220 to 25%, RCA luminal irregularities, distal posterolateral 90%, LVEDP 30 to 35 mmHg Echo 11/23/21: Left ventricular systolic function is mild to moderately decreased. Left ventricle is mildly dilated. There is normal left ventricular wall thickness. Transmitral Doppler flow pattern suggests restrictive physiology. RV is moderately dilated. RV is mildly hypokinetic. Atria: Left atrium is moderately dilated. Right atrium is severely dilated. Aortic valve: Aortic valve is normal in structure. Only 2 cusps clearly visualized. Bicuspid valve cannot be ruled out. There is no aortic valvular stenosis. Trace aortic regurgitation. LVEF is 35 to 40%. Plan: Patient reports her urine output has slowed. On exam patient appears euvolemic Continue atorvastatin 40 mg p.o. nightly GDMT: Continue aspirin 81 mg p.o. daily, Lasix 40 mg, hydralazine 50 mg p.o. twice daily, losartan 100 mg p.o. daily, metoprolol 75 mg p.o. twice daily, spironolactone 25 mg p.o. daily, Patient cardiac status otherwise stable Patient has a follow-up appointment with Dr. Vega, [facility] system specialist, on 12/18/2021 at 9 AM in our [place] location. Phone #[phone] Patient seen in conjunction with Dr. King who agrees with the assessment and management of this patient. 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 Patient sinus 70s on monitor with PACs Objective Vital Signs Temp Pulse Pulse Pulse Resp Resp Resp 11/27/21 12:50 81 11/27/21 12:49 81 11/27/21 12:48 81 11/27/21 08:54 11/27/21 07:34 80 16 11/27/21 06:00 61 11/27/21 04:25 98.6 F 67 19 11/27/21 00:00 11/26/21 23:02 97.8 F 74 19 11/26/21 22:07 69 11/26/21 22:06 69 11/26/21 20:12 97.7 F 69 20 11/26/21 20:00 79 11/26/21 19:56 11/26/21 19:55 76 16 11/26/21 15:32 98.3 F 64 18 BP Pulse Ox 11/27/21 12:50 11/27/21 12:49 11/27/21 12:48 11/27/21 08:54 121/67 11/27/21 07:34 99 11/27/21 06:00 11/27/21 04:25 140/77 92 11/27/21 00:00 98 11/26/21 23:02 143/75 93 11/26/21 22:07 139/58 11/26/21 22:06 139/58 11/26/21 20:12 139/58 90 11/26/21 20:00 11/26/21 19:56 99 11/26/21 19:55 11/26/21 15:32 148/65 94 - Physical Examination General: No Apparent Distress HEENT: Positive: PERRL Neck: Positive: trachea midline Cardiac: Positive: Reg Rate and Rhythm Lungs: Positive: Normal Breath Sounds Neuro: Positive: Grossly Intact Abdomen: Positive: Soft, Active Bowel Sounds Skin: Negative: Rash Extremities: Present: upper extr. pulses, edema - Labs and Meds Comprehensive Metabolic Panel 11/27/21 Range/Units 07:34 Sodium 141 (137-145) mmol/L Potassium 3.9 (3.6-5.0) mmol/L Chloride 96.8 L (98-107) mmol/L Carbon Dioxide 32 H (22-30) mmol/L BUN 17 (9-20) mg/dL Creatinine 1.1 (0.8-1.3) mg/dL Glucose 93 (75-100) mg/dL Calcium 8.6 (8.4-10.2) mg/dL - Imaging and Cardiology EKG: report reviewed Echo: report reviewed - Telemetry EKG Rhythm: Sinus Rhythm - EKG Sinus rhythms and dysrhythmias: sinus rhythm (EKG showed sinus rhythm at 72 bpm, APCs noted, LVH with repolarization abnormalities noted. T wave changes noted in the lateral leads.) - Allied health notes Allied health notes reviewed: nursing
== END 2021-11-27 13:50 | disposition home health service (06) | DRG 291 ==
LOC: ED 19:29 → 4A 11-23 01:14
PROVIDERS: ADMIT Hospitalist; ATTEND Student in an Organized Health Care Education/Training Program
DX: I11.0 Hypertensive heart disease with heart failure (principal); I50.23 Acute on chronic systolic (congestive) heart failure; J96.01 Acute respiratory failure with hypoxia; Z68.42 Body mass index [BMI] 45.0-49.9, adult; E66.01 Morbid (severe) obesity due to excess calories; I25.10 Atherosclerotic heart disease of native coronary artery without angina pectoris; D64.9 Anemia, unspecified; M19.90 Unspecified osteoarthritis, unspecified site; E78.5 Hyperlipidemia, unspecified; E11.9 Type 2 diabetes mellitus without complications; I42.0 Dilated cardiomyopathy; Z95.1 Presence of aortocoronary bypass graft; Z88.1 Allergy status to other antibiotic agents; Z91.14 Patient's other noncompliance with medication regimen
CPT/HCPCS: 36415; 71046; 71275; 80048; 80053; 82962; 83550; 83735; 83880; 84100; 84484; 85025; 85610; 93005; 93306; 93970; 94640; 94760; G0378; C8929; J1170; J1644; J1940; J2270; Q9967

== ENCOUNTER 2022-01-16 19:06 | Inpatient (IN) | payer MEDICARE ==
--- NOTE | 2022-01-17 05:47 | XRay Report ---
CHEST 1 VIEW INDICATION / CLINICAL INFORMATION: chf. COMPARISON: 11/22/2021 FINDINGS: SUPPORT DEVICES: None. HEART / MEDIASTINUM: Sternotomy and cardiomegaly, unchanged LUNGS / PLEURA: No significant pulmonary or pleural abnormality. No pneumothorax. ADDITIONAL FINDINGS: No significant additional findings. IMPRESSION: 1. Stable cardiomegaly without CHF Signer Name: Gilberto Langford MD Signed: 01/17/2022 5:43 AM Workstation Name: [id number]
[2022-01-17 06:28] LABS: Basophils % (Auto) 0.9 % (0.0-1.8); Eosinophils # (Auto) 0.1 K/mm3 (0.0-0.4); Eosinophils % (Auto) 2.2 % (0.0-4.3); Hematocrit 39.1 % (35.5-45.6); Hemoglobin 12.5 gm/dl (11.8-15.2); Lymphocytes # (Auto) 1.1 K/mm3 (1.2-5.4); Lymphocytes % (Auto) 19.2 % (13.4-35.0); Mean Corpuscular HGB Conc 32 % (32-34); Mean Corpuscular Volume 86 fl (84-94); Monocytes # (Auto) 0.7 K/mm3 (0.0-0.8); Monocytes % (Auto) 12.6 % (0.0-7.3); Platelet Count 165 K/mm3 (140-440); Red Blood Count 4.54 M/mm3 (3.65-5.03)
[2022-01-17 06:45] LABS: Alanine Aminotransferase 14 units/L (7-56); Albumin 4.2 g/dL (3.9-5); BUN/Creatinine Ratio 12; Blood Urea Nitrogen 15 mg/dL (9-20); Calcium 9.1 mg/dL (8.4-10.2); Hemolysis Index 32
[2022-01-17] MEDS ORDERED: fentaNYL 100 MCG/2 ML INJ IV ONE (06:48)
[2022-01-17] MEDS ORDERED: FUROSEMIDE 40 MG/4 ML INJ IV ONE (06:48)
[2022-01-17] MEDS ORDERED: ASPIRIN 81 MG TAB CHEW PO ONE ×2 (06:49→06:50)
--- NOTE | 2022-01-17 06:49 | Emergency Department Report ---
ED General Adult HPI - General Chief complaint: Wound/Laceration Stated complaint: FLUID BUILD UP BLISTERS Time Seen by Provider: 01/17/22 06:04 Source: patient, RN notes reviewed, old records reviewed Mode of arrival: Ambulatory Limitations: Physical Limitation - History of Present Illness Initial comments: The patient was evaluated in the emergency department for symptoms described in the history of present illness. He/she was evaluated in the context of the global COVID-19 pandemic, which necessitated consideration that the patient might be at risk for infection with the virus that causes COVID-19. Institutional protocols and algorithms that pertain to the evaluation of patients at risk for COVID-19 are in a state of rapid change based on i nformation released by regulatory bodies including the CDC and federal and state organizations. These policies and algorithms were followed during the patient's care in the emergency department. Please note that these policies, procedures and recommendations changed on a rapid basis. This is a pleasant and cooperative 61-year-old gentleman, who is not COVID-19 vaccinated, who has a history of CAD, status post CABG, ischemic cardiomyopathy, congestive heart failure, EF of 35 to 40%, history of ventricular tachycardia. He presents to the department today with a complaint of lower extremity swelling, and blisters. He denies headache, neck pain, chest pain, abdominal pain, vomiting, hematemesis and bright red blood per rectum. He is intermittently/poorly compliant with diet and lifestyle. He sleeps at home by himself, with 1 pillow. He does not know if he has obstructive sleep apnea. He denies loss of taste and smell. He endorses unintentional weight gain. He subjectively feels like his congestive heart failure has been exacerbated. He is agreeable to admission and hospitalization. He denies travel, surgery, immobilization, DVT and PE risk factors. -: Gradual, days(s) Location: left, right, lower extremity Consistency: constant Improves with: rest Worsens with: movement - Related Data Home Medications Medication Instructions Recorded Confirmed Last Taken Magnesium 500 mg PO DAILY 11/23/21 11/25/21 Unknown Potassium 99 mg PO BID 11/25/21 11/25/21 Unknown Vitamin E 400 unit PO BID 11/25/21 11/25/21 Unknown Previous Rx's Medication Instructions Recorded Last Taken Type Elizabeth-3 Fatty Acids/Fish Oil [Fish 1,000 mg PO QDAY capsule 09/17/21 Unknown Rx Oil] Aspirin [Aspirin BABY CHEW TAB] 81 mg PO QDAY 30 Days #30 tab.chew 11/27/21 Unknown Rx AtorvaSTATin [Lipitor] 40 mg PO QHS 30 Days #30 tablet 11/27/21 Unknown Rx Furosemide [Lasix TAB] 40 mg PO BID 30 Days #60 tab 11/27/21 Unknown Rx Losartan [Cozaar] 100 mg PO QDAY 30 Days #60 tablet 11/27/21 Unknown Rx Metoprolol [Lopressor TAB] 50 mg PO BID 30 Days #60 tab 11/27/21 Unknown Rx Spironolactone [Aldactone] 25 mg PO QDAY 30 Days #30 tablet 11/27/21 Unknown Rx hydrALAZINE [Apresoline TAB] 50 mg PO BID 30 Days #60 tab 11/27/21 Unknown Rx Allergies Allergy/AdvReac Type Severity Reaction Status Date / Time ibuprofen AdvReac Anaphylaxis Verified 01/16/22 19:55 ED Review of Systems ROS: Stated complaint: FLUID BUILD UP BLISTERS Other details as noted in HPI Constitutional: denies: fever Eyes: denies: eye discharge ENT: denies: epistaxis Respiratory: shortness of breath Cardiovascular: orthopnea, edema. denies: chest pain Gastrointestinal: denies: abdominal pain, hematemesis, melena, hematochezia Genitourinary: denies: dysuria Musculoskeletal: arthralgia, myalgia Skin: rash, lesions Neurological: denies: weakness Hematological/Lymphatic: denies: easy bleeding ED Past Medical Hx - Past Medical History Previous Medical History?: Yes Hx Hypertension: Yes Hx Congestive Heart Failure: Yes Hx Diabetes: No Hx Arthritis: Yes Hx Asthma: Yes Additional medical history: Obesity, Herniated disc, Open heart surgery - Surgical History Past Surgical History?: Yes Hx Open Heart Surgery: Yes - Social History Smoking Status: Never Smoker Substance Use Type: None - Medications Home Medications: Home Medications Medication Instructions Recorded Confirmed Last Taken Type Elizabeth-3 Fatty Acids/Fish Oil [Fish 1,000 mg PO QDAY capsule 09/17/21 11/25/21 Unknown Rx Oil] Magnesium 500 mg PO DAILY 11/23/21 11/25/21 Unknown History Potassium 99 mg PO BID 11/25/21 11/25/21 Unknown History Vitamin E 400 unit PO BID 11/25/21 11/25/21 Unknown History Aspirin [Aspirin BABY CHEW TAB] 81 mg PO QDAY 30 Days #30 tab.chew 11/27/21 Unknown Rx AtorvaSTATin [Lipitor] 40 mg PO QHS 30 Days #30 tablet 11/27/21 Unknown Rx Furosemide [Lasix TAB] 40 mg PO BID 30 Days #60 tab 11/27/21 Unknown Rx Losartan [Cozaar] 100 mg PO QDAY 30 Days #60 tablet 11/27/21 Unknown Rx Metoprolol [Lopressor TAB] 50 mg PO BID 30 Days #60 tab 11/27/21 Unknown Rx Spironolactone [Aldactone] 25 mg PO QDAY 30 Days #30 tablet 11/27/21 Unknown Rx hydrALAZINE [Apresoline TAB] 50 mg PO BID 30 Days #60 tab 11/27/21 Unknown Rx ED Physical Exam - General Limitations: Physical Limitation General appearance: alert, obese - Head Head exam: Present: atraumatic, normocephalic - Eye Eye exam: Present: normal appearance, EOMI. Absent: nystagmus - ENT ENT exam: Present: normal exam, normal orophraynx, mucous membranes moist, normal external ear exam - Neck Neck exam: Present: normal inspection, full ROM. Absent: tenderness, meningismus - Respiratory Respiratory exam: Present: normal lung sounds bilaterally, rales. Absent: respiratory distress, rhonchi, stridor - Cardiovascular Cardiovascular Exam: Present: regular rate, normal rhythm, normal heart sounds, JVD. Absent: bradycardia, tachycardia, irregular rhythm, systolic murmur, diastolic murmur, rubs, gallop - GI/Abdominal GI/Abdominal exam: Present: soft. Absent: distended, tenderness, guarding, rebound, rigid, pulsatile mass - Rectal Rectal exam: Present: deferred - Extremities Exam Extremities exam: Present: full ROM, pedal edema (3+ edema noted in the bilateral lower extremities), other (2+ pulses noted in the bilateral upper and lower extremities. There is no long bony tenderness. The muscular compartments are soft. The pelvis is stable). Absent: normal inspection (Fluid-filled blisters are noted on the bilateral lower extremities, and skin excoriation noted on the left distal anterior and lateral lower extremity. Chronic venous stasis changes noted), calf tenderness - Back Exam Back exam: Present: normal inspection. Absent: tenderness, CVA tenderness (R), CVA tenderness (L), paraspinal tenderness, vertebral tenderness - Neurological Exam Neurological exam: Present: alert, oriented X3, other (No facial droop. Tongue midline. Extraocular movements intact bilaterally. Facial sensation intact to light touch in V1, V2, V3 distribution bilaterally. 5 and a 5 strength in 4 extremities. Sensation intact to light touch in 4 extremities.). Absent: motor sensory deficit - Psychiatric Psychiatric exam: Present: normal affect, normal mood - Skin Skin exam: Present: warm ED Course Vital Signs 01/16/22 01/17/22 01/17/22 19:51 05:23 05:31 Temperature 98.3 F Pulse Rate 81 134 H 73 Respiratory 18 16 12 Rate Blood Pressure 170/91 Blood Pressure 141/89 [Left] O2 Sat by Pulse 94 91 91 Oximetry 01/17/22 01/17/22 05:45 06:01 Temperature Pulse Rate 78 83 Respiratory 22 15 Rate Blood Pressure 170/91 184/107 Blood Pressure [Left] O2 Sat by Pulse 93 89 Oximetry ED Medical Decision Making - Lab Data Result diagrams: 01/17/22 06:13 01/17/22 06:13 Vital Signs 01/16/22 01/17/22 01/17/22 19:51 05:23 05:31 Temperature 98.3 F Pulse Rate 81 134 H 73 Respiratory 18 16 12 Rate Blood Pressure 170/91 Blood Pressure 141/89 [Left] O2 Sat by Pulse 94 91 91 Oximetry 01/17/22 01/17/22 05:45 06:01 Temperature Pulse Rate 78 83 Respiratory 22 15 Rate Blood Pressure 170/91 184/107 Blood Pressure [Left] O2 Sat by Pulse 93 89 Oximetry Lab Results 01/17/22 01/17/22 Range/Units 06:13 06:13 WBC 5.8 (4.5-11.0) K/mm3 RBC 4.54 (3.65-5.03) M/mm3 Hgb 12.5 (11.8-15.2) gm/dl Hct 39.1 (35.5-45.6) % MCV 86 (84-94) fl MCH 28 (28-32) pg MCHC 32 (32-34) % RDW 16.0 H (13.2-15.2) % Plt Count 165 (140-440) K/mm3 Lymph % (Auto) 19.2 (13.4-35.0) % Mccreary % (Auto) 12.6 H (0.0-7.3) % Eos % (Auto) 2.2 (0.0-4.3) % Baso % (Auto) 0.9 (0.0-1.8) % Lymph # (Auto) 1.1 L (1.2-5.4) K/mm3 Mccreary # (Auto) 0.7 (0.0-0.8) K/mm3 Eos # (Auto) 0.1 (0.0-0.4) K/mm3 Baso # (Auto) 0.0 (0.0-0.1) K/mm3 Seg Neutrophils % 65.1 (40.0-70.0) % Seg Neutrophils # 3.8 (1.8-7.7) K/mm3 Sodium 141 (137-145) mmol/L Chloride 102.0 (98-107) mmol/L Carbon Dioxide 29 (22-30) mmol/L Anion Gap 14 mmol/L BUN 15 (9-20) mg/dL Creatinine 1.3 (0.8-1.3) mg/dL Estimated GFR > 60 ml/min BUN/Creatinine Ratio 12 % Glucose 102 H (75-100) mg/dL Calcium 9.1 (8.4-10.2) mg/dL Total Bilirubin 0.70 (0.1-1.2) mg/dL AST 24 (5-40) units/L ALT 14 (7-56) units/L Alkaline Phosphatase 78 (35-129) units/L Troponin T 0.032 H (0.00-0.029) ng/mL Total Protein 7.4 (6.3-8.2) g/dL Albumin 4.2 (3.9-5) g/dL Albumin/Globulin Ratio 1.3 % - EKG Data -: EKG Interpreted by Ri EKG shows normal: sinus rhythm Rate: normal - EKG Data 01/17/22 07:26 The EKG is interpreted at 05: 2 5 This is a sinus rhythm, with a ventricular rate of 76 bpm. There is a normal axis, PVCs, QTC 5 5 2 ms, with a right bundle branch block morphology. There is motion artifact. There is no chest pain. This is an abnormal EKG. This is not a STEMI. Nonspecific changes were noted/compared to prior EKG. - Radiology Data Radiology results: pending, report reviewed, image reviewed CHEST 1 VIEW INDICATION / CLINICAL INFORMATION: chf. COMPARISON: 11/22/2021 FINDINGS: SUPPORT DEVICES: None. HEART / MEDIASTINUM: Sternotomy and cardiomegaly, unchanged LUNGS / PLEURA: No significant pulmonary or pleural abnormality. No pneumothorax. ADDITIONAL FINDINGS: No significant additional findings. IMPRESSION: 1. Stable cardiomegaly without CHF Signer Name: Gilberto Langford MD Signed: 01/17/2022 4:43 AM Workstation Name: [id number] - Medical Decision Making Differential diagnosis, including but not limited to: Congestive heart failure, dependent edema, pulmonary hypertension, obstructive sleep apnea, obesity hypoventilation syndrome, noncompliance, ischemic cardiomyopathy Assessment and plan: 61-year-old gentleman presenting with probable deco mpensated congestive heart failure. He is not having chest pain, elevated troponin is likely a type II troponin leak. His lower extremities do not demonstrate signs of superinfection. He also has mild hypoxic respiratory failure. I suspect this patient has underlying obstructive sleep apnea, but he is not clinically hypercarbic or encephalopathic at this time. We have recommended admission for diuresis, and optimization of decompensated congestive heart failure. The patient is agreeable to this plan of care. He reports he can take aspirin without difficulty. We will treat him with fentanyl for his mild lower extremity pain, high-dose Lasix for decompensated congestive heart failure, and continue aspirin. The hospital physician, Dr. Brown, is to admit this patient to the internal medical service. Critical Care Time: Yes Critical care time in (mins) excluding proc time.: 35 Critical care attestation.: If time is entered above; I have spent that time in minutes in the direct care of this critically ill patient, excluding procedure time. ED Disposition Clinical Impression: Acute respiratory failure with hypoxia, Acute on chronic HFrEF (heart failure with reduced ejection fraction), Ischemic cardiomyopathy, Medical non- compliance, Elevated troponin Disposition: 09 ADMITTED INPATIENT Is pt being admited?: Yes Does the pt Need Aspirin: Yes Condition: Good
[2022-01-17 06:56] LABS: Chol/HDL Ratio 3.12 %; HDL Cholesterol 41 mg/dL (40-59); LDL Cholesterol,Direct 80 mg/dL (50-130)
[2022-01-17] MEDS ORDERED: ACETAMINOPHEN 325 MG TAB PO PRN (07:25)
[2022-01-17] MEDS ORDERED: ONDANSETRON 4 MG/2 ML INJ IV PRN (07:25)
--- NOTE | 2022-01-17 08:07 | History and Physical Report ---
History of Present Illness Date of examination: 01/17/22 Date of admission: 01/17/2022 Chief complaint: Leg swelling History of present illness: Patient is a 61-year-old male with history of coronary artery disease status post CABG, chronic respiratory failure and established heart failure who presented to the emergency department with worsening lower extremity swelling x2 weeks. He reports taking all medications as prescribed to him. He has not been compliant with a low-sodium and fluid restricted diet. He eats chips and drinks gretchen shabbir daily. He has noticed that his Lasix has not helped him get more fluid off. He began having swelling in his legs and developed fluid filled blisters which have burst and is causing him pain. He also endorses PND and orthopnea. He has been unable to sleep for the past few days. He does have oxygen at home that he uses as needed. He has had to use the oxygen in order to sleep at night. He denies chest pain, cough and palpitations. Patient was admitted in November for CHF exacerbation. At that time echocardiogram showed LVEF of 35 to 40%. Patient was supposed to follow-up with Dr. [facility] after discharge, but did not. BNP was 9569. Chest x-ray was suggestive of cardiomegaly. He was admitted for acute CHF exacerbation. Past History Past Medical History: CAD, heart failure, hypertension, hyperlipidemia Past Surgical History: CABG Social history: no significant social history Family history: no significant family history Medications and Allergies Allergies Allergy/AdvReac Type Severity Reaction Status Date / Time ibuprofen AdvReac Anaphylaxis Verified 01/19/22 11:21 Home Medications Medication Instructions Recorded Confirmed Last Taken Type [facility]-3 Fatty Acids/Fish Oil [Fish 1,000 mg PO QDAY capsule 09/17/21 01/19/22 Unknown Rx Oil] Magnesium 500 mg PO DAILY 11/23/21 01/19/22 Unknown History Potassium 10 meq PO QDAY 11/25/21 01/19/22 Unknown History Vitamin E 400 unit PO BID 11/25/21 01/19/22 Unknown History Aspirin [Aspirin BABY CHEW TAB] 81 mg PO QDAY 30 Days #30 tab.chew 11/27/21 01/19/22 Unknown Rx Furosemide [Lasix TAB] 40 mg PO BID 30 Days #60 tab 11/27/21 01/19/22 Unknown Rx Losartan [Cozaar] 100 mg PO QDAY 30 Days #60 tablet 11/27/21 01/19/22 Unknown Rx Metoprolol [Lopressor TAB] 50 mg PO BID 30 Days #60 tab 11/27/21 01/19/22 Unknown Rx hydrALAZINE [Apresoline TAB] 50 mg PO BID 30 Days #60 tab 11/27/21 01/19/22 Unknown Rx Active Meds: Active Medications Acetaminophen (Acetaminophen 325 Mg Tab) 650 mg PO Q4H PRN PRN Reason: Pain MILD(1-3)/Fever >100.5/AVILA Aspirin (Aspirin 81 Mg Tab Chew) 81 mg PO QDAY [facility] Atorvastatin Calcium (Atorvastatin 40 Mg Tab) 40 mg PO QHS [facility] Furosemide (Furosemide 40 Mg/4 Ml Inj) 40 mg IV BID [facility] Losartan Potassium (Losartan 50 Mg Tab) 100 mg PO QDAY [facility] Metoprolol Tartrate (Metoprolol Tartrate 50 Mg Tab) 50 mg PO BID [facility] Morphine Sulfate (Morphine 4 Mg/1 Ml Inj) 4 mg IV Q4H PRN PRN Reason: Pain , Severe (7-10) Ondansetron HCl (Ondansetron 4 Mg/2 Ml Inj) 4 mg IV Q8H PRN PRN Reason: Nausea And Vomiting Oxycodone/Acetaminophen (Oxycodone /Acetaminophen 5-325mg Tab) 1 tab PO Q6H PRN PRN Reason: Pain, Moderate (4-6) Sodium Chloride (Sodium Chloride 0.9% 10 Ml Flush Syringe) 10 ml IV BID [facility] Sodium Chloride (Sodium Chloride 0.9% 10 Ml Flush Syringe) 10 ml IV PRN PRN PRN Reason: LINE FLUSH Spironolactone (Spironolactone 25 Mg Tab) 25 mg PO QDAY [facility] Review of Systems Constitutional: weight gain, no weight loss, no fever, no chills, no anorexia, no fatigue, no poor appetite, no daytime sleepiness Ears, nose, mouth and throat: deferred, odynophagia Cardiovascular: orthopnea, edema, shortness of breath, dyspnea on exertion, paroxysmal nocturnal dyspnea, high blood pressure, leg edema, no chest pain, no palpitations, no syncope, no lightheadedness Respiratory: home oxygen, no cough, no shortness of breath, no congestion, no wheezing Gastrointestinal: no abdominal pain, no nausea, no vomiting, no change in bowel habits Genitourinary Male: no dysuria, no urinary frequency, no urinary hesitancy, no incontinence, no polyuria Musculoskeletal: no neck stiffness, no shooting arm pain, no arm numbness/tingling, no low back pain, no leg numbness/tingling, no muscle weakness, no frequent falls Integumentary: blisters Neurological: no head injury, no numbness, no tingling, no tremors, no headaches, no migraines Endocrine: no cold intolerance, no heat intolerance, no polyphagia, no excessive thirst, no polydipsia, no polyuria, no nocturia Exam - Physical Exam Narrative exam: GENERAL: Well-developed well-nourished. In no acute distress. HEENT: Normocephalic. Atraumatic. NECK: Supple. CHEST/LUNGS: CTAB on room air HEART/CARDIOVASCULAR: RRR. No murmur, rubs or gallops appreciated. ABDOMEN: +BS. NT/ND. NEURO: No focal motor deficit. Follows all commands. MUSCULOSKELETAL: No joint effusion EXTREMITIES: 2+ BLE edema with unroofed fluid filled blisters. PSYCH: Cooperative. - Constitutional Vitals: Temp Pulse Resp BP Pulse Ox 98.3 F 83 15 184/107 89 01/16/22 19:51 01/17/22 06:01 01/17/22 06:01 01/17/22 06:01 01/17/22 06:01 HEART Score - HEART Score Troponin: Troponin T 0.032 ng/mL (0.00-0.029) H 01/17/22 06:13 Results - Labs CBC & Chem 7: 01/18/22 05:56 01/19/22 06:09 Labs: Laboratory Last Values WBC 5.8 K/mm3 (4.5-11.0) 01/17/22 06:13 RBC 4.54 M/mm3 (3.65-5.03) 01/17/22 06:13 Hgb 12.5 gm/dl (11.8-15.2) 01/17/22 06:13 Hct 39.1 % (35.5-45.6) 01/17/22 06:13 MCV 86 fl (84-94) 01/17/22 06:13 MCH 28 pg (28-32) 01/17/22 06:13 MCHC 32 % (32-34) 01/17/22 06:13 RDW 16.0 % (13.2-15.2) H 01/17/22 06:13 Plt Count 165 K/mm3 (140-440) 01/17/22 06:13 Lymph % (Auto) 19.2 % (13.4-35.0) 01/17/22 06:13 Edgar % (Auto) 12.6 % (0.0-7.3) H 01/17/22 06:13 Eos % (Auto) 2.2 % (0.0-4.3) 01/17/22 06:13 Baso % (Auto) 0.9 % (0.0-1.8) 01/17/22 06:13 Lymph # (Auto) 1.1 K/mm3 (1.2-5.4) L 01/17/22 06:13 Edgar # (Auto) 0.7 K/mm3 (0.0-0.8) 01/17/22 06:13 Eos # (Auto) 0.1 K/mm3 (0.0-0.4) 01/17/22 06:13 Baso # (Auto) 0.0 K/mm3 (0.0-0.1) 01/17/22 06:13 Seg Neutrophils % 65.1 % (40.0-70.0) 01/17/22 06:13 Seg Neutrophils # 3.8 K/mm3 (1.8-7.7) 01/17/22 06:13 Sodium 141 mmol/L (137-145) 01/17/22 06:13 Potassium 4.2 mmol/L (3.6-5.0) 01/17/22 06:13 Chloride 102.0 mmol/L (98-107) 01/17/22 06:13 Carbon Dioxide 29 mmol/L (22-30) 01/17/22 06:13 Anion Gap 14 mmol/L 01/17/22 06:13 BUN 15 mg/dL (9-20) 01/17/22 06:13 Creatinine 1.3 mg/dL (0.8-1.3) 01/17/22 06:13 Estimated GFR > 60 ml/min 01/17/22 06:13 BUN/Creatinine Ratio 12 % 01/17/22 06:13 Glucose 102 mg/dL (75-100) H 01/17/22 06:13 Calcium 9.1 mg/dL (8.4-10.2) 01/17/22 06:13 Magnesium 2.00 mg/dL (1.7-2.3) 01/17/22 06:50 Total Bilirubin 0.70 mg/dL (0.1-1.2) 01/17/22 06:13 AST 24 units/L (5-40) 01/17/22 06:13 ALT 14 units/L (7-56) 01/17/22 06:13 Alkaline Phosphatase 78 units/L (35-129) 01/17/22 06:13 Troponin T 0.032 ng/mL (0.00-0.029) H 01/17/22 06:13 NT-Pro-B Natriuret Pep 9569 pg/mL (0-900) H 01/17/22 06:13 Total Protein 7.4 g/dL (6.3-8.2) 01/17/22 06:13 Albumin 4.2 g/dL (3.9-5) 01/17/22 06:13 Albumin/Globulin Ratio 1.3 % 01/17/22 06:13 Triglycerides 50 mg/dL (2-149) 01/17/22 06:13 Cholesterol 128 mg/dL (50-199) 01/17/22 06:13 LDL Cholesterol Direct 80 mg/dL (50-130) 01/17/22 06:13 HDL Cholesterol 41 mg/dL (40-59) 01/17/22 06:13 Cholesterol/HDL Ratio 3.12 % 01/17/22 06:13 - Imaging and Cardiology Chest x-ray: report reviewed Assessment and Plan Assessment and plan: #Heart failure with reduced ejection fraction #Bilateral lower extremity edema #Dietary noncompliance -will resume GDMT: metoprolol, spironolactone, losartan -lasix 40mg IV BID -strict I/O's, cardiac diet -doppler LLE to r/o DVT #Acute on chronic hypoxic respiratory failure -Etiology: Heart failure -Baseline O2 requirement: 3 L/min as needed -Current oxygen requirement: 2 L/min -We will continue to monitor #Hypertension -continue home medications #History of CAD s/p CABG #Hyperlipidemia -continue ASA + statin #Non insulin dependent type 2 diabetes -controlled, patient not taking medications at home -will continue to monitor with BMPs -goal glucose 80-180 #Morbid obesity - Counseled patient on the importance of weight loss, incorporating exercise, and dietary changes (lean meats, fresh fruits and vegetables, and water intake). Patient expresses understanding. - Time: +15 min #Advanced care planning -Disease education conducted, care plan discussed, diagnoses discussed, prognosis discussed, and patient acknowledges understanding with care plan -Time: +30 min Advance Directives: No VTE prophylaxis?: Chemical Plan of care discussed with patient/family: Yes
[2022-01-17] MEDS: METOPROLOL TARTRATE 50 MG TAB PO SCH ×2 (10:53→22:39)
[2022-01-17] MEDS: FUROSEMIDE 40 MG/4 ML INJ IV SCH ×2 (10:53→22:39)
[2022-01-17] MEDS: ASPIRIN 81 MG TAB CHEW PO SCH (10:54)
[2022-01-17] MEDS: LOSARTAN 50 MG TAB PO SCH (11:23)
[2022-01-17] MEDS: SPIRONOLACTONE 25 MG TAB PO SCH (11:23)
[2022-01-17] MEDS: MORPHINE 4 MG/1 ML INJ IV PRN (11:26)
[2022-01-17] MEDS: BACITRACIN ZINC OINT 28.4 GM TP SCH ×2 (15:51→22:40)
[2022-01-17] MEDS ORDERED: hydrALAZINE 20 MG/1 ML INJ IV PRN (20:04)
[2022-01-17] MEDS: oxyCODONE /ACETAMINOPHEN 5-325MG TAB PO PRN (23:39)
[2022-01-18] MEDS: MORPHINE 4 MG/1 ML INJ IV PRN ×3 (05:38→22:58)
[2022-01-18 06:42] LABS: Hemoglobin 11.6 gm/dl (11.8-15.2)
[2022-01-18 06:47] LABS: BUN/Creatinine Ratio 13; Blood Urea Nitrogen 16 mg/dL (9-20); Calcium 8.5 mg/dL (8.4-10.2); Hemolysis Index 4
[2022-01-18 06:57] LABS: Basophils # (Auto) 0.1 K/mm3 (0.0-0.1); Basophils % (Auto) 1.1 % (0.0-1.8); Eosinophils # (Auto) 0.2 K/mm3 (0.0-0.4); Eosinophils % (Auto) 3.7 % (0.0-4.3); Hematocrit 36.2 % (35.5-45.6); Lymphocytes # (Auto) 1.2 K/mm3 (1.2-5.4); Lymphocytes % (Auto) 24.8 % (13.4-35.0); Mean Corpuscular HGB Conc 32 % (32-34); Mean Corpuscular Volume 85 fl (84-94); Monocytes # (Auto) 0.5 K/mm3 (0.0-0.8); Monocytes % (Auto) 11.1 % (0.0-7.3); Platelet Count 164 K/mm3 (140-440); Red Blood Count 4.25 M/mm3 (3.65-5.03); Red Cell Distribution Width 15.5 % (13.2-15.2)
--- NOTE | 2022-01-18 09:08 | Progress Note ---
Assessment and Plan Assessment and plan: #Heart failure with reduced ejection fraction #Bilateral lower extremity edema #Dietary noncompliance -continue metoprolol, spironolactone, losartan -lasix 40mg IV BID, will switch to bumex 1mg BID -strict I/O's, cardiac diet -doppler LLE to r/o DVT completed, read pending -will need to follow up with Cardiology outpatient #Acute on chronic hypoxic respiratory failure -Etiology: Heart failure -Baseline O2 requirement: 3 L/min as needed -Current oxygen requirement: 2 L/min -continue pulse oximetry -We will continue to monitor #Hypertension -continue home medications #History of CAD s/p CABG #Hyperlipidemia -continue ASA + statin #Non insulin dependent type 2 diabetes -controlled, patient not taking medications at home -will continue to monitor with BMPs -goal glucose 80-180 #Morbid obesity - Counseled patient on the importance of weight loss, incorporating exercise, and dietary changes (lean meats, fresh fruits and vegetables, and water intake). Patient expresses understanding. - Time: +15 min #Advanced care planning -Disease education conducted, care plan discussed, diagnoses discussed, prognosis discussed, and patient acknowledges understanding with care plan -Time: +30 min History Interval history: No acute events overnight. Patient reports feeling better. He continues to have pain in bilateral lower extremities where the blisters have unroofed. He has no other complaints at this time. Hospitalist Physical - Physical exam Narrative exam: GENERAL: Well-developed well-nourished. In no acute distress. HEENT: Normocephalic. Atraumatic. NECK: Supple. CHEST/LUNGS: CTAB on room air HEART/CARDIOVASCULAR: RRR. No murmur, rubs or gallops appreciated. ABDOMEN: +BS. NT/ND. NEURO: No focal motor deficit. Follows all commands. MUSCULOSKELETAL: No joint effusion EXTREMITIES: 2+ BLE edema with unroofed fluid filled blisters. PSYCH: Cooperative. - Constitutional Vitals: Temp Pulse Resp BP Pulse Ox 97.3 F L 63 18 139/67 100 01/18/22 04:50 01/18/22 04:50 01/18/22 06:08 01/18/22 04:50 01/18/22 04:50 HEART Score - HEART Score Troponin: Troponin T 0.032 ng/mL (0.00-0.029) H 01/17/22 06:13 Results - Labs CBC & Chem 7: 01/18/22 05:56 01/19/22 06:09 Labs: Laboratory Last Values WBC 4.8 K/mm3 (4.5-11.0) 01/18/22 05:56 RBC 4.25 M/mm3 (3.65-5.03) 01/18/22 05:56 Hgb 11.6 gm/dl (11.8-15.2) L 01/18/22 05:56 Hct 36.2 % (35.5-45.6) 01/18/22 05:56 MCV 85 fl (84-94) 01/18/22 05:56 MCH 27 pg (28-32) L 01/18/22 05:56 MCHC 32 % (32-34) 01/18/22 05:56 RDW 15.5 % (13.2-15.2) H 01/18/22 05:56 Plt Count 164 K/mm3 (140-440) 01/18/22 05:56 Lymph % (Auto) 24.8 % (13.4-35.0) 01/18/22 05:56 Leon % (Auto) 11.1 % (0.0-7.3) H 01/18/22 05:56 Eos % (Auto) 3.7 % (0.0-4.3) 01/18/22 05:56 Baso % (Auto) 1.1 % (0.0-1.8) 01/18/22 05:56 Lymph # (Auto) 1.2 K/mm3 (1.2-5.4) 01/18/22 05:56 Leon # (Auto) 0.5 K/mm3 (0.0-0.8) 01/18/22 05:56 Eos # (Auto) 0.2 K/mm3 (0.0-0.4) 01/18/22 05:56 Baso # (Auto) 0.1 K/mm3 (0.0-0.1) 01/18/22 05:56 Seg Neutrophils % 59.3 % (40.0-70.0) 01/18/22 05:56 Seg Neutrophils # 2.8 K/mm3 (1.8-7.7) 01/18/22 05:56 Sodium 141 mmol/L (137-145) 01/18/22 05:56 Potassium 3.6 mmol/L (3.6-5.0) 01/18/22 05:56 Chloride 100.2 mmol/L (98-107) 01/18/22 05:56 Carbon Dioxide 32 mmol/L (22-30) H 01/18/22 05:56 Anion Gap 12 mmol/L 01/18/22 05:56 BUN 16 mg/dL (9-20) 01/18/22 05:56 Creatinine 1.2 mg/dL (0.8-1.3) 01/18/22 05:56 Estimated GFR > 60 ml/min 01/18/22 05:56 BUN/Creatinine Ratio 13 % 01/18/22 05:56 Glucose 86 mg/dL (75-100) 01/18/22 05:56 Calcium 8.5 mg/dL (8.4-10.2) 01/18/22 05:56 Magnesium 2.00 mg/dL (1.7-2.3) 01/17/22 06:50 Total Bilirubin 0.70 mg/dL (0.1-1.2) 01/17/22 06:13 AST 24 units/L (5-40) 01/17/22 06:13 ALT 14 units/L (7-56) 01/17/22 06:13 Alkaline Phosphatase 78 units/L (35-129) 01/17/22 06:13 Troponin T 0.032 ng/mL (0.00-0.029) H 01/17/22 06:13 NT-Pro-B Natriuret Pep 9569 pg/mL (0-900) H 01/17/22 06:13 Total Protein 7.4 g/dL (6.3-8.2) 01/17/22 06:13 Albumin 4.2 g/dL (3.9-5) 01/17/22 06:13 Albumin/Globulin Ratio 1.3 % 01/17/22 06:13 Triglycerides 50 mg/dL (2-149) 01/17/22 06:13 Cholesterol 128 mg/dL (50-199) 01/17/22 06:13 LDL Cholesterol Direct 80 mg/dL (50-130) 01/17/22 06:13 HDL Cholesterol 41 mg/dL (40-59) 01/17/22 06:13 Cholesterol/HDL Ratio 3.12 % 01/17/22 06:13 Quiroz/IV: Voiding Method Urinal Active Medications - Current Medications Current Medications: Generic Name Dose Route Start Last Admin Trade Name Freq PRN Reason Stop Dose Admin Acetaminophen 650 mg 01/17/22 07:25 Acetaminophen 325 Mg Tab PO Q4H PRN Pain MILD(1-3)/Fever >100.5/AVILA Aspirin 81 mg 01/17/22 10:00 01/17/22 10:54 Aspirin 81 Mg Tab Chew PO 81 mg QDAY [facility] Administration Atorvastatin Calcium 40 mg 01/17/22 22:00 01/17/22 22:39 Atorvastatin 40 Mg Tab PO 40 mg QHS [facility] Administration Bacitracin 1 applic 01/17/22 12:00 01/17/22 22:40 Bacitracin Zinc Oint 28.4 Gm TP 1 applic BID [facility] Administration Furosemide 40 mg 01/17/22 10:00 01/17/22 22:39 Furosemide 40 Mg/4 Ml Inj IV 40 mg BID [facility] Administration Heparin Sodium (Porcine) 5,000 unit 01/18/22 10:00 Heparin 5,000 Unit/1 Ml Vial SUB-Q Q12HR [facility] Hydralazine HCl 10 mg 01/17/22 20:04 Hydralazine 20 Mg/1 Ml Inj IV Q3HR PRN Blood Pressure Losartan Potassium 100 mg 01/17/22 10:00 01/17/22 11:23 Losartan 50 Mg Tab PO Not Given QDAY [facility] Metoprolol Tartrate 50 mg 01/17/22 10:00 01/17/22 22:39 Metoprolol Tartrate 50 Mg Tab PO 50 mg BID [facility] Administration Morphine Sulfate 4 mg 01/17/22 07:25 01/18/22 05:38 Morphine 4 Mg/1 Ml Inj IV 4 mg Q4H PRN Administration Pain , Severe (7-10) Ondansetron HCl 4 mg 01/17/22 07:25 Ondansetron 4 Mg/2 Ml Inj IV Q8H PRN Nausea And Vomiting Oxycodone/Acetaminophen 1 tab 01/17/22 07:25 01/17/22 23:39 Oxycodone /Acetaminophen 5-325mg Tab PO 1 tab Q6H PRN Administration Pain, Moderate (4-6) Sodium Chloride 10 ml 01/17/22 10:00 06/04/22 22:39 Sodium Chloride 0.9% 10 Ml Flush Syringe IV 10 ml BID [facility] Administration Sodium Chloride 10 ml 01/17/22 07:25 Sodium Chloride 0.9% 10 Ml Flush Syringe IV PRN PRN LINE FLUSH Spironolactone 25 mg 01/17/22 10:00 01/17/22 11:23 Spironolactone 25 Mg Tab PO Not Given QDAY [facility] Nutrition/Malnutrition Assess - Dietary Evaluation Nutrition/Malnutrition Findings: Nutrition Notes Start: 01/17/22 14:23 Freq: Status: Active Protocol: Document 01/17/22 14:23 WILMA (Rec: 01/17/22 14:51 WILMA [id number]) Nutrition Notes 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 Labs/Tests 01/17: Glu 102. Pertinent Medications 01/17: Nutritionally unremarkable. 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 Weight Status Morbidly Obese Subjective/Other Information RD consult for difficulty chewing assessment. No reports available on Pt's PO intajke of meals at the time, will assess at F/U. Pt is on Nasal Cannula, O2 saturation @ 99%, according to RN notes. Pt lives at home with family, according to ER Physician Documentation notes. There are no reports concerning any signs for difficulty chewing at this time, will assess at F/U; meanwhile, I will prescribe mechanical modification of meats to facilitate PO intake for possible difficulty chewing. Percent of energy/protein needs met: Prescribed Cardiac -Chopped Meats- Diet provides for energy/protein needs (2,230 Kcal/85 g) during LOS. Burn Absent Trauma Absent GI Symptoms None Food Allergy No Skin Integrity/Comment Bilateral-LE Swelling/Blisters . 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 As Evidenced by Signs and Symptoms RN concern for difficulty chewing. Is patient on ventilator? No Is Patient Ambulatory and/or Out of Bed Yes REE-(Avery-St. Jeor-ambulatory/OOB) [ 3000.530 [id number]] Kcal/Kg value to use for calculation 14 Approximate Energy Requirements Using 2096 kcal/Kg Calculation Used for Recommendations Kcal/kg Additional Notes Protein: 0.8-1 g/Kg AdjBW; 90- 113 g/day. Fluids: 1 ml/Kcal, or as per MD. Nutrition Intervention Change Diet Order: Modify to Cardiac -Chopped Meats- Diet. Goal #1 Facilitate PO intake of meals with elemental, textural, or mechanical modification during LOS. Goal #2 Maintain body weight within +/ -3% of admission body weight during LOS. Follow-Up By: 01/23/22 Additional Comments Continue monitoring food tolerance, %PO intake of meals , and BM.
[2022-01-18] MEDS: ASPIRIN 81 MG TAB CHEW PO SCH (09:42)
[2022-01-18] MEDS: FUROSEMIDE 40 MG/4 ML INJ IV SCH (09:42)
[2022-01-18] MEDS: SPIRONOLACTONE 25 MG TAB PO SCH (09:43)
[2022-01-18] MEDS: HEPARIN 5,000 UNIT/1 ML VIAL SUB-Q SCH ×2 (09:43→22:57)
[2022-01-18] MEDS: METOPROLOL TARTRATE 50 MG TAB PO SCH ×2 (09:43→22:57)
[2022-01-18] MEDS: LOSARTAN 50 MG TAB PO SCH (09:44)
[2022-01-18] MEDS: BACITRACIN ZINC OINT 28.4 GM TP SCH ×2 (09:44→23:01)
[2022-01-18] MEDS: BUMETANIDE 1 MG/4 ML INJ IV SCH (17:37)
[2022-01-18] MEDS: oxyCODONE /ACETAMINOPHEN 5-325MG TAB PO PRN (17:38)
[2022-01-19] MEDS: MORPHINE 4 MG/1 ML INJ IV PRN ×4 (02:44→22:51)
[2022-01-19 06:53] LABS: BUN/Creatinine Ratio 15; Blood Urea Nitrogen 16 mg/dL (9-20); Calcium 8.5 mg/dL (8.4-10.2); Hemolysis Index 3
[2022-01-19] MEDS: BUMETANIDE 1 MG/4 ML INJ IV SCH ×2 (07:17→18:33)
[2022-01-19] MEDS: ASPIRIN 81 MG TAB CHEW PO SCH (09:54)
[2022-01-19] MEDS: HEPARIN 5,000 UNIT/1 ML VIAL SUB-Q SCH ×2 (09:54→22:40)
[2022-01-19] MEDS: METOPROLOL TARTRATE 50 MG TAB PO SCH ×2 (09:55→22:39)
[2022-01-19] MEDS: LOSARTAN 50 MG TAB PO SCH (09:55)
[2022-01-19] MEDS: SPIRONOLACTONE 25 MG TAB PO SCH (09:55)
[2022-01-19] MEDS: BACITRACIN ZINC OINT 28.4 GM TP SCH ×2 (09:56→22:43)
--- NOTE | 2022-01-19 10:24 | Vascular Lab Report ---
DUPLEX DOPPLER LOWER EXTREMITY VEINS, LEFT INDICATION / CLINICAL INFORMATION: pain and swelling. TECHNIQUE: Duplex doppler imaging was performed through the veins of the left lower extremity using venous compr ession and other maneuvers. COMPARISON: None available. FINDINGS: LEFT COMMON FEMORAL VEIN: Negative. LEFT FEMORAL VEIN: Negative. LEFT POPLITEAL VEIN: Negative. LEFT CALF VEINS: Negative. ADDITIONAL FINDINGS: None. IMPRESSION: 1. No sonographic evidence for DVT in the left lower extremity. Signer Name: Francesco Horan MD Signed: 01/19/2022 10:20 AM Workstation Name: [id number]
--- NOTE | 2022-01-19 11:41 | Progress Note ---
Assessment and Plan Assessment and plan: #Heart failure with reduced ejection fraction #Bilateral lower extremity edema #Dietary noncompliance -continue metoprolol, spironolactone, losartan -continue bumex 1mg BID, will convert to PO in the AM -strict I/O's, cardiac diet -doppler LLE negative for DVT -will need to follow up with Cardiology outpatient #Acute on chronic hypoxic respiratory failure -Etiology: Heart failure -Baseline O2 requirement: 3 L/min as needed -Current oxygen requirement: 2 L/min -continue pulse oximetry -We will continue to monitor #Hypertension -continue home medications #History of CAD s/p CABG #Hyperlipidemia -continue ASA + statin #Non insulin dependent type 2 diabetes -controlled, patient not taking medications at home -will continue to monitor with BMPs -goal glucose 80-180 #Morbid obesity - Counseled patient on the importance of weight loss, incorporating exercise, and dietary changes (lean meats, fresh fruits and vegetables, and water intake). Patient expresses understanding. - Time: +15 min #Advanced care planning -Disease education conducted, care plan discussed, diagnoses discussed, prognosis discussed, and patient acknowledges understanding with care plan -Time: +30 min History Interval history: No acute events overnight. Patient reports having lots of urinary output with switch from Lasix to Bumex. He denies shortness of breath, PND and orthopnea. He has no complaints at this time. Hospitalist Physical - Physical exam Narrative exam: GENERAL: Well-developed well-nourished. In no acute distress. HEENT: Normocephalic. Atraumatic. NECK: Supple. CHEST/LUNGS: CTAB on room air HEART/CARDIOVASCULAR: RRR. No murmur, rubs or gallops appreciated. ABDOMEN: +BS. NT/ND. NEURO: No focal motor deficit. Follows all commands. MUSCULOSKELETAL: No joint effusion EXTREMITIES: 2+ BLE edema with unroofed fluid filled blisters that are healing PSYCH: Cooperative. - Constitutional Vitals: Temp Pulse Resp BP Pulse Ox 97.7 F 68 17 140/80 98 01/18/22 21:52 01/18/22 22:57 01/18/22 23:00 01/19/22 09:55 01/19/22 10:18 HEART Score - HEART Score Troponin: Troponin T 0.032 ng/mL (0.00-0.029) H 01/17/22 06:13 Results - Labs CBC & Chem 7: 01/18/22 05:56 01/19/22 06:09 Labs: Laboratory Last Values WBC 4.8 K/mm3 (4.5-11.0) 01/18/22 05:56 RBC 4.25 M/mm3 (3.65-5.03) 01/18/22 05:56 Hgb 11.6 gm/dl (11.8-15.2) L 01/18/22 05:56 Hct 36.2 % (35.5-45.6) 01/18/22 05:56 MCV 85 fl (84-94) 01/18/22 05:56 MCH 27 pg (28-32) L 01/18/22 05:56 MCHC 32 % (32-34) 01/18/22 05:56 RDW 15.5 % (13.2-15.2) H 01/18/22 05:56 Plt Count 164 K/mm3 (140-440) 01/18/22 05:56 Lymph % (Auto) 24.8 % (13.4-35.0) 01/18/22 05:56 [place] % (Auto) 11.1 % (0.0-7.3) H 01/18/22 05:56 Eos % (Auto) 3.7 % (0.0-4.3) 01/18/22 05:56 Baso % (Auto) 1.1 % (0.0-1.8) 01/18/22 05:56 Lymph # (Auto) 1.2 K/mm3 (1.2-5.4) 01/18/22 05:56 [place] # (Auto) 0.5 K/mm3 (0.0-0.8) 01/18/22 05:56 Eos # (Auto) 0.2 K/mm3 (0.0-0.4) 01/18/22 05:56 Baso # (Auto) 0.1 K/mm3 (0.0-0.1) 01/18/22 05:56 Seg Neutrophils % 59.3 % (40.0-70.0) 01/18/22 05:56 Seg Neutrophils # 2.8 K/mm3 (1.8-7.7) 01/18/22 05:56 Sodium 143 mmol/L (137-145) 01/19/22 06:09 Potassium 3.8 mmol/L (3.6-5.0) 01/19/22 06:09 Chloride 101.2 mmol/L (98-107) 01/19/22 06:09 Carbon Dioxide 33 mmol/L (22-30) H 01/19/22 06:09 Anion Gap 13 mmol/L 01/19/22 06:09 BUN 16 mg/dL (9-20) 01/19/22 06:09 Creatinine 1.1 mg/dL (0.8-1.3) 01/19/22 06:09 Estimated GFR > 60 ml/min 01/19/22 06:09 BUN/Creatinine Ratio 15 % 01/19/22 06:09 Glucose 103 mg/dL (75-100) H 01/19/22 06:09 Calcium 8.5 mg/dL (8.4-10.2) 01/19/22 06:09 Magnesium 1.90 mg/dL (1.7-2.3) 01/19/22 06:09 Total Bilirubin 0.70 mg/dL (0.1-1.2) 01/17/22 06:13 AST 24 units/L (5-40) 01/17/22 06:13 ALT 14 units/L (7-56) 01/17/22 06:13 Alkaline Phosphatase 78 units/L (35-129) 01/17/22 06:13 Troponin T 0.032 ng/mL (0.00-0.029) H 01/17/22 06:13 NT-Pro-B Natriuret Pep 9569 pg/mL (0-900) H 01/17/22 06:13 Total Protein 7.4 g/dL (6.3-8.2) 01/17/22 06:13 Albumin 4.2 g/dL (3.9-5) 01/17/22 06:13 Albumin/Globulin Ratio 1.3 % 01/17/22 06:13 Triglycerides 50 mg/dL (2-149) 01/17/22 06:13 Cholesterol 128 mg/dL (50-199) 01/17/22 06:13 LDL Cholesterol Direct 80 mg/dL (50-130) 01/17/22 06:13 HDL Cholesterol 41 mg/dL (40-59) 01/17/22 06:13 Cholesterol/HDL Ratio 3.12 % 01/17/22 06:13 Nasal Screen MRSA (PCR) Negative (Negative) 01/17/22 14:30 [place]z/IV: Voiding Method Urinal Active Medications - Current Medications Current Medications: Generic Name Dose Route Start Last Admin Trade Name Freq PRN Reason Stop Dose Admin Acetaminophen 650 mg 01/17/22 07:25 Acetaminophen 325 Mg Tab PO Q4H PRN Pain MILD(1-3)/Fever >100.5/AVILA Aspirin 81 mg 01/17/22 10:00 01/19/22 09:54 Aspirin 81 Mg Tab Chew PO 81 mg QDAY NEO Administration Atorvastatin Calcium 40 mg 01/17/22 22:00 01/18/22 22:57 Atorvastatin 40 Mg Tab PO 40 mg QHS NEO Administration Bacitracin 1 applic 01/17/22 12:00 01/19/22 09:56 Bacitracin Zinc Oint 28.4 Gm TP 1 applic BID NEO Administration Bumetanide 1 mg 01/18/22 18:00 01/19/22 07:17 Bumetanide 1 Mg/4 Ml Inj IV 1 mg BID@0600,1800 NEO Administration Heparin Sodium (Porcine) 5,000 unit 01/18/22 10:00 01/19/22 09:54 Heparin 5,000 Unit/1 Ml Vial SUB-Q 5,000 unit Q12HR NEO Administration Hydralazine HCl 10 mg 01/17/22 20:04 Hydralazine 20 Mg/1 Ml Inj IV Q3HR PRN Blood Pressure Losartan Potassium 100 mg 01/17/22 10:00 01/19/22 09:55 Losartan 50 Mg Tab PO 100 mg QDAY NEO Administration Metoprolol Tartrate 50 mg 01/17/22 10:00 01/19/22 09:55 Metoprolol Tartrate 50 Mg Tab PO 50 mg BID NEO Administration Morphine Sulfate 4 mg 01/17/22 07:25 01/19/22 07:22 Morphine 4 Mg/1 Ml Inj IV 4 mg Q4H PRN Administration Pain , Severe (7-10) Ondansetron HCl 4 mg 01/17/22 07:25 Ondansetron 4 Mg/2 Ml Inj IV Q8H PRN Nausea And Vomiting Oxycodone/Acetaminophen 1 tab 01/17/22 07:25 01/18/22 17:38 Oxycodone /Acetaminophen 5-325mg Tab PO 1 tab Q6H PRN Administration Pain, Moderate (4-6) Sodium Chloride 10 ml 01/17/22 10:00 01/19/22 09:55 Sodium Chloride 0.9% 10 Ml Flush Syringe IV 10 ml BID NEO Administration Sodium Chloride 10 ml 01/17/22 07:25 Sodium Chloride 0.9% 10 Ml Flush Syringe IV PRN PRN LINE FLUSH Spironolactone 25 mg 01/17/22 10:00 01/19/22 09:55 Spironolactone 25 Mg Tab PO 25 mg QDAY NEO Administration Nutrition/Malnutrition Assess - Dietary Evaluation Nutrition/Malnutrition Findings: Nutrition Notes Start: 01/17/22 14:23 Freq: Status: Active Protocol: Document 01/17/22 14:23 WILMA (Rec: 01/17/22 14:51 WILMA [id number]) Nutrition Notes Need for Assessment generated from: therapy site coordinator Initial or Follow up Assessment Current Diagnosis Coronary Artery Disease, Respiratory Failure Other Pertinent Diagnosis Cardiomyopathy, s/p CABG, HFrEF, Bilateral-LE Swelling/ Blisters, Tachycardi Current Diet Cardiac -Chopped Meats- Diet ( since L 01/17). Labs/Tests 01/17: Glu 102. Pertinent Medications 01/17: Nutritionally unremarkable. 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 Weight Status Morbidly Obese Subjective/Other Information RD consult for difficulty chewing assessment. No reports available on Pt's PO intajke of meals at the time, will assess at F/U. Pt is on Nasal Cannula, O2 saturation @ 99%, according to RN notes. Pt lives at home with family, according to ER Physician Documentation notes. There are no reports concerning any signs for difficulty chewing at this time, will assess at F/U; meanwhile, I will prescribe mechanical modification of meats to facilitate PO intake for possible difficulty chewing. Percent of energy/protein needs met: Prescribed Cardiac -Chopped Meats- Diet provides for energy/protein needs (2,230 Kcal/85 g) during LOS. Burn Absent Trauma Absent GI Symptoms None Food Allergy No Skin Integrity/Comment Bilateral-LE Swelling/Blisters . Minimum of two criteria No Fluid Accumulation Moderate to Severe (severe) Red[employer] Strength N/A (non-severe) Protein-Calorie Malnutrition N\A #1 Nutrition Diagnosis Biting/Chewing (masticatory) difficulty Etiology Uncertain. As Evidenced by Signs and Symptoms RN concern for difficulty chewing. Is patient on ventilator? No Is Patient Ambulatory and/or Out of Bed Yes REE-([place]-ambulatory/OOB) [ 3000.530 NUTR.MSJOOB] Kcal/Kg value to use for calculation 14 Approximate Energy Requirements Using 2096 kcal/Kg Calculation Used for Recommendations Kcal/kg Additional Notes Protein: 0.8-1 g/Kg AdjBW; 90- 113 g/day. Fluids: 1 ml/Kcal, or as per MD. Nutrition Intervention Change Diet Order: Modify to Cardiac -Chopped Meats- Diet. Goal #1 Facilitate PO intake of meals with elemental, textural, or mechanical modification during LOS. Goal #2 Maintain body weight within +/ -3% of admission body weight during LOS. Follow-Up By: 01/23/22 Additional Comments Continue monitoring food tolerance, %PO intake of meals , and BM.
[2022-01-19] MEDS: CLINDAMYCIN 150 MG CAP PO SCH ×2 (14:44→22:40)
[2022-01-19] MEDS: hydrALAZINE 25 MG TAB PO SCH (22:39)
[2022-01-20] MEDS ORDERED: DOCUSATE SODIUM 100 MG CAP PO ONE (01:13)
[2022-01-20] MEDS ORDERED: BUMETANIDE 1 MG TAB PO SCH (06:00)
[2022-01-20 07:12] LABS: BUN/Creatinine Ratio 15; Blood Urea Nitrogen 15 mg/dL (9-20); Calcium 8.4 mg/dL (8.4-10.2); Hemolysis Index 6
[2022-01-20] MEDS: CLINDAMYCIN 150 MG CAP PO SCH ×2 (08:00→13:35)
[2022-01-20] MEDS: ASPIRIN 81 MG TAB CHEW PO SCH (09:53)
[2022-01-20 09:54] VITALS: BP 150/60
[2022-01-20] MEDS: HEPARIN 5,000 UNIT/1 ML VIAL SUB-Q SCH (09:54)
[2022-01-20] MEDS: hydrALAZINE 25 MG TAB PO SCH (09:54)
[2022-01-20] MEDS: SPIRONOLACTONE 25 MG TAB PO SCH (09:54)
[2022-01-20] MEDS: LOSARTAN 50 MG TAB PO SCH (09:54)
[2022-01-20] MEDS: BACITRACIN ZINC OINT 28.4 GM TP SCH (09:55)
[2022-01-20] MEDS: METOPROLOL TARTRATE 50 MG TAB PO SCH (09:55)
--- NOTE | 2022-01-20 10:52 | Discharge Summary ---
Providers - Providers Date of Admission: 01/17/22 07:25 Date of discharge: 01/20/22 Attending physician: SHANNAN HERNANDEZ MD Primary care physician: TAMMIE REYES Hospitalization Reason for admission: CHF exacerbation Condition: Good Hospital course: Patient is a 61-year-old male with history of coronary artery disease status p ost CABG, chronic respiratory failure and heart failure who presented to the ED with lower extremity edema x2 weeks. He was admitted for CHF exacerbation. He was started on Lasix 40 mg IV twice daily with great urine output. Patient reports that Lasix has not been working recently at home. He was transitioned to Bumex. His symptoms significantly improved and he was discharged home with instruction to follow-up with cardiology. Disposition: 01 HOME / SELF CARE / HOMELESS Final Discharge Diagnosis (Prints w/discharge instructions): Acute on chronic heart failure with reduced ejection fraction. Bilateral lower extremity edema. Dietary noncompliance. Acute on chronic hypoxic respiratory failure. Hypertension. Hyperlipidemia. History of CAD status post CABG. Ycp-[id number]-uhomnusdr type 2 diabetes. Morbid obesity Time spent for discharge: 40 minutes Core Measure Documentation - Palliative Care Palliative Care/ Comfort Measures: Not Applicable - Core Measures Any of the following diagnoses?: heart failure - Heart Failure Discharge Requirements FACUNDO/ARB for LVSD if EF <40%: Yes Beta michelle at discharge: Yes Exam - Physical Exam Narrative exam: GENERAL: Well-developed well-nourished. In no acute distress. HEENT: Normocephalic. Atraumatic. NECK: Supple. CHEST/LUNGS: CTAB on room air HEART/CARDIOVASCULAR: RRR. No murmur, rubs or gallops appreciated. ABDOMEN: +BS. NT/ND. NEURO: No focal motor deficit. Follows all commands. MUSCULOSKELETAL: No joint effusion EXTREMITIES: 2+ BLE edema with unroofed fluid filled blisters that are healing PSYCH: Cooperative. - Constitutional Vitals: Temp Pulse Resp BP Pulse Ox 98.8 F 73 18 150/60 94 01/20/22 05:58 01/20/22 05:58 01/20/22 05:58 01/20/22 09:54 01/20/22 10:00 Plan Care Plan Goals: Please follow up with your primary care provider. Please make an appointment with Dr. Powell or a training mgr referred to you by your PCP as soon as possible. Please take all medications as prescribed. Make sure you limit your consumption of salty foods and fluids as discussed. Follow up with: TAMMIE REYES MD [Primary Care Provider] - 7 Days MARTIN POWELL MD [Staff Physician] - 14 Days Prescriptions: AtorvaSTATin [Lipitor] 40 mg PO QHS 30 Days #30 tablet Spironolactone [Aldactone] 25 mg PO QDAY 30 Days #30 tablet Bumetanide [Bumex 1 mg tab] 1 mg PO 0600,1800 30 Days #60 tablet Clindamycin [Clindamycin CAP] 450 mg PO TID 4 Days #36 capsule Vitamin E 400 unit PO BID 30 Days #60 cap
--- NOTE | 2022-01-20 12:16 | Electrocardiograph Report ---
[facility] Test Date: 2022-01-17 Test Time: 05:25:48 Pat Name: JANET RIVERA Department: Room: A360 Gender: M Senior Medical Technologist: KELSI : 1960 Requested By: ASHTYN JIMENEZ Order Number: [id number] Reading MD: Joslyn Braga Measurements Intervals [place] Rate: 76 P: 66 [place]: 181 QRS: 150 QRSD: 175 T: 16 QT: 491 QTc: 552 Interpretive Statements Sinus rhythm Ventricular premature complexes Right bundle branch block Compared to ECG 11/22/2021 23:33:44 Ventricular premature complex(es) now present Electronically Signed On 01-20-2022 12:15:50 EDT by Joslyn Braga
== END 2022-01-20 15:05 | disposition home health service (06) | DRG 291 ==
LOC: ED 19:06 → 3A 01-17 07:25
PROVIDERS: ADMIT Student in an Organized Health Care Education/Training Program; ATTEND Student in an Organized Health Care Education/Training Program
DX: I11.0 Hypertensive heart disease with heart failure (principal); I50.23 Acute on chronic systolic (congestive) heart failure; J96.21 Acute and chronic respiratory failure with hypoxia; Z68.42 Body mass index [BMI] 45.0-49.9, adult; I25.5 Ischemic cardiomyopathy; M19.90 Unspecified osteoarthritis, unspecified site; Z91.14 Patient's other noncompliance with medication regimen; I25.10 Atherosclerotic heart disease of native coronary artery without angina pectoris; Z95.1 Presence of aortocoronary bypass graft; E78.5 Hyperlipidemia, unspecified; Z88.8 Allergy status to other drugs, medicaments and biological substances; E66.01 Morbid (severe) obesity due to excess calories; E11.9 Type 2 diabetes mellitus without complications; J45.909 Unspecified asthma, uncomplicated
CPT/HCPCS: 36415; 71045; 80048; 80053; 80061; 82962; 83735; 83880; 84484; 85025; 87641; 93005; 94760; G0378; J3490; J1644; J1940; J2270; J3010

== ENCOUNTER 2022-01-31 02:26 | Emergency (ER) | payer MEDICARE ==
[2022-01-31 03:08] VITALS: BP 170/96
== END 2022-02-01 07:27 | disposition left against medical advice (07) ==
LOC: ED 02:26
DX: I50.9 Heart failure, unspecified (principal); Z53.21 Procedure and treatment not carried out due to patient leaving prior to being seen by health care provider